=== PATIENT | male | born 1985 | race Caucasian/White ===

== ENCOUNTER 2017-10-19 08:12 | Observation (INO) | payer BC ==
[2017-10-19 08:55] LABS: #Basophils 0.1 thou/uL (0.0-0.2); #Eosinphils 0.3 thou/uL (0.0-0.7); #Lymphocytes 2.5 thou/uL (1.20-3.40); #Monocytes 0.6 thou/uL (0.11-0.59); %Basophils 0.9 % (0.0-1.0); %Eosinophils 3.5 % (0.0-10.0); %Lymphocytes 29.5 % (21.0-51.0); %Monocytes 7.5 % (0.0-10.0); %Neutrophils 58.6 % (42.0-75.0); Hemoglobin 15.1 g/dL (14.0-18.0); Mean Corpuscular HGB CONC 31.7 g/dL (32.0-36.0); Mean Corpuscular Hemoglobin 27.8 pg (27.0-31.0); Mean Corpuscular Volume 87.9 fl (80.0-94.0); Mean Platelet Volume 7.2 fL (7.4-10.4); Platelet Count 212 thou/uL (130-400); RBC Distribution Width 13.8 % (11.5-14.5); Red Blood Cell (RBC) Count 5.43 mill/uL (4.70-6.10); White Blood Cell (WBC) Count 8.5 thou/uL (4.8-10.8)
[2017-10-19 09:19] LABS: ALT (SGPT) 41 U/L (8-55); AST (SGOT) 23 U/L (5-34); Albumin 3.8 g/dL (3.5-5.0); Alkaline Phosphatase 111 U/L (40-150); Anion Gap 15 mmol/L (10-20); BUN (Urea Nitrogen) 15 mg/dL (8.9-20.6); Bilirubin, Total 0.4 mg/dL (0.2-1.2); Calc. Creatinine Clearance 0 mL/min (70-130); Calcium 9.9 mg/dL (7.8-10.44); Carbon Dioxide 28 mmol/L (22-29); Chloride 98 mmol/L (98-107); Estimated GFR-MDRD 77; Globulin 4.8 g/dL (2.4-3.5); Glucose 433 mg/dL (70-105); Potassium 4.6 mmol/L (3.5-5.1); Protein, Total 8.6 g/dL (6.0-8.3); Sodium 136 mmol/L (136-145)
[2017-10-19] MEDS ORDERED: Piperacillin/Tazobactam 4.5 GM in Sodium Chloride 0.9% 100 ML IVPB SCH (10:30)
--- NOTE | 2017-10-19 10:56 | RAD ---
3 VIEWS RIGHT FOOT: Date: 10/19/17 COMPARISON: 03/14/17. HISTORY: Right diabetic foot ulcer with foul-smelling wound. FINDINGS: Three views of the right foot show the patient to be status post amputation of the small toe through the mid portion of the metatarsal. Small amount of bone formation is seen along the amputation stump, which is unchanged. No osseous erosions are seen to suggest acute osteomyelitis. IMPRESSION: No osseous erosions to suggest osteomyelitis. POS: NANCY
[2017-10-19] MEDS ORDERED: Insulin Regular 300 UNITS/3 ML VIAL ONE (11:43)
[2017-10-19] MEDS ORDERED: Insulin Regular 300 UNITS/3 ML VIAL SC SCH (13:00)
[2017-10-19] MEDS ORDERED: Eucerin (Mineral Oil/Petrolatum,White) 30 gm Jar TOP PRN (13:22)
[2017-10-19] MEDS ORDERED: Dextrose 50% Abboject 50 ML SYRINGE SLOW IVP PRN (13:22)
[2017-10-19] MEDS ORDERED: Sodium Chloride 0.65% Nasal 44 ML BOT EA NARE PRN (13:22)
[2017-10-19] MEDS ORDERED: Chloraseptic Spray 180 ml Bottle PO PRN (13:22)
[2017-10-19] MEDS ORDERED: hydrALAZINE 20 MG/ML VIAL SLOW IVP PRN (13:22)
[2017-10-19] MEDS ORDERED: Mag-Al 1200 mg/1200 mg/30 ML UDCUP PO PRN (13:22)
[2017-10-19] MEDS ORDERED: Ondansetron HCl/PF 4 MG/2 ML Vial IVP PRN (13:22)
[2017-10-19] MEDS ORDERED: Loratadine 10 MG TAB PO PRN (13:22)
[2017-10-19] MEDS ORDERED: Ondansetron ODT 4 MG TAB PO PRN (13:22)
[2017-10-19] MEDS ORDERED: Diabetic Tussin 200 MG/10 ML UDCUP PO PRN (13:22)
[2017-10-19] MEDS ORDERED: Artificial Tears 18 DROP/0.9 ML EA EYE PRN (13:22)
[2017-10-19] MEDS ORDERED: Milk Of Magnesia 30 ML UDCUP PO PRN (13:22)
[2017-10-19] MEDS ORDERED: Dextrose 5% in Water 1,000 ML IV PRN (13:22)
[2017-10-19] MEDS ORDERED: HumaLOG 300 UNITS/3 ML VIAL SC PRN (13:22)
[2017-10-19] MEDS ORDERED: Loperamide HCl 2 MG CAP PO PRN (13:22)
[2017-10-19] MEDS ORDERED: Acetaminophen 325 MG TAB PO PRN (13:22)
[2017-10-19] MEDS ORDERED: Senokot 8.6 MG TAB PO PRN (13:22)
[2017-10-19] MEDS ORDERED: Zolpidem Tartrate 5 MG TAB PO PRN (13:22)
[2017-10-19 13:30] VITALS: BMI 45.0
--- NOTE | 2017-10-19 13:57 | HP ---
PRIMARY CARE PHYSICIAN: Dr. Alex Joya M.D. REASON FOR ADMISSION: Diabetic toe ulcer infected, failed outpatient therapy. HISTORY OF PRESENT ILLNESS: A 32-year-old male with a history of morbid obesity , diabetes type 2, hypertension, who has right foot plantar aspect ulcer which is draining serosanguineous foul smelling fluid. The patient has ulcer and he is following [facility]. He had change in his insurance from HMO to O and that is why he lost to follow up with [facility]. The patient was taking minocycline and Augmentin, but the patient was not feeling any better and he was experiencing more drainage and more foul smelling and that is why he decided to come to the emergency room for evaluation today. In the emergency room, x-ray of foot was negative for any bony infection. His routine blood test is unremarkable. At this point, we are admitting this patient in the hospital for aggressive wound care as well as IV antibiotic therapy. PAST MEDICAL HISTORY: Diabetic neuropathic foot ulcer, diabetes type 2 requiring insulin, diabetic neuropathy, morbid obesity, hypertension. PAST SURGICAL HISTORY: Amputation of right fifth toe with metatarsal in 09/2016 , orchiopexy. PAST PSYCHIATRIC HISTORY: Reviewed and negative. CURRENT HOME MEDICATIONS: Lantus insulin 120 units subcutaneously b.i.d., losartan 100 mg p.o. daily, Actos 45 mg p.o. daily, metformin 1000 mg p.o. b.i.d., amlodipine 5 mg p.o. daily ALLERGIES: CODEINE, HYDROCODONE. FAMILY HISTORY: Diabetes runs among several family members. SOCIAL HISTORY: The patient lives in [place], [place]. He works in [employer]. No history of tobacco, alcohol, or illicit drug abuse. REVIEW OF SYSTEMS: The following complete review of systems was negative, unless otherwise mentioned in the HPI or below: Constitutional: Weight loss or gain, ability to conduct usual activities. Skin: Rash, itching. Eyes: Double vision, pain. ENT/Mouth: Nose bleeding, neck stiffness, pain, tenderness. Cardiovascular: Palpitations, dyspnea on exertion, orthopnea. Respiratory: Shortness of breath, wheezing, cough, hemoptysis, fever, or night sweats. Gastrointestinal: Poor appetite, abdominal pain, heartburn, nausea, vomiting, constipation, or diarrhea. Genitourinary: Urgency, frequency, dysuria, nocturia. Musculoskeletal: Pain, swelling. Neurologic/Psychiatric: Anxiety, depression. Allergy/Immunologic: Skin rash, bleeding tendency. Please see my HPI for pertinent positives and negatives. All other review of systems reviewed and negative except as mentioned in the HPI. EMERGENCY ROOM COURSE: The patient has received Zosyn 4.5 grams IV fluid, Novolin R 10 units. PHYSICAL EXAMINATION: VITAL SIGNS: Currently, blood pressure 133/90, pulse 79, respiratory rate 18, temperature 97.6, saturation 95% on room air, weight 172.3 kg. GENERAL: Patient is currently alert, awake, no obvious acute distress. HEENT: Normocephalic, atraumatic. Eyes: Pupils are round and reactive to light. Extraocular muscles are intact. ENT: Oropharynx within normal limits. Moist mucous membranes. No oral lesions. No pharyngeal erythema, no exudates. NECK: Supple. No JVD, no thyromegaly, no carotid bruit, no jugular venous distention. LUNGS: Clear to auscultation without any rhonchi or rales. CARDIAC: S1 and S2 regular without any murmur. ABDOMEN: Morbid obesity limiting examination. No peritoneal sign, no organomegaly, no mass, no suprapubic tenderness. BACK: Unremarkable, no CVA tenderness. EXTREMITIES: Upper extremity passive movement of all joints are normal. Lower extremity varicose veins noted. The patient has coin shaped ulcer with surrounding serosanguineous foul smelling purulent drainage with surrounding erythema, especially this is on the right foot. Right fifth toe is amputated. NEUROLOGIC: Nonfocal examination. SKIN: No skin rash. HEMATOLOGICAL: No lymphadenopathy. SIGNIFICANT LABS: X-ray of foot is negative for any osteomyelitis. CBC: WBC 8.5, hemoglobin 15.1, platelets 212. BMP: Sodium 136, potassium 4.6, chloride 98, carbon dioxide 28, anion gap 15, BUN 15, creatinine 1.09, glucose 433, calcium 9.9. LFT: Total protein 8.6, albumin 3.8, AST 23, ALT 41. ASSESSMENT AND PLAN: 1. Right diabetic foot ulcer infection. Failed outpatient therapy. 2. Hyperglycemia associated with diabetes type 2. 3. Morbid obesity. 4. Hypertension. 5. Diabetic Peripheral Neuropathy. PLAN: 1. Full admission to medical floor, IV antibiotic therapy with vancomycin and Zosyn. Wound care team consultation. We will repeat labs, ESR and CRP tomorrow. We will resume patient's home medication including Lantus 120 units subcutaneously b.i.d., losartan 100 mg p.o. daily, amlodipine 5 mg p.o. daily, Actos 45 mg p.o. daily. We will adjust insulin dose while in hospital. Hyperglycemia protocol treatment will be initiated. Diabetic diet will be given supplemented with Jaydon b.i.d. to promote wound healing. 2. Deep venous thrombosis prophylaxis. Lovenox 40 mg subcu daily. 3. GI prophylaxis, Pepcid 20 mg p.o. b.i.d. 4. Code status: The patient is FULL CODE. The patient does not have any surrogate decision maker. Disposition and plan based on clinical course. We are expecting patient's stay in hospital more than 2 midnights. Plan of care discussed with the patient in detail. EVANGELINAD
[2017-10-19] MEDS ORDERED: Piperacillin/Tazobactam 3.375 GM in Sodium Chloride 0.9% 100 ML IVPB SCH (15:00)
[2017-10-19] MEDS ORDERED: FLU VACC QS2017-18 36 mo. & older 0.5 ML SYRINGE IM ONE (17:00)
[2017-10-19] MEDS: metFORMIN XR 500 MG TAB PO SCH (17:08)
[2017-10-19] MEDS: HumaLOG 300 UNITS/3 ML VIAL SC PRN (17:14)
[2017-10-19 18:46] LABS: Bilirubin Negative (Negative); Blood, Urine Negative (Negative); Clarity CLEAR (Clear); Glucose, Urine (Dipstick) 500 mg/dL (Negative); Leukocyte Negative (Negative); Nitrite Negative (Negative); Protein, Urine (Dipstick) 300 mg/dL (Neg-Trace); Specific Gravity, Urine 1.027 (1.002-1.036)
[2017-10-19 18:48] LABS: Bacteria/HPF None Seen HPF (None Seen); Hyaline Casts/LPF 0-3 HYALINE CAST LPF (0-3 Hyaline); Pathc Cast-AUWi Flag 0.27 (0-2.49); RBC/HPF 0-3 HPF (0-3); Squamous Epithelial 0-3 HPF (0-3); WBC/HPF 0-3 HPF (0-3)
[2017-10-19] MEDS: Piperacillin/Tazobactam 3.375 GM in Sodium Chloride 0.9% 100 ML IVPB SCH (19:39)
[2017-10-19] MEDS: Famotidine 20 MG TAB PO SCH (21:00)
[2017-10-19] MEDS: PRE FILLED SC SCH (21:00)
[2017-10-19] MEDS: INSULIN DETEMIR SC SCH (21:00)
[2017-10-20] MEDS: Piperacillin/Tazobactam 3.375 GM in Sodium Chloride 0.9% 100 ML IVPB SCH ×4 (01:34→18:39)
[2017-10-20 04:50] LABS: #Basophils 0.1 thou/uL (0.0-0.2); #Eosinphils 0.3 thou/uL (0.0-0.7); #Lymphocytes 2.7 thou/uL (1.20-3.40); #Monocytes 0.5 thou/uL (0.11-0.59); #Neutrophils 4.5 thou/uL (1.40-6.50); %Basophils 0.8 % (0.0-1.0); %Eosinophils 4.1 % (0.0-10.0); %Lymphocytes 33.6 % (21.0-51.0); %Monocytes 6.6 % (0.0-10.0); %Neutrophils 54.9 % (42.0-75.0); Hemoglobin 14.1 g/dL (14.0-18.0); Mean Corpuscular HGB CONC 31.5 g/dL (32.0-36.0); Mean Corpuscular Hemoglobin 27.5 pg (27.0-31.0); Mean Corpuscular Volume 87.3 fl (80.0-94.0); Mean Platelet Volume 7.3 fL (7.4-10.4); Platelet Count 193 thou/uL (130-400); RBC Distribution Width 13.6 % (11.5-14.5); Red Blood Cell (RBC) Count 5.13 mill/uL (4.70-6.10); White Blood Cell (WBC) Count 8.1 thou/uL (4.8-10.8)
[2017-10-20 05:12] LABS: Anion Gap 9 mmol/L (10-20); BUN (Urea Nitrogen) 15 mg/dL (8.9-20.6); CRP (Inflammatory) 0.56 mg/dL (= or < 0.5); Calc. Creatinine Clearance 279 mL/min (70-130); Calcium 9.1 mg/dL (7.8-10.44); Carbon Dioxide 30 mmol/L (22-29); Chloride 101 mmol/L (98-107); Estimated GFR-MDRD Greater than 90; Glucose 254 mg/dL (70-105); Potassium 4.2 mmol/L (3.5-5.1); Sodium 136 mmol/L (136-145)
[2017-10-20] MEDS: metFORMIN XR 500 MG TAB PO SCH ×2 (08:18→17:20)
[2017-10-20] MEDS: Saccharomyces boulardii 250 MG CAP PO SCH (08:19)
[2017-10-20] MEDS: Pioglitazone HCl 45 MG TAB PO SCH (08:19)
[2017-10-20] MEDS: Amlodipine 5 MG TAB PO SCH (08:19)
[2017-10-20] MEDS: Losartan 25 MG TAB PO SCH (08:19)
[2017-10-20] MEDS: Famotidine 20 MG TAB PO SCH ×2 (08:19→20:57)
[2017-10-20] MEDS: PRE FILLED SC SCH ×2 (08:20→20:57)
[2017-10-20] MEDS: INSULIN DETEMIR SC SCH ×2 (08:20→20:57)
[2017-10-20] MEDS: Enoxaparin Sodium 40 MG/0.4 ML SYRINGE SC SCH (08:20)
--- NOTE | 2017-10-20 09:19 | PDOC.PN ---
- Subjective Encounter Start Date: 10/20/17 Encounter Start Time: 08:20 Patient seen and examined. No new complaints. No overnight events - Objective Resuscitation Status: Resuscitation Status FULL:Full Resuscitation MAR Reviewed: Yes Vital Signs & Weight: Vital Signs (12 hours) Temp Pulse Resp BP BP Pulse Ox 10/20/17 08:19 77 145/90 H 10/20/17 08:00 98.3 F 77 16 10/20/17 07:42 98.3 F 77 16 145/90 H 94 L 10/20/17 04:00 97.8 F 75 20 138/69 94 L Weight Admit Weight 380 lb Weight 380 lb Result Diagrams: 10/20/17 04:26 10/20/17 04:26 Additional Labs: Accuchecks 10/20/17 10/19/17 10/19/17 04:56 19:47 17:11 POC Glucose 257 H 470 H 252 H Phys Exam - Physical Examination Constitutional: NAD HEENT: PERRLA, moist MMs, sclera anicteric Neck: no JVD, supple Respiratory: no wheezing, no rales, no rhonchi Cardiovascular: RRR, no significant murmur, no rub Gastrointestinal: soft, non-tender, no distention, positive bowel sounds Musculoskeletal: no edema, pulses present diabetic ulcer on planter aspect of right foot Neurological: non-focal, normal sensation, moves all 4 limbs Psychiatric: normal affect, A&O x 3 Skin: no rash, normal turgor Dx/Plan (1) Diabetic foot ulcer Code(s): E11.621 - TYPE 2 DIABETES MELLITUS WITH FOOT ULCER; L97.509 - NON- PRESSURE CHRONIC ULCER OTH PRT UNSP FOOT W UNSP SEVERITY Status: Acute (2) Hyperglycemia due to type 2 diabetes mellitus Code(s): E11.65 - TYPE 2 DIABETES MELLITUS WITH HYPERGLYCEMIA Status: Acute (3) Diabetes type 2, controlled Code(s): E11.9 - TYPE 2 DIABETES MELLITUS WITHOUT COMPLICATIONS Status: Chronic Qualifiers: (4) Diabetic neuropathy Code(s): E11.40 - TYPE 2 DIABETES MELLITUS WITH DIABETIC NEUROPATHY, UNSP Status: Chronic (5) Hypertension Code(s): I10 - ESSENTIAL (PRIMARY) HYPERTENSION Status: Chronic Qualifiers: (6) Morbid obesity with BMI of 45.0-49.9, adult Code(s): E66.01 - MORBID (SEVERE) OBESITY DUE TO EXCESS CALORIES; Z68.42 - BODY MASS INDEX (BMI) 45.0-49.9, ADULT Status: Chronic - Plan cont current plan of care * . Review of Systems - Review of Systems ENT: negative: Ear Pain, Ear Discharge, Nose Pain, Nose Discharge, Nose Congestion, Mouth Pain, Mouth Swelling, Throat Pain, Throat Swelling, Other Respiratory: negative: Cough, Dry, Shortness of Breath, Hemoptysis, SOB with Excertion, Pleuritic Pain, Sputum, Wheezing Cardiovascular: negative: chest pain, palpitations, orthopnea, paroxysmal nocturnal dyspnea, edema, light headedness, other Gastrointestinal: negative: Nausea, Vomiting, Abdominal Pain, Diarrhea, Constipation, Melena, Hematochezia, Other Genitourinary: negative: Dysuria, Frequency, Incontinence, Hematuria, Retention , Other Musculoskeletal: negative: Neck Pain, Shoulder Pain, Arm Pain, Back Pain, Hand Pain, Leg Pain, Foot Pain, Other Skin: negative: Rash, Lesions, Akash, Bruising, Other - Medications/Allergies Allergies/Adverse Reactions: Allergies Allergy/AdvReac Type Severity Reaction Status Date / Time codeine Allergy Verified 06/12/16 15:58 hydrocodone Allergy Verified 06/12/16 15:58 Medications: Current Medications Acetaminophen (Tylenol) 650 mg PO Q4H PRN PRN Reason: Headache/Fever or Pain Al Hydroxide/Mg Hydroxide (Maalox) 30 ml PO Q6H PRN PRN Reason: Heartburn or Indigestion Amlodipine Besylate (Norvasc) 5 mg PO DAILY [facility] Last Admin: 10/20/17 08:19 Dose: 5 mg Artificial Tears (Tears Naturale) 0 drop EA EYE PRN PRN PRN Reason: Dry Eyes Dextrose/Water (Dextrose 50%) 25 gm SLOW IVP PRN PRN PRN Reason: Hypoglycemia Enoxaparin Sodium (Lovenox) 40 mg SC 0900 [facility] Last Admin: 10/20/17 08:20 Dose: Not Given Famotidine (Pepcid) 20 mg PO BID [facility] Last Admin: 10/20/17 08:19 Dose: 20 mg Glucagon (Glucagon) 1 mg IM PRN PRN PRN Reason: Hypoglycemia Guaifenesin (Robitussin Sf) 200 mg PO Q4H PRN PRN Reason: Cough Hydralazine HCl (Apresoline) 10 mg SLOW IVP Q4H PRN PRN Reason: Systolic BP > 180 Dextrose/Water (D5w) 1,000 mls @ 0 mls/hr IV .Q0M PRN; As Directed PRN Reason: Hypoglycemia Insulin Detemir 120 units/ (Miscellaneous Medication) 1.2 mls @ 0 mls/hr SC HS [facility] Last Admin: 10/19/17 21:00 Dose: 1.2 mls Insulin Detemir 120 units/ (Miscellaneous Medication) 1.2 mls @ 0 mls/hr SC QAM [facility] Last Admin: 10/20/17 08:20 Dose: 1.2 mls Vancomycin HCl 2 gm/ Sodium (Chloride) 500 mls @ 250 mls/hr IVPB 0600,1400, 2200 [facility] Last Admin: 10/20/17 04:59 Dose: 500 mls Piperacillin Sod/Tazobactam (Sod 3.375 gm/ Sodium Chloride) 100 mls @ 200 mls/ hr IVPB Q6HR [facility] Last Admin: 10/20/17 04:59 Dose: 100 mls Insulin Human Lispro (Humalog) 0 units SC .MODERATE SLIDING SC PRN PRN Reason: Moderate Correctional Scale Last Admin: 10/19/17 17:14 Dose: 6 unit Insulin Human Lispro (Humalog) 0 units SC .BEDTIME SLIDING SC PRN PRN Reason: Bedtime Correctional Scale Loperamide HCl (Imodium) 2 mg PO PRN PRN PRN Reason: Diarrhea/Loose Stools Loratadine (Claritin) 10 mg PO DAILYPRN PRN PRN Reason: Sinus Symptoms Losartan Potassium (Cozaar) 100 mg PO DAILY [facility] Last Admin: 10/20/17 08:19 Dose: 100 mg Magnesium Hydroxide (Milk Of Magnesium) 30 ml PO DAILYPRN PRN PRN Reason: Constipation Metformin HCl (Glucophage Xr) 1,000 mg PO BID[facility] Last Admin: 10/20/17 08:18 Dose: 1,000 mg Mineral Oil/White Petrolatum (Eucerin Cream) 0 gm TOP BIDPRN PRN PRN Reason: Dry Skin Miscellaneous Medication (Pharmacy To Dose) 1 each IVPB .VANCOMYCIN [facility] Ondansetron HCl (Zofran Odt) 4 mg PO Q6H PRN PRN Reason: Nausea/Vomiting Ondansetron HCl (Zofran) 4 mg IVP Q6H PRN PRN Reason: Nausea/Vomiting Phenol (Chloraseptic [place] 180 Ml Bot) 0 ml PO PRN PRN PRN Reason: Sore Throat Pioglitazone HCl (Actos) 45 mg PO DAILY [facility] Last Admin: 10/20/17 08:19 Dose: 45 mg Saccharomyces Boulardii (Florastor) 250 mg PO DAILY [facility] Last Admin: 10/20/17 08:19 Dose: 250 mg Senna (Senokot) 2 tab PO HSPRN PRN PRN Reason: Constipation Sodium Chloride ([place] Nasal [place] 0.65%) 0 ml EA NARE QIDPRN PRN PRN Reason: Nasal Congestion Zolpidem Tartrate (Ambien) 5 mg PO HSPRN PRN PRN Reason: Insomnia
[2017-10-20] MEDS: HumaLOG 300 UNITS/3 ML VIAL SC PRN ×2 (12:12→17:20)
[2017-10-20 13:26] LABS: Vancomycin, Trough 23.2 ug/mL
[2017-10-20] MEDS: Vancomycin HCl 1.5 GM in Sodium Chloride 0.9% 250 ML 300 ML IVPB SCH ×2 (14:48→23:35)
[2017-10-21] MEDS: Piperacillin/Tazobactam 3.375 GM in Sodium Chloride 0.9% 100 ML IVPB SCH ×2 (01:06→05:39)
[2017-10-21] MEDS: Vancomycin HCl 1.5 GM in Sodium Chloride 0.9% 250 ML 300 ML IVPB SCH (05:39)
[2017-10-21 08:03] VITALS: BP 150/85; TEMP 97.7
[2017-10-21] MEDS: metFORMIN XR 500 MG TAB PO SCH (10:05)
[2017-10-21] MEDS: Pioglitazone HCl 45 MG TAB PO SCH (10:05)
[2017-10-21] MEDS: Famotidine 20 MG TAB PO SCH (10:06)
[2017-10-21] MEDS: Saccharomyces boulardii 250 MG CAP PO SCH (10:06)
[2017-10-21] MEDS: Enoxaparin Sodium 40 MG/0.4 ML SYRINGE SC SCH (10:06)
[2017-10-21] MEDS: Amlodipine 5 MG TAB PO SCH (10:06)
[2017-10-21] MEDS: Losartan 25 MG TAB PO SCH (10:06)
[2017-10-21] MEDS: PRE FILLED SC SCH (10:07)
[2017-10-21] MEDS: INSULIN DETEMIR SC SCH (10:07)
--- NOTE | 2017-10-21 10:16 | PDOC.PN ---
- Subjective Encounter Start Date: 10/21/17 Encounter Start Time: 08:20 Patient seen and examined. No new complaints. No overnight events - Objective Resuscitation Status: Resuscitation Status FULL:Full Resuscitation MAR Reviewed: Yes Vital Signs & Weight: Vital Signs (12 hours) Temp Pulse Resp BP BP Pulse Ox 10/21/17 10:06 76 150/85 H 10/21/17 08:02 97.7 F 76 16 150/85 H 94 L Weight Admit Weight 380 lb Weight 380 lb I&O: 10/20/17 10/21/17 10/22/17 06:59 06:59 06:59 Intake Total 2019 Output Total 2500 800 Balance -480 -800 Result Diagrams: 10/20/17 04:26 10/20/17 04:26 Additional Labs: Accuchecks 10/21/17 10/20/17 10/20/17 05:37 20:10 16:27 POC Glucose 180 H 245 H 244 H 10/20/17 11:37 POC Glucose 248 H Phys Exam - Physical Examination Constitutional: NAD HEENT: PERRLA, moist MMs, sclera anicteric Neck: no JVD, supple Respiratory: no wheezing, no rales, no rhonchi Cardiovascular: RRR, no significant murmur, no rub Gastrointestinal: soft, non-tender, no distention, positive bowel sounds Musculoskeletal: no edema, pulses present ulcer with dressing Neurological: non-focal, normal sensation Psychiatric: normal affect, A&O x 3 Skin: no rash, normal turgor Dx/Plan (1) Diabetic foot ulcer Code(s): E11.621 - TYPE 2 DIABETES MELLITUS WITH FOOT ULCER; L97.509 - NON- PRESSURE CHRONIC ULCER OTH PRT UNSP FOOT W UNSP SEVERITY Status: Acute (2) Hyperglycemia due to type 2 diabetes mellitus Code(s): E11.65 - TYPE 2 DIABETES MELLITUS WITH HYPERGLYCEMIA Status: Acute (3) Diabetes type 2, controlled Code(s): E11.9 - TYPE 2 DIABETES MELLITUS WITHOUT COMPLICATIONS Status: Chronic Qualifiers: (4) Diabetic neuropathy Code(s): E11.40 - TYPE 2 DIABETES MELLITUS WITH DIABETIC NEUROPATHY, UNSP Status: Chronic (5) Hypertension Code(s): I10 - ESSENTIAL (PRIMARY) HYPERTENSION Status: Chronic Qualifiers: (6) Morbid obesity with BMI of 45.0-49.9, adult Code(s): E66.01 - MORBID (SEVERE) OBESITY DUE TO EXCESS CALORIES; Z68.42 - BODY MASS INDEX (BMI) 45.0-49.9, ADULT Status: Chronic - Plan cont current plan of care, continue antibiotics * medication reviewed as below * symptomatic treatment * see discharge summery * wound care. Review of Systems - Review of Systems ENT: negative: Ear Pain, Ear Discharge, Nose Pain, Nose Discharge, Nose Congestion, Mouth Pain, Mouth Swelling, Throat Pain, Throat Swelling, Other Respiratory: negative: Cough, Dry, Shortness of Breath, Hemoptysis, SOB with Excertion, Pleuritic Pain, Sputum, Wheezing Cardiovascular: negative: chest pain, palpitations, orthopnea, paroxysmal nocturnal dyspnea, edema, light headedness, other Gastrointestinal: negative: Nausea, Vomiting, Abdominal Pain, Diarrhea, Constipation, Melena, Hematochezia, Other Genitourinary: negative: Dysuria, Frequency, Incontinence, Hematuria, Retention , Other Musculoskeletal: negative: Neck Pain, Shoulder Pain, Arm Pain, Back Pain, Hand Pain, Leg Pain, Foot Pain, Other Skin: negative: Rash, Lesions, Akash, Bruising, Other - Medications/Allergies Allergies/Adverse Reactions: Allergies Allergy/AdvReac Type Severity Reaction Status Date / Time codeine Allergy Verified 06/12/16 15:58 hydrocodone Allergy Verified 06/12/16 15:58 Medications: Current Medications Acetaminophen (Tylenol) 650 mg PO Q4H PRN PRN Reason: Headache/Fever or Pain Al Hydroxide/Mg Hydroxide (Maalox) 30 ml PO Q6H PRN PRN Reason: Heartburn or Indigestion Amlodipine Besylate (Norvasc) 5 mg PO DAILY [facility] Last Admin: 10/21/17 10:06 Dose: 5 mg Artificial Tears (Tears Naturale) 0 drop EA EYE PRN PRN PRN Reason: Dry Eyes Dextrose/Water (Dextrose 50%) 25 gm SLOW IVP PRN PRN PRN Reason: Hypoglycemia Enoxaparin Sodium (Lovenox) 40 mg SC 0900 [facility] Last Admin: 10/21/17 10:06 Dose: Not Given Famotidine (Pepcid) 20 mg PO BID [facility] Last Admin: 10/21/17 10:06 Dose: 20 mg Glucagon (Glucagon) 1 mg IM PRN PRN PRN Reason: Hypoglycemia Guaifenesin (Robitussin Sf) 200 mg PO Q4H PRN PRN Reason: Cough Hydralazine HCl (Apresoline) 10 mg SLOW IVP Q4H PRN PRN Reason: Systolic BP > 180 Dextrose/Water (D5w) 1,000 mls @ 0 mls/hr IV .Q0M PRN; As Directed PRN Reason: Hypoglycemia Insulin Detemir 120 units/ (Miscellaneous Medication) 1.2 mls @ 0 mls/hr SC HS [facility] Last Admin: 10/20/17 20:57 Dose: 1.2 mls Insulin Detemir 120 units/ (Miscellaneous Medication) 1.2 mls @ 0 mls/hr SC QAM [facility] Last Admin: 10/21/17 10:07 Dose: 1.2 mls Piperacillin Sod/Tazobactam (Sod 3.375 gm/ Sodium Chloride) 100 mls @ 200 mls/ hr IVPB Q6HR [facility] Last Admin: 10/21/17 05:39 Dose: 100 mls Vancomycin HCl 1.5 gm/ Sodium (Chloride) 300 mls @ 200 mls/hr IVPB 0700,1500, 2300 [facility] Last Admin: 10/21/17 05:39 Dose: 300 mls Insulin Human Lispro (Humalog) 0 units SC .MODERATE SLIDING SC PRN PRN Reason: Moderate Correctional Scale Last Admin: 10/20/17 17:20 Dose: 4 unit Insulin Human Lispro (Humalog) 0 units SC .BEDTIME SLIDING SC PRN PRN Reason: Bedtime Correctional Scale Loperamide HCl (Imodium) 2 mg PO PRN PRN PRN Reason: Diarrhea/Loose Stools Loratadine (Claritin) 10 mg PO DAILYPRN PRN PRN Reason: Sinus Symptoms Losartan Potassium (Cozaar) 100 mg PO DAILY [facility] Last Admin: 10/21/17 10:06 Dose: 100 mg Magnesium Hydroxide (Milk Of Magnesium) 30 ml PO DAILYPRN PRN PRN Reason: Constipation Metformin HCl (Glucophage Xr) 1,000 mg PO BID-[facility] Last Admin: 10/21/17 10:05 Dose: 1,000 mg Mineral Oil/White Petrolatum (Eucerin Cream) 0 gm TOP BIDPRN PRN PRN Reason: Dry Skin Miscellaneous Medication (Pharmacy To Dose) 1 each IVPB .VANCOMYCIN [facility] Ondansetron HCl (Zofran Odt) 4 mg PO Q6H PRN PRN Reason: Nausea/Vomiting Ondansetron HCl (Zofran) 4 mg IVP Q6H PRN PRN Reason: Nausea/Vomiting Phenol (Chloraseptic [place] 180 Ml Bot) 0 ml PO PRN PRN PRN Reason: Sore Throat Pioglitazone HCl (Actos) 45 mg PO DAILY [facility] Last Admin: 10/21/17 10:05 Dose: 45 mg Saccharomyces Boulardii (Florastor) 250 mg PO DAILY [facility] Last Admin: 10/21/17 10:06 Dose: 250 mg Senna (Senokot) 2 tab PO HSPRN PRN PRN Reason: Constipation Sodium Chloride ([place] Nasal [place] 0.65%) 0 ml EA NARE QIDPRN PRN PRN Reason: Nasal Congestion Zolpidem Tartrate (Ambien) 5 mg PO HSPRN PRN PRN Reason: Insomnia
--- NOTE | 2017-10-21 10:19 | DIS ---
DATE OF ADMISSION: 10/19/2017 DATE OF DISCHARGE: 10/21/2017 PRIMARY CARE PHYSICIAN: Alex Joya M.D. DISCHARGE DISPOSITION: Home. PRIMARY DISCHARGE DIAGNOSES: 1. Right diabetic foot ulcer infection. 2. Hyperglycemia associated with diabetes type 2. SECONDARY DISCHARGE DIAGNOSES: Morbid obesity with body mass index of 45, hypertension, diabetic per ipheral neuropathy, and diabetes type 2. PRIMARY PROCEDURE/OPERATION: None. RADIOLOGICAL INVESTIGATION: Foot x-ray negative for any osteomyelitis. SIGNIFICANT LABORATORY DATA: WBC 8.1, ESR 43, hemoglobin 14.1, creatinine 0.91, CRP 0.56. Urinalysi s normal. Foot culture is growing Enterococcus. DISCHARGE MEDICATIONS: Augmentin 875 mg p.o. b.i.d., minocycline 100 mg p.o. b.i.d., amlodipine 5 mg p.o. b.i.d., Lantus insulin 100 units subcu b.i.d., Cozaar 100 mg p.o. daily, metformin ER 1000 mg p .o. b.i.d., and Actos 45 mg p.o. daily. CONTRAINDICATIONS: None. CODE STATUS: FULL CODE. INPATIENT CONSULTANTS: None. ALLERGIES: HYDROCODONE AND CODEINE. DISCHARGE PLAN: Post hospital, the patient is advised to follow with primary care physician within a week as well as patient is advised to make appointment with outpatient [facility] for wound c are. HOSPITAL COURSE: A 32-year-old male with a history of diabetes and he had diabetic foot ulcer on the plantar aspect of the right foot, which was draining foul-smelling liquid and that is why we admitte d this patient in hospital, he was already on Augmentin and minocycline before coming to the hospital and the patient did not see any improvement. Though he was afebrile and hemodynamically stable whil e in hospital, we gave him IV vancomycin and Zosyn while in hospital. Culture from the foot ulcer is growing Enterococcus. On discharge, we continued Augmentin and minocycline. He will follow up with primary care physician for followup on culture result and we also advised him about weightbearing as well as wound care. He will make appointment with outpatient [facility] Care Clinic for better wound car e at outpatient basis. Regarding diabetes control, we provided diabetic education and dietary education. While in hospital, we continued all his home medication as well as on discharge. At this point, this patient does not need any prolonged IV antibiotic therapy given afebrile nature a s well as his culture from wound is growing may be concomitant or colonized bacteria there, but we cl inically do not suspect any ongoing deeper infection. His x-ray was also negative for osteomyelitis. He may need aggressive wound care and weightbearing off for proper healing of the wound. We also p rovided dietary education and a wound shoe was given while in hospital to promote wound healing. The patient is seen and examined at bedside today. I reviewed with him all review of systems and neg ative. PHYSICAL EXAMINATION: VITAL SIGNS: Currently, temperature 98.3, pulse 61, respiratory rate 12, saturation 94%, blood press ure 150/85. Weight 380 pounds. GENERAL: The patient is currently alert, awake, in no acute distress. HEAD: Normocephalic, atraumatic. LUNGS: Clear to auscultation without any rhonchi or rales. CARDIAC: S1, S2 regular without any murmur. ABDOMEN: Morbid obesity limiting examination. EXTREMITIES: His plantar aspect of ulcer is covered with a dressing wound photo noted from yesterday . NEUROLOGIC: Nonfocal examination. The patient is medically stable for discharge later on today after evening dose of antibiotic therapy .
== END 2017-10-21 10:59 | disposition home or self-care (01) ==
LOC: ERS 08:12 → INTOOBSV 13:08 → T4-A 13:08
PROVIDERS: ADMIT Internal Medicine; ATTEND Internal Medicine
DX: E11.621 Type 2 diabetes mellitus with foot ulcer (principal); Z68.42 Body mass index [BMI] 45.0-49.9, adult; L97.519 Non-pressure chronic ulcer of other part of right foot with unspecified severity; E11.42 Type 2 diabetes mellitus with diabetic polyneuropathy; Z79.4 Long term (current) use of insulin; I10 Essential (primary) hypertension; E66.01 Morbid (severe) obesity due to excess calories; Z89.421 Acquired absence of other right toe(s); Z79.84 Long term (current) use of oral hypoglycemic drugs; Z83.3 Family history of diabetes mellitus; E11.65 Type 2 diabetes mellitus with hyperglycemia; B95.2 Enterococcus as the cause of diseases classified elsewhere
CPT/HCPCS: 36415; 36416; 80048; 80053; 80202; 81001; 85025; 85652; 86140; 87070; 87077; 87186; 87205; 96361; 96365; J1650; J1815; J2543; J3370; J7050

== ENCOUNTER 2018-01-06 10:30 | Inpatient (IN) | payer BC, SELFPAY ==
[2018-01-06] MEDS ORDERED: Piperacillin/Tazobactam 4.5 GM VIAL ONE (11:30)
[2018-01-06] MEDS ORDERED: Piperacillin/Tazobactam 4.5 GM in Sodium Chloride 0.9% 100 ML IVPB ONE (11:30)
[2018-01-06 11:33] LABS: #Basophils 0.1 thou/uL (0.0-0.2); #Eosinphils 0.3 thou/uL (0.0-0.7); #Lymphocytes 3.1 thou/uL (1.20-3.40); #Monocytes 0.7 thou/uL (0.11-0.59); #Neutrophils 4.7 thou/uL (1.40-6.50); %Eosinophils 3.2 % (0.0-10.0); %Lymphocytes 34.9 % (21.0-51.0); %Monocytes 7.8 % (0.0-10.0); %Neutrophils 53.2 % (42.0-75.0); Hemoglobin 14.3 g/dL (14.0-18.0); Mean Corpuscular HGB CONC 32.3 g/dL (32.0-36.0); Mean Corpuscular Volume 83.5 fl (80.0-94.0); Mean Platelet Volume 7.7 fL (7.4-10.4); Platelet Count 201 thou/uL (130-400); RBC Distribution Width 13.5 % (11.5-14.5); White Blood Cell (WBC) Count 8.7 thou/uL (4.8-10.8)
[2018-01-06 11:43] LABS: ALT (SGPT) 43 U/L (8-55); AST (SGOT) 33 U/L (5-34); Albumin 3.8 g/dL (3.5-5.0); Alkaline Phosphatase 108 U/L (40-150); Anion Gap 12 mmol/L (10-20); BUN (Urea Nitrogen) 19 mg/dL (8.9-20.6); Bilirubin, Total 0.4 mg/dL (0.2-1.2); Calc. Creatinine Clearance 0 mL/min (70-130); Calcium 9.7 mg/dL (7.8-10.44); Carbon Dioxide 28 mmol/L (22-29); Chloride 98 mmol/L (98-107); Estimated GFR-MDRD 86; Globulin 4.6 g/dL (2.4-3.5); Glucose 290 mg/dL (70-105); Potassium 4.4 mmol/L (3.5-5.1); Protein, Total 8.4 g/dL (6.0-8.3); Sodium 134 mmol/L (136-145)
--- NOTE | 2018-01-06 13:16 | RAD ---
RADIOGRAPH RIGHT FOOT 3 VIEWS: DATE: 01/06/18. HISTORY: A 32-year-old male with right foot ulcer complications. COMPARISON: 10/19/17. FINDINGS: There is absence of the distal half of the left metatarsal and the entire left 5th toe. There are co rticated moderate-sized fragments of bone in place of the mid diaphysis of the 5th metatarsal. There is soft tissue swelling of the foot diffusely, somewhat worse than on the previous study. No perios teal elevation or permeative lesion is identified. There are extensive numerous tiny soft tissue makayla cifications in the distal calf and upper ankle. IMPRESSION: 1. Status post amputation at 5th metatarsal shaft, with chronic osseous fragments. 2. Diffuse soft tissue edema of the foot, worse than on previous study. 3. No destructive osseous lesion identified. POS: NANCY
[2018-01-06] MEDS ORDERED: Chloraseptic Spray 180 ml Bottle PO PRN (14:25)
[2018-01-06] MEDS ORDERED: Dextrose 50% Abboject 50 ML SYRINGE SLOW IVP PRN (14:25)
[2018-01-06] MEDS ORDERED: Ondansetron HCl/PF 4 MG/2 ML Vial IVP PRN ×2 (14:25→14:27)
[2018-01-06] MEDS ORDERED: Senokot 8.6 MG TAB PO PRN (14:25)
[2018-01-06] MEDS ORDERED: Milk Of Magnesia 30 ML UDCUP PO PRN (14:25)
[2018-01-06] MEDS ORDERED: Acetaminophen 325 MG TAB PO PRN ×2 (14:25→14:27)
[2018-01-06] MEDS ORDERED: Dextrose 5% in Water 1,000 ML IV PRN (14:25)
[2018-01-06] MEDS ORDERED: Eucerin (Mineral Oil/Petrolatum,White) 30 gm Jar TOP PRN (14:25)
[2018-01-06] MEDS ORDERED: Loratadine 10 MG TAB PO PRN (14:25)
[2018-01-06] MEDS ORDERED: Ondansetron ODT 4 MG TAB PO PRN ×2 (14:25→14:27)
[2018-01-06] MEDS ORDERED: Mag-Al 1200 mg/1200 mg/30 ML UDCUP PO PRN (14:25)
[2018-01-06] MEDS ORDERED: Loperamide HCl 2 MG CAP PO PRN (14:25)
[2018-01-06] MEDS ORDERED: Diabetic Tussin 200 MG/10 ML UDCUP PO PRN (14:25)
[2018-01-06] MEDS ORDERED: hydrALAZINE 20 MG/ML VIAL SLOW IVP PRN (14:25)
[2018-01-06] MEDS ORDERED: Artificial Tears 18 DROP/0.9 ML EA EYE PRN (14:25)
[2018-01-06] MEDS ORDERED: Sodium Chloride 0.65% Nasal 44 ML BOT EA NARE PRN (14:25)
[2018-01-06] MEDS ORDERED: Zolpidem Tartrate 5 MG TAB PO PRN (14:25)
[2018-01-06 14:30] VITALS: BMI 44.6
--- NOTE | 2018-01-06 14:51 | HP ---
PRIMARY CARE PHYSICIAN: Dr. Alex Joya. REASON FOR ADMISSION: Right diabetic foot ulcer, failed outpatient therapy. HISTORY OF PRESENT ILLNESS: A 32-year-old male who has morbid obesity and poorly controlled diabetes as well as history of hypertension, who works in [employer] and most of the time he has to stand on hi s feet. He has diabetic foot ulcer and he was most recently admitted in our hospital in 10/2017. At that time, he was treated with IV antibiotic therapy while in hospital and he was given oral antibio tic therapy upon discharge. The patient finished antibiotic therapy. The patient reports that after stopping antibiotic therapy, he visited laboratory specialist in November. In December, he lost his insurance and that is why he was not able to follow up with them. The patient noted that he has an ulcer in his r ight foot on the plantar aspect which was getting worse and it was draining foul-smelling purulent ma terial. In the emergency room, the patient had foot x-ray which showed diffuse soft tissue edema whi ch was worse from previous, but without any bony involvement. At this point, we are admitting this p atient in hospital for IV antibiotic therapy. REVIEW OF SYSTEMS: Please see my HPI for pertinent positive and negative. All other review of syste m reviewed and negative except as mentioned in the HPI. Constitutional: Weight loss or gain, ability to conduct usual activities. Skin: Rash, itching. Eyes: Double vision, pain. ENT/Mouth: Nose bleeding, neck stiffness, pain, tenderness. Cardiovascular: Palpitations, dyspnea on exertion, orthopnea. Respiratory: Shortness of breath, wheezing, cough, hemoptysis, fever or night sweats. Gastrointestinal: Poor appetite, abdominal pain, heartburn, nausea, vomiting, constipation, or diarrhea. Genitourinary: Urgency, frequency, dysuria, nocturia. Musculoskeletal: Pain, swelling. Neurologic/Psychiatric: Anxiety, depression. Allergy/Immunologic: Skin rash, bleeding tendency. PAST MEDICAL HISTORY: Morbid obesity; hypertension; diabetic neuropathy; diabetes type 2, requiring insulin; diabetic neuropathic foot ulcer on the right foot. PAST SURGICAL HISTORY: Amputation of right fifth toe with metatarsal in 09/2016, orchiopexy. PAST PSYCHIATRIC HISTORY: Reviewed and negative. CURRENT HOME MEDICATIONS: Lantus 120 units subcutaneously b.i.d., losartan 100 mg p.o. daily, Actos 45 mg p.o. daily, metformin 1000 mg p.o. b.i.d., amlodipine 5 mg p.o. daily. ALLERGIES: CODEINE and HYDROCODONE. FAMILY HISTORY: Diabetes runs among several family members. SOCIAL HISTORY: The patient lives in [place], [place]. He works in [employer]. No history of tobacco, a lcohol or illicit drug abuse. EMERGENCY ROOM COURSE: The patient has received IV fluid and Zosyn 4.5 gram. PHYSICAL EXAMINATION: VITAL SIGNS: On arrival, blood pressure 135/85, pulse 76, respiratory rate 18, temperature 98.3, sat uration 97% on room air, weight 171 pounds. GENERAL: The patient is currently alert, awake, no obvious acute distress. HEAD: Normocephalic, atraumatic. EYES: Pupils round, reactive to light. Extraocular muscle intact. ENT: Oropharynx within normal limits. Moist mucous membranes. No oral lesion, no pharyngeal erythe ma, no exudate. NECK: Supple, no JVD, no thyromegaly, no carotid bruit, no jugular venous distension, no meningeal s igns of irritation. LUNGS: Clear to auscultation without any rhonchi or rales. CARDIAC: S1, S2 regular. No murmur, no gallop, no rub. ABDOMEN: Morbid obesity limiting examination. No organomegaly, no mass, no suprapubic tenderness. Bowel sounds present, no distention. BACK: Unremarkable, no CVA tenderness. EXTREMITIES: Upper extremity: Passive movements of all joints are normal. Lower extremities: No e lm. Good peripheral pulsation. The patient does have around 1 inch diabetic ulcer on the plantar aspect of the right foot, right fifth digit is amputated. NEUROLOGIC: Nonfocal examination. The patient moves all 4 limbs. Plantar bilateral flexor. SKIN: No skin rash other than diabetic ulcer on the plantar aspect of right foot. HEMATOLOGIC: No lymphadenopathy. PSYCHIATRIC: Normal affect. SIGNIFICANT LABORATORY DATA: CBC: WBC 8.7, hemoglobin 14.3, platelet 201. BMP: Sodium 134, potass ium 4.4, chloride 98, carbon dioxide 28, BUN 19, creatinine 1.0, glucose 290, calcium 9.7. LFT: AST 33, ALT 43, alkaline phosphatase 108, albumin 3.8. CRP 1.77. BNP less than 10. ASSESSMENT AND PLAN: 1. The right foot diabetic foot ulcer. 2. Failure of outpatient therapy. 3. Uncontrolled diabetes mellitus type 2, requiring insulin. 4. Hypertension. 5. Morbid obesity. 6. Diabetic neuropathy. PLAN: 1. Admission to medical floor, start vancomycin and Zosyn as per renally adjusted dose. Wound care team consultation. We will consult Dr. Cortes for his opinion. We will resume patient's home medicat ion including Lantus insulin, Actos, metformin, losartan and amlodipine as per home dosage, Florastor as a probiotics. 2. Nutritional supplement with [place] and Glucerna to promote wound healing. 3. Deep venous thrombosis prophylaxis, Lovenox 40 mg subcu daily. 4. Gastrointestinal prophylaxis, Pepcid 20 mg p.o. b.i.d. 5. Code status: The patient is FULL CODE. The patient does not have any surrogate decision maker. Disposition plan based on clinical course. We are expecting patient's stay in hospital more than 2 m idnights. Plan of care discussed with the patient in detail.
[2018-01-06] MEDS: metFORMIN 500 MG TAB PO SCH (16:41)
[2018-01-06] MEDS: Piperacillin/Tazobactam 4.5 GM in Sodium Chloride 0.9% 100 ML IVPB SCH ×2 (17:10→23:46)
[2018-01-06] MEDS ORDERED: Piperacillin/Tazobactam 4.5 GM in Sodium Chloride 0.9% 100 ML IVPB SCH (18:00)
[2018-01-06] MEDS: Amlodipine 5 MG TAB PO SCH (21:06)
[2018-01-06] MEDS: PRE FILLED SC SCH (21:06)
[2018-01-06] MEDS: Famotidine 20 MG TAB PO SCH (21:06)
[2018-01-06] MEDS: INSULIN DETEMIR SC SCH (21:06)
[2018-01-06] MEDS: Insulin Regular 300 UNITS/3 ML VIAL SC PRN (21:07)
[2018-01-07] MEDS: Piperacillin/Tazobactam 4.5 GM in Sodium Chloride 0.9% 100 ML IVPB SCH ×4 (05:19→23:10)
[2018-01-07] MEDS: Insulin Regular 300 UNITS/3 ML VIAL SC PRN ×4 (05:23→20:28)
[2018-01-07] MEDS: Famotidine 20 MG TAB PO SCH ×2 (08:18→20:28)
[2018-01-07] MEDS: Amlodipine 5 MG TAB PO SCH ×2 (08:18→20:28)
[2018-01-07] MEDS: metFORMIN 500 MG TAB PO SCH ×2 (08:18→17:44)
[2018-01-07] MEDS: Pioglitazone HCl 45 MG TAB PO SCH (08:19)
[2018-01-07] MEDS: INSULIN DETEMIR SC SCH ×2 (08:19→20:29)
[2018-01-07] MEDS: Saccharomyces boulardii 250 MG CAP PO SCH (08:19)
[2018-01-07] MEDS: PRE FILLED SC SCH ×2 (08:19→20:29)
[2018-01-07] MEDS: Enoxaparin Sodium 40 MG/0.4 ML SYRINGE SC SCH (08:19)
[2018-01-07] MEDS: Losartan 25 MG TAB PO SCH (08:19)
--- NOTE | 2018-01-07 08:59 | CON ---
DATE OF CONSULTATION: 01/06/2018 REASON FOR CONSULTATION: Right foot ulcer with pain and odor. HISTORY OF PRESENT ILLNESS: A 32-year-old known to us from prior visits with history of obesity; typ e 2 diabetes; neuropathy; previous complications in the right and left feet, which we had treated in the past. The most recent issue was a persistent right foot ulcer. This is following fifth toe ampu tation at [facility]. The patient was last admitted to [facility] a f ew months ago where he had an MRI. I have not yet been able to review it, but reportedly did not craole w any osteomyelitis. The patient was discharged and persisted with the ulcer and now has developed c hanges suggestive of inflammatory process. He was given antimicrobial therapy recently and then saw a jewel setter and could not follow his jewel setter due to having lost his insurance. Now, he came to [facility] emergency room because of foul odor, purulent drainage, and some evidence of cellulitis. No heada ches, visual symptoms, sore throat, odynophagia, dysphagia. No cough, sputum production, or chest pa in. No abdominal pain or diarrhea. No genitourinary symptoms. No other joint symptoms. PAST MEDICAL HISTORY: Obesity; hypertension; diabetes mellitus type 2 with neuropathy; amputation of right fifth toe; left foot ulcer, which healed. ALLERGIES: CODEINE, HYDROCODONE. FAMILY HISTORY: Diabetes mellitus type 2. SOCIAL HISTORY: Lives in [place], works in [employer]. Never a smoker. MEDICATIONS: Losartan, insulin, Actos, metformin, Norvasc; and currently he is on piperacillin and t azobactam, vancomycin. PHYSICAL EXAMINATION: VITAL SIGNS: T-max 97.8, blood pressure 150/95, pulse 66, respirations 18, O2 sat 97%. SKIN: Shows a round-shaped ulcer with callus formation surrounding it. No undermining. I was not a ble to probe any bone at the bottom of the ulcer. The bottom has fresh granulation tissue or red tis sera. No tendon exposure. Little bit of tenderness in the surrounding tissues, but not an inordinate amount of erythema. No lymphadenopathy. HEENT: Not remarkable. NECK: Supple. LUNGS: With symmetric clear breath sounds. HEART: S1, S2 regular rate. No S3, S4. ABDOMEN: Soft. Not distended or tender. LUNGS: Clear to auscultation and percussion. No bladder distention. : No genital abnormalities. EXTREMITIES: Pulses are 1+ in popliteals and faintly palpable in dorsalis pedis. Cap refill is less than 3 seconds. He is able to move extremities equally. NEUROLOGIC: His cognitive function appears to be intact. LABORATORY DATA: White cell count 8.7 and other findings in CBC are normal. Chemistry with a sodium 134, creatinine 1, glucose 290 with normal liver profile, albumin 3.87, total protein 8.4. Foot x-r ay with no destructive osseous lesion, diffuse soft tissue edema, and amputation of fifth metatarsal shaft. ASSESSMENT: 1. Obesity with diabetes mellitus type 2 and neuropathy. 2. Chronic right foot ulcer, plantar aspect with inflammatory changes. DISCUSSION: There is no evidence of exposure of bone. Not a lot of inflammatory changes during my e xam. He does have some tenderness and some mild cellulitis. He did have an MRI done at [facility] a few months ago when he was admitted. At this point, it looks like this is limit ed to the soft tissues and no further penetration, and we would recommend transition to oral antimicr obial therapy. Discharge on antimicrobial therapy on a combination of ciprofloxacin and Augmentin given for approxim ately 10-14 days. Follow up in the clinic. May need repeat imaging study with MRI depending on clin ical progress. I believe he already had vascular evaluation and also we will go ahead and review the MRI at [facility] whatever of vascular study he had done at [facility]. If no arterial Do pplers were completed, then I would recommend an arterial Doppler to be done here before discharge.
--- NOTE | 2018-01-07 10:59 | PDOC.PN ---
- Subjective Encounter Start Date: 01/07/18 Encounter Start Time: 09:20 Patient seen and examined. No new complaints. No overnight events - Objective Resuscitation Status: Resuscitation Status FULL:Full Resuscitation MAR Reviewed: Yes Vital Signs & Weight: Vital Signs (12 hours) Temp Pulse Resp BP BP BP Pulse Ox 01/07/18 08:18 81 137/82 01/07/18 08:00 98.2 F 81 16 137/82 96 01/07/18 03:41 97.6 F 78 18 131/76 93 L 01/06/18 23:52 97.5 F L 66 18 141/88 H 94 L Weight Admit Weight 377 lb Weight 377 lb I&O: 01/06/18 01/07/18 01/08/18 06:59 06:59 06:59 Intake Total 1790 Balance 1790 Result Diagrams: 01/06/18 11:15 01/06/18 11:15 Additional Labs: Accuchecks 01/07/18 01/06/18 01/06/18 05:24 21:05 16:41 POC Glucose 246 H 342 H 268 H Phys Exam - Physical Examination Constitutional: NAD HEENT: PERRLA, moist MMs, sclera anicteric Neck: no JVD, supple Respiratory: no wheezing, no rales, no rhonchi Cardiovascular: RRR, no significant murmur, no rub Gastrointestinal: soft, non-tender, no distention, positive bowel sounds Musculoskeletal: no edema, pulses present diabetic ulcer Neurological: non-focal, normal sensation Psychiatric: normal affect, A&O x 3 Skin: no rash, normal turgor Dx/Plan (1) Diabetic foot ulcer Code(s): E11.621 - TYPE 2 DIABETES MELLITUS WITH FOOT ULCER; L97.509 - NON- PRESSURE CHRONIC ULCER OTH PRT UNSP FOOT W UNSP SEVERITY Status: Acute Qualifiers: Diabetic foot ulcer location: midfoot Diabetes mellitus type: type 2 Laterality: right (2) Diabetes type 2, controlled Code(s): E11.9 - TYPE 2 DIABETES MELLITUS WITHOUT COMPLICATIONS Status: Chronic Qualifiers: (3) Diabetic neuropathy Code(s): E11.40 - TYPE 2 DIABETES MELLITUS WITH DIABETIC NEUROPATHY, UNSP Status: Chronic (4) Hypertension Code(s): I10 - ESSENTIAL (PRIMARY) HYPERTENSION Status: Chronic Qualifiers: (5) Morbid obesity with BMI of 40.0-44.9, adult Code(s): E66.01 - MORBID (SEVERE) OBESITY DUE TO EXCESS CALORIES; Z68.41 - BODY MASS INDEX (BMI) 40.0-44.9, ADULT Status: Chronic - Plan cont current plan of care, continue antibiotics * continue vancomycin and zosyn * wound care * medication reviewed as below * symptomatic treatment * ID recommendation noted. Review of Systems - Review of Systems ENT: negative: Ear Pain, Ear Discharge, Nose Pain, Nose Discharge, Nose Congestion, Mouth Pain, Mouth Swelling, Throat Pain, Throat Swelling, Other Respiratory: negative: Cough, Dry, Shortness of Breath, Hemoptysis, SOB with Excertion, Pleuritic Pain, Sputum, Wheezing Cardiovascular: negative: chest pain, palpitations, orthopnea, paroxysmal nocturnal dyspnea, edema, light headedness, other Gastrointestinal: negative: Nausea, Vomiting, Abdominal Pain, Diarrhea, Constipation, Melena, Hematochezia, Other Genitourinary: negative: Dysuria, Frequency, Incontinence, Hematuria, Retention , Other Musculoskeletal: negative: Neck Pain, Shoulder Pain, Arm Pain, Back Pain, Hand Pain, Leg Pain, Foot Pain, Other Skin: negative: Rash, Lesions, Akash, Bruising, Other - Medications/Allergies Allergies/Adverse Reactions: Allergies Allergy/AdvReac Type Severity Reaction Status Date / Time acetaminophen [From [place]] Allergy Verified 01/06/18 14:51 hydrocodone [From [place]] Allergy Verified 01/06/18 14:51 Medications: Current Medications Al Hydroxide/Mg Hydroxide (Maalox) 30 ml PO Q6H PRN PRN Reason: Heartburn or Indigestion Amlodipine Besylate (Norvasc) 5 mg PO BID [facility] Last Admin: 01/07/18 08:18 Dose: 5 mg Artificial Tears (Tears Naturale) 0 drop EA EYE PRN PRN PRN Reason: Dry Eyes Dextrose/Water (Dextrose 50%) 25 gm SLOW IVP PRN PRN PRN Reason: Hypoglycemia Enoxaparin Sodium (Lovenox) 40 mg SC 0900 [facility] Last Admin: 01/07/18 08:19 Dose: 40 mg Famotidine (Pepcid) 20 mg PO BID [facility] Last Admin: 01/07/18 08:18 Dose: 20 mg Glucagon (Glucagon) 1 mg IM PRN PRN PRN Reason: Hypoglycemia Guaifenesin (Robitussin Sf) 200 mg PO Q4H PRN PRN Reason: Cough Hydralazine HCl (Apresoline) 10 mg SLOW IVP Q4H PRN PRN Reason: Systolic BP > 180 Dextrose/Water (D5w) 1,000 mls @ 0 mls/hr IV .Q0M PRN; As Directed PRN Reason: Hypoglycemia Insulin Detemir 120 units/ (Miscellaneous Medication) 1.2 mls @ 0 mls/hr SC HS [facility] Last Admin: 01/06/18 21:06 Dose: 1.2 mls Insulin Detemir 120 units/ (Miscellaneous Medication) 1.2 mls @ 0 mls/hr SC QAM [facility] Last Admin: 01/07/18 08:19 Dose: 1.2 mls Piperacillin Sod/Tazobactam (Sod 4.5 gm/ Sodium Chloride) 100 mls @ 200 mls/hr IVPB Q6HR [facility] Last Admin: 01/07/18 05:19 Dose: 100 mls Vancomycin HCl 2 gm/ Sodium (Chloride) 500 mls @ 250 mls/hr IVPB 0000,0800, 1600 [facility] Last Admin: 01/07/18 08:19 Dose: 500 mls Insulin Human Regular (Humulin R) 0 units SC .AGGRESSIVE SLIDING PRN PRN Reason: Aggressive Sliding Scale Last Admin: 01/07/18 05:23 Dose: 6 unit Insulin Human Regular (Humulin R) 0 units SC .BEDTIME SLIDING SC PRN PRN Reason: Bedtime Correctional Scale Last Admin: 01/06/18 21:07 Dose: 4 unit Loperamide HCl (Imodium) 2 mg PO PRN PRN PRN Reason: Diarrhea/Loose Stools Loratadine (Claritin) 10 mg PO DAILYPRN PRN PRN Reason: Sinus Symptoms Losartan Potassium (Cozaar) 100 mg PO DAILY [facility] Last Admin: 01/07/18 08:19 Dose: 100 mg Magnesium Hydroxide (Milk Of Magnesium) 30 ml PO DAILYPRN PRN PRN Reason: Constipation Metformin HCl (Glucophage) 1,000 mg PO BID-[facility] Last Admin: 01/07/18 08:18 Dose: 1,000 mg Mineral Oil/White Petrolatum (Eucerin Cream) 0 gm TOP BIDPRN PRN PRN Reason: Dry Skin Miscellaneous Medication (Pharmacy To Dose) 1 each IVPB ASDIR [facility] Ondansetron HCl (Zofran Odt) 4 mg PO Q6H PRN PRN Reason: Nausea/Vomiting Ondansetron HCl (Zofran) 4 mg IVP Q6H PRN PRN Reason: Nausea/Vomiting Phenol (Chloraseptic [place] 180 Ml Bot) 0 ml PO PRN PRN PRN Reason: Sore Throat Pioglitazone HCl (Actos) 45 mg PO DAILY [facility] Last Admin: 01/07/18 08:19 Dose: 45 mg Saccharomyces Boulardii (Florastor) 250 mg PO DAILY [facility] Last Admin: 01/07/18 08:19 Dose: 250 mg Senna (Senokot) 2 tab PO HSPRN PRN PRN Reason: Constipation Sodium Chloride ([place] Nasal [place] 0.65%) 0 ml EA NARE QIDPRN PRN PRN Reason: Nasal Congestion Sodium Chloride (Flush - Normal Saline) 10 ml IVF Q12HR [facility] Last Admin: 01/07/18 08:19 Dose: 10 ml Sodium Chloride (Flush - Normal Saline) 10 ml IVF PRN PRN PRN Reason: Saline Flush Zolpidem Tartrate (Ambien) 5 mg PO HSPRN PRN PRN Reason: Insomnia
[2018-01-07 15:40] LABS: Vancomycin, Trough 26.3 ug/mL
[2018-01-08] MEDS: Piperacillin/Tazobactam 4.5 GM in Sodium Chloride 0.9% 100 ML IVPB SCH ×4 (05:29→23:28)
[2018-01-08] MEDS: Losartan 25 MG TAB PO SCH (08:48)
[2018-01-08] MEDS: Saccharomyces boulardii 250 MG CAP PO SCH (08:48)
[2018-01-08] MEDS: metFORMIN 500 MG TAB PO SCH ×2 (08:48→18:22)
[2018-01-08] MEDS: Enoxaparin Sodium 40 MG/0.4 ML SYRINGE SC SCH (08:49)
[2018-01-08] MEDS: Pioglitazone HCl 45 MG TAB PO SCH (08:49)
[2018-01-08] MEDS: Amlodipine 5 MG TAB PO SCH ×2 (08:49→19:59)
[2018-01-08] MEDS: INSULIN DETEMIR SC SCH ×2 (08:50→20:00)
[2018-01-08] MEDS: PRE FILLED SC SCH ×2 (08:50→20:00)
[2018-01-08] MEDS: Famotidine 20 MG TAB PO SCH ×2 (09:11→19:59)
--- NOTE | 2018-01-08 12:37 | PDOC.PN ---
- Subjective Encounter Start Date: 01/08/18 Encounter Start Time: 08:30 Patient seen and examined. No new complaints. No overnight events - Objective Resuscitation Status: Resuscitation Status FULL:Full Resuscitation MAR Reviewed: Yes Vital Signs & Weight: Vital Signs (12 hours) Temp Pulse Resp BP BP Pulse Ox 01/08/18 11:13 97.7 F 61 20 143/86 H 95 01/08/18 08:49 64 123/74 01/08/18 08:00 98.1 F 63 20 123/74 95 01/08/18 04:00 98.3 F 91 20 104/70 92 L Weight Admit Weight 377 lb Weight 377 lb I&O: 01/07/18 01/08/18 01/09/18 06:59 06:59 06:59 Intake Total 1790 4260 Balance 1790 4260 Result Diagrams: 01/06/18 11:15 01/06/18 11:15 Additional Labs: Accuchecks 01/08/18 01/08/18 01/07/18 11:15 04:36 20:25 POC Glucose 128 H 98 259 H 01/07/18 16:46 POC Glucose 348 H Phys Exam - Physical Examination Constitutional: NAD HEENT: PERRLA, moist MMs, sclera anicteric Neck: no JVD, supple Respiratory: no wheezing, no rales, no rhonchi Cardiovascular: RRR, no significant murmur, no rub Gastrointestinal: soft, non-tender, no distention, positive bowel sounds Musculoskeletal: no edema, pulses present right foot with dressing Neurological: non-focal, normal sensation, moves all 4 limbs Psychiatric: normal affect, A&O x 3 Skin: no rash, normal turgor Dx/Plan (1) Diabetic foot ulcer Code(s): E11.621 - TYPE 2 DIABETES MELLITUS WITH FOOT ULCER; L97.509 - NON- PRESSURE CHRONIC ULCER OTH PRT UNSP FOOT W UNSP SEVERITY Status: Acute Qualifiers: Diabetic foot ulcer location: midfoot Diabetes mellitus type: type 2 Laterality: right (2) Diabetes type 2, controlled Code(s): E11.9 - TYPE 2 DIABETES MELLITUS WITHOUT COMPLICATIONS Status: Chronic Qualifiers: (3) Diabetic neuropathy Code(s): E11.40 - TYPE 2 DIABETES MELLITUS WITH DIABETIC NEUROPATHY, UNSP Status: Chronic (4) Hypertension Code(s): I10 - ESSENTIAL (PRIMARY) HYPERTENSION Status: Chronic Qualifiers: (5) Morbid obesity with BMI of 40.0-44.9, adult Code(s): E66.01 - MORBID (SEVERE) OBESITY DUE TO EXCESS CALORIES; Z68.41 - BODY MASS INDEX (BMI) 40.0-44.9, ADULT Status: Chronic - Plan cont current plan of care, continue antibiotics * ulcer is infected with staph and proteus, await C & S result for staph * continue vancomycin and zosyn * expecting discharge tomorrow * medication reviewed as below * symptomatic treatment * wound care. Review of Systems - Review of Systems Eyes: negative: Pain, Vision Change, Conjunctivae Inflammation, Eyelid Inflammation, Redness, Other ENT: negative: Ear Pain, Ear Discharge, Nose Pain, Nose Discharge, Nose Congestion, Mouth Pain, Mouth Swelling, Throat Pain, Throat Swelling, Other Respiratory: negative: Cough, Dry, Shortness of Breath, Hemoptysis, SOB with Excertion, Pleuritic Pain, Sputum, Wheezing Cardiovascular: negative: chest pain, palpitations, orthopnea, paroxysmal nocturnal dyspnea, edema, light headedness, other Gastrointestinal: negative: Nausea, Vomiting, Abdominal Pain, Diarrhea, Constipation, Melena, Hematochezia, Other Genitourinary: negative: Dysuria, Frequency, Incontinence, Hematuria, Retention , Other Musculoskeletal: negative: Neck Pain, Shoulder Pain, Arm Pain, Back Pain, Hand Pain, Leg Pain, Foot Pain, Other - Medications/Allergies Allergies/Adverse Reactions: Allergies Allergy/AdvReac Type Severity Reaction Status Date / Time acetaminophen [From [place]] Allergy Verified 01/06/18 14:51 hydrocodone [From [place]] Allergy Verified 01/06/18 14:51 Medications: Current Medications Al Hydroxide/Mg Hydroxide (Maalox) 30 ml PO Q6H PRN PRN Reason: Heartburn or Indigestion Amlodipine Besylate (Norvasc) 5 mg PO BID [facility] Last Admin: 01/08/18 08:49 Dose: 5 mg Artificial Tears (Tears Naturale) 0 drop EA EYE PRN PRN PRN Reason: Dry Eyes Dextrose/Water (Dextrose 50%) 25 gm SLOW IVP PRN PRN PRN Reason: Hypoglycemia Enoxaparin Sodium (Lovenox) 40 mg SC 0900 [facility] Last Admin: 01/08/18 08:49 Dose: 40 mg Famotidine (Pepcid) 20 mg PO BID [facility] Last Admin: 01/08/18 09:11 Dose: 20 mg Glucagon (Glucagon) 1 mg IM PRN PRN PRN Reason: Hypoglycemia Guaifenesin (Robitussin Sf) 200 mg PO Q4H PRN PRN Reason: Cough Hydralazine HCl (Apresoline) 10 mg SLOW IVP Q4H PRN PRN Reason: Systolic BP > 180 Dextrose/Water (D5w) 1,000 mls @ 0 mls/hr IV .Q0M PRN; As Directed PRN Reason: Hypoglycemia Insulin Detemir 120 units/ (Miscellaneous Medication) 1.2 mls @ 0 mls/hr SC HS [facility] Last Admin: 01/07/18 20:29 Dose: 1.2 mls Insulin Detemir 120 units/ (Miscellaneous Medication) 1.2 mls @ 0 mls/hr SC QAM [facility] Last Admin: 01/08/18 08:50 Dose: 1.2 mls Piperacillin Sod/Tazobactam (Sod 4.5 gm/ Sodium Chloride) 100 mls @ 200 mls/hr IVPB Q6HR [facility] Last Admin: 01/08/18 11:51 Dose: 100 mls Vancomycin HCl 2 gm/ Sodium (Chloride) 500 mls @ 250 mls/hr IVPB 1200,2359 [facility] Last Admin: 01/08/18 12:33 Dose: 500 mls Insulin Human Regular (Humulin R) 0 units SC .AGGRESSIVE SLIDING PRN PRN Reason: Aggressive Sliding Scale Last Admin: 01/07/18 17:43 Dose: 13 unit Insulin Human Regular (Humulin R) 0 units SC .BEDTIME SLIDING SC PRN PRN Reason: Bedtime Correctional Scale Last Admin: 01/07/18 20:28 Dose: 3 unit Loperamide HCl (Imodium) 2 mg PO PRN PRN PRN Reason: Diarrhea/Loose Stools Last Admin: 01/07/18 11:58 Dose: 2 mg Loratadine (Claritin) 10 mg PO DAILYPRN PRN PRN Reason: Sinus Symptoms Losartan Potassium (Cozaar) 100 mg PO DAILY [facility] Last Admin: 01/08/18 08:48 Dose: 100 mg Magnesium Hydroxide (Milk Of Magnesium) 30 ml PO DAILYPRN PRN PRN Reason: Constipation Metformin HCl (Glucophage) 1,000 mg PO BID-[facility] Last Admin: 01/08/18 08:48 Dose: 1,000 mg Mineral Oil/White Petrolatum (Eucerin Cream) 0 gm TOP BIDPRN PRN PRN Reason: Dry Skin Miscellaneous Medication (Pharmacy To Dose) 1 each IVPB ASDIR [facility] Ondansetron HCl (Zofran Odt) 4 mg PO Q6H PRN PRN Reason: Nausea/Vomiting Ondansetron HCl (Zofran) 4 mg IVP Q6H PRN PRN Reason: Nausea/Vomiting Phenol (Chloraseptic [place] 180 Ml Bot) 0 ml PO PRN PRN PRN Reason: Sore Throat Pioglitazone HCl (Actos) 45 mg PO DAILY [facility] Last Admin: 01/08/18 08:49 Dose: 45 mg Saccharomyces Boulardii (Florastor) 250 mg PO DAILY [facility] Last Admin: 01/08/18 08:48 Dose: 250 mg Senna (Senokot) 2 tab PO HSPRN PRN PRN Reason: Constipation Sodium Chloride ([place] Nasal [place] 0.65%) 0 ml EA NARE QIDPRN PRN PRN Reason: Nasal Congestion Sodium Chloride (Flush - Normal Saline) 10 ml IVF Q12HR [facility] Last Admin: 01/08/18 08:49 Dose: 10 ml Sodium Chloride (Flush - Normal Saline) 10 ml IVF PRN PRN PRN Reason: Saline Flush Zolpidem Tartrate (Ambien) 5 mg PO HSPRN PRN PRN Reason: Insomnia
[2018-01-09] MEDS: Piperacillin/Tazobactam 4.5 GM in Sodium Chloride 0.9% 100 ML IVPB SCH ×2 (05:09→11:22)
[2018-01-09 07:30] VITALS: BP 119/72; TEMP 98.2
[2018-01-09] MEDS: Famotidine 20 MG TAB PO SCH (09:01)
[2018-01-09] MEDS: Saccharomyces boulardii 250 MG CAP PO SCH (09:01)
[2018-01-09] MEDS: Losartan 25 MG TAB PO SCH (09:01)
[2018-01-09] MEDS: Enoxaparin Sodium 40 MG/0.4 ML SYRINGE SC SCH (09:02)
[2018-01-09] MEDS: metFORMIN 500 MG TAB PO SCH (09:02)
[2018-01-09] MEDS: INSULIN DETEMIR SC SCH (09:02)
[2018-01-09] MEDS: PRE FILLED SC SCH (09:02)
[2018-01-09] MEDS: Amlodipine 5 MG TAB PO SCH (09:02)
[2018-01-09] MEDS: Pioglitazone HCl 45 MG TAB PO SCH (09:04)
--- NOTE | 2018-01-09 10:24 | PDOC.PN ---
- Subjective Encounter Start Date: 01/09/18 Encounter Start Time: 08:30 Patient seen and examined. No new complaints. No overnight events - Objective Resuscitation Status: Resuscitation Status FULL:Full Resuscitation MAR Reviewed: Yes Vital Signs & Weight: Vital Signs (12 hours) Temp Pulse Resp BP BP Pulse Ox 01/09/18 09:02 66 119/72 01/09/18 07:27 98.2 F 66 18 119/72 91 L Weight Admit Weight 377 lb Weight 377 lb I&O: 01/08/18 01/09/18 01/10/18 06:59 06:59 06:59 Intake Total 4260 2360 Balance 4260 2360 Result Diagrams: 01/06/18 11:15 01/06/18 11:15 Additional Labs: Accuchecks 01/09/18 01/08/18 01/08/18 05:12 19:38 16:54 POC Glucose 155 H 128 H 111 H 01/08/18 11:15 POC Glucose 128 H Phys Exam - Physical Examination Constitutional: NAD HEENT: PERRLA, moist MMs, sclera anicteric Neck: no JVD, supple Respiratory: no wheezing, no rales, no rhonchi Cardiovascular: RRR, no significant murmur, no rub Gastrointestinal: soft, non-tender, no distention, positive bowel sounds Musculoskeletal: no edema, pulses present right foot with dressing Neurological: non-focal, normal sensation, moves all 4 limbs Psychiatric: normal affect, A&O x 3 Skin: no rash, normal turgor Dx/Plan (1) Diabetic foot ulcer Code(s): E11.621 - TYPE 2 DIABETES MELLITUS WITH FOOT ULCER; L97.509 - NON- PRESSURE CHRONIC ULCER OTH PRT UNSP FOOT W UNSP SEVERITY Status: Acute Qualifiers: Diabetic foot ulcer location: midfoot Diabetes mellitus type: type 2 Laterality: right (2) Diabetes type 2, controlled Code(s): E11.9 - TYPE 2 DIABETES MELLITUS WITHOUT COMPLICATIONS Status: Chronic Qualifiers: (3) Diabetic neuropathy Code(s): E11.40 - TYPE 2 DIABETES MELLITUS WITH DIABETIC NEUROPATHY, UNSP Status: Chronic (4) Hypertension Code(s): I10 - ESSENTIAL (PRIMARY) HYPERTENSION Status: Chronic Qualifiers: (5) Morbid obesity with BMI of 40.0-44.9, adult Code(s): E66.01 - MORBID (SEVERE) OBESITY DUE TO EXCESS CALORIES; Z68.41 - BODY MASS INDEX (BMI) 40.0-44.9, ADULT Status: Chronic - Plan cont current plan of care, continue antibiotics * continue vancomycin and zosyn * await sensitivity result for staph to decide final oral antibiotics on discharge * medication reviewed as below * symptomatic treatment. Review of Systems - Review of Systems ENT: negative: Ear Pain, Ear Discharge, Nose Pain, Nose Discharge, Nose Congestion, Mouth Pain, Mouth Swelling, Throat Pain, Throat Swelling, Other Respiratory: negative: Cough, Dry, Shortness of Breath, Hemoptysis, SOB with Excertion, Pleuritic Pain, Sputum, Wheezing Cardiovascular: negative: chest pain, palpitations, orthopnea, paroxysmal nocturnal dyspnea, edema, light headedness, other Gastrointestinal: negative: Nausea, Vomiting, Abdominal Pain, Diarrhea, Constipation, Melena, Hematochezia, Other Genitourinary: negative: Dysuria, Frequency, Incontinence, Hematuria, Retention , Other Musculoskeletal: negative: Neck Pain, Shoulder Pain, Arm Pain, Back Pain, Hand Pain, Leg Pain, Foot Pain, Other Skin: negative: Rash, Lesions, Akash, Bruising, Other - Medications/Allergies Allergies/Adverse Reactions: Allergies Allergy/AdvReac Type Severity Reaction Status Date / Time acetaminophen [From [place]] Allergy Verified 01/06/18 14:51 hydrocodone [From [place]] Allergy Verified 01/06/18 14:51 Medications: Current Medications Al Hydroxide/Mg Hydroxide (Maalox) 30 ml PO Q6H PRN PRN Reason: Heartburn or Indigestion Amlodipine Besylate (Norvasc) 5 mg PO BID [facility] Last Admin: 01/09/18 09:02 Dose: 5 mg Artificial Tears (Tears Naturale) 0 drop EA EYE PRN PRN PRN Reason: Dry Eyes Dextrose/Water (Dextrose 50%) 25 gm SLOW IVP PRN PRN PRN Reason: Hypoglycemia Enoxaparin Sodium (Lovenox) 40 mg SC 0900 [facility] Last Admin: 01/09/18 09:02 Dose: 40 mg Famotidine (Pepcid) 20 mg PO BID [facility] Last Admin: 01/09/18 09:01 Dose: 20 mg Glucagon (Glucagon) 1 mg IM PRN PRN PRN Reason: Hypoglycemia Guaifenesin (Robitussin Sf) 200 mg PO Q4H PRN PRN Reason: Cough Hydralazine HCl (Apresoline) 10 mg SLOW IVP Q4H PRN PRN Reason: Systolic BP > 180 Dextrose/Water (D5w) 1,000 mls @ 0 mls/hr IV .Q0M PRN; As Directed PRN Reason: Hypoglycemia Insulin Detemir 120 units/ (Miscellaneous Medication) 1.2 mls @ 0 mls/hr SC HS [facility] Last Admin: 01/08/18 20:00 Dose: Not Given Insulin Detemir 120 units/ (Miscellaneous Medication) 1.2 mls @ 0 mls/hr SC QAM [facility] Last Admin: 01/09/18 09:02 Dose: 1.2 mls Piperacillin Sod/Tazobactam (Sod 4.5 gm/ Sodium Chloride) 100 mls @ 200 mls/hr IVPB Q6HR [facility] Last Admin: 01/09/18 05:09 Dose: 100 mls Vancomycin HCl 2 gm/ Sodium (Chloride) 500 mls @ 250 mls/hr IVPB 1200,2359 [facility] Last Admin: 01/09/18 00:10 Dose: 500 mls Insulin Human Regular (Humulin R) 0 units SC .AGGRESSIVE SLIDING PRN PRN Reason: Aggressive Sliding Scale Last Admin: 01/07/18 17:43 Dose: 13 unit Insulin Human Regular (Humulin R) 0 units SC .BEDTIME SLIDING SC PRN PRN Reason: Bedtime Correctional Scale Last Admin: 01/07/18 20:28 Dose: 3 unit Loperamide HCl (Imodium) 2 mg PO PRN PRN PRN Reason: Diarrhea/Loose Stools Last Admin: 01/07/18 11:58 Dose: 2 mg Loratadine (Claritin) 10 mg PO DAILYPRN PRN PRN Reason: Sinus Symptoms Losartan Potassium (Cozaar) 100 mg PO DAILY [facility] Last Admin: 01/09/18 09:01 Dose: 100 mg Magnesium Hydroxide (Milk Of Magnesium) 30 ml PO DAILYPRN PRN PRN Reason: Constipation Metformin HCl (Glucophage) 1,000 mg PO BID[facility] Last Admin: 01/09/18 09:02 Dose: 1,000 mg Mineral Oil/White Petrolatum (Eucerin Cream) 0 gm TOP BIDPRN PRN PRN Reason: Dry Skin Miscellaneous Medication (Pharmacy To Dose) 1 each IVPB ASDIR [facility] Ondansetron HCl (Zofran Odt) 4 mg PO Q6H PRN PRN Reason: Nausea/Vomiting Ondansetron HCl (Zofran) 4 mg IVP Q6H PRN PRN Reason: Nausea/Vomiting Phenol (Chloraseptic Kane 180 Ml Bot) 0 ml PO PRN PRN PRN Reason: Sore Throat Pioglitazone HCl (Actos) 45 mg PO DAILY [facility] Last Admin: 01/09/18 09:04 Dose: 45 mg Saccharomyces Boulardii (Florastor) 250 mg PO DAILY [facility] Last Admin: 01/09/18 09:01 Dose: 250 mg Senna (Senokot) 2 tab PO HSPRN PRN PRN Reason: Constipation Sodium Chloride ([place] Nasal [place] 0.65%) 0 ml EA NARE QIDPRN PRN PRN Reason: Nasal Congestion Sodium Chloride (Flush - Normal Saline) 10 ml IVF Q12HR [facility] Last Admin: 01/09/18 09:05 Dose: 10 ml Sodium Chloride (Flush - Normal Saline) 10 ml IVF PRN PRN PRN Reason: Saline Flush Zolpidem Tartrate (Ambien) 5 mg PO HSPRN PRN PRN Reason: Insomnia
[2018-01-09 11:40] LABS: Vancomycin, Trough 16.7 ug/mL
--- NOTE | 2018-01-09 15:37 | DIS ---
DATE OF ADMISSION: 01/06/2018 DATE OF DISCHARGE: 01/09/2018 PRIMARY CARE PHYSICIAN: Dr. Alex Joya DISCHARGE DISPOSITION: Home. PRIMARY DISCHARGE DIAGNOSIS: Diabetic foot ulcer with infection. SECONDARY DISCHARGE DIAGNOSES: 1. Morbid obesity with body mass index 44. 2. Hypertension. 3. Diabetic neuropathy. 4. Diabetes type 2. PRIMARY PROCEDURE/OPERATION: None. RADIOLOGICAL INVESTIGATION: Foot x-ray showed soft tissue swelling, but no bony involvement. SIGNIFICANT LABORATORY DATA: Hemoglobin 14.3, CRP 1.7, creatinine 1.0. Otherwise, electrolytes and LFT normal. Wound culture grew Staph aureus and Proteus mirabilis. DISCHARGE MEDICATIONS: Amlodipine 5 mg p.o. b.i.d., Augmentin 875 mg twice daily for 10 days, ciprof loxacin 500 mg p.o. twice daily for 10 days, Levemir 120 units subcutaneously b.i.d., losartan 100 mg p.o. daily, metformin ER 1000 mg p.o. b.i.d., Actos 45 mg p.o. daily, amitriptyline 75 mg p.o. at be dtime p.r.n. CONTRAINDICATIONS: None. CODE STATUS: FULL CODE. INPATIENT SCUBA DIVE TRAINING INSTRUCTOR: Dr. Cortes was consulted while in hospital. TEST RESULTS PENDING ON DISCHARGE: None. ALLERGIES: No known drug allergy. DISCHARGE PLAN: Post hospital, patient will follow up with primary care physician in 1 week. The rodrigo posey will follow up with Dr. Cortes as instructed. HOSPITAL COURSE: A 32-year-old male who was admitted by me. Please see my HPI for further detail. This patient has nonhealing diabetic foot ulcer which appeared to be infected. He was having more dr mary and more swelling in his right foot and that is why he came to ER. He was admitted by me and we started on vancomycin and Zosyn. Dr. Cortes was consulted. Dr. Cortes recommended to treat him wit h Augmentin and Cipro. His wound culture grew Proteus mirabilis and Staph aureus and based on cultur e and sensitivity result, Augmentin and Cipro are working on both organisms. The patient was taken c are of by Wound Care Team while in hospital. We resumed all his home medication while in hospital. Overall, patient is doing very well. The patient is seen and examined at bedside today. Please see my progress note from today for further details. All new medication prescriptions given to him.
== END 2018-01-09 14:04 | disposition home or self-care (01) | DRG 638 ==
LOC: ERS 10:30 → T4-A 12:56
PROVIDERS: ADMIT Internal Medicine; ATTEND Internal Medicine
DX: E11.621 Type 2 diabetes mellitus with foot ulcer (principal); Z68.41 Body mass index [BMI] 40.0-44.9, adult; L97.519 Non-pressure chronic ulcer of other part of right foot with unspecified severity; E11.42 Type 2 diabetes mellitus with diabetic polyneuropathy; L03.115 Cellulitis of right lower limb; E11.65 Type 2 diabetes mellitus with hyperglycemia; Z79.4 Long term (current) use of insulin; Z79.84 Long term (current) use of oral hypoglycemic drugs; E66.01 Morbid (severe) obesity due to excess calories; Z71.3 Dietary counseling and surveillance; I10 Essential (primary) hypertension; Z88.5 Allergy status to narcotic agent; E11.628 Type 2 diabetes mellitus with other skin complications
CPT/HCPCS: 36415; 36416; 80053; 80202; 83880; 85025; 85652; 86140; 87070; 87077; 87186; 87205; 96361; 96365; A4216; J1650; J1815; J2543; J3370; J7050

== ENCOUNTER 2018-03-01 11:58 | Emergency (ER) | payer BC, SELFPAY ==
[2018-03-01 12:31] LABS: #Eosinphils 0.1 thou/uL (0.0-0.7); #Monocytes 0.7 thou/uL (0.11-0.59); #Neutrophils 7.6 thou/uL (1.40-6.50); %Basophils 0.3 % (0.0-1.0); %Eosinophils 0.5 % (0.0-10.0); %Lymphocytes 19.6 % (21.0-51.0); %Monocytes 6.7 % (0.0-10.0); %Neutrophils 72.8 % (42.0-75.0); Hemoglobin 14.5 g/dL (14.0-18.0); Mean Corpuscular HGB CONC 32.6 g/dL (32.0-36.0); Mean Corpuscular Hemoglobin 27.1 pg (27.0-31.0); Mean Corpuscular Volume 83.1 fl (80.0-94.0); Mean Platelet Volume 7.3 fL (7.4-10.4); Platelet Count 186 thou/uL (130-400); RBC Distribution Width 13.9 % (11.5-14.5); Red Blood Cell (RBC) Count 5.34 mill/uL (4.70-6.10); White Blood Cell (WBC) Count 10.4 thou/uL (4.8-10.8)
[2018-03-01 12:51] LABS: ALT (SGPT) 26 U/L (8-55); AST (SGOT) 19 U/L (5-34); Albumin 3.3 g/dL (3.5-5.0); Alkaline Phosphatase 106 U/L (40-150); Anion Gap 9 mmol/L (10-20); BUN (Urea Nitrogen) 9 mg/dL (8.9-20.6); Bilirubin, Total 0.6 mg/dL (0.2-1.2); Calc. Creatinine Clearance 0 mL/min (70-130); Calcium 8.7 mg/dL (7.8-10.44); Carbon Dioxide 27 mmol/L (22-29); Chloride 99 mmol/L (98-107); Estimated GFR-MDRD Greater than 90; Globulin 4.4 g/dL (2.4-3.5); Glucose 267 mg/dL (70-105); Potassium 4.1 mmol/L (3.5-5.1); Protein, Total 7.7 g/dL (6.0-8.3); Sodium 131 mmol/L (136-145)
--- NOTE | 2018-03-01 13:10 | RAD ---
PORTABLE CHEST: Date: 03-01-18 Provided Clinical History: Cough. FINDINGS: Comparison 08-13-16. Cardiac and mediastinal silhouette is within normal limits. Lungs appear clear. No pleural fluid or p neumothorax apparent. IMPRESSION: No evidence for acute cardiopulmonary process. POS: [facility]
[2018-03-01] MEDS ORDERED: Ketorolac Tromethamine 30 MG/ML VIAL ONE (13:14)
[2018-03-01] MEDS ORDERED: Piperacillin/Tazobactam 4.5 GM VIAL ONE (13:14)
--- NOTE | 2018-03-01 13:17 | RAD ---
RIGHT FOOT RADIOGRAPHS THREE VIEWS: Date: 03-01-18 Provided Clinical History: Diabetic foot ulcer. FINDINGS: Comparison 01-06-18. There is no evidence for fracture or other acute osseous abnormality. Post-operative changes of amput ation of a portion of the fifth ray again demonstrated. Alignment appears anatomic. Joint spaces appe ar preserved. Stable soft tissue calcifications of the anterior and medial aspects of the distal fore leg. IMPRESSION: No radiographic evidence for an acute osseous abnormality. POS: [facility]
== END 2018-03-01 14:28 | disposition home or self-care (01) ==
LOC: ERS 11:58
DX: E11.621 Type 2 diabetes mellitus with foot ulcer (principal); L97.519 Non-pressure chronic ulcer of other part of right foot with unspecified severity; R05 Cough; I10 Essential (primary) hypertension; Z79.4 Long term (current) use of insulin; Z79.899 Other long term (current) drug therapy
CPT/HCPCS: 36415; 71045; 80053; 83605; 85025; 87070; 87077; 87186; 87205; 96365; 96375; J1885; J2543

== ENCOUNTER 2018-04-26 08:32 | Emergency (ER) | payer SELFPAY ==
[2018-04-26] MEDS ORDERED: cefTRIAXone\\ROCEPHIN 2 GM VIAL ONE (10:06)
[2018-04-26 10:13] LABS: #Basophils 0.1 thou/uL (0.0-0.2); #Eosinphils 0.2 thou/uL (0.0-0.7); #Lymphocytes 2.7 thou/uL (1.20-3.40); #Monocytes 1.1 thou/uL (0.11-0.59); #Neutrophils 11.8 thou/uL (1.40-6.50); %Basophils 0.5 % (0.0-1.0); %Eosinophils 1.5 % (0.0-10.0); %Lymphocytes 16.7 % (21.0-51.0); %Monocytes 6.9 % (0.0-10.0); %Neutrophils 74.4 % (42.0-75.0); Hemoglobin 14.3 g/dL (14.0-18.0); Mean Corpuscular HGB CONC 32.3 g/dL (32.0-36.0); Mean Corpuscular Hemoglobin 26.9 pg (27.0-31.0); Mean Corpuscular Volume 83.3 fL (78.0-98.0); Platelet Count 227 thou/uL (130-400); RBC Distribution Width 13.8 % (11.5-14.5); Red Blood Cell (RBC) Count 5.32 mill/uL (4.70-6.10); White Blood Cell (WBC) Count 15.9 thou/uL (4.8-10.8)
[2018-04-26] MEDS ORDERED: Ondansetron HCl/PF 4 MG/2 ML Vial ONE (10:25)
[2018-04-26 10:26] LABS: Base Excess-Venous 4.1 mmol/L (0 (+/- 2.5)); Bicarbonate (HCO3v) 27.3 mmol/L (1.0-85.0); CO2 Tension (PvCO2) 35.7 mmHg (41.0-51.0); Calcium, Ionized 0.97 mmol/L (1.12-1.32); Hemoglobin - Calc 16.3 g/dL (12.0-18.0); O2 Tension (PvO2) 32.2 mmHg (35.0-45.0); Potassium 4.4 mmol/L (3.4-4.7); T. Carbon Dioxide 28.4 mmol/L (1.0-85.0); pH (Venous) 7.491 (7.35-7.45); vO2 Saturation-calc 67.9 % (94-98)
[2018-04-26] MEDS ORDERED: Vancomycin HCl 1.5 GM in Sodium Chloride 0.9% 250 ML 300 ML IVPB SCH (10:30)
[2018-04-26 10:38] LABS: ALT (SGPT) 20 U/L (8-55); AST (SGOT) 15 U/L (5-34); Albumin 3.2 g/dL (3.5-5.0); Alkaline Phosphatase 104 U/L (40-150); Anion Gap 14 mmol/L (10-20); BUN (Urea Nitrogen) 14 mg/dL (8.9-20.6); Bilirubin, Total 0.6 mg/dL (0.2-1.2); Calc. Creatinine Clearance 0 mL/min (70-130); Calcium 9.4 mg/dL (7.8-10.44); Carbon Dioxide 25 mmol/L (22-29); Chloride 98 mmol/L (98-107); Estimated GFR-MDRD 79; Globulin 5.7 g/dL (2.4-3.5); Glucose 309 mg/dL (70-105); Magnesium 1.6 mg/dL (1.6-2.6); Phosphorus 2.8 mg/dL (2.3-4.7); Potassium 4.5 mmol/L (3.5-5.1); Protein, Total 8.9 g/dL (6.0-8.3); Sodium 132 mmol/L (136-145)
--- NOTE | 2018-04-26 10:43 | RAD ---
3 VIEWS RIGHT FOOT: Date: 04/26/18 HISTORY: Diabetic ulcer to right foot, wound. COMPARISON: 03/01/18. FINDINGS: No fracture or dislocation is seen. Postoperative changes related to amputation of a portion of the f ifth ray are again present. There is suggestion of overlying subcutaneous soft tissue swelling adjace nt to the remaining fifth ray, which may be related to postsurgical changes and had a similar appeara nce to the prior study, although this could be related to soft tissue swelling. Appearance of the fif th ray is unchanged from prior exam, and also has a similar appearance to study on 01/06/18. Calcific ations are seen overlying the subcutaneous soft tissues of the visualized distal right lower extremit y. IMPRESSION: 1. No acute osseous abnormality is appreciated. 2. Amputation of the right fifth ray with what appears to be overlying soft tissue swelling, althoug h the appearance of the soft tissues is unchanged from prior exam. POS: [facility]
== END 2018-04-26 13:42 | disposition home or self-care (01) ==
LOC: ERS 08:32
DX: E11.621 Type 2 diabetes mellitus with foot ulcer (principal); E11.65 Type 2 diabetes mellitus with hyperglycemia; E11.622 Type 2 diabetes mellitus with other skin ulcer; L98.428 Non-pressure chronic ulcer of back with other specified severity; I10 Essential (primary) hypertension; Z79.899 Other long term (current) drug therapy; Z79.4 Long term (current) use of insulin
CPT/HCPCS: 36415; 80053; 82010; 82330; 82803; 83605; 83735; 84100; 85025; 87040; 96365; 96366; 96367; 96375; J0696; J2405; J3370; J7050

== ENCOUNTER 2018-06-18 15:43 | Inpatient (IN) | payer SELFPAY ==
[2018-06-18] MEDS ORDERED: Piperacillin/Tazobactam 4.5 GM VIAL ONE (16:07)
[2018-06-18 16:26] LABS: #Lymphocytes 1.6 thou/uL (1.20-3.40); #Monocytes 1.1 thou/uL (0.11-0.59); %Basophils 0.2 % (0.0-1.0); %Eosinophils 0.4 % (0.0-10.0); %Lymphocytes 11.6 % (21.0-51.0); %Monocytes 7.6 % (0.0-10.0); %Neutrophils 80.2 % (42.0-75.0); Hemoglobin 14.9 g/dL (14.0-18.0); Mean Corpuscular HGB CONC 33.3 g/dL (32.0-36.0); Mean Corpuscular Hemoglobin 27.8 pg (27.0-31.0); Mean Corpuscular Volume 83.6 fL (78.0-98.0); Mean Platelet Volume 7.9 fL (7.4-10.4); Platelet Count 223 thou/uL (130-400); RBC Distribution Width 13.7 % (11.5-14.5); Red Blood Cell (RBC) Count 5.35 mill/uL (4.70-6.10); White Blood Cell (WBC) Count 13.8 thou/uL (4.8-10.8)
[2018-06-18 16:45] LABS: ALT (SGPT) 19 U/L (8-55); AST (SGOT) 14 U/L (5-34); Albumin 3.5 g/dL (3.5-5.0); Alkaline Phosphatase 102 U/L (40-150); Anion Gap 12 mmol/L (10-20); BUN (Urea Nitrogen) 18 mg/dL (8.9-20.6); Bilirubin, Total 0.9 mg/dL (0.2-1.2); CK (CPK) 39 U/L (30-200); Calc. Creatinine Clearance 0 mL/min (70-130); Carbon Dioxide 27 mmol/L (22-29); Chloride 94 mmol/L (98-107); Estimated GFR-MDRD 57; Globulin 5.8 g/dL (2.4-3.5); Glucose 331 mg/dL (70-105); Lipase 12 U/L (8-78); Potassium 4.4 mmol/L (3.5-5.1); Protein, Total 9.3 g/dL (6.0-8.3); Sodium 129 mmol/L (136-145)
[2018-06-18 16:49] LABS: CKMB 0.3 ng/mL (0-6.6); Troponin I Less than 0.010 ng/mL (< 0.028)
--- NOTE | 2018-06-18 16:56 | RAD ---
CHEST ONE VIEW: 06/18/18 COMPARISON: 03/01/18. HISTORY: Altered mental status. FINDINGS: Portable upright chest: Normal cardiac silhouette. Pulmonary vessels and hilum are normal. No mass. No consolidation. No pneu mothorax or osseous abnormalities. IMPRESSION: No acute cardiopulmonary process. POS: [facility]
--- NOTE | 2018-06-18 16:58 | RAD ---
LEFT FOOT THREE VIEWS: 06/18/18 HISTORY: Left foot pain. COMPARISON: 06/12/16. FINDINGS: Lisfranc joint alignment is anatomic. Plantar arch is maintained. Osteophytosis is present throughout the foot. No acute fracture, dislocation or aggressive osseous erosions. Soft tissue calcifications associated with the partially visualized lower leg are similar in appearance to the previous exam. IMPRESSION: Chronic type findings are stable. No acute osseous abnormalities are demonstrated. POS: [facility]
--- NOTE | 2018-06-18 17:00 | RAD ---
RIGHT FOOT THREE VIEWS: 06/18/18 HISTORY: Right foot pain. COMPARISON: 04/26/18. FINDINGS: Amputation of the fifth ray at the mid metatarsal shaft with adjacent heterotopic ossification is sim ilar in appearance to the previous exam. No aggressive osseous destruction or soft tissue gas are vis ible. Lisfranc joint alignment is within normal limits. Plantar arch is maintained. Osteophytosis is presen t throughout the foot. IMPRESSION: Postoperative and degenerative changes right foot. Findings are stable. POS: [facility]
[2018-06-18] MEDS ORDERED: Dextrose 5% in Water 1,000 ML IV PRN (18:15)
[2018-06-18] MEDS ORDERED: Guaifenesin DM 100-10/5 ML UDCUP PO PRN (18:15)
[2018-06-18] MEDS ORDERED: Dextrose 50% Abboject 50 ML SYRINGE SLOW IVP PRN (18:15)
[2018-06-18] MEDS ORDERED: Ondansetron HCl/PF 4 MG/2 ML Vial IVP PRN (18:15)
[2018-06-18] MEDS ORDERED: HumaLOG 300 UNITS/3 ML VIAL SC PRN ×2 (18:15)
[2018-06-18] MEDS ORDERED: Mag-Al 1200 mg/1200 mg/30 ML UDCUP PO PRN (18:15)
[2018-06-18] MEDS: Sodium Chloride 0.9% 1,000 ML IV SCH (18:42)
[2018-06-18 19:01] LABS: Hemoglobin A1c 12.2 % (4.0-6.0)
[2018-06-18] MEDS: Acetaminophen 325 MG TAB PO PRN (20:35)
[2018-06-18] MEDS: Amlodipine 5 MG TAB PO SCH (20:36)
[2018-06-18] MEDS: Docusate 100 MG CAP PO SCH (20:37)
[2018-06-18] MEDS: Insulin Glargine 120 UNITS in Pre-Filled Syringe 1 EACH SC SCH (20:37)
[2018-06-18] MEDS: Famotidine 20 MG TAB PO SCH (20:53)
[2018-06-18] MEDS ORDERED: INSULIN DETEMIR SC SCH (21:00)
[2018-06-18] MEDS: Piperacillin/Tazobactam 4.5 GM in Sodium Chloride 0.9% 100 ML IVPB SCH (23:48)
--- NOTE | 2018-06-19 00:12 | HP ---
REASON FOR ADMISSION: Sepsis, diabetic foot ulcers with cellulitis. HISTORY OF PRESENTING ILLNESS: The patient gives history of feeling weak from Sunday. He was also dry heaving. He has had some cough with mucoid expectoration. No fever at home. On arrival here, patient had a temperature of 100.6 degrees. On both feet, he has had plantar ulcers which are active and inflamed with left foot more swollen than the right. He has no complaints of chest pain, palpitations or PND. The patient feels he is exhausted. He has known history of diabetes and is not really compliant with diet. He does not check his fingerstick glucose at regular intervals. He does not have a primary care physician for at least 6-7 months now. He previously used to see Dr. Tello a year back. PAST MEDICAL AND SURGICAL HISTORY: History of diabetes mellitus type 2, nonhealing diabetic ulcers for more than a year now, hypertension, morbid obesity, prior history of right fifth toe amputation, history of orchiopexy. CURRENT MEDICATIONS: Patient takes Levemir 120 units subcu twice daily, Norvasc 5 mg p.o. twice daily, losartan 100 mg daily, metformin 1000 mg twice daily, amitriptyline 25 mg daily. ALLERGIES: CODEINE and HYDROCODONE. He is not allergic to TYLENOL. PERSONAL HISTORY: Does not abuse alcohol or drugs. No history of smoking. FAMILY HISTORY: Mother is healthy as far as he knows. Father has history of diabetes. Power of staff attorney is both his parents and is a FULL CODE. REVIEW OF SYSTEMS: The following complete review of systems was negative, unless otherwise mentioned in the HPI or below: Constitutional: Weight loss or gain, ability to conduct usual activities. Skin: Rash, itching. Eyes: Double vision, pain. ENT/Mouth: Nose bleeding, neck stiffness, pain, tenderness. Cardiovascular: Palpitations, dyspnea on exertion, orthopnea. Respiratory: Shortness of breath, wheezing, cough, hemoptysis, fever or night sweats. Gastrointestinal: Poor appetite, abdominal pain, heartburn, nausea, vomiting, constipation, or diarrhea. Genitourinary: Urgency, frequency, dysuria, nocturia. Musculoskeletal: Pain, swelling. Neurologic/Psychiatric: Anxiety, depression. Allergy/Immunologic: Skin rash, bleeding tendency. PHYSICAL EXAMINATION: GENERAL: The patient is a 33-year-old male, who is currently not in any acute distress. VITAL SIGNS: Blood pressure 150/90, pulse 108 per minute, respiratory rate 20 per minute, temperature 100.6 degrees Fahrenheit, saturating 94% on room air. NECK: Supple, no elevated JVD. EYES: Extraocular muscles intact. Pupils reacting to light. ORAL CAVITY: Mucous membranes are dry. No exudates or congestion. CARDIOVASCULAR SYSTEM: S1, S2 heard. Regular rhythm. RESPIRATORY SYSTEM: Air entry 1+ bilateral. Scattered rhonchi plus bilateral. ABDOMEN: Soft. EXTREMITIES: The patient has ulcer over the left second metatarsal head and right fifth metatarsal head, both are oozing purulent material. His right foot is swollen more than the left foot. Peripheral pulses are 1+ bilateral. CENTRAL NERVOUS SYSTEM: No gross focal deficits noted. Patient is alert and oriented well. PSYCHIATRIC SYSTEM: Patient's mood is a bit anxious, otherwise no hallucinations or delusions. IMAGING DATA AND LABORATORY DATA: Left foot 3 view x-ray done shows chronic findings, no acute osseous abnormalities were seen. Right foot 3 view x-rays show postoperative and degenerative changes of the right foot. Chest x-ray done shows no acute cardiopulmonary process. CRP is 26.8, albumin is 3.5, troponin less than 0.01. BNP 48. Lipase is 12. Serum glucose is 331, BUN 18, creatinine 1.4. Sodium 129, serum bicarbonate is 27. White count of 13, hemoglobin and hematocrit 14 and 44, platelet count 223 with 80% neutrophils. CLINICAL IMPRESSION AND PLAN: The patient will be admitted to medical floor for sepsis with bilateral nonhealing foot ulcers with cellulitis likely requiring debridement. The patient has seen Dr. Carlson in the past in 09/2016 and will obtain consultation with him. He will be on vancomycin and Zosyn. Wound Care will be consulted. We will continue his Levemir, which is a very high dose. We will also gently hydrate him with normal saline at 90 mL per hour. Patient appears to have moderate dehydration at present. We will continue his Trey Rousseau on amitriptyline as before. Arterial Doppler will be obtained as well to check for peripheral circulation. [facility]
[2018-06-19] MEDS: Vancomycin HCl 1.25 GM in Sodium Chloride 0.9% 250 ML 250 ML IVPB SCH ×2 (04:52→12:00)
[2018-06-19 04:53] LABS: Anion Gap 13 mmol/L (10-20); BUN (Urea Nitrogen) 19 mg/dL (8.9-20.6); Calc. Creatinine Clearance 140 mL/min (70-130); Calcium 8.4 mg/dL (7.8-10.44); Carbon Dioxide 24 mmol/L (22-29); Chloride 98 mmol/L (98-107); Estimated GFR-MDRD 62; Glucose 315 mg/dL (70-105); Potassium 3.7 mmol/L (3.5-5.1); Sodium 131 mmol/L (136-145)
[2018-06-19 05:20] LABS: Band 18 % (5-11); Hemoglobin 14.3 g/dL (14.0-18.0); Lymphocytes 24 % (21-51); MDiff Complete? YES; Mean Corpuscular HGB CONC 32.7 g/dL (32.0-36.0); Mean Corpuscular Hemoglobin 27.1 pg (27.0-31.0); Mean Corpuscular Volume 82.9 fL (78.0-98.0); Mean Platelet Volume 8.1 fL (7.4-10.4); Monocytes 10 % (0-10); Neutrophil 48 % (42-75); PLT Morphology Comment Appears Adequate; Platelet Count 164 thou/uL (130-400); RBC Distribution Width 13.7 % (11.5-14.5); White Blood Cell (WBC) Count 14.3 thou/uL (4.8-10.8)
[2018-06-19] MEDS: Piperacillin/Tazobactam 4.5 GM in Sodium Chloride 0.9% 100 ML IVPB SCH ×2 (07:37→18:11)
[2018-06-19] MEDS: Acetaminophen 325 MG TAB PO PRN (07:37)
[2018-06-19] MEDS: Sodium Chloride 0.9% 1,000 ML IV SCH (07:39)
[2018-06-19] MEDS: Losartan 25 MG TAB PO SCH (09:01)
[2018-06-19] MEDS: Enoxaparin Sodium 40 MG/0.4 ML SYRINGE SC SCH (09:01)
[2018-06-19] MEDS: Docusate 100 MG CAP PO SCH ×2 (09:01→20:33)
[2018-06-19] MEDS: Amlodipine 5 MG TAB PO SCH ×2 (09:01→20:32)
[2018-06-19] MEDS: Famotidine 20 MG TAB PO SCH ×2 (09:01→20:32)
[2018-06-19] MEDS: Insulin Glargine 120 UNITS in Pre-Filled Syringe 1 EACH SC SCH ×2 (09:50→20:34)
[2018-06-19] MEDS: metFORMIN XR 500 MG TAB PO SCH ×2 (10:41→20:50)
--- NOTE | 2018-06-19 10:59 | PDOC.PN ---
- Subjective Encounter Start Date: 06/19/18 Encounter Start Time: 10:00 Subjective: feels slightly better than yesterday -: no vomiting or abd pain -: no sob, is amb in room - Objective Resuscitation Status: Resuscitation Status FULL:Full Resuscitation MAR Reviewed: Yes Vital Signs & Weight: Vital Signs (12 hours) Temp Pulse Resp BP Pulse Ox 06/19/18 09:01 90 06/19/18 07:00 98.4 F 90 18 131/95 H 96 06/19/18 04:00 98.9 F 128 H 20 130/83 93 L 06/19/18 00:00 98.3 F 96 16 137/86 97 Weight Weight 277 lb 1.937 oz Result Diagrams: 06/19/18 04:24 06/19/18 04:24 Additional Labs: Accuchecks 06/18/18 20:27 POC Glucose 339 H Phys Exam - Physical Examination HEENT: PERRLA, sclera anicteric dry mucosa Neck: no JVD, supple Respiratory: no wheezing, no rales Cardiovascular: RRR, no significant murmur Gastrointestinal: soft, non-tender, positive bowel sounds Musculoskeletal: pulses present b/l plantar ulcers Neurological: non-focal, moves all 4 limbs Psychiatric: normal affect, A&O x 3 Dx/Plan (1) Diabetic foot ulcer Code(s): E11.621 - TYPE 2 DIABETES MELLITUS WITH FOOT ULCER; L97.509 - NON- PRESSURE CHRONIC ULCER OTH PRT UNSP FOOT W UNSP SEVERITY Status: Chronic Qualifiers: Diabetic foot ulcer location: midfoot Diabetes mellitus type: type 2 Comment: b/l non healing, likely osteomyelitis (2) Sepsis Code(s): A41.9 - SEPSIS, UNSPECIFIED ORGANISM Status: Acute Qualifiers: Sepsis type: methicillin susceptible Staphylococcus aureus Qualified Code(s ): A41.01 - Sepsis due to Methicillin susceptible Staphylococcus aureus (3) Bacteremia Code(s): R78.81 - BACTEREMIA Status: Acute (4) DM type 2 (diabetes mellitus, type 2) Status: Chronic Qualifiers: Diabetes mellitus environmental services associate insulin use: with environmental services associate use Diabetes mellitus complication status: with hyperglycemia Qualified Code(s): E11.65 - Type 2 diabetes mellitus with hyperglycemia; Z79.4 - shipper/receiver (current) use of insulin Comment: uncontrolled, Hb A1c of 12 (5) Obesity (BMI 30.0-34.9) Code(s): E66.9 - OBESITY, UNSPECIFIED Status: Chronic (6) Hypertension Code(s): I10 - ESSENTIAL (PRIMARY) HYPERTENSION Status: Chronic Qualifiers: Hypertension type: essential hypertension (7) Non-compliance Code(s): Z91.19 - PATIENT'S NONCOMPLIANCE W OTH MEDICAL TREATMENT AND REGIMEN Status: Chronic - Plan is on vanc and zosyn, await full cultures -: MRI b/l foot to r/o osteomyelitis, surgical consult -: wound care -: continue large dose of lantus, add home dose metformin (hold if he gets con -: -trast with mri today), gentle iv hydration * . Review of Systems - Medications/Allergies Allergies/Adverse Reactions: Allergies Allergy/AdvReac Type Severity Reaction Status Date / Time hydrocodone [From [place]] Allergy Verified 01/06/18 14:51 Medications: Current Medications Acetaminophen (Tylenol) 650 mg PO Q4H PRN PRN Reason: Headache/Fever or Pain Last Admin: 06/19/18 07:37 Dose: 650 mg Al Hydroxide/Mg Hydroxide (Maalox) 30 ml PO Q6H PRN PRN Reason: Heartburn or Indigestion Amitriptyline HCl (Elavil) 75 mg PO HSPRN PRN PRN Reason: migraines Amlodipine Besylate (Norvasc) 5 mg PO BID [facility] Last Admin: 06/19/18 09:01 Dose: 5 mg Dextrose/Water (Dextrose 50%) 25 gm SLOW IVP PRN PRN PRN Reason: Hypoglycemia Docusate Sodium (Colace) 100 mg PO BID [facility] Last Admin: 06/19/18 09:01 Dose: 100 mg Enoxaparin Sodium (Lovenox) 40 mg SC 0900 [facility] Last Admin: 06/19/18 09:01 Dose: 40 mg Famotidine (Pepcid) 20 mg PO BID [facility] Last Admin: 06/19/18 09:01 Dose: 20 mg Glucagon (Glucagon) 1 mg IM PRN PRN PRN Reason: Hypoglycemia Guaifenesin/Dextromethorphan (Robitussin Dm) 15 ml PO Q4H PRN PRN Reason: Cough Dextrose/Water (D5w) 1,000 mls @ 0 mls/hr IV .Q0M PRN PRN Reason: Hypoglycemia Sodium Chloride (Normal Saline 0.9%) 1,000 mls @ 90 mls/hr IV .Q11H7M [facility] Stop: 06/19/18 16:28 Last Admin: 06/19/18 07:39 Dose: 1,000 mls Piperacillin Sod/Tazobactam (Sod 4.5 gm/ Sodium Chloride) 100 mls @ 200 mls/hr IVPB 0800,1600,2359 [facility] Last Admin: 06/19/18 07:37 Dose: 100 mls Vancomycin HCl 1.25 gm/ Sodium (Chloride) 250 mls @ 166.667 mls/hr IVPB 0400, 1200,2000 [facility] Last Admin: 06/19/18 04:52 Dose: 250 mls Insulin Glargine 120 units/ (Miscellaneous Medication) 1.2 mls @ 0 mls/hr SC BID [facility] Last Admin: 06/19/18 09:50 Dose: 1.2 mls Insulin Human Lispro (Humalog) 0 units SC .AGGRESSIVE SLIDING PRN PRN Reason: Aggressive Correctional Scale Last Admin: 06/19/18 05:25 Dose: 11 unit Insulin Human Lispro (Humalog) 0 units SC .BEDTIME SLIDING SC PRN PRN Reason: Bedtime Correctional Scale Losartan Potassium (Cozaar) 100 mg PO DAILY [facility] Last Admin: 06/19/18 09:01 Dose: 100 mg Metformin HCl (Glucophage Xr) 1,000 mg PO BID [facility] Last Admin: 06/19/18 10:41 Dose: 1,000 mg Ondansetron HCl (Zofran) 4 mg IVP Q6H PRN PRN Reason: Nausea/Vomiting Sodium Chloride (Flush - Normal Saline) 10 ml IVF Q12HR [facility] Last Admin: 06/19/18 10:39 Dose: Not Given Sodium Chloride (Flush - Normal Saline) 10 ml IVF PRN PRN PRN Reason: Saline Flush
--- NOTE | 2018-06-19 13:20 | HP ---
HISTORY OF PRESENT ILLNESS: A 33-year-old male patient well known to me. I have previously amputate d in 2016, right fifth toe healing secondarily. He has developed neuropathic ulcer over his right fo ot beneath his fourth metatarsophalangeal joint, but fortunately this is very superficial. Over his left foot, he has developed a neuropathic ulceration with a sinus tract is seen at the joints of the second and third toes with dorsal cellulitis. He was admitted by Hospitalist. He has been started o n intravenous antibiotics, vancomycin, and Zosyn. I have been asked to see him. X-rays of the both feet did not reveal any destructive bony changes, only chronic arthritic changes. He has list alisha deformities. Patient wears orthotic diabetic shoes and good socks. 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 Despite these efforts, he developed these ulcerations and problems. Plan a t this time is amputation of left second and third toes and metatarsals healing secondary. We will h ave Wound Care placed a wound VAC and ask case management to arrange outpatient wound VAC care. We will observe the right foot neuropathic ulcer and with proper care this may heal, although it is a high risk of progression in future problems. We will have to follow this closely. ALLERGIES: HYDROCODONE. TOBACCO: None. ALCOHOL: None. MEDICATIONS: At home Levemir and metformin. PAST MEDICAL HISTORY: Diabetes type 2, neuropathic ulcers, hypertension, morbid obesity. PAST SURGICAL HISTORY: Prior amputation right fifth toe and metatarsal, history of orchiopexy. The patient is not allergic to TYLENOL. REVIEW OF SYSTEMS: Ten point noncontributory. FAMILY HISTORY: Noncontributory. PHYSICAL EXAMINATION: VITAL SIGNS: 6 foot 5 inches, 277 pounds, BMI 32, 99.6, 100, 24, 131/88. HEENT: Unremarkable. NEUROLOGIC: Intact. Cranial nerves intact. LUNGS: Clear to auscultation. CARDIAC: Regular rate and rhythm without murmur or gallop. ABDOMEN: Soft, nontender, obese. EXTREMITIES: Palpable femoral, popliteal, dorsalis pedis pulses bilaterally. Chronic venous stasis changes, stasis dermatitis and varicosities both lower extremities. Hair on his toes and his feet. Prior amputation of right fifth toe and metatarsal heal secondarily. Neuropathic ulceration base of the metatarsophalangeal joint, right fourth toe superficial without sinus tract, no evidence of cellu litis or infection. This wound is healthy. Left foot reveals palpable pedal pulses as noted above a nd neuropathic ulceration beneath the second and third toes were tracking to the dorsum of foot, jonathon cative by Q-tip interrogation. There is cellulitis over the dorsum of the foot extending to the mid foot dorsally. LABORATORY DATA: White count 14, hemoglobin 14. Creatinine 1.3, BUN 19, GFR 62. Accu-Cheks 230-330 , hemoglobin A1c 12. ASSESSMENT AND PLAN: 1. Poorly controlled diabetes. 2. Morbid obesity. 3. Neuropathic ulcerations in his both feet. We can observe the right. 4. Neuropathic ulceration with deep sinus tract involving the metatarsophalangeal joints of the left second and third toes. Plan amputation, left second and third toes healing by secondary intention. He understands risks, benefits, and consents.
[2018-06-19] MEDS ORDERED: PROPOFOL 200 MG/20 ML VIAL ONE (14:14)
[2018-06-19] MEDS ORDERED: PHENYLEPHRINE-NS 100 MCG/ML 10 ML SYRINGE ONE (14:14)
[2018-06-19] MEDS ORDERED: Ondansetron HCl/PF 4 MG/2 ML Vial ONE (14:14)
[2018-06-19] MEDS ORDERED: Succinylcholine Chloride 20 MG/ML 10 ml SYRINGE FS ONE (14:14)
[2018-06-19] MEDS ORDERED: Lidocaine 1% PF 5 ML VIAL ONE (14:14)
[2018-06-19] MEDS ORDERED: ePHEDrine/0.9% NaCl/PF SYRINGE 50 mg/10 ml ONE (14:14)
[2018-06-19] MEDS ORDERED: Fentanyl 100 MCG/2 ML VIAL ONE (15:07)
[2018-06-19] MEDS ORDERED: Acetaminophen 500 MG TAB PO PRN (15:20)
[2018-06-19] MEDS ORDERED: traMADol HCl 50 MG TAB PO PRN (15:20)
[2018-06-19] MEDS ORDERED: Ondansetron HCl/PF 4 MG/2 ML Vial IVP PRN (15:23)
[2018-06-19] MEDS ORDERED: Albuterol Sulfate 1.25 MG/3 ML NEB ONE (16:24)
[2018-06-19] MEDS: cefTRIAXone\\ROCEPHIN 2 GM in Sodium Chloride 0.9% 100 ML IVPB SCH (18:04)
[2018-06-19] MEDS: traMADol HCl 50 MG TAB PO PRN (19:17)
--- NOTE | 2018-06-19 20:41 | OP ---
DATE OF PROCEDURE: 06/19/2018 PREOPERATIVE DIAGNOSES: Diabetic infection, left foot; neuropathic ulcers, sinus tract to the metata rsophalangeal joints of left second and third toes. POSTOPERATIVE DIAGNOSES: Diabetic infection, left foot; neuropathic ulcers, sinus tract to the metat arsophalangeal joints of left second and third toes. PROCEDURES: Amputation of left foot second and third toes and metatarsals, and neuropathic ulcer. SURGEON: Dr. Srikanth Carlson. ANESTHESIA: General. Note, excellent blood supply. Sutures requiring, cautery required for hemosta sis. Palpable pulses. Chronic venous stasis disease. PROCEDURE IN DETAIL: The patient was taken to the operating room where under general anesthesia, lef t lower extremity was prepped with ChloraPrep, draped in routine fashion. Incision was made for exci jassi of left second and third toes and metatarsal and plantar neuropathic ulcer, after cultures obtai nataly and submitted to microbiology. An incision carried down through skin and subcutaneous tissue, co nnective tissue, bone metatarsal, transected with a bone cutter, resected proximally with the rongeur s. Hemostasis gained with [id number] sutures of 4-0 Vicryl and cautery. Good hemostasis achiev ed. Wound irrigated. Culture submitted as described. Wound care team arrived and placed a wound [facility] C. The patient tolerated the procedure well.
--- NOTE | 2018-06-19 21:01 | CON ---
DATE OF CONSULTATION: 06/19/2018 REASON FOR CONSULTATION: Fever, chills, bacteremia and foot infection. HISTORY OF PRESENT ILLNESS: A 33-year-old whom I had seen last in January this year when he presented with history of obesity, type 2 diabetes, neuropathy and prior complications right and left feet with a persistent right plantar aspect foot ulcer after the fifth toe amputations at [facility]. He also had been previously in [facility] and had had evaluations including MRIs, which did not show osteomyelitis. The patient has had persistence of ulcers on the right foot, had lost his insurance and admitted and on January. At that time, there was no exposure of bone, not a lot of inflammatory changes during the examination, some tenderness and mild cellulitis. We recommended oral antimicrobial therapy because we felt that there was no evidence of a deeper infectious process. At this time, he presents with general malaise, fever, and left foot swelling with central plantar aspect ulceration. Initial vital signs showed BP 115/90, pulse 108, temperature 100.6, O2 sats were 94%. There was an ulcer over the left second metatarsal head and right fifth metatarsal head. The right foot was swollen, the left as well. The patient had a white cell count of 13.8 with a hemoglobin 14, platelets 223 with 80% neutrophils and a creatinine of 1.41 with normal liver profile. The patient had bilateral feet x-rays. The left foot showed no acute osseous abnormalities. The right foot demonstrated degenerative changes, but no acute findings. The patient was evaluated by General Surgery, Dr. Carlson has taken the patient for surgical debridement in a few minutes. Some headaches, no visual symptoms or at least no change in visual symptoms, no sore throat, odynophagia, dysphagia, no vomiting, no dyspnea or chest pain, no abdominal pain or diarrhea. Voiding without difficulty. No bleeding. MEDICAL HISTORY: Type 2 diabetes, obesity, neuropathy, chronic ulcers in bilateral feet, prior partial amputations in the right foot, orchiopexy. ALLERGIES: CODEINE, HYDROCODONE. MEDICATIONS: Maalox, Elavil, Norvasc, Colace, insulin, losartan, Zosyn, vancomycin. PERSONAL HISTORY: Never a smoker. FAMILY HISTORY: Type 2 diabetes. PHYSICAL EXAMINATION: VITAL SIGNS: T-max 98.9, blood pressure 130/80, pulse 100, respiratory rate 18- 20, O2 sat 95%. SKIN: We have round shaped 2 cm ulcer in diameter with dark red tissue at the base, lateral aspect of the right foot and the central forefoot plantar aspect ulcer in the left foot, which penetrates in the mid foot region about 1 cm. A little bit of erythema surrounding this area. HEENT: Ocular movements conjugate. Oral cavity not remarkable. NECK: Supple. LUNGS: With symmetric clear breath sounds. HEART: S1, S2, regular rate. No S3 or S4. ABDOMEN: Soft, not distended or tender. No ascites. No bladder distention. BACK: No back tenderness. EXTREMITIES: No other joint inflammatory process noted. Pulses 1+ in dorsalis pedis. NEUROLOGIC: Cognitive function appears to be intact. LABORATORY DATA: Sodium 129, creatinine 1.41. Liver profile normal. Albumin 3.5. White cell count is up to 14.3, hemoglobin 14, platelets 164, 48% neutrophils, 18% bands. Hemoglobin A1c 12. CRP 26. Microbiology with 2 sets of blood cultures with Staphylococcus aureus and Verigene is identified as methicillin susceptible Staphylococcus aureus. ASSESSMENT AND DISCUSSION: Type 2 diabetes, obesity, neuropathy with chronic complications in the bilateral feet, now with what appears to be inflammatory process more significant in the left foot this time with bacteremia. We will wait for the surgical intervention and see if we have to proceed with MRI of the right and left feet for staging of infection. Other sites of involvement are not apparent at this time. We will probably need the protracted IV antimicrobial therapy. We will wait for the surgical report to see what the depth of penetration. If so, then he is going need a PICC line placement and case management consultation. We will switch him to cefazolin. PATRIZIA
[2018-06-20 07:49] LABS: #Eosinphils 0.2 thou/uL (0.0-0.7); #Lymphocytes 2.2 thou/uL (1.20-3.40); #Monocytes 1.2 thou/uL (0.11-0.59); #Neutrophils 8.1 thou/uL (1.40-6.50); %Basophils 0.3 % (0.0-1.0); %Eosinophils 1.8 % (0.0-10.0); %Lymphocytes 18.9 % (21.0-51.0); %Monocytes 10.3 % (0.0-10.0); %Neutrophils 68.8 % (42.0-75.0); Mean Corpuscular HGB CONC 32.4 g/dL (32.0-36.0); Mean Corpuscular Hemoglobin 27.3 pg (27.0-31.0); Mean Corpuscular Volume 84.4 fL (78.0-98.0); Mean Platelet Volume 7.4 fL (7.4-10.4); Platelet Count 192 thou/uL (130-400); RBC Distribution Width 13.8 % (11.5-14.5); Red Blood Cell (RBC) Count 4.39 mill/uL (4.70-6.10); White Blood Cell (WBC) Count 11.7 thou/uL (4.8-10.8)
[2018-06-20 08:25] LABS: Anion Gap 13 mmol/L (10-20); BUN (Urea Nitrogen) 22 mg/dL (8.9-20.6); Calc. Creatinine Clearance 123 mL/min (70-130); Calcium 8.1 mg/dL (7.8-10.44); Carbon Dioxide 25 mmol/L (22-29); Chloride 100 mmol/L (98-107); Estimated GFR-MDRD 38; Glucose 162 mg/dL (70-105); Potassium 3.5 mmol/L (3.5-5.1); Sodium 134 mmol/L (136-145)
[2018-06-20] MEDS: Enoxaparin Sodium 40 MG/0.4 ML SYRINGE SC SCH (09:17)
[2018-06-20] MEDS: Amlodipine 5 MG TAB PO SCH ×2 (09:17→21:20)
[2018-06-20] MEDS: Losartan 25 MG TAB PO SCH (09:17)
[2018-06-20] MEDS: Docusate 100 MG CAP PO SCH (09:17)
[2018-06-20] MEDS: Famotidine 20 MG TAB PO SCH (09:17)
[2018-06-20] MEDS: Insulin Glargine 120 UNITS in Pre-Filled Syringe 1 EACH SC SCH ×2 (09:18→21:20)
[2018-06-20] MEDS: metFORMIN XR 500 MG TAB PO SCH ×2 (09:26→21:25)
--- NOTE | 2018-06-20 09:54 | PDOC.PN ---
- Subjective Encounter Start Date: 06/20/18 Encounter Start Time: 09:45 Subjective: feels better, still weak -: no sob or pain in his leg - Objective Resuscitation Status: Resuscitation Status FULL:Full Resuscitation MAR Reviewed: Yes Vital Signs & Weight: Vital Signs (12 hours) Temp Pulse Resp BP Pulse Ox 06/20/18 09:17 85 06/20/18 07:56 98.6 F 85 20 156/84 H 94 L 06/20/18 04:00 98.3 F 88 16 173/93 H 93 L 06/20/18 00:00 82 129/84 06/19/18 23:22 98.4 F 140 H 16 144/84 H 93 L Weight Admit Weight 377 lb 1.937 oz Weight 377 lb 1.937 oz I&O: 06/19/18 06/20/18 06/21/18 06:59 06:59 06:59 Intake Total 1720 Balance 1720 Result Diagrams: 06/20/18 07:41 06/20/18 07:41 Additional Labs: Accuchecks 06/20/18 06/19/18 06/19/18 05:25 20:23 11:15 POC Glucose 172 H 304 H 233 H Phys Exam - Physical Examination HEENT: PERRLA, moist MMs Neck: no JVD, supple Respiratory: no wheezing, no rales Cardiovascular: RRR, no significant murmur Gastrointestinal: soft, non-tender, positive bowel sounds Musculoskeletal: pulses present, edema present left foot in wound vac Neurological: non-focal, moves all 4 limbs Psychiatric: A&O x 3 Dx/Plan (1) Diabetic foot ulcer Code(s): E11.621 - TYPE 2 DIABETES MELLITUS WITH FOOT ULCER; L97.509 - NON- PRESSURE CHRONIC ULCER OTH PRT UNSP FOOT W UNSP SEVERITY Status: Chronic Qualifiers: Diabetic foot ulcer location: midfoot Diabetes mellitus type: type 2 Comment: b/l non healing, likely osteomyelitis, s/p amp of left 2nd and 3rd toe with metatarsals 06/19/2018 (2) Sepsis Code(s): A41.9 - SEPSIS, UNSPECIFIED ORGANISM Status: Acute Qualifiers: Sepsis type: methicillin susceptible Staphylococcus aureus Qualified Code(s ): A41.01 - Sepsis due to Methicillin susceptible Staphylococcus aureus (3) Bacteremia Code(s): R78.81 - BACTEREMIA Status: Acute Comment: MSSA from foot ulcers (4) DM type 2 (diabetes mellitus, type 2) Status: Chronic Qualifiers: Diabetes mellitus [facility] insulin use: with [facility] use Diabetes mellitus complication status: with hyperglycemia Qualified Code(s): E11.65 - Type 2 diabetes mellitus with hyperglycemia; Z79.4 - long term care administrator (current) use of insulin Comment: uncontrolled, Hb A1c of 12 (5) Obesity (BMI 30.0-34.9) Code(s): E66.9 - OBESITY, UNSPECIFIED Status: Chronic (6) Hypertension Code(s): I10 - ESSENTIAL (PRIMARY) HYPERTENSION Status: Chronic Qualifiers: Hypertension type: essential hypertension (7) Non-compliance Code(s): Z91.19 - PATIENT'S NONCOMPLIANCE W OTH MEDICAL TREATMENT AND REGIMEN Status: Chronic (8) IVAN (acute kidney injury) Code(s): N17.9 - ACUTE KIDNEY FAILURE, UNSPECIFIED Status: Acute - Plan start iv fluids, creatinine is 2 -: is on ceftriaxone, await cultures -: duration of antibiotics based on cultures -: labs in am -: is on lantus 120 u bid, metformin (will hold if creatinine worsens) * . Review of Systems - Medications/Allergies Allergies/Adverse Reactions: Allergies Allergy/AdvReac Type Severity Reaction Status Date / Time hydrocodone [From [facility]] Allergy Verified 01/06/18 14:51 Medications: Current Medications Acetaminophen (Tylenol) 650 mg PO Q4H PRN PRN Reason: Headache/Fever or Pain Last Admin: 06/19/18 07:37 Dose: 650 mg Acetaminophen (Tylenol) 1,000 mg PO Q6H PRN PRN Reason: Moderate to Severe Pain (6-10) Al Hydroxide/Mg Hydroxide (Maalox) 30 ml PO Q6H PRN PRN Reason: Heartburn or Indigestion Amitriptyline HCl (Elavil) 75 mg PO HSPRN PRN PRN Reason: migraines Amlodipine Besylate (Norvasc) 5 mg PO BID [facility] Last Admin: 06/20/18 09:17 Dose: 5 mg Dextrose/Water (Dextrose 50%) 25 gm SLOW IVP PRN PRN PRN Reason: Hypoglycemia Docusate Sodium (Colace) 100 mg PO BID [facility] Last Admin: 06/20/18 09:17 Dose: 100 mg Enoxaparin Sodium (Lovenox) 40 mg SC 0900 [facility] Last Admin: 06/20/18 09:17 Dose: 40 mg Famotidine (Pepcid) 20 mg PO BID [facility] Last Admin: 06/20/18 09:17 Dose: 20 mg Glucagon (Glucagon) 1 mg IM PRN PRN PRN Reason: Hypoglycemia Guaifenesin/Dextromethorphan (Robitussin Dm) 15 ml PO Q4H PRN PRN Reason: Cough Dextrose/Water (D5w) 1,000 mls @ 0 mls/hr IV .Q0M PRN PRN Reason: Hypoglycemia Insulin Glargine 120 units/ (Miscellaneous Medication) 1.2 mls @ 0 mls/hr SC BID [facility] Last Admin: 06/20/18 09:18 Dose: 1.2 mls Ceftriaxone Sodium 2 gm/ (Sodium Chloride) 100 mls @ 200 mls/hr IVPB Q24HR [facility] Last Admin: 06/19/18 18:04 Dose: 100 mls Sodium Chloride (Normal Saline 0.9%) 1,000 mls @ 100 mls/hr IV .Q10H [facility] Insulin Human Lispro (Humalog) 0 units SC .AGGRESSIVE SLIDING PRN PRN Reason: Aggressive Correctional Scale Last Admin: 06/19/18 05:25 Dose: 11 unit Insulin Human Lispro (Humalog) 0 units SC .BEDTIME SLIDING SC PRN PRN Reason: Bedtime Correctional Scale Losartan Potassium (Cozaar) 100 mg PO DAILY [facility] Last Admin: 06/20/18 09:17 Dose: 100 mg Metformin HCl (Glucophage Xr) 1,000 mg PO BID [facility] Last Admin: 06/20/18 09:26 Dose: 1,000 mg Ondansetron HCl (Zofran) 4 mg IVP Q6H PRN PRN Reason: Nausea/Vomiting Sodium Chloride (Flush - Normal Saline) 10 ml IVF Q12HR [facility] Last Admin: 06/20/18 00:28 Dose: Not Given Sodium Chloride (Flush - Normal Saline) 10 ml IVF PRN PRN PRN Reason: Saline Flush Tramadol HCl (Ultram) 50 mg PO Q6H PRN PRN Reason: Pain 1-5 Last Admin: 06/19/18 19:17 Dose: 50 mg
[2018-06-20] MEDS: Sodium Chloride 0.9% 1,000 ML IV SCH (10:18)
--- NOTE | 2018-06-20 16:06 | PRG ---
DATE OF SERVICE: 06/20/2018 HISTORY: Mr. Higginbotham had an amputation of the involved area of the left foot. The operative report was reviewed. The patient had a second and third toe with metatarsal amputation as well as the neuropat hic ulcer. Cultures submitted. He denies any headaches. No shortness of breath or chest pain. No abdominal pain. OBJECTIVE: VITAL SIGNS: Temperature max 98.6, blood pressure 130/90, pulse 85, respirations 20, O2 sat 95%. SKIN: Shows the right foot ulcer with I would say about 90% red granulation tissue. No bone penetra tion noted. Mild erythema surrounding this ulcer and the left side is in the 2nd postop day with a d ressing, which was not removed. I think he has a negative pressure dressing as well. LUNGS: Clear. HEART: S1, S2, regular rate. ABDOMEN: Soft. LABORATORY DATA: White cell count 11.7, hemoglobin 12, platelets 192,000. Chemistry with a creatini ne up to 2.03. He is currently receiving ceftriaxone. His microbiology showed MSSA in blood culture s 2 sets and from the foot as well. ASSESSMENT AND DISCUSSION: Type 2 diabetes, obesity, neuropathy, chronic complications in the right and left feet, now with bilateral ulcers. The one on the left side, it was a new one and it was actu ally more like a sinus tract opening, which connected to the second and third toes and metatarsals, h ad resection completed. Since he is bacteremic, we will continue IV antimicrobial therapy with Rocep hin for at least 4 weeks, if not, 6. Check the repeat MRI of the right foot to see the status of fanny t area since the ulcer has not healed, most likely due to poor offloading, but he is also at risk for a penetrating infection in that side.
[2018-06-20] MEDS: traMADol HCl 50 MG TAB PO PRN (16:15)
[2018-06-20] MEDS: cefTRIAXone\\ROCEPHIN 2 GM in Sodium Chloride 0.9% 100 ML IVPB SCH (16:16)
--- NOTE | 2018-06-20 18:27 | PRG ---
DATE OF SERVICE: 06/20/2018 Quique Higginbotham is doing well today. He is having minimal pain. Wound VAC is placed. I will view his wound tomorrow. Since patient had positive IV antibiotics, Dr. Cortes is planning Rocephin for 4- [address] Cortes wanted to repeat MRI of the right foot. Clinically, this looks like a superficia l ulceration that is slow to granulate due to weightbearing location. Clinically, there is no eviden ce of deep infection and continued medical care is warranted. I will view the patient's wound tomorr ow and from a surgical standpoint, the patient is ready to be discharged home whenever the wound VAC is ready for use and arrange for outpatient use. I will see him in my office in 2-3 weeks after view ing the wound tomorrow.
[2018-06-21 04:39] LABS: #Eosinphils 0.4 thou/uL (0.0-0.7); #Lymphocytes 2.7 thou/uL (1.20-3.40); #Monocytes 0.9 thou/uL (0.11-0.59); %Basophils 0.4 % (0.0-1.0); %Eosinophils 3.2 % (0.0-10.0); %Lymphocytes 24.5 % (21.0-51.0); %Monocytes 8.2 % (0.0-10.0); %Neutrophils 63.6 % (42.0-75.0); Hemoglobin 12.7 g/dL (14.0-18.0); Mean Corpuscular HGB CONC 32.6 g/dL (32.0-36.0); Mean Corpuscular Hemoglobin 27.8 pg (27.0-31.0); Mean Corpuscular Volume 85.3 fL (78.0-98.0); Mean Platelet Volume 8.3 fL (7.4-10.4); Platelet Count 213 thou/uL (130-400); Red Blood Cell (RBC) Count 4.56 mill/uL (4.70-6.10); White Blood Cell (WBC) Count 10.9 thou/uL (4.8-10.8)
[2018-06-21 04:58] LABS: Anion Gap 13 mmol/L (10-20); BUN (Urea Nitrogen) 22 mg/dL (8.9-20.6); Calc. Creatinine Clearance 117 mL/min (70-130); Calcium 8.5 mg/dL (7.8-10.44); Carbon Dioxide 23 mmol/L (22-29); Chloride 105 mmol/L (98-107); Estimated GFR-MDRD 36; Glucose 157 mg/dL (70-105); Potassium 3.8 mmol/L (3.5-5.1); Sodium 137 mmol/L (136-145)
[2018-06-21] MEDS: Sodium Chloride 0.9% 1,000 ML IV SCH ×3 (06:46→18:37)
[2018-06-21] MEDS: Docusate 100 MG CAP PO SCH ×3 (06:47→19:23)
[2018-06-21] MEDS: Famotidine 20 MG TAB PO SCH ×3 (06:49→20:18)
--- NOTE | 2018-06-21 07:30 | PRG ---
DATE OF SERVICE: 06/21/2018 HISTORY OF PRESENT ILLNESS: Quique Higginbotham is doing well today. Left foot wound VAC dressin g removed. The wound is granulating and bleeding and healthy without infection. The patient has a d ressing over his right foot where he has a small neuropathic ulcer at the base of the metatarsophalan geal joint of the right fourth toe. There is no clinical evidence of infection or sinus, but Dr. Romero skelton had requested an MRI right foot, which has not been ordered. I have ordered that this morning, th ey can perform that without the wound VAC dressing on. Wound Care Team can reapply the left foot wou nd VAC dressing after the MRI. PICC line has been suggested due to bacteremia and I have ordered fanny t. From a standpoint of his left foot, the patient states he is ready to go home. He can go home wi th outpatient wound VAC. In the past outpatient [facility] appointments have been made to care f or the wound VAC. He will need antibiotic infusion arranged. From a surgical standpoint, the patien t is ready for discharge home with outpatient antibiotic arrangements per case management and Dr. Romero skelton. I can see him in my office or outpatient wound care in 2-3 weeks. I will see him as needed from this point. Please call if further services necessary.
[2018-06-21] MEDS: Losartan 25 MG TAB PO SCH (08:09)
[2018-06-21] MEDS: metFORMIN XR 500 MG TAB PO SCH (08:10)
[2018-06-21] MEDS: Amlodipine 5 MG TAB PO SCH ×2 (08:10→20:18)
[2018-06-21] MEDS: Insulin Glargine 120 UNITS in Pre-Filled Syringe 1 EACH SC SCH ×2 (08:11→20:19)
[2018-06-21] MEDS: Enoxaparin Sodium 40 MG/0.4 ML SYRINGE SC SCH (08:12)
--- NOTE | 2018-06-21 12:52 | MRI ---
MRI RIGHT FOREFOOT WITHOUT CONTRAST: 06/21/2018 PROVIDED CLINICAL HISTORY: Diabetic wound. FINDINGS: Postoperative changes of prior resection of the majority of the fifth ray are demonstrated. There is cutaneous irregularity involving the soft tissues at the plantar aspect of the fourth metatarsal hea d. Evaluation is limited due to patient motion, though there is probably signal alteration on fluid sensitive sequences, involving the lateral aspect of the fourth metatarsal head. No definite associa elizabeth T1 signal alteration. Regional marrow signal appears otherwise normal. No regional joint effusi on is evident. No significant tenosynovial fluid is evident. There is fatty atrophy of much of the intrinsic foot musculature. No regional joint effusion is evident. IMPRESSION: Findings compatible with the provided clinical history of a diabetic wound at the plantar aspect of t he fourth metatarsal head. Minimal signal alteration on fluid sensitive sequences involving the subj acent fourth metatarsal head may reflect reactive osteitis or early osteomyelitis. POS: [facility]
[2018-06-21 13:02] VITALS: BMI 39.9
--- NOTE | 2018-06-21 15:39 | SPC ---
ULTRASOUND GUIDED RIGHT UPPER EXTREMITY PICC LINE 06/21/18 HISTORY: Toe infection. Patient needs halfway IV antibiotics. FLUOROSCOPY: Total fluoroscopy time was 0.2 minutes with total dose of 4378 mGy*cm2. TECHNIQUE: After informed consent was obtained, patient was placed on the angiography table in the supine positi on. The right upper extremity was meticulously prepped and draped in the usual sterile fashion. An ap propriate access site was determined with ultrasound guidance. The skin and subcutaneous tissues were infiltrated with buffered 1% lidocaine for local anesthesia. A 5 B[place] peel away sheath was placed. The catheter was measured and cut to the appropriate length. The catheter was placed over the guide wire with the tip position overlying the distal SVC. Guide wir e and peel away sheath were removed. The catheter was accessed and aspirated/flushed easily. The cath eter was secured in place utilizing a StatLock device, a dry sterile dressing was placed. The patient tolerated the procedure well without immediate complication. IMPRESSION: Technically successful placement of a single lumen 5 B[place]udian 44.5 cm PICC line via the right basilic v ein. Tip of the catheter overlies the distal SVC. POS: [facility]
[2018-06-21] MEDS: cefTRIAXone\\ROCEPHIN 2 GM in Sodium Chloride 0.9% 100 ML IVPB SCH (16:09)
[2018-06-21] MEDS: traMADol HCl 50 MG TAB PO PRN (17:44)
--- NOTE | 2018-06-21 21:52 | PDOC.PN ---
- Subjective Encounter Start Date: 06/21/18 Encounter Start Time: 14:00 - Objective Resuscitation Status: Resuscitation Status FULL:Full Resuscitation Vital Signs & Weight: Vital Signs (12 hours) Temp Pulse Resp BP BP Pulse Ox 06/21/18 20:18 75 160/92 H 06/21/18 20:00 93 L 06/21/18 19:08 98.4 F 75 12 160/92 H 93 L Weight Admit Weight 377 lb 1.937 oz Weight 337 lb I&O: 06/20/18 06/21/18 06/22/18 06:59 06:59 06:59 Intake Total 1720 Balance 1720 Result Diagrams: 06/21/18 04:18 06/21/18 04:18 Additional Labs: Accuchecks 06/21/18 06/21/18 06/21/18 19:50 16:32 12:26 POC Glucose 117 H 156 H 165 H Dx/Plan - Plan * . Review of Systems - Medications/Allergies Allergies/Adverse Reactions: Allergies Allergy/AdvReac Type Severity Reaction Status Date / Time hydrocodone [From [place]] Allergy Verified 01/06/18 14:51 Medications: Current Medications Acetaminophen (Tylenol) 650 mg PO Q4H PRN PRN Reason: Headache/Fever or Pain Last Admin: 06/19/18 07:37 Dose: 650 mg Acetaminophen (Tylenol) 1,000 mg PO Q6H PRN PRN Reason: Moderate to Severe Pain (6-10) Al Hydroxide/Mg Hydroxide (Maalox) 30 ml PO Q6H PRN PRN Reason: Heartburn or Indigestion Amitriptyline HCl (Elavil) 75 mg PO HSPRN PRN PRN Reason: migraines Amlodipine Besylate (Norvasc) 5 mg PO BID [facility] Last Admin: 06/21/18 20:18 Dose: 5 mg Dextrose/Water (Dextrose 50%) 25 gm SLOW IVP PRN PRN PRN Reason: Hypoglycemia Docusate Sodium (Colace) 100 mg PO BID [facility] Last Admin: 06/21/18 19:23 Dose: Not Given Famotidine (Pepcid) 20 mg PO BID [facility] Last Admin: 06/21/18 20:18 Dose: 20 mg Glucagon (Glucagon) 1 mg IM PRN PRN PRN Reason: Hypoglycemia Guaifenesin/Dextromethorphan (Robitussin Dm) 15 ml PO Q4H PRN PRN Reason: Cough Dextrose/Water (D5w) 1,000 mls @ 0 mls/hr IV .Q0M PRN PRN Reason: Hypoglycemia Insulin Glargine 120 units/ (Miscellaneous Medication) 1.2 mls @ 0 mls/hr SC BID [facility] Last Admin: 06/21/18 20:19 Dose: 1.2 mls Ceftriaxone Sodium 2 gm/ (Sodium Chloride) 100 mls @ 200 mls/hr IVPB Q24HR [facility] Last Admin: 06/21/18 16:09 Dose: 100 mls Sodium Chloride (Normal Saline 0.9%) 1,000 mls @ 100 mls/hr IV .Q10H [facility] Last Admin: 06/21/18 18:37 Dose: Not Given Insulin Human Lispro (Humalog) 0 units SC .AGGRESSIVE SLIDING PRN PRN Reason: Aggressive Correctional Scale Last Admin: 06/19/18 05:25 Dose: 11 unit Insulin Human Lispro (Humalog) 0 units SC .BEDTIME SLIDING SC PRN PRN Reason: Bedtime Correctional Scale Ondansetron HCl (Zofran) 4 mg IVP Q6H PRN PRN Reason: Nausea/Vomiting Sodium Chloride (Flush - Normal Saline) 10 ml IVF Q12HR [facility] Last Admin: 06/21/18 20:20 Dose: 10 ml Sodium Chloride (Flush - Normal Saline) 10 ml IVF PRN PRN PRN Reason: Saline Flush Tramadol HCl (Ultram) 50 mg PO Q6H PRN PRN Reason: Pain 1-5 Last Admin: 06/21/18 17:44 Dose: 50 mg
[2018-06-22] MEDS: traMADol HCl 50 MG TAB PO PRN (06:01)
[2018-06-22 07:45] VITALS: BP 162/90; TEMP 98.3
[2018-06-22] MEDS: Docusate 100 MG CAP PO SCH (08:15)
[2018-06-22] MEDS ORDERED: Insulin Glargine 70 UNITS in Pre-Filled Syringe 1 EACH SC SCH (08:15)
[2018-06-22] MEDS: Amlodipine 5 MG TAB PO SCH (08:15)
[2018-06-22] MEDS: Famotidine 20 MG TAB PO SCH (08:18)
--- NOTE | 2018-06-22 09:59 | DIS ---
DATE OF DISCHARGE: 06/21/2018 DISCHARGE DISPOSITION: Home. FOLLOWUP: Follow up with primary care physician at [facility] in 1 week. Follow up with Infectious Disease, Dr. Cortes as well as General Surgery, Dr. Carlson. The patient was seen and examined on the day of discharge, denies any new complaints. ALLERGIES: The patient is allergic to HYDROCODONE. BRIEF HOSPITAL COURSE: Patient is a 33-year-old male with diabetes mellitus type 2, presented to the hospital with fever along with diabetic foot ulcer. Please refer to the history and physical dated 06/18/[address] Dahl for further details. The patient was admitted to the medical floor with a diagnosis of bilateral nonhealing foot ulcer with cellulitis. The patient was seen by General Surgery and Infectious Disease. His blood culture was positive for Staphylococcus sensitive to ceftriaxone. He was placed on broad spectrum antibiotic that has been changed to ceftriaxone. He underwent amputation of the left foot second and third toes and metatarsals. A wound VAC has been arranged. A PICC line has been placed as well. He will follow up with outpatient infusion clinic. He will also follow up with the wound care. On the day of discharge, he underwent an MRI of the right lower extremity that showed reactive osteitis versus early osteomyelitis. He was advised to follow up with General Surgery and Infectious Disease as outpatient. An echocardiogram was done that was negative for vegetation. The study was technically difficult. An outpatient echocardiogram is recommended. Primary care physician advised to follow. Patient was also found to have renal insufficiency with creatinine of 1.41 on admission and 2.13 on 06/21/2018. He was advised to discontinue all the nonsteroidal anti-inflammatory drugs as well as metformin. He was also advised to hold losartan. He was advised to monitor his blood sugar as well as blood pressure on a daily basis and to maintain a log. If his blood pressure remains elevated, he was advised to contact the [facility] for further blood pressure titration. It is unclear what medications he takes at home. He was advised to bring all of his medications at his next appointment at [facility]. For the time being, he will continue amlodipine. He was extensively counseled to be compliant with all of his medications. FINAL DIAGNOSES: 1. Sepsis due to bilateral nonhealing infected foot ulcer with cellulitis requiring surgical intervention as discussed above. 2. Methicillin-sensitive staphylococcus aureus Staphylococcus bacteremia. 3. Uncontrolled diabetes mellitus type 2. 4. Morbid obesity with a BMI 40. 5. Hypertension. 6. Acute kidney injury on chronic kidney disease stage 3. An outpatient followup with Dr. Doty was recommended. He was advised to call Dr. Doty' s office for appointment. He will benefit from repeat labs after 1 week. He will need CRP, CMP and CBC next week with his IV antibiotics. He will complete Rocephin 2 grams daily until 07/29. Total time coordinating the discharge of this patient was 38 minutes. PATRIZIA
[2018-06-22] MEDS: cefTRIAXone\\ROCEPHIN 2 GM in Sodium Chloride 0.9% 100 ML IVPB SCH (10:33)
--- NOTE | 2018-06-29 11:31 | EKG ---
Test Reason : TACHYCARDIA Blood Pressure : / mmHG Vent. Rate : 105 BPM Atrial Rate : 105 BPM P-R Int : 138 ms QRS Dur : 090 ms QT Int : 338 ms P-R-T Axes : 019 -28 048 degrees QTc Int : 446 ms Sinus tachycardia Otherwise normal ECG Confirmed by ELLA MASSEY, KRISTAL ([id number]), publishing editor BHAVESH MALDONADO ([id number]) on 06/29/2018 11:30:43 AM Referred By: Confirmed By:KRISTAL JARAMILLO MD
== END 2018-06-22 11:47 | disposition home or self-care (01) | DRG 854 ==
LOC: ERS 15:43 → ONC 17:09
PROVIDERS: ADMIT Internal Medicine; ATTEND Internal Medicine
PROC: 0Y6S0Z0 Detachment at Left 2nd Toe, Complete, Open Approach (ICD-10-PCS; principal; 2018-06-19)
PROC: 0Y6U0Z0 Detachment at Left 3rd Toe, Complete, Open Approach (ICD-10-PCS; 2018-06-19)
PROC: 0Y6N0ZB Detachment at Left Foot, Partial 2nd Ray, Open Approach (ICD-10-PCS; 2018-06-19)
PROC: 0Y6N0ZC Detachment at Left Foot, Partial 3rd Ray, Open Approach (ICD-10-PCS; 2018-06-19)
PROC: 02HV33Z Insertion of Infusion Device into Superior Vena Cava, Percutaneous Approach (ICD-10-PCS; 2018-06-19)
DX: A41.01 Sepsis due to Methicillin susceptible Staphylococcus aureus (principal); L03.116 Cellulitis of left lower limb; N17.9 Acute kidney failure, unspecified; Z68.41 Body mass index [BMI] 40.0-44.9, adult; E11.621 Type 2 diabetes mellitus with foot ulcer; Z88.5 Allergy status to narcotic agent; N18.3 Chronic kidney disease, stage 3 (moderate); E66.01 Morbid (severe) obesity due to excess calories; Z79.899 Other long term (current) drug therapy; Z91.19 Patient's noncompliance with other medical treatment and regimen; Z79.84 Long term (current) use of oral hypoglycemic drugs; Z89.421 Acquired absence of other right toe(s)
CPT/HCPCS: 36415; 36416; 36569; 71045; 80048; 80053; 82553; 83036; 83605; 83690; 83880; 84484; 85025; 85652; 86140; 87040; 87070; 87077; 87149; 87186; 87205; 88305; 88311; 93005; 93306; 96365; 96366; A4216; C1751; G8978-GP-CM; G8979-GP-CK; J0696; J1642; J1650; J2001; J2405; J2543; J2704; J3010; J3370; J7050

== ENCOUNTER 2018-06-24 16:02 | Outpatient (CLI) | payer SELFPAY ==
[~2018-06-24 16:02] MED LIST: Sodium Chloride 0.9% 15 ML NEB ONE
== END 2018-06-24 16:03 | disposition home or self-care (01) ==
LOC: WCC 16:02
PROVIDERS: ATTEND Family Medicine
DX: T81.89XD Other complications of procedures, not elsewhere classified, subsequent encounter (principal); Z89.421 Acquired absence of other right toe(s)
CPT/HCPCS: 97605; A4218

== ENCOUNTER 2018-06-27 16:05 | Outpatient (CLI) | payer SELFPAY ==
[2018-06-27] MEDS ORDERED: Sodium Chloride 0.9% 15 ML NEB ONE (20:06)
== END 2018-06-27 16:06 | disposition home or self-care (01) ==
LOC: WCC 16:05
PROVIDERS: ATTEND Family Medicine
DX: T81.89XD Other complications of procedures, not elsewhere classified, subsequent encounter (principal)
CPT/HCPCS: 36416; 97605; A4218

== ENCOUNTER 2018-07-01 16:10 | Outpatient (CLI) | payer SELFPAY ==
--- NOTE | 2018-07-01 18:16 | PRG ---
DATE OF SERVICE: 07/01/2018 Quique Higginbotham reports to Wound Care. He has a wound VAC in his left foot. He has had amput ation of left second and third toes, and metatarsals. He has a PICC line and has 45 days of intraven ous antibiotics. PLAN: Today, his wound is granulating, looks good. There is no evidence of infection. There are no bones exposed, connective tissue is well covered with granulation tissue. Overall, the patient is d oing well with wound VAC care. We will continue wound VAC care. I would see him in the next 2-3 wee ks and expect this wound to be almost close such that a wound VAC could to be discontinued and other treatment modalities used.
== END 2018-07-01 16:11 | disposition home or self-care (01) ==
LOC: WCC 16:10
PROVIDERS: ATTEND Family Medicine
DX: S91.302A Unspecified open wound, left foot, initial encounter (principal); Z89.422 Acquired absence of other left toe(s)
CPT/HCPCS: 97605; A4218

== ENCOUNTER 2018-07-04 13:37 | Outpatient (CLI) | payer SELFPAY ==
--- NOTE | 2018-07-04 17:37 | PRG ---
DATE OF SERVICE: 07/04/2018 HISTORY: Mr. Quique Higginbotham is a very pleasant 33-year-old gentleman previously seen in the Wound Center for a wound of the right lateral foot. The patient is now being seen for a wound of the left foot subsequent to amputation of the left second and third toes and metatarsals and neuropathic ulcer on 06/19/[address] Srikanth Carlson. At the time of surgery, Mr. Higginbotham also underwent wound VAC plac ement. The patient also has an ulceration of the plantar surface of the right forefoot. Upon discha rge from [facility], the patient was referred to the Wound Center for assistan ce with dressing changes of the wound VAC. During the patient's hospital stay, Mr. Higginbotham was seen in consultation by Dr. Gordo Cortes of Infectious Diseases. The patient is receiving IV antibiotics un justice the direction of Infectious Diseases for osteomyelitis of the right foot, specifically the fourth metatarsal head. PAST MEDICAL HISTORY AND PAST SURGICAL HISTORY: Diabetes mellitus, hypertension, and migraine headac hes. The patient reports only amputation of the left second and third toes and metatarsals and neuro pathic ulcer on 06/19/2018 as the only surgical procedure since being seen in the Wound Center in 2016. MEDICATIONS: The patient does not have a list of his medications with him today. He states that his medications, however, include losartan, amlodipine, amitriptyline, metformin and Levemir. PHYSICAL EXAMINATION: VITAL SIGNS: Temperature 97.6, pulse 62, respirations 18, blood pressure 144/87. Accu-Chek 188. EXTREMITIES: A wound of the left foot is present subsequent to amputation of the left second and thi rd toes and metatarsals and neuropathic ulcer. Granulation tissue is present within the wound margin s. Nonviable tissue present within the wound margins was debrided with an excisional full-thickness debridement with the use of a curette. No purulent drainage is associated with the wound. No erythe ma of the skin surrounding the wound is present. No maceration of the skin of the periwound is noted . A dorsalis pedis pulse is palpable on the left. No significant edema of the left foot is present on exam today. An ulceration of the plantar surface of the right forefoot is present, which measures approximately 1.5 x 1.4 cm. Granulation tissue is present within the wound margins. Desiccated tis sera at the periphery of the wound was excised with the use of scissors. No purulent drainage is asso ciated with the wound. No erythema of the skin surrounding the wound is present. No maceration of t he skin of the periwound is noted. A dorsalis pedis pulse is palpable on the right. No significant edema of the right foot is present on exam today. ASSESSMENT AND PLAN: 1. Wounds of right and left feet as described above. Negative pressure therapy for the left foot wo und will be continued with dressing changes of the wound VAC here in the Wound Center. For the plant ar ulceration of the right foot, the patient is receiving dressing changes of Silvercel. The patient will be seen by Dr. Carlson in 1 week. I will see Higginbotham again in 2 weeks. As stated above, the p oscar is receiving IV antibiotics as per Dr. Gordo Cortes of Infectious Diseases. 2. Diabetes mellitus. The patient's Accu-Chek in clinic today is 188. The patient has been reminde d that for optimal wound healing, his blood glucoses should remain below 150. 3. Hypertension. 4. Migraine headaches.
== END 2018-07-04 13:38 | disposition home or self-care (01) ==
LOC: WCC 13:37
PROVIDERS: ATTEND Family Medicine
DX: T81.89XD Other complications of procedures, not elsewhere classified, subsequent encounter (principal); E11.621 Type 2 diabetes mellitus with foot ulcer; L97.419 Non-pressure chronic ulcer of right heel and midfoot with unspecified severity; I10 Essential (primary) hypertension; G43.909 Migraine, unspecified, not intractable, without status migrainosus
CPT/HCPCS: 36416

== ENCOUNTER 2018-07-05 21:41 | Observation (INO) | payer SELFPAY ==
[2018-07-06 00:14] LABS: #Basophils 0.1 thou/uL (0.0-0.2); #Monocytes 0.7 thou/uL (0.11-0.59); #Neutrophils 4.9 thou/uL (1.40-6.50); %Basophils 1.1 % (0.0-1.0); %Lymphocytes 30.8 % (21.0-51.0); %Monocytes 7.6 % (0.0-10.0); %Neutrophils 50.4 % (42.0-75.0); Hemoglobin 11.2 g/dL (14.0-18.0); Mean Corpuscular Hemoglobin 26.1 pg (27.0-31.0); Mean Corpuscular Volume 84.1 fL (78.0-98.0); Mean Platelet Volume 6.8 fL (7.4-10.4); Platelet Count 273 thou/uL (130-400); RBC Distribution Width 13.8 % (11.5-14.5); White Blood Cell (WBC) Count 9.7 thou/uL (4.8-10.8)
[2018-07-06 00:34] LABS: ALT (SGPT) 16 U/L (8-55); AST (SGOT) 20 U/L (5-34); Albumin 3.4 g/dL (3.5-5.0); Alkaline Phosphatase 81 U/L (40-150); Anion Gap 11 mmol/L (10-20); BUN (Urea Nitrogen) 33 mg/dL (8.9-20.6); Bilirubin, Total 0.3 mg/dL (0.2-1.2); Calc. Creatinine Clearance 0 mL/min (70-130); Calcium 9.8 mg/dL (7.8-10.44); Carbon Dioxide 26 mmol/L (22-29); Chloride 106 mmol/L (98-107); Estimated GFR-MDRD 43; Globulin 6.4 g/dL (2.4-3.5); Glucose 134 mg/dL (70-105); Potassium 4.4 mmol/L (3.5-5.1); Protein, Total 9.8 g/dL (6.0-8.3); Sodium 139 mmol/L (136-145)
[2018-07-06] MEDS ORDERED: cefTRIAXone\\ROCEPHIN 1 GM VIAL ONE (00:51)
[2018-07-06 02:02] VITALS: BMI 39.4
[2018-07-06] MEDS ORDERED: Sodium Chloride 0.45% 1,000 ML IV SCH (02:15)
[2018-07-06 07:28] VITALS: TEMP 98.1
[2018-07-06] MEDS ORDERED: traMADol HCl 50 MG TAB PO PRN ×2 (11:07)
[2018-07-06 11:58] VITALS: BP 137/85
[2018-07-06] MEDS ORDERED: Acetaminophen 500 MG TAB PO SCH (12:00)
--- NOTE | 2018-07-08 15:33 | SS ---
DATE OF ADMISSION: 07/06/2018 DATE OF DISCHARGE: 07/06/2018 ADMISSION DIAGNOSES: 1. Status post left second and third toe amputation. 2. Wound VAC malfunction. 3. Diabetes. DISCHARGE DIAGNOSES: 1. Status post left second and third toe amputation. 2. Wound VAC malfunction. 3. Diabetes. CONSULTANTS: None. PROCEDURES: None. HOSPTIAL COURSE AND HISTORY OF PRESENT ILLNESS: This is a 33-year-old male with a past medical histo ry diabetes and non-healing foot ulcer, resulting in a left second and third toe amputation. The jennifer calderon was last seen by the wound care clinic, , prior to admission. On Sunday evening, the wo und VAC became, I am sorry to note, malfunctioned and lost suction. [facility] was seen and evaluated. He was admitted overnight until wound care could see hi m the following morning. On the morning of 07/06/2018, the wound care team replaced the patient's wo und VAC. Pain was controlled via p.o. analgesics and he was discharged home. DISCHARGE DISPOSITION: Home. DISCHARGE CONDITION: Good. PHYSICAL EXAMINATION. VITAL SIGNS: Temperature 98.1, pulse 70, respirations 14, O2 sat 95% on room air, blood pressure 137 /35. GENERAL: Resting in bed, in no acute distress. PULMONARY: Normal work of breathing, symmetric rise. CARDIOVASCULAR: Regular rate and rhythm GASTROINTESTINAL: Abdomen is soft, nontender, and nondistended. MUSCULOSKELETAL: Moves all extremities x4. Left lower extremity dressing is clean, dry, and intact. Wound base with granulating tissue and no signs of purulent drainage or infection. NEURO: No focal deficit is noted. LABORATORY FINDINGS: WBC 9.7, hemoglobin of 11.2, hematocrit 36.1, platelet count 273, sodium 139, p otassium 4.4, chloride 106, carbon dioxide 26, BUN 33, creatinine 1.82. Glucose 134. AST and ALT wi thin normal limits. DISCHARGE DISPOSITION: Home. DISCHARGE CONDITIION: Good. DISCHARGE INSTRUCTIONS: The patient was discharged home with instructions to follow up in wound care clinic. He should continue home VAC care as previously ordered. DISCHARGE MEDICATIONS: The patient was discharge home on his home medication regimen. Additionally, he was provided a prescription for Ultram 50 mg one tab q.6 hours p.r.n. for severe pain only, #20, and advised to take [id number] Tylenol. He should avoid NSAIDs given his renal dysfunction. FOLLOWUP APPOINTMENT: The patient is to follow up Sunday with the wound care clinic as previously sc heduled. He is to follow up with Dr. Carlson for his left lower extremity wound. This is merely a blanco mmary of the patient's hospitalization. For more depth information, please see his medical record in its entirety.
== END 2018-07-06 12:52 | disposition home or self-care (01) ==
LOC: ERS 21:41 → SURG A 07-06 01:07
PROVIDERS: ADMIT Surgery; ATTEND Surgery
DX: T88.8XXA Other specified complications of surgical and medical care, not elsewhere classified, initial encounter (principal); E11.621 Type 2 diabetes mellitus with foot ulcer; L97.529 Non-pressure chronic ulcer of other part of left foot with unspecified severity; Z79.4 Long term (current) use of insulin; Z79.899 Other long term (current) drug therapy; Z88.5 Allergy status to narcotic agent; Z89.422 Acquired absence of other left toe(s)
CPT/HCPCS: 36416; 96361; 96365; 96375; G0378; J0696; J3370

== ENCOUNTER 2018-07-08 16:12 | Outpatient (CLI) | payer SELFPAY | END 2018-07-08 16:13 | disposition home or self-care (01) | LOC: WCC 16:12 | PROVIDERS: ATTEND Family Medicine | DX: T81.89XD Other complications of procedures, not elsewhere classified, subsequent encounter (principal); Z89.421 Acquired absence of other right toe(s) | CPT/HCPCS: 97605; A4218 ==

== ENCOUNTER 2018-07-11 15:56 | Outpatient (CLI) | payer SELFPAY | END 2018-07-11 15:57 | disposition home or self-care (01) | LOC: WCC 15:56 | PROVIDERS: ATTEND Family Medicine | DX: T81.89XD Other complications of procedures, not elsewhere classified, subsequent encounter (principal) | CPT/HCPCS: 36416; 97605 ==

== ENCOUNTER 2018-07-16 15:53 | Outpatient (CLI) | payer SELFPAY | END 2018-07-16 15:54 | disposition home or self-care (01) | LOC: WCC 15:53 | PROVIDERS: ATTEND Family Medicine | DX: T81.89XD Other complications of procedures, not elsewhere classified, subsequent encounter (principal) | CPT/HCPCS: 36416; 97605; A4218 ==

== ENCOUNTER 2018-07-18 15:55 | Outpatient (CLI) | payer SELFPAY ==
--- NOTE | 2018-07-18 19:50 | PRG ---
DATE OF SERVICE: 07/18/2018 HISTORY: Mr. Quique Higginbotham is a very pleasant 33-year-old gentleman previously seen in the Wound Center for a wound of the right lateral foot. The patient is now being seen for wound of the left fo ot subsequent to amputation of the left second and third toes and metatarsals and neuropathic ulcer o n 06/19/[address] Srikanth Carlson. At the time of surgery, Mr. Higginbotham also underwent wound VAC placem ent. Upon discharge from [facility], the patient was referred to the Wound Ce nter for assistance with dressing changes of the wound VAC. During the patient's hospital stay, Mr. Higginbotham was seen in consultation by Dr. Gordo Cortes of Infectious Diseases. The patient is receiving IV antibiotics under the direction of Infectious Diseases for osteomyelitis of the right foot specifi quincy the fourth metatarsal head. OBJECTIVE: VITAL SIGNS: Temperature 98.2, pulse 72, respirations 20, blood pressure 165/94. Accu-Chek 130. EXTREMITIES: A wound of the left foot is present subsequent to amputation of the left second and thi rd toes and metatarsals, and neuropathic ulcer. Granulation tissue is present within the wound rocky ns. Nonviable tissue present within the wound margins was debrided with an excisional full-thickness debridement with the use of a curette. No purulent drainage is associated with the wound. No eryth umm of the skin surrounding the wound is present. No maceration of the skin of the periwound is note d. No significant edema of the left foot is present on exam today. ASSESSMENT AND PLAN: 1. Left foot wound as described above. Negative pressure therapy for the left foot wound will be co ntinued with dressing changes of the wound VAC here in the Wound Center. The patient will be seen by Dr. Carlson in 1 week. I will see Mr. Higginbotham again in two weeks. As stated above, the patient is rece iving IV antibiotics as per Dr. Gordo Cortes of Infectious Diseases. 2. Diabetes mellitus. The patient's Accu-Chek in clinic today is 130. The patient has been reminde d that for optimal wound healing, his blood glucoses should remain below 150. 3. Hypertension. 4. Migraine headaches.
== END 2018-07-18 15:56 | disposition home or self-care (01) ==
LOC: WCC 15:55
PROVIDERS: ATTEND Family Medicine
DX: T81.89XD Other complications of procedures, not elsewhere classified, subsequent encounter (principal); E11.42 Type 2 diabetes mellitus with diabetic polyneuropathy; I10 Essential (primary) hypertension; G43.909 Migraine, unspecified, not intractable, without status migrainosus
CPT/HCPCS: 36416

== ENCOUNTER 2018-07-22 16:11 | Outpatient (CLI) | payer SELFPAY | END 2018-07-22 16:12 | disposition home or self-care (01) | LOC: WCC 16:11 | PROVIDERS: ATTEND Family Medicine | DX: T81.89XD Other complications of procedures, not elsewhere classified, subsequent encounter (principal) | CPT/HCPCS: 36416; 97605; A4218 ==

== ENCOUNTER 2018-07-25 15:53 | Outpatient (CLI) | payer SELFPAY | END 2018-07-25 15:54 | disposition home or self-care (01) | LOC: WCC 15:53 | PROVIDERS: ATTEND Family Medicine | DX: T81.89XD Other complications of procedures, not elsewhere classified, subsequent encounter (principal) | CPT/HCPCS: 36416; 97605 ==

== ENCOUNTER 2018-07-29 15:59 | Outpatient (CLI) | payer SELFPAY | END 2018-07-29 16:00 | disposition home or self-care (01) | LOC: WCC 15:59 | PROVIDERS: ATTEND Family Medicine | DX: T81.89XD Other complications of procedures, not elsewhere classified, subsequent encounter (principal); Z89.421 Acquired absence of other right toe(s) | CPT/HCPCS: 36416; 97605; A4218 ==

== ENCOUNTER 2018-08-01 15:25 | Outpatient (CLI) | payer SELFPAY ==
[2018-08-01] MEDS ORDERED: Sodium Chloride 0.9% 15 ML NEB ONE (15:56)
--- NOTE | 2018-08-01 17:30 | PRG ---
DATE OF SERVICE: 08/01/2018 HISTORY: Mr. Quique Higginbotham is a very pleasant 33-year-old gentleman previously seen in the Wound Center for a wound of the right lateral foot. The patient is now being seen for a wound of the left foot subsequent to amputation of the left second and third toes and metatarsals and neuropathic ulcer on 06/19/[address] Srikanth Carlson. At the time of surgery, Mr. [facility]both[facility], the patient was referred to the Wound Center for assistance with dressing changes of the wound VAC. During the patient's hospital stay, Mr Rosalba Higginbotham was seen in consultation by Dr. Gordo Cortes of Infectious Diseases. The patient received IV antibiotics under the direction of Infectious Diseases for osteomyelitis of the right foot, specific ally the fourth metatarsal head. PHYSICAL EXAMINATION: VITAL SIGNS: Temperature 97.4, pulse 85, respirations 17, blood pressure 135/74. Accu-Chek 223. EXTREMITIES: A wound of the left foot is present subsequent to amputation of the left second and thi rd toes and metatarsals and neuropathic ulcer. Granulation tissue is present within the wound margin s. Nonviable tissue present within the wound margins was debrided with an excisional full-thickness debridement with the use of a curette. No purulent drainage is associated with the wound. No erythe ma of the skin surrounding the wound is present. No maceration of the skin of the periwound is noted . No significant edema of the left foot is present on exam today. ASSESSMENT AND PLAN: 1. Left foot wound as described above. Negative pressure therapy for the left foot wound will be co ntinued with dressing changes of the wound VAC here in the Wound Center. The patient will be seen by Dr. Carlson in 1 week. I will see Mr. Higginbotham again in 2 weeks. As stated above, the patient has recei arcelia IV antibiotics as per Dr. Gordo Cortes of Infectious Diseases. 2. Diabetes mellitus. The patient's Accu-Chek in clinic today is 223. The patient has been reminde d that for optimal wound healing, his blood glucoses should remain below 150. 3. Hypertension. 4. Migraine headaches.
== END 2018-08-01 15:26 | disposition home or self-care (01) ==
LOC: WCC 15:25
PROVIDERS: ATTEND Family Medicine
DX: T81.89XD Other complications of procedures, not elsewhere classified, subsequent encounter (principal); E11.9 Type 2 diabetes mellitus without complications; I10 Essential (primary) hypertension; G43.909 Migraine, unspecified, not intractable, without status migrainosus
CPT/HCPCS: 11042; 36416; A4218

== ENCOUNTER 2018-08-05 15:26 | Outpatient (CLI) | payer SELFPAY | END 2018-08-05 15:27 | disposition home or self-care (01) | LOC: WCC 15:26 | PROVIDERS: ATTEND Family Medicine | DX: T81.89XD Other complications of procedures, not elsewhere classified, subsequent encounter (principal) | CPT/HCPCS: 36416; 97605 ==

== ENCOUNTER 2018-08-08 15:45 | Outpatient (CLI) | payer SELFPAY | END 2018-08-08 15:46 | disposition home or self-care (01) | LOC: WCC 15:45 | PROVIDERS: ATTEND Family Medicine | DX: T81.89XD Other complications of procedures, not elsewhere classified, subsequent encounter (principal); Z89.421 Acquired absence of other right toe(s) | CPT/HCPCS: 36416; 97605; A4218 ==

== ENCOUNTER 2018-08-12 15:26 | Outpatient (CLI) | payer SELFPAY | END 2018-08-12 15:27 | disposition home or self-care (01) | LOC: WCC 15:26 | PROVIDERS: ATTEND Family Medicine | DX: T81.89XD Other complications of procedures, not elsewhere classified, subsequent encounter (principal) | CPT/HCPCS: 97602 ==

== ENCOUNTER 2018-08-15 14:49 | Outpatient (CLI) | payer SELFPAY ==
[2018-08-15] MEDS ORDERED: Sodium Chloride 0.9% 15 ML NEB ONE (15:49)
== END 2018-08-15 14:50 | disposition home or self-care (01) ==
LOC: WCC 14:49
PROVIDERS: ATTEND Family Medicine
DX: T81.89XD Other complications of procedures, not elsewhere classified, subsequent encounter (principal)
CPT/HCPCS: 36416; A4218

== ENCOUNTER → 2018-08-22 | Outpatient (CLI) | payer SELFPAY ==
[~2018-08-22] MED LIST changes: +Lidocaine 2% Jelly 30 GM TUBE ONE
--- NOTE | 2018-08-22 17:53 | PRG ---
DATE OF SERVICE: 08/22/2018 HISTORY: Mr. Quique Higginbotham is a very pleasant 33-year-old gentleman previously seen in the Wound Center for a wound of the right lateral foot. The patient is now being seen for a wound of the left foot subsequent to amputation of the left second and third toes and metatarsals, and a neuropathic ul cer on 06/19/[address] Srikanth Carlson. At the time of surgery, Mr. Higginbotham also underwent wound VAC p lacement. Upon discharge from [facility], the patient was referred to the [facility] for assistance with dressing changes of the wound VAC. During the patient's hospital stay, Mr. Higginbotham was seen in consultation by Dr. Gordo Cortes of Infectious Diseases. The patient received IV antibiotics under the direction of Infectious Diseases for osteomyelitis of the right foot, speci fically the fourth metatarsal head. PHYSICAL EXAMINATION: VITAL SIGNS: Temperature 97.6, pulse 67, respirations 18, blood pressure 140/79. Accu-Chek 277. EXTREMITIES: A wound of the left foot is present subsequent to amputation of the left second and thi rd toes and metatarsals. Granulation tissue is present within the wound margins. Nonviable tissue p resent within the wound margins was debrided with an excisional full-thickness debridement with the u se of a curette. No purulent drainage is associated with the wound. No erythema of the skin surroun ding the wound is present. No maceration of the skin of the periwound is noted. No significant christina a of the left foot is present on exam today. ASSESSMENT AND PLAN: 1. Left foot wound as described above. Negative pressure therapy for the left foot wound has been d iscontinued by Dr. Carlson. As per Dr. Carlson, the patient is performing dressing changes of Xeroform gauze. I will see Mr. Higginbotham again in two weeks. As stated above, the patient has received IV antibi otics as per Dr. Gordo Cortes of Infectious Diseases. 2. Diabetes mellitus. The patient's Accu-Chek in clinic today is 277. The patient has been reminde d that for optimal wound healing, his blood glucoses should remain below 150. 3. Hypertension. 4. Migraine headaches.
== END ==
LOC: CANPRECLI → WCC 09:53
PROVIDERS: ATTEND Family Medicine
DX: T87.89 Other complications of amputation stump (principal); E11.9 Type 2 diabetes mellitus without complications; I10 Essential (primary) hypertension; G43.909 Migraine, unspecified, not intractable, without status migrainosus
CPT/HCPCS: 11042; 36416; A4218

== ENCOUNTER 2018-09-05 15:24 | Outpatient (CLI) | payer SELFPAY ==
[~2018-09-05 15:24] MED LIST changes: -Lidocaine 2% Jelly 30 GM TUBE ONE
--- NOTE | 2018-09-05 21:16 | PRG ---
DATE OF SERVICE: 09/05/2018 SUBJECTIVE: Mr. Quique Higginbotham is a very pleasant 33-year-old gentlemen, previously seen in the Wound Center for a wound at the right lateral foot. The patient is presently being seen for a wound at the left foot subsequent to amputation of the left second and third toes and metatarsals and a neuropathic ulcer on 06/19/[address] Srikanth Carlson. At the time of surgery, Mr. Higginbotham also underwent wound VAC placement. Upon discharge from [facility], the patient was referred to the Wound Center for assistance with dressing changes of the wound VAC. During the patient's hospital stay, Mr. Higginbotham was seen in consultation by Dr. Gordo Cortes of Infectious Diseases. The patient received IV antibiotics under the direction of Infectious Diseases for osteomyelitis of the right foot, specifically the fourth metatarsal head. PHYSICAL EXAMINATION: VITAL SIGNS: Temperature 98.3, pulse 81, respirations 18, blood pressure 139/74. Accu-Chek 302. EXTREMITIES: A wound at the left foot is present subsequent to amputation of the left second and third toes and metatarsals. The dimensions of the wound are approximately 3.5 x 0.7 cm. Granulation tissue was present within the wound margins. Nonviable tissue present within the wound margins was debrided with an excisional full-thickness debridement with the use of a curette. A purulent drainage is associated with the wound. No erythema of the skin surrounding the wound is present. No maceration of the skin of the periwound is noted. No significant edema of the left foot is present on exam today. ASSESSMENT AND PLAN: 1. Left foot wound, as described above. This patient has completed a course of negative pressure therapy for the left foot wound. As per Dr. Carlson, the patient is performing dressing changes of Xeroform gauze. I will see Mr. Higginbotham again in 2 weeks. As stated above, the patient has received IV antibiotics as per Dr. Gordo Cortes of Infectious Diseases. 2. Diabetes mellitus. The patient's Accu-Chek in clinic today is 302. The patient has been reminded that for optimal wound healing his blood glucoses should remain below 150. 3. Hypertension. 4. Migraine headaches. Job ID: [id number]
== END 2018-09-05 15:25 | disposition home or self-care (01) ==
LOC: WCC 15:24
PROVIDERS: ATTEND Family Medicine
DX: T81.89XD Other complications of procedures, not elsewhere classified, subsequent encounter (principal); E11.9 Type 2 diabetes mellitus without complications; I10 Essential (primary) hypertension; G43.909 Migraine, unspecified, not intractable, without status migrainosus
CPT/HCPCS: 36416; A4218

== ENCOUNTER 2018-12-16 12:02 | Inpatient (IN) | payer SELFPAY ==
[2018-12-16 13:34] LABS: #Basophils 0.1 thou/uL (0.0-0.2); #Eosinphils 0.4 thou/uL (0.0-0.7); #Lymphocytes 2.6 thou/uL (1.20-3.40); #Monocytes 1.1 thou/uL (0.11-0.59); #Neutrophils 10.9 thou/uL (1.40-6.50); %Basophils 0.5 % (0.0-1.0); %Eosinophils 2.8 % (0.0-10.0); %Monocytes 7.6 % (0.0-10.0); %Neutrophils 72.2 % (42.0-75.0); Hemoglobin 12.6 g/dL (14.0-18.0); Mean Corpuscular HGB CONC 31.4 g/dL (32.0-36.0); Mean Corpuscular Volume 82.9 fL (78.0-98.0); Mean Platelet Volume 7.5 fL (7.4-10.4); Platelet Count 278 thou/uL (130-400); RBC Distribution Width 12.8 % (11.5-14.5); Red Blood Cell (RBC) Count 4.84 mill/uL (4.70-6.10); White Blood Cell (WBC) Count 15.1 thou/uL (4.8-10.8)
[2018-12-16 13:56] LABS: ALT (SGPT) 15 U/L (8-55); AST (SGOT) 16 U/L (5-34); Albumin 3.4 g/dL (3.5-5.0); Alkaline Phosphatase 92 U/L (40-150); Anion Gap 13 mmol/L (10-20); BUN (Urea Nitrogen) 17 mg/dL (8.9-20.6); Bilirubin, Total 0.6 mg/dL (0.2-1.2); CRP (Inflammatory) 21.36 mg/dL (= or < 0.5); Calc. Creatinine Clearance 0 mL/min (70-130); Calcium 9.7 mg/dL (7.8-10.44); Carbon Dioxide 25 mmol/L (22-29); Chloride 100 mmol/L (98-107); Estimated GFR-MDRD 63; Globulin 5.4 g/dL (2.4-3.5); Glucose 209 mg/dL (70-105); Potassium 4.3 mmol/L (3.5-5.1); Protein, Total 8.8 g/dL (6.0-8.3); Sodium 134 mmol/L (136-145)
--- NOTE | 2018-12-16 15:14 | RAD ---
LEFT FOOT 3 VIEWS: Date: 12/16/18 HISTORY: Swelling, status post amputation. COMPARISON: 06/18/18. FINDINGS: There has been interval amputation of second and third toes at the level of the distal metatarsals wi th some exuberant periosteal changes. There is soft tissue swelling overlying the amputated second an d third toes and lateral to the proximal phalanx of the great toe and medial to the proximal phalanx of the fourth toe. Given the history of ulcers and soft tissue swelling, the possibility of acute inf ection/cellulitis is certainly a consideration. There is some generalized anterior soft tissue swelli ng of the foot. IMPRESSION: Status post amputation changes with somewhat prominent periosteal change, but no evidence for alisha a cute osteomyelitis. Prominent soft tissue swelling raising concern for soft tissue infection. If ther e is concern for osteomyelitis, a follow-up MRI study should be considered. POS: [facility]
--- NOTE | 2018-12-16 15:15 | RAD ---
RIGHT FOOT 3 VIEWS: Date: 12/16/18 HISTORY: Patient has foot ulcers and foot swelling. COMPARISON: 06/18/18 exam. FINDINGS: The patient has undergone an amputation at the level of the more proximal fifth metatarsal with some chronic bony change associated with this. I do not see any plain film evidence for osteomyelitis. IMPRESSION: No plain film evidence of osteomyelitis. POS: [facility]
[2018-12-16] MEDS ORDERED: Piperacillin/Tazobactam 4.5 GM VIAL ONE (16:47)
[2018-12-16] MEDS ORDERED: Sodium Chloride 0.9% 100 ML ONE (16:47)
[2018-12-17] MEDS ORDERED: Piperacillin/Tazobactam 4.5 GM in Sodium Chloride 0.9% 100 ML IVPB SCH (02:00)
[2018-12-17] MEDS ORDERED: Amitriptyline HCl 25 MG TAB PO PRN (02:04)
[2018-12-17] MEDS ORDERED: Guaifenesin DM 100-10/5 ML UDCUP PO PRN (02:04)
[2018-12-17] MEDS ORDERED: Dextrose 50% Abboject 50 ML SYRINGE SLOW IVP PRN (02:04)
[2018-12-17] MEDS ORDERED: Dextrose 5% in Water 1,000 ML IV PRN (02:04)
[2018-12-17] MEDS ORDERED: Senokot S 8.6-50 MG TAB PO PRN (02:04)
[2018-12-17] MEDS ORDERED: Ondansetron PF 4 MG/2 ML Vial IVP PRN (02:04)
[2018-12-17] MEDS ORDERED: HumaLOG 300 UNITS/3 ML VIAL SC PRN ×2 (02:04)
[2018-12-17 02:22] LABS: #Eosinphils 0.4 thou/uL (0.0-0.7); #Lymphocytes 2.1 thou/uL (1.20-3.40); #Monocytes 0.8 thou/uL (0.11-0.59); #Neutrophils 7.7 thou/uL (1.40-6.50); %Basophils 0.3 % (0.0-1.0); %Eosinophils 3.5 % (0.0-10.0); %Lymphocytes 19.2 % (21.0-51.0); %Monocytes 7.2 % (0.0-10.0); %Neutrophils 69.7 % (42.0-75.0); Hemoglobin 11.3 g/dL (14.0-18.0); Mean Corpuscular HGB CONC 31.9 g/dL (32.0-36.0); Mean Corpuscular Hemoglobin 26.4 pg (27.0-31.0); Mean Corpuscular Volume 82.9 fL (78.0-98.0); Mean Platelet Volume 7.3 fL (7.4-10.4); Platelet Count 235 thou/uL (130-400); RBC Distribution Width 12.7 % (11.5-14.5); Red Blood Cell (RBC) Count 4.28 mill/uL (4.70-6.10)
[2018-12-17 02:44] LABS: Vancomycin, Trough 6.6 ug/mL
[2018-12-17 02:50] LABS: Anion Gap 8 mmol/L (10-20); BUN (Urea Nitrogen) 15 mg/dL (8.9-20.6); Calc. Creatinine Clearance 218 mL/min (70-130); Calcium 8.9 mg/dL (7.8-10.44); Carbon Dioxide 29 mmol/L (22-29); Chloride 102 mmol/L (98-107); Estimated GFR-MDRD 81; Glucose 211 mg/dL (70-105); Potassium 4.3 mmol/L (3.5-5.1); Sodium 135 mmol/L (136-145)
--- NOTE | 2018-12-17 03:04 | HP ---
REASON FOR ADMISSION: Bilateral diabetic foot ulcers. HISTORY OF PRESENTING ILLNESS: The patient gives history of having a blister appear over the metatarsal of second toe on the right foot a week back, this soon developed into an ulcer. He has also had an ulcer over the left foot. Both are on the same location over the ball of the fifth metatarsals. The patient says that he works at [employer] and usually stands for long periods of time. The discharge from the ulceration started to become smelly and was yellowish green. He has been off antibiotics from October for prior diabetic ulcers. No fever at home. PAST MEDICAL AND SURGICAL HISTORY: Left second and third toe amputation, right fifth toe amputation, diabetes mellitus type 2, diabetic neuropathic ulcers, hypertension, obesity, history of orchiopexy. CURRENT MEDICATIONS: He takes: 1. Levemir 120 units subcu twice daily. 2. Cozaar 100 mg p.o. daily. 3. Amitriptyline 25 mg p.r.n. 4. Pioglitazone 45 mg p.o. daily. 5. Norvasc 5 mg twice daily. 6. Metformin 1000 mg twice daily. ALLERGIES: ALLERGIC TO NORCO. PERSONAL HISTORY: Does not abuse alcohol or drugs. No history of smoking. Works at [employer]. FAMILY HISTORY: Father has history of diabetes. Mother is healthy. CODE STATUS: Full. REVIEW OF SYSTEMS: CONSTITUTIONAL: Negative for weight loss or gain, ability to conduct usual activities. SKIN: Negative for rash, itching. EYES: Negative for double vision, pain. ENT/MOUTH: Negative for nose bleeding, neck stiffness, pain, tenderness. CARDIOVASCULAR: Negative for palpitations, dyspnea on exertion, orthopnea. RESPIRATORY: Negative for shortness of breath, wheezing, cough, hemoptysis, fever or night sweats. GASTROINTESTINAL: Negative for poor appetite, abdominal pain, heartburn, nausea, vomiting, constipation, or diarrhea. GENITOURINARY: Negative for urgency, frequency, dysuria, nocturia. MUSCULOSKELETAL: Negative for pain, swelling. NEUROLOGIC/PSYCHIATRIC: Negative for anxiety, depression. ALLERGY/IMMUNOLOGIC: Negative for skin rash, bleeding tendency. PHYSICAL EXAMINATION: GENERAL: The patient is a 33-year-old male, who is currently not in any acute distress. VITAL SIGNS: Blood pressure 130/72, pulse 84 per minute, respiratory rate 18 per minute, temperature 99 degrees Fahrenheit, and saturating 95% on room air. NECK: Supple. No elevated JVD. HEENT: Eyes; extraocular muscles are intact. Pupils reacting to light. Oral cavity, mucous membranes are moist. No exudates or congestion. CARDIOVASCULAR: S1 and S2 heard. Regular rhythm. RESPIRATORY: Air entry 1+ bilateral. No rales or rhonchi. ABDOMEN: Soft. Bowel sounds are heard. No tenderness, rigidity, or guarding. EXTREMITIES: The patient has 3 x 3 cm ulceration over the left fifth metatarsal head on the plantar aspect. This is draining yellowish purulent drainage, which is foul smelling as well. He also has an ulcer measuring 3 x 2 cm over the right fifth metatarsal head on the plantar aspect. Peripheral pulses are 1+ bilateral. No other gangrene seen. CENTRAL NERVOUS SYSTEM: No gross focal deficits noted. The patient is alert and oriented well. PSYCHIATRIC: The patient's mood is euthymic. No hallucinations or delusions. LABORATORY DATA: White count of 15, hemoglobin and hematocrit 12 and 40, platelet count 278. BUN 17, creatinine 1.29, serum glucose 209. CRP is 21. Albumin is 3.4. IMAGING STUDIES: Right foot 3-view x-ray done shows no evidence of osteomyelitis. Left foot 3-view x-ray done shows somewhat prominent periosteal change, but no evidence of alisha acute osteomyelitis. There is prominent soft tissue swelling, raising concern for soft tissue infection. CLINICAL IMPRESSION AND PLAN: The patient will be admitted to medical floor for bilateral foot diabetic ulcers, which are infected. We will consult Dr. Carlson, his general surgeon. He will be kept n.p.o. after midnight. He will be on vancomycin and Zosyn. Wound cultures will be obtained. We will continue his Norvasc, amitriptyline, very high dose of Levemir as before and Cozaar along with metformin and pioglitazone. Both oral diabetic medications will be held when he is kept n.p.o. The patient appears to be noncompliant with diet. Job ID: [id number]
[2018-12-17] MEDS: Enoxaparin Sodium 40 MG/0.4 ML SYRINGE SC SCH (07:28)
[2018-12-17] MEDS: Losartan 25 MG TAB PO SCH (07:59)
[2018-12-17] MEDS: Piperacillin/Tazobactam 3.375 GM in Sodium Chloride 0.9% 100 ML IVPB SCH ×2 (08:00→15:53)
[2018-12-17] MEDS ORDERED: Amlodipine 5 MG TAB PO SCH (09:00)
[2018-12-17] MEDS ORDERED: INSULIN DETEMIR SC SCH (09:00)
[2018-12-17] MEDS ORDERED: Aspirin 325 MG TAB PO SCH (13:15)
[2018-12-17] MEDS: Famotidine 20 MG TAB PO SCH ×2 (15:57→21:12)
[2018-12-17] MEDS: Insulin Glargine 120 UNITS in Pre-Filled Syringe 1 EACH SC SCH ×2 (15:57→21:12)
[2018-12-17] MEDS: metFORMIN 500 MG TAB PO SCH ×2 (15:58→21:11)
[2018-12-17] MEDS: Pioglitazone HCl 45 MG TAB PO SCH (15:58)
--- NOTE | 2018-12-17 16:09 | PDOC.PN ---
- Subjective Encounter Start Date: 12/17/18 Encounter Start Time: 15:20 Mr. Higginbotham was seen today in follow-up of bilateral foot infection. He does not have any new complaints. - Objective Resuscitation Status - Order Detail: 12/17/18 02:01 Resuscitation Status Routine Resuscitation Status: FULL: Full Resuscitation MAR Reviewed: Yes Vital Signs & Weight: Vital Signs (12 hours) Temp Pulse Resp BP Pulse Ox 12/17/18 10:45 98.8 F 66 18 140/84 95 12/17/18 08:00 106 H 97 12/17/18 07:25 98.8 F 106 H 16 139/95 H 94 L 12/17/18 04:47 99.5 F 70 20 126/77 20 L Weight Weight 343 lb 4.8 oz I&O: 12/16/18 12/17/18 12/18/18 06:59 06:59 06:59 Intake Total 1020 Output Total 400 Balance 620 Result Diagrams: 12/17/18 02:12 12/17/18 02:12 Additional Labs: Accuchecks 12/17/18 12/17/18 12/16/18 10:50 04:48 19:29 POC Glucose 134 H 174 H 190 H Phys Exam - Physical Examination HEENT: PERRLA Respiratory: no wheezing, no rales, no rhonchi, clear to auscultation bilateral Cardiovascular: no significant murmur, no rub, irregular Gastrointestinal: soft, non-tender, no distention, positive bowel sounds Musculoskeletal: no edema, pulses present ulcerative lesion noted on the left foot, plantar surface- with yellowish d discharge, right foot ulcer planatr- with redish base + varicose vein bilaterally Dx/Plan (1) Diabetic foot ulcer Code(s): E11.621 - TYPE 2 DIABETES MELLITUS WITH FOOT ULCER; L97.509 - NON- PRESSURE CHRONIC ULCER OTH PRT UNSP FOOT W UNSP SEVERITY Status: Chronic Qualifiers: Diabetic foot ulcer location: midfoot Diabetes mellitus type: type 2 Comment: b/l non healing, likely osteomyelitis, s/p amp of left 2nd and 3rd toe with metatarsals 06/19/2018 (2) Atrial fibrillation Code(s): I48.91 - UNSPECIFIED ATRIAL FIBRILLATION Status: Acute (3) DM type 2 (diabetes mellitus, type 2) Status: Chronic Qualifiers: Diabetes mellitus custodial insulin use: with custodial use Diabetes mellitus complication status: with hyperglycemia Qualified Code(s): E11.65 - Type 2 diabetes mellitus with hyperglycemia; 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 I discussed this with the patient and the potential consequences. I would like to move him to be monitored on the Telemetry unit. He refused, after I explained that it is important to know how often he is in the rhythm, and oit will help the Commercial Lending Vice President in their evaluation. He still refused, and says he will wear the monitor ONLY if his mother tells him to * Will still Consult Cardiology, and order an ECHO * DM- blood glucose is stable * HTN- blood pressure is stable.
--- NOTE | 2018-12-17 18:23 | EKG ---
Test Reason : Blood Pressure : / mmHG Vent. Rate : 070 BPM Atrial Rate : 070 BPM P-R Int : 158 ms QRS Dur : 102 ms QT Int : 404 ms P-R-T Axes : 012 -12 032 degrees QTc Int : 436 ms Normal sinus rhythm Normal ECG When compared with ECG of 17-DEC-2018 12:35, (Unconfirmed) Sinus rhythm has replaced Atrial fibrillation Vent. rate has decreased BY 38 BPM QT has shortened Confirmed by DR. Jerri KELLY (3) on 12/17/2018 6:22:45 PM Referred By: DANIA Confirmed By:DR. Jerri KELLY
--- NOTE | 2018-12-17 18:23 | EKG ---
Test Reason : Blood Pressure : / mmHG Vent. Rate : 108 BPM Atrial Rate : 147 BPM P-R Int : 000 ms QRS Dur : 096 ms QT Int : 366 ms P-R-T Axes : 000 -12 023 degrees QTc Int : 490 ms Atrial fibrillation with rapid ventricular response Abnormal ECG When compared with ECG of 17-DEC-2018 12:34, (Unconfirmed) Atrial fibrillation has replaced Sinus rhythm Confirmed by DR. Jerri KELLY (3) on 12/17/2018 6:22:34 PM Referred By: DANIA Confirmed By:DR. Jerri KELLY
--- NOTE | 2018-12-18 01:28 | CON ---
DATE OF CONSULTATION: 12/17/2018 INDICATION FOR CONSULTATION: A 33-year-old patient who has a history of diabetes, underwent partial amputation of some toes of the left and right feet in the past. He was seen just in the hospital at this time, was on the floor and doing his routine evaluation, was found to have a rapid heart rate which is irregular. EKG indicates atrial fibrillation. Earlier, the patient was in sinus rhythm and since being in atrial fibrillation, he had again converted back to sinus rhythm. He has a history of bilateral foot infections. Otherwise, he had no complaints. He is usually on his feet a lot. 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 Apparently, when he was here on his last admission, he also had a short episode of atrial fibrillation, was monitored, but did not have any further episodes of atrial fibrillation and no further workup or evaluation was performed at that time. He is asymptomatic with atrial fibrillation. He is unaware that the heart rate is irregular. He does state that occasionally he notices some fast heart rate and kind of hard, but does not say that this is significantly irregular. EKG did not indicate any evidence of ischemia. He has been a diabetic for about 15 years apparently. He denies any chest pain. PAST MEDICAL HISTORY: Significant for the diabetes type 2. He has diabetic neuropathy with neuropathic ulcers. He has had right 5th toe amputation. He also has had the left 2nd and 3rd toes amputated. He has a history of obesity, orchiopexy and also a history of hypertension. He is seen at [facility]. He has been followed in the past, I believe by [facility], but now he is being followed at [facility]. MEDICATIONS: Include; 1. Levemir subcu twice a day 120 unit. 2. Cozaar 100 mg daily. 3. Amitriptyline 25 mg p.o. 4. Pioglitazone 45 mg daily. 5. Norvasc 5 mg b.i.d. 6. Metformin 1000 mg b.i.d. ALLERGIES: HE IS ALLERGIC TO NORCO. SOCIAL HISTORY: He has no history of alcohol or tobacco abuse. 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 FAMILY HISTORY: He has siblings with diabetes and also his father had diabetes. REVIEW OF SYSTEMS: A 12-point review of systems is unremarkable except what was noted in the history of present illness. He denied any significant chest pain, shortness of breath. No pulmonary complaints, GI or . He mainly complains of the pain with peripheral neuropathy in the feet and the problems with the amputations. Otherwise, he has had no significant complaints. PHYSICAL EXAMINATION: GENERAL: Reveals a middle-aged gentleman, who is in no acute distress. He is alert, he is oriented. He is very pleasant. VITAL SIGNS: Show blood pressure 116/81. He is afebrile. Respiratory rate is 16, heart rate at this time is 67, back in sinus rhythm. Previously, his heart rate was up to the 100-1 teens with his atrial fibrillation. Respiratory rate is about 16. HEENT: Shows the head to be normocephalic and atraumatic. Carotid pulses are present. I do not hear any bruits. CHEST: Clear to auscultation. There are no rales, rhonchi, or wheezing. CARDIOVASCULAR: At this time reveals a regular rate and rhythm with normal S1 and S2. There is no S3 or S4. There are no significant murmurs, heaves, thrills, bruits, or rubs. ABDOMEN: Obese with positive bowel sounds. I cannot palpate any masses or tenderness. EXTREMITIES: Show no clubbing or cyanosis. He does have significant lower extremity varicose veins even involving the feet. He has positive pedal pulses. His both feet are wrapped in surgical dressings with the ulcerations. NEUROLOGIC: He appears to be intact. SKIN: Warm and dry at this time. LABORATORY DATA: Show a WBC of 11, hemoglobin was 11.3, platelet count was 235,000. His sodium was 135, BUN was 15 with a creatinine of 1.04. Blood sugar is ranging anywhere from 134 to 211. EKG on admission showed a normal sinus rhythm with no acute changes. He had occasional PVCs, but otherwise there were no acute ST-segment changes noted. IMPRESSION: 1. A 33-year-old patient with intermittent atrial fibrillation. At this time, he will be transferred to the telemetry floor. We will determine exactly how much atrial fibrillation he is having. I did explain to him the possibility of congestive heart failure and cerebrovascular accident should he continued to have episodes of atrial fibrillation untreated if he has significant tachycardia associated with these events. Depending on the burden of atrial fibrillation that he has, we may start him on antiarrhythmic low-dose of medication. He may be managed actually with diltiazem. We will be somewhat hesitant to place him on beta blockers with his diabetes. With the diltiazem, we perhaps could decrease the dose of the Norvasc to once a day instead of twice a day. This may also help some with his lower extremity edema. 2. History of diabetes. This will be dealt with by the primary care service. This patient as far as I can tell has never had an echocardiogram or any type of stress test. He did have an echocardiogram actually in June 2018, at which time it was a technically difficult study apparently due to the size of the patient and the ejection fraction could not be very adequately visualized. I will ask him to repeat the ejection fraction. I believe at that time, it was recommended a EUSEBIO or a MUGA scan to evaluate the ventricular structures. I cannot see if that was actually ever performed. At this time, he will be transferred to the telemetry floor and we will continue to monitor him with you. 3. History of obesity. He will need to undergo dietary consultation. benefit to lose a significant amount of weight. This would help overall the lower extremity edema as well as the varicose veins and most likely also the neurogenic ulcerations that keep recurring due to the diabetes also. 4. Hypertension, this is under reasonable control at this time. We will need to consider whether or not to start this patient on oral anticoagulation. If he only has very short episodes of atrial fibrillation then most likely he will not need to be on oral anticoagulation, at least needs to be on aspirin a day. The mother is somewhat concerned about being on anticoagulation with the diabetes and the surgical procedures if he needs to undergo, also whether or not he will be compliant with the medications and whether or not he will be able to afford these medications. Apparently, he has no insurance at this time and obviously some of the medications for treatment of the atrial fibrillation as well as the oral anticoagulations are rather expensive. We will continue to follow the patient with you and further recommendations will depend on the atrial fibrillation burden that the patient has. Job ID: [id number]
[2018-12-18] MEDS: Piperacillin/Tazobactam 3.375 GM in Sodium Chloride 0.9% 100 ML IVPB SCH ×3 (02:32→17:56)
--- NOTE | 2018-12-18 03:00 | CON ---
DATE OF CONSULTATION: 12/17/2018 SUBJECTIVE FINDINGS: The patient was asleep when he was approached this afternoon. The patient was easily awoken. The patient answered questions appropriately. The patient was in no acute distress. In discussing the patient's current condition, he states he has had a wound on the left foot for about a month. He states he noticed it for the last 3 days or so being more red, swollen, and he had drainage. This is what brought him into the hospital. The patient also has a current wound on the right foot plantarly. The patient has been trying to keep the areas clean. The patient states he has diabetic shoes, and this was obtained through [facility] as he has been following with them for current wounds. He states his blood sugar is doing well and is currently stable now in the hospital. OBJECTIVE FINDINGS: The patient has good palpable pulses, 2/4 bilaterally, both dorsalis pedis and posterior tibial arteries. The patient has reduced light touch and protective threshold in bilateral feet. The patient on the right foot has what appears to be a partial fifth ray amputation with fifth digit amputation. He reports this was done in 09/2016. On the left foot, the patient has amputation of the second and third digits. This was done in 06/2018. The patient has a superficial wound on the right foot beneath the fourth metatarsal head. With examination, good granular tissue is noted. No necrotic tissues seen. No tracking on the wound. On the left foot, there is swelling to the forefoot. There is erythema from the plantar wound, dorsal foot stopping distal to the ankle. No proximal cellulitis extending around the ankle or more proximal. The plantar wound has a foul odor. The plantar wound has necrotic and devascularized tissues. With sterile Q-tip, the wound was probed on either side of the fourth metatarsal as well as into the fourth metatarsophalangeal joint. There is swelling of the fourth digit. There are stasis changes on the left lower extremity. DIAGNOSTIC DATA: X-ray examination of both right and left feet showed no alisha evidence of osteomyelitis. Amputations seen on x-ray consistent with clinical presentation. ASSESSMENT AND PLAN: 1. The patient appears to be in stable condition. 2. The patient has a deep abscess of plantar wound, left foot beneath the fourth metatarsal head with tracking on either side of the fourth metatarsal to the dorsum of the foot. It appears to be tracking into the fourth metatarsophalangeal joint. 3. The patient diagnosed with deep abscess, cellulitis as well as osteomyelitis with no radiographic confirmation. 4. The patient was made n.p.o. The patient and I discussed incision and drainage and resection of bone. Due to the patient's previous foot amputations, it would be best to salvage the hallux and remove the remaining digits as well as resecting metatarsals to improve the patient's weightbearing status of the foot. The patient had all questions answered. Orders to Wound Care to place [facility] on Sunday. The patient scheduled for amputation of the left fourth and fifth digits with partial ray amputation and incision and drainage of deep abscess. Job ID: [id number]
[2018-12-18] MEDS: Insulin Glargine 120 UNITS in Pre-Filled Syringe 1 EACH SC SCH (08:26)
[2018-12-18] MEDS: Enoxaparin Sodium 40 MG/0.4 ML SYRINGE SC SCH (08:26)
[2018-12-18] MEDS: Pioglitazone HCl 45 MG TAB PO SCH (09:19)
[2018-12-18] MEDS: Famotidine 20 MG TAB PO SCH ×2 (09:19→21:00)
[2018-12-18] MEDS: Amlodipine 5 MG TAB PO SCH (10:16)
[2018-12-18] MEDS: Losartan 25 MG TAB PO SCH (10:16)
[2018-12-18] MEDS: Aspirin 325 MG TAB PO SCH (10:16)
[2018-12-18] MEDS: metFORMIN 500 MG TAB PO SCH (10:31)
--- NOTE | 2018-12-18 13:03 | PDOC.CTH ---
Cardiology Progress Note - Subjective The pt seen and examined. No cardiac complaints. Intermittent Afib/Aflutter a few mins every afew hours and back to SR. - Objective Vital Signs Temp Pulse Resp BP BP Pulse Ox 12/18/18 11:56 97.9 F 71 18 130/76 97 12/18/18 10:18 92 12/18/18 10:16 92 12/18/18 07:27 97.9 F 92 18 122/69 94 L 12/18/18 03:50 98.6 F 65 14 119/66 96 Weight 343 lb 4.8 oz 12/17/18 12/18/18 12/19/18 06:59 06:59 06:59 Intake Total 1020 Output Total 400 Balance 620 - Physical Examination General/Neuro: alert & oriented x3 Neck: no JVD present Lungs: CTA Heart: RRR Abdomen: soft Extremities: other: (No edema) - Telemetry Telemetry Rhythm: SR for now - Labs Result Diagrams: 12/17/18 02:12 12/17/18 02:12 - Assessment/Plan 1. New-onset Afib/Aflutter - Well controlled HR with Diltiazem 120mg qd. On ASA 325mg qd 2. Lt feet osteomyelitis - plan for amputation today 3. HTN - stable 4. DM - 5. Obese - MAR reviewed. Pt. seen and eval. by me. I agree with the A/P by the LAB COURIER I will ask for an EP opinion about his intermittent a-fib/flutter. Review of Systems - Review of Systems Constitutional: reports: no symptoms reported EENTM: reports: no symptoms reported Respiratory: reports: no symptoms reported Cardiac (ROS): reports: no symptoms reported ABD/GI: reports: no symptoms reported : reports: no symptoms reported
[2018-12-18] MEDS ORDERED: Midazolam HCl 2 mg/2 ml Vial ONE (13:19)
[2018-12-18] MEDS ORDERED: Fentanyl 100 MCG/2 ML VIAL ONE (13:20)
[2018-12-18] MEDS ORDERED: Neomycin-Polymyxin 1 ML AMP ONE (13:30)
[2018-12-18] MEDS ORDERED: Bupivacaine PF 0.5% 30 ML VIAL ONE (13:30)
--- NOTE | 2018-12-18 14:21 | PDOC.PN ---
- Subjective Encounter Start Date: 12/18/18 Encounter Start Time: 14:18 Subjective: no new complaints.no ON events.feels OK -: care discussed w mother at bedside as well - Objective Resuscitation Status - Order Detail: 12/17/18 02:01 Resuscitation Status Routine Resuscitation Status: FULL: Full Resuscitation MAR Reviewed: Yes Vital Signs & Weight: Vital Signs (12 hours) Temp Pulse Resp BP BP Pulse Ox 12/18/18 11:56 97.9 F 71 18 130/76 97 12/18/18 10:18 92 12/18/18 10:16 92 12/18/18 07:27 97.9 F 92 18 122/69 94 L 12/18/18 03:50 98.6 F 65 14 119/66 96 Weight Weight 343 lb 4.8 oz I&O: 12/17/18 12/18/18 12/19/18 06:59 06:59 06:59 Intake Total 1020 Output Total 400 Balance 620 Result Diagrams: 12/17/18 02:12 12/17/18 02:12 Additional Labs: Accuchecks 12/18/18 12/18/18 12/17/18 10:49 04:45 20:54 POC Glucose 96 118 H 228 H 12/17/18 16:26 POC Glucose 149 H Microbiology 12/16/18 13:13 Venous blood - Right Arm Blood Culture - Preliminary Gram Positive Cocci 12/16/18 13:13 Venous blood - Right Arm Blood Culture - Preliminary Coagulase Neg Staphylococcus 12/16/18 13:13 Venous blood - Left Arm Blood Culture - Preliminary Specimen has been received and culture in progress. No Growth to date. 12/16/18 13:13 Venous blood - Left Arm Blood Culture - Preliminary NO GROWTH AT 48 HOURS Phys Exam - Physical Examination Constitutional: NAD HEENT: PERRLA, moist MMs, sclera anicteric, TM's clear, oral pharynx no lesions , 2+ tonsils Neck: no nodes, no JVD, supple, full ROM Respiratory: no wheezing, no rales, no rhonchi, clear to auscultation bilateral Cardiovascular: RRR, no significant murmur, no rub Gastrointestinal: soft, non-tender, no distention, positive bowel sounds Musculoskeletal: pulses present, edema present (b/l feet) Neurological: non-focal, normal sensation, moves all 4 limbs Psychiatric: normal affect, A&O x 3 Skin: no rash Dx/Plan (1) Diabetic foot ulcer Code(s): E11.621 - TYPE 2 DIABETES MELLITUS WITH FOOT ULCER; L97.509 - NON- PRESSURE CHRONIC ULCER OTH PRT UNSP FOOT W UNSP SEVERITY Status: Chronic Qualifiers: Diabetic foot ulcer location: midfoot Diabetes mellitus type: type 2 Comment: H/O amp of left 2nd and 3rd toe with metatarsals 06/19/2018 (2) Atrial fibrillation Code(s): I48.91 - UNSPECIFIED ATRIAL FIBRILLATION Status: Acute Qualifiers: Atrial fibrillation type: paroxysmal Qualified Code(s): I48.0 - Paroxysmal atrial fibrillation Comment: started on cardiazem and remains in NSR (3) DM type 2 (diabetes mellitus, type 2) Status: Chronic Qualifiers: Diabetes mellitus fpc insulin use: with fpc use Diabetes mellitus complication status: with hyperglycemia Qualified Code(s): E11.65 - Type 2 diabetes mellitus with hyperglycemia; 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 NSR for now.monitor.No OAC as A-fib paroxysmal -: HD stable. -: home meds as below -: no MRI foot done so far. will await ID recs & follow surgical margins * . Review of Systems - Review of Systems Constitutional: negative: fever, chills, sweats, weakness, malaise, other ENT: negative: Ear Pain, Ear Discharge, Nose Pain, Nose Discharge, Nose Congestion, Mouth Pain, Mouth Swelling, Throat Pain, Throat Swelling, Other Respiratory: negative: Cough, Dry, Shortness of Breath, Hemoptysis, SOB with Excertion, Pleuritic Pain, Sputum, Wheezing Cardiovascular: negative: chest pain, palpitations, orthopnea, paroxysmal nocturnal dyspnea, edema, light headedness, other Gastrointestinal: negative: Nausea, Vomiting, Abdominal Pain, Diarrhea, Constipation, Melena, Hematochezia, Other Genitourinary: negative: Dysuria, Frequency, Incontinence, Hematuria, Retention , Other Musculoskeletal: negative: Neck Pain, Shoulder Pain, Arm Pain, Back Pain, Hand Pain, Leg Pain, Foot Pain, Other Neurological: negative: Weakness, Numbness, Incoordination, Change in Speech, Confusion, Seizures, Other - Medications/Allergies Allergies/Adverse Reactions: Allergies Allergy/AdvReac Type Severity Reaction Status Date / Time hydrocodone [From [place]] Allergy Verified 12/17/18 01:15 Medications: Current Medications Acetaminophen (Tylenol) 650 mg PO Q4H PRN PRN Reason: Headache/Fever/Mild Pain (1-3) Amitriptyline HCl (Elavil) 25 mg PO PRN PRN PRN Reason: DEPRESSANTS Amlodipine Besylate (Norvasc) 5 mg PO DAILY [facility] Last Admin: 12/18/18 10:16 Dose: Not Given Aspirin (Aspirin) 325 mg PO DAILY [facility] Last Admin: 12/18/18 10:16 Dose: Not Given Dextrose/Water (Dextrose 50%) 25 gm SLOW IVP PRN PRN PRN Reason: Hypoglycemia Diltiazem HCl (Cardizem Cd) 120 mg PO DAILY [facility] Last Admin: 12/18/18 10:18 Dose: 120 mg Enoxaparin Sodium (Lovenox) 40 mg SC 0900 [facility] Last Admin: 12/18/18 08:26 Dose: Not Given Famotidine (Pepcid) 20 mg PO BID [facility] Last Admin: 12/18/18 09:19 Dose: Not Given Glucagon (Glucagon) 1 mg IM PRN PRN PRN Reason: Hypoglycemia Guaifenesin/Dextromethorphan (Robitussin Dm) 15 ml PO Q4H PRN PRN Reason: Cough Dextrose/Water (D5w) 1,000 mls @ 0 mls/hr IV .Q0M PRN PRN Reason: Hypoglycemia Piperacillin Sod/Tazobactam (Sod 3.375 gm/ Sodium Chloride) 100 mls @ 200 mls/ hr IVPB 0200,1000,1800 [facility] Last Admin: 12/18/18 10:17 Dose: 100 mls Vancomycin HCl 2 gm/ Sodium (Chloride) 500 mls @ 250 mls/hr IVPB 0500,1700 [facility] Last Admin: 12/18/18 04:49 Dose: 500 mls Insulin Glargine 120 units/ (Miscellaneous Medication) 1.2 mls @ 0 mls/hr SC BID [facility] Last Admin: 12/18/18 08:26 Dose: Not Given Insulin Human Lispro (Humalog) 0 units SC .MODERATE SLIDING SC PRN PRN Reason: Moderate Correctional Scale Insulin Human Lispro (Humalog) 0 units SC .BEDTIME SLIDING SC PRN PRN Reason: Bedtime Correctional Scale Losartan Potassium (Cozaar) 100 mg PO DAILY [facility] Last Admin: 12/18/18 10:16 Dose: Not Given Miscellaneous Medication (Pharmacy To Dose) 1 each IVPB PRN PRN PRN Reason: Pharmacy to dose Ondansetron HCl (Zofran) 4 mg IVP Q6H PRN PRN Reason: Nausea/Vomiting Pioglitazone HCl (Actos) 45 mg PO DAILY [facility] Last Admin: 12/18/18 09:19 Dose: Not Given Senna/Docusate Sodium (Senokot S) 2 tab PO BID PRN PRN Reason: Constipation Sodium Chloride (Flush - Normal Saline) 10 ml IVF PRN PRN PRN Reason: Saline Flush
[2018-12-18] MEDS ORDERED: diphenhydrAMINE 50 MG/ML VIAL ONE (14:54)
[2018-12-18] MEDS ORDERED: Promethazine HCl 25 MG/ML VIAL IM PRN (14:54)
[2018-12-18] MEDS ORDERED: ePHEDrine 50 MG/ML VIAL ONE (14:54)
[2018-12-18] MEDS ORDERED: Ondansetron HCl/PF 4 MG/2 ML Vial IVP PRN (14:54)
[2018-12-18] MEDS ORDERED: HYDROmorphone 2 MG/ML VIAL SLOW IVP PRN (14:54)
[2018-12-18] MEDS ORDERED: Promethazine HCl 25 MG/ML VIAL SLOW IVP PRN (14:54)
[2018-12-18] MEDS ORDERED: Meperidine HCl/PF 25 MG/ML VIAL SLOW IVP PRN (14:54)
[2018-12-18] MEDS ORDERED: PROPOFOL 200 MG/20 ML VIAL ONE (14:54)
[2018-12-18] MEDS ORDERED: Lidocaine 1% PF 5 ML VIAL ONE (14:54)
[2018-12-18 16:52] LABS: Vancomycin, Trough 21.7 ug/mL
--- NOTE | 2018-12-18 16:52 | RAD ---
LEFT FOOT THREE VIEWS: 12/18/18 HISTORY: Postoperative. COMPARISON: 12/16/18. FINDINGS: There has been interval amputation of the fourth and fifth toes at the distal metatarsal level. Prior amputation changes of the second and third toes are again noted. The first toe remains intact. IMPRESSION: Recent amputation changes of the fourth and fifth toes with stable old amputation changes of the seco nd and third toes. POS: TPC
[2018-12-18] MEDS: Vancomycin HCl 1.5 GM in Sodium Chloride 0.9% 250 ML 300 ML IVPB SCH (17:07)
[2018-12-18] MEDS: Acetaminophen 325 MG TAB PO PRN (17:08)
--- NOTE | 2018-12-18 23:13 | OP ---
DATE OF PROCEDURE: 12/18/2018 PREOPERATIVE DIAGNOSES: 1. Abscess with wound tracking into the fourth metatarsophalangeal joint. 2. Osteomyelitis. POSTOPERATIVE DIAGNOSES: 1. Abscess with wound tracking into the fourth metatarsophalangeal joint. 2. Osteomyelitis. PROCEDURE PERFORMED: Amputation of the fourth and fifth digits with partial fourth and fifth metatarsal amputation. ANESTHESIA: General with local. ESTIMATED BLOOD LOSS: Less than 150 mL. HEMOSTASIS: None used. DESCRIPTION OF PROCEDURE: The patient was taken to the operating room and placed on the operating room table in supine position. After general anesthesia was achieved, a left ankle block was performed with 15 mL of 0.5% plain Marcaine. The left lower extremity was then scrubbed and draped in the usual surgical manner. A fishmouth incision was then made at the base of the fourth and fifth digits and plantarly to excise the plantar wound. The incision was deepened to identify the metatarsal neck of the fourth and fifth metatarsals. With a bone saw, the fourth and fifth metatarsals were resected with a bias dorsal to plantar. The digits and metatarsals were then removed. Examination of the wound showed some necrosis of the plantar flexor tendons, which were clamped, retracted distally, and then resected. Next, two pulsatile bleeders were cauterized. Deep cultures for sensitivity and gram stain were taken. 3 L of pulse lavaged irrigant was then performed on the wound. After irrigation, the wound appeared healthy. Good bleeding tissues. No nonviable tissues seen. The skin flaps were reapproximated loosely with 2-0 nylon suture. The wound was packed around the suture with half-inch iodoform gauze. Dressings were applied consisting of 4x4 gauze, ABD pad, and Kerlix. Armando bandages were also applied. The patient tolerated the anesthesia and procedure well. The patient left OR to Recovery with vital signs stable. The patient will be re-admitted into the hospital for IV antibiotic therapy, wound care, and physical therapy. Job ID: [id number]
--- NOTE | 2018-12-18 23:28 | OP ---
DATE OF PROCEDURE: 12/18/2018 PREOPERATIVE DIAGNOSIS: Plantar wound with abscess tracking into the fourth metatarsophalangeal joint with osteomyelitis, left foot. POSTOPERATIVE DIAGNOSIS: Plantar wound with abscess tracking into the fourth metatarsophalangeal joint with osteomyelitis, left foot. PROCEDURE: Amputation of the left fourth and fifth digits with resection of the distal aspect of the fourth and fifth metatarsals. ESTIMATED BLOOD LOSS: Less than 100 mL. No pneumatic cuff utilized. ANESTHESIA: General with local. PATHOLOGY: Necrotic tendonous tissue as well as wound tracking into the fourth metatarsophalangeal joint. COMPLICATIONS: None. Culture and sensitivity and Gram stain sent. Job ID: [id number]
--- NOTE | 2018-12-19 00:27 | CON ---
DATE OF CONSULTATION: 12/18/2018 REASON FOR CONSULTATION: Left foot inflammatory process, status post amputation in 33 years old who has been in this hospital for the similar issues in the past, and last time I saw him was in June of last year when he presented with type 2 diabetes, chronic ulcers in right and left feet, and prior partial amputations in the right foot. At that time in June, he had bacteremia, underwent foot amputation by Dr. Carlson, which was 2nd and 3rd toe ray amputation. The cultures at that time revealed Staphylococcus aureus, both in 2 sets of blood cultures in the foot. Continue with Rocephin for a total of 6 weeks. He follows up with Dr. Dyson until August last year, had completed a course of negative pressure therapy, and upon discharge from wound care, his wound dimensions were 3.5 x 0.7 cm granulation tissue. The wound margins some nonviable tissue was debrided. A little bit of purulent drainage noted, but no erythema. At this time, he is admitted with 2-week history of a blister in the 2nd toe, left foot. Podiatry consult was placed and the impression was superficial wound in the right foot beneath the 4th metatarsal head with good granulation tissue with no necrosis or tracking. On the left side, there is swelling of the forefoot with erythema from the plantar wound dorsal foot stopping distal to the ankle. No cellulitis noted. Plantar wound was necrotic. The patient underwent surgical procedure. The operative notes are still pending. It seems like he had further amputation at this time of the 4th and 5th toes with corresponding rays. Currently, Mr. Higginbotham appears in no distress. No headaches, visual symptoms, sore throat, odynophagia, or dysphagia. No dyspnea or chest pain. No abdominal pain or diarrhea. No genitourinary symptoms. No other joint symptoms. PAST MEDICAL HISTORY: Type 2 diabetes, obesity, multiple recurrent toe ulcerations with various amputations of right and left side, orchiopexy, and hypertension. ALLERGIES: NORCO. SOCIAL HISTORY: Never smoker. Works at [employer]. FAMILY HISTORY: Diabetes. CURRENT MEDICATIONS: 1. Tylenol. 2. Elavil. 3. Norvasc. 4. Aspirin. 5. Dextrose. 6. Cardizem. 7. Lovenox. 8. Pepcid. 9. Insulin. 10. Losartan. 11. Zofran. 12. Actos. 13. Zosyn. 14. Vancomycin. PHYSICAL EXAMINATION: VITAL SIGNS: T-max 99.5, blood pressure 130/70, pulse 77, respirations 18, O2 saturation 96%. SKIN: Shows the round-shaped ulcer about 0.5 cm at the MPJ skin site right at the base of the 4th toe of right foot and then the inflammatory changes. In the left side in the dorsal aspect along the 4th and 5th metatarsals, there is large ulcerated lesion with necrotic center at the base of the lateral left forefoot, swelling of the 4th and 5th toes and metatarsal region. HEENT: Ocular movements conjugate. Oral cavity unremarkable. NECK: Supple. LUNGS: Symmetric, clear breath sounds. HEART: S1 and S2. Regular rate. No S3 or S4. ABDOMEN: Soft, not distended or tender. No ascites. No bladder distention. No organomegaly. : No genital abnormalities. EXTREMITIES: Pulses are faintly palpable in popliteal. The left dorsalis pedis is covered by dressing. Right side is faintly palpable at the dorsalis pedis. LABORATORY DATA: White cell count platelets 278, 72% neutrophils. Creatinine 1.04. Carbon dioxide 29. Sodium 135, AST 16, ALT 15, alkaline phosphatase 92, CRP 21, albumin 3.4. One set of blood cultures with coagulase negative Staph likely contaminant. The second set is negative thus for 48 hours. Foot x-ray from admission with recent amputations of 4th and 5th toes and stable old amputation changes of 2nd and 3rd toes. ASSESSMENT: Type 2 diabetes with recurring complications in the feet due to neuropathy and occupational demands. The patient now has had the remainder of 4th and 5th toes were amputated on the left side, is left only with the first toe. We will have to wait for the margin of clearance from the pathology specimen, and the culture results define duration modality of antimicrobial therapy for discharge planning. Regarding vascular supply, I do not think he has had an arterial duplex ultrasound, we will go ahead and order one for baseline. Job ID: [id number] MTDD
[2018-12-19] MEDS: Piperacillin/Tazobactam 3.375 GM in Sodium Chloride 0.9% 100 ML IVPB SCH ×3 (01:44→18:28)
[2018-12-19] MEDS ORDERED: Budesonide 0.5 MG/2 ML NEB ONE (04:12)
[2018-12-19] MEDS: Vancomycin HCl 1.5 GM in Sodium Chloride 0.9% 250 ML 300 ML IVPB SCH ×2 (04:22→16:15)
[2018-12-19 07:22] LABS: #Eosinphils 0.3 thou/uL (0.0-0.7); #Lymphocytes 2.1 thou/uL (1.20-3.40); #Monocytes 0.7 thou/uL (0.11-0.59); #Neutrophils 6.4 thou/uL (1.40-6.50); %Basophils 0.4 % (0.0-1.0); %Eosinophils 3.4 % (0.0-10.0); %Lymphocytes 21.9 % (21.0-51.0); %Monocytes 7.6 % (0.0-10.0); %Neutrophils 66.8 % (42.0-75.0); Hemoglobin 10.9 g/dL (14.0-18.0); Mean Corpuscular HGB CONC 31.5 g/dL (32.0-36.0); Mean Corpuscular Hemoglobin 26.5 pg (27.0-31.0); Mean Corpuscular Volume 84.1 fL (78.0-98.0); Mean Platelet Volume 7.6 fL (7.4-10.4); Platelet Count 267 thou/uL (130-400); RBC Distribution Width 12.8 % (11.5-14.5); Red Blood Cell (RBC) Count 4.11 mill/uL (4.70-6.10); White Blood Cell (WBC) Count 9.6 thou/uL (4.8-10.8)
[2018-12-19 07:38] LABS: Anion Gap 14 mmol/L (10-20); BUN (Urea Nitrogen) 12 mg/dL (8.9-20.6); Calc. Creatinine Clearance 152 mL/min (70-130); Calcium 8.8 mg/dL (7.8-10.44); Carbon Dioxide 24 mmol/L (22-29); Chloride 105 mmol/L (98-107); Estimated GFR-MDRD 53; Glucose 116 mg/dL (70-105); Potassium 4.4 mmol/L (3.5-5.1); Sodium 139 mmol/L (136-145)
--- NOTE | 2018-12-19 08:24 | PDOC.PN ---
- Subjective Encounter Start Date: 12/19/18 Encounter Start Time: 11:10 Subjective: Patient with some discomfort from foot postop, though not true pain. -: No CP/SOB/N/V. - Objective Resuscitation Status - Order Detail: 12/17/18 02:01 Resuscitation Status Routine Resuscitation Status: FULL: Full Resuscitation MAR Reviewed: Yes Vital Signs & Weight: Vital Signs (12 hours) Temp Pulse Resp BP Pulse Ox 12/19/18 04:17 98.8 F 72 20 133/83 97 12/18/18 23:50 98.3 F 79 16 135/65 93 L 12/18/18 21:00 97.9 F 84 16 131/64 97 Weight Weight 344 lb 9 oz I&O: 12/18/18 12/19/18 12/20/18 06:59 06:59 06:59 Intake Total 1060 Output Total 1250 Balance -190 Result Diagrams: 12/19/18 05:46 12/19/18 05:46 Additional Labs: Accuchecks 12/19/18 12/18/18 12/18/18 05:57 20:43 17:04 POC Glucose 122 H 124 H 118 H 12/18/18 10:49 POC Glucose 96 Phys Exam - Physical Examination Constitutional: NAD HEENT: moist MMs Respiratory: no wheezing, no rales, no rhonchi, clear to auscultation bilateral Cardiovascular: RRR, no significant murmur Gastrointestinal: soft, positive bowel sounds left foot in post surgical shoe and dressing c/d/i Neurological: non-focal, moves all 4 limbs Psychiatric: normal affect, A&O x 3 Dx/Plan (1) Diabetic foot ulcer Code(s): E11.621 - TYPE 2 DIABETES MELLITUS WITH FOOT ULCER; L97.509 - NON- PRESSURE CHRONIC ULCER OTH PRT UNSP FOOT W UNSP SEVERITY Status: Chronic Qualifiers: Diabetic foot ulcer location: midfoot Diabetes mellitus type: type 2 Comment: H/O amp of left 2nd and 3rd toe with metatarsals 06/19/2018, now with 4th and 5th toe ray amputations on 12/18/2018. 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: with [facility] use Diabetes mellitus complication status: with hyperglycemia Qualified Code(s): E11.65 - Type 2 diabetes mellitus with hyperglycemia; Z79.4 - custodial (current) use of insulin Comment: uncontrolled, Hb A1c of 12 (4) Diabetic neuropathy Code(s): E11.40 - TYPE 2 DIABETES MELLITUS WITH DIABETIC NEUROPATHY, UNSP Status: Chronic (5) Hypertension Code(s): I10 - ESSENTIAL (PRIMARY) HYPERTENSION Status: Chronic Qualifiers: Hypertension type: essential hypertension Qualified Code(s): I10 - Essential (primary) hypertension (6) Morbid obesity with BMI of 40.0-44.9, adult Code(s): E66.01 - MORBID (SEVERE) OBESITY DUE TO EXCESS CALORIES; Z68.41 - BODY MASS INDEX (BMI) 40.0-44.9, ADULT Status: Chronic (7) Acute renal failure (ARF) Status: Acute Comment: Creatinine up to 1.5 following surgery, giving fluids - Plan cont current plan of care, continue antibiotics, PT/OT, DVT proph w/lovenox, DVT proph w/SCDs * . - Discharge Day Encounter end time: 11:20
[2018-12-19] MEDS: Losartan 25 MG TAB PO SCH (08:52)
[2018-12-19] MEDS: Amlodipine 5 MG TAB PO SCH (08:53)
[2018-12-19] MEDS: Enoxaparin Sodium 40 MG/0.4 ML SYRINGE SC SCH (08:54)
[2018-12-19] MEDS: Pioglitazone HCl 45 MG TAB PO SCH (08:54)
[2018-12-19] MEDS: Aspirin 325 MG TAB PO SCH (08:54)
[2018-12-19] MEDS: Famotidine 20 MG TAB PO SCH ×2 (08:54→21:27)
[2018-12-19] MEDS: Sodium Chloride 0.9% 1,000 ML IV SCH (09:00)
--- NOTE | 2018-12-19 09:36 | ULT ---
LEFT LOWER EXTREMITY ARTERIAL DOPPLER STUDY: Arteries of the left lower extremity are evaluated with color Doppler, spectral analysis, and terrell jassi. INDICATION: Diminished pulses on the left with left lower extremity ulcers. FINDINGS: The left common femoral artery shows a normal triphasic waveform. The left profunda shows a biphasic waveform. Let superficial femoral artery, left popliteal artery, left anterior tibial artery, posterior tibial artery, and dorsal pedis all show a normal triphasic waveform with symmetric velocities. IMPRESSION: No evidence for significant peripheral vascular disease identified in the left lower extremity by Dop pler velocity and spectral analysis. POS: NANCY
[2018-12-19] MEDS ORDERED: Acetaminophen/Codeine 30-300mg Tablet PO PRN ×2 (11:42)
--- NOTE | 2018-12-19 11:42 | PDOC.CTH ---
Cardiology Progress Note - Subjective The pt seen and examined. No overnight events. No cardiac complaints. - Objective Vital Signs Temp Pulse Resp BP BP BP Pulse Ox 12/19/18 11:05 97.8 F 71 12 119/63 93 L 12/19/18 08:54 71 119/57 L 12/19/18 08:53 71 119/57 L 12/19/18 08:00 98.1 F 72 20 115/56 L 95 12/19/18 04:17 98.8 F 72 20 133/83 97 12/18/18 23:50 98.3 F 79 16 135/65 93 L Weight 344 lb 9 oz 12/18/18 12/19/18 12/20/18 06:59 06:59 06:59 Intake Total 1060 Output Total 1250 Balance -190 - Physical Examination General/Neuro: alert & oriented x3 Neck: no JVD present Lungs: CTA Heart: other: (irregular) Abdomen: soft Extremities: other: - Telemetry Telemetry Rhythm: Aflutter - Labs Result Diagrams: 12/19/18 05:46 12/19/18 05:46 - Assessment/Plan 1. New-onset Afib/Aflutter - Well controlled HR with Diltiazem 120mg qd. On ASA 325mg qd; EP consult (Thank you!) 2. Lt feet osteomyelitis with s/p Lt 2nd and 3rd toe amputation with metatarsal on 06/19/2019 and 4th and 5 th toe ray amputation on 12/18/2018 - 3. HTN - stable 4. DM - 5. Obese - 6. IVAN - On IV fluid MAR reviewed Review of Systems - Review of Systems Constitutional: reports: no symptoms reported EENTM: reports: no symptoms reported Respiratory: reports: no symptoms reported Cardiac (ROS): reports: no symptoms reported ABD/GI: reports: no symptoms reported
[2018-12-19 13:13] VITALS: BMI 40.8
[2018-12-19] MEDS: Insulin Glargine 120 UNITS in Pre-Filled Syringe 1 EACH SC SCH (21:28)
--- NOTE | 2018-12-19 22:07 | CON ---
DATE OF CONSULTATION: 12/19/2018 REASON FOR CONSULTATION: Atrial arrhythmias. HISTORY OF PRESENT ILLNESS: Mr. Higginbotham is a 33-year-old male with substantial past medical history for his age. He has diabetes and just underwent a partial amputation of his second and third digits on his left foot for osteomyelitis. He has previously had toes from his right foot amputated as well. His amputation was performed on 12/18/2018. On telemetry monitoring, he was found to have heart rate that was occasionally rapid. He was spontaneously converted to sinus rhythm, but there is concern for atrial fibrillation versus atrial flutter, prompting the EP consultation. He denies any prior history of atrial arrhythmias, heart racing, palpitations, chest pain, syncope, near syncope, stroke, or stroke-like symptoms. Chart review reveals that was documented as atrial fibrillation during his prior hospitalization, but was asymptomatic and no further workup or evaluation was performed at that time. He is asymptomatic during his arrhythmia episodes. Currently, Mr. Higginbotham is feeling well, but is having some pain following his amputation. As mentioned, he denies any heart racing, palpitations, chest pain, pressure, syncope, near syncope, stroke, or stroke-like symptoms. REVIEW OF SYSTEMS: A 12-point review of systems is conducted, is negative except that listed above in the HPI. PAST MEDICAL HISTORY: 1. Type 2 diabetes, diagnosed in approximately 2003. 2. Diabetic neuropathy with neuropathic ulcers. 3. Multiple toe digit amputations including the right fifth and left second and third. 4. Obesity. 5. Orchiopexy. 6. Hypertension. ALLERGIES: INCLUDE HYDROCODONE. HOME MEDICATIONS: 1. Levemir as directed. 2. Cozaar 100 mg daily. 3. Amitriptyline 25 mg daily. 4. Pioglitazone 45 mg daily. 5. Norvasc 5 mg b.i.d. 6. Metformin 1000 mg b.i.d. SOCIAL HISTORY: Denies alcohol, tobacco, or illicit drug use. 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 FAMILY HISTORY: Positive for diabetes amongst his siblings and parents. OBJECTIVE: VITAL SIGNS: Recent vital signs; temperature 97.8, pulse 71, blood pressure 119/63, respirations 12, and oxygen is 93% on room air. GENERAL: Mr. Higginbotham is alert and oriented, sitting upright during exam. He is morbidly obese. He has a bandaged left foot after the recent amputation, which now has a wound VAC attached. HEENT: Normocephalic and atraumatic. Sclerae anicteric. NECK: Supple without jugular venous distention. CARDIOVASCULAR: His heart rate is currently heart tones are distant due to habitus. PMI is nonpalpable due to habitus. LUNG: Lung sounds are quiet but no discernible crackles, wheezes, or rhonchi. ABDOMEN: Obese, soft, and nontender. EXTREMITIES: Are warm and dry to touch. There is no clubbing or cyanosis. As mentioned, left foot is bandaged from recent amputation. There is no pitting edema. NEUROLOGIC: Grossly intact and nonfocal. Gait was not assessed. DATABASE: Telemetry and EKGs were personally reviewed, which are suggestive for atrial flutter with variable AV conduction seen in paroxysmal episodes that are largely rate controlled. At this point, no atrial fibrillation is seen. It is unable to rule out typical versus atypical flutter with the limitation of external EKG tracings. This is severely limited with his obesity. Currently, he is in sinus rhythm in the 70s. LABORATORY DATA: Hematology was reviewed. Hemoglobin 10.9 and WBC 9.6. Potassium 4.4 and creatinine 1.5. ALT and AST within normal limits. IMPRESSION: 1. Paroxysmal atrial flutter, possibly cavotricuspid isthmus dependent seen in the setting of osteomyelitis. 2. Osteomyelitis, status post amputation of left second and third toes. 3. Type 2 diabetes. 4. Hypertension. 5. Morbid obesity. 6. CHADS-VASc score of 2 (hypertension and type 2 diabetes). PLAN AND RECOMMENDATIONS: 1. Agree with the current rate control strategy with p.o. diltiazem. At this point, it seems to keep his episodes paroxysmal and spontaneously converting. For now, I would abstain from any powerful antiarrhythmic medications unless more persistent episodes are seen or if the patient becomes symptomatic with episodes. 2. Recommend adding Lovenox during his stay while he is having paroxysmal atrial arrhythmia issues. If episodes of arrhythmias subside before he is discharged, I would recommend discharging on aspirin 325 mg daily. However, if more sustained or persisting episodes are seen, he will require oral anticoagulation. 3. Possible antiarrhythmic therapy versus ablation as mentioned above and if his episodes do not resolve or improve. Ultimately, we also discussed lifestyle modifications including management of his multiple medical comorbidities and highly recommend weight loss. Thank you for allowing us to participate in the care of this patient. Job ID: [id number]
[2018-12-20] MEDS: Piperacillin/Tazobactam 3.375 GM in Sodium Chloride 0.9% 100 ML IVPB SCH ×2 (01:23→09:49)
[2018-12-20] MEDS: Sodium Chloride 0.9% 1,000 ML IV SCH ×3 (01:23→23:43)
--- NOTE | 2018-12-20 01:32 | PRG ---
DATE OF SERVICE: 12/19/2018 SUBJECTIVE FINDINGS: The patient is resting comfortably, watching TV, on his chair. The patient has no pain as reported. The patient having no systemic complaints. OBJECTIVE FINDINGS: The patient has the wound VAC in place and functional. Bandages are dry, clean, and intact. ASSESSMENT AND PLAN: From podiatric standpoint, the patient may be discharge to home. Arrangements for wound VAC maintenance will be arranged. The patient will follow up with me in the office within 10 days after discharge. Job ID: [id number]
[2018-12-20 04:44] LABS: Vancomycin, Trough 30.3 ug/mL
[2018-12-20 04:46] LABS: Anion Gap 12 mmol/L (10-20); BUN (Urea Nitrogen) 11 mg/dL (8.9-20.6); Calc. Creatinine Clearance 119 mL/min (70-130); Calcium 8.9 mg/dL (7.8-10.44); Carbon Dioxide 25 mmol/L (22-29); Chloride 106 mmol/L (98-107); Estimated GFR-MDRD 40; Glucose 147 mg/dL (70-105); Potassium 4.3 mmol/L (3.5-5.1); Sodium 139 mmol/L (136-145)
[2018-12-20] MEDS ORDERED: Vancomycin HCl 1.5 GM in Sodium Chloride 0.9% 250 ML 300 ML IVPB SCH (05:00)
--- NOTE | 2018-12-20 09:08 | PDOC.CTH ---
Cardiology Progress Note - Subjective The pt seen and examined. No overnight events. No cardiac complaints. - Objective Vital Signs Temp Pulse Resp BP Pulse Ox 12/20/18 04:35 98.0 F 86 18 129/86 95 Admit Weight 343 lb 4.8 oz Weight 344 lb 9 oz 12/19/18 12/20/18 12/21/18 06:59 06:59 06:59 Intake Total 1060 2190 Output Total 1250 Balance -190 2190 - Physical Examination General/Neuro: alert & oriented x3 Neck: no JVD present Lungs: CTA Heart: RRR Abdomen: soft Extremities: other: - Telemetry Telemetry Rhythm: SR with afew mins intermittent Afib/Aflutter - Labs Result Diagrams: 12/19/18 05:46 12/20/18 04:09 - Assessment/Plan 1. New-onset Afib/Aflutter - Well controlled HR with Diltiazem 120mg qd. On ASA 325mg qd; If cont. Afib/Aflutter, possible ablation. Appreciate EP imput. 2. Lt feet osteomyelitis with s/p Lt 2nd and 3rd toe amputation with metatarsal on 06/19/2019 and 4th and 5 th toe ray amputation on 12/18/2018 - 3. HTN - stable 4. DM - 5. Obese - 6. IVAN - On IV fluid MAR reviewed Review of Systems - Review of Systems Constitutional: reports: no symptoms reported EENTM: reports: no symptoms reported Respiratory: reports: no symptoms reported Cardiac (ROS): reports: no symptoms reported ABD/GI: reports: no symptoms reported : reports: no symptoms reported
[2018-12-20] MEDS: Amlodipine 5 MG TAB PO SCH (09:39)
[2018-12-20] MEDS: Famotidine 20 MG TAB PO SCH ×2 (09:39→20:31)
[2018-12-20] MEDS: Pioglitazone HCl 45 MG TAB PO SCH (09:39)
[2018-12-20] MEDS: Losartan 25 MG TAB PO SCH (09:39)
[2018-12-20] MEDS: Aspirin 325 MG TAB PO SCH (09:39)
[2018-12-20] MEDS: Enoxaparin Sodium 40 MG/0.4 ML SYRINGE SC SCH (09:40)
[2018-12-20] MEDS: Insulin Glargine 120 UNITS in Pre-Filled Syringe 1 EACH SC SCH ×2 (09:40→22:14)
--- NOTE | 2018-12-20 13:02 | PDOC.PN ---
- Subjective Encounter Start Date: 12/20/18 Encounter Start Time: 10:00 Subjective: awake, no sob or palp -: feels better -: says he is amb with w.vac in room - Objective Resuscitation Status - Order Detail: 12/17/18 02:01 Resuscitation Status Routine Resuscitation Status: FULL: Full Resuscitation MAR Reviewed: Yes Vital Signs & Weight: Vital Signs (12 hours) Temp Pulse Resp BP BP Pulse Ox 12/20/18 12:09 97.6 F 78 16 148/78 H 12/20/18 09:39 86 12/20/18 04:35 98.0 F 86 18 129/86 95 Weight Admit Weight 343 lb 4.8 oz Weight 344 lb 9 oz I&O: 12/19/18 12/20/18 12/21/18 06:59 06:59 06:59 Intake Total 1060 2190 480 Output Total 1250 Balance -190 2190 480 Result Diagrams: 12/19/18 05:46 12/20/18 04:09 Additional Labs: Accuchecks 12/20/18 12/20/18 12/19/18 10:59 05:30 20:52 POC Glucose 123 H 139 H 218 H 12/19/18 16:48 POC Glucose 116 H Phys Exam - Physical Examination HEENT: PERRLA, moist MMs Neck: no JVD, supple Respiratory: no wheezing, no rales Cardiovascular: RRR, no significant murmur Gastrointestinal: soft, non-tender, positive bowel sounds Musculoskeletal: pulses present left foot in wound vac and dressing Neurological: non-focal, moves all 4 limbs Psychiatric: normal affect, A&O x 3 Dx/Plan (1) Osteomyelitis Code(s): M86.9 - OSTEOMYELITIS, UNSPECIFIED Status: Acute Qualifiers: Osteomyelitis type: unspecified type Osteomyelitis location: foot Laterality: left Qualified Code(s): M86.9 - Osteomyelitis, unspecified Comment: s/p amp of left 4,5 digits with partial amp of 4, 5 metatarsals (2) Atrial fibrillation Code(s): I48.91 - UNSPECIFIED ATRIAL FIBRILLATION Status: Acute Qualifiers: Atrial fibrillation type: paroxysmal Qualified Code(s): I48.0 - Paroxysmal atrial fibrillation Comment: started on cardiazem, in NSR but recurrent short episodes of afib (3) DM type 2 (diabetes mellitus, type 2) Status: Chronic Qualifiers: Diabetes mellitus terminal system operator insulin use: with terminal system operator use Diabetes mellitus complication status: with hyperglycemia Qualified Code(s): E11.65 - Type 2 diabetes mellitus with hyperglycemia; Z79.4 - shelter (current) use of insulin Comment: uncontrolled, Hb A1c of 12 (4) Diabetic foot ulcer Code(s): E11.621 - TYPE 2 DIABETES MELLITUS WITH FOOT ULCER; L97.509 - NON- PRESSURE CHRONIC ULCER OTH PRT UNSP FOOT W UNSP SEVERITY Status: Chronic Qualifiers: Diabetic foot ulcer location: midfoot Diabetes mellitus type: type 2 Comment: H/O amp of left 2nd and 3rd toe with metatarsals 06/19/2018, now with 4th and 5th toe amputations on 12/18/2018. (5) Hypertension Code(s): I10 - ESSENTIAL (PRIMARY) HYPERTENSION Status: Chronic Qualifiers: Hypertension type: essential hypertension Qualified Code(s): I10 - Essential (primary) hypertension (6) Morbid obesity with BMI of 40.0-44.9, adult Code(s): E66.01 - MORBID (SEVERE) OBESITY DUE TO EXCESS CALORIES; Z68.41 - BODY MASS INDEX (BMI) 40.0-44.9, ADULT Status: Chronic (7) IVAN (acute kidney injury) Code(s): N17.9 - ACUTE KIDNEY FAILURE, UNSPECIFIED Status: Acute - Plan gentle iv hydration, hold vanc due to elevated trough levels -: histopath not clear about margins being free of infl/inf -: antibiotics per -: hold cozaar in view of Creatinine of 1.9, reduce zosyn dose -: continue cardizem cd, lantus, aspirin * . Review of Systems - Medications/Allergies Allergies/Adverse Reactions: Allergies Allergy/AdvReac Type Severity Reaction Status Date / Time hydrocodone [From [place]] Allergy Verified 12/17/18 01:15 Medications: Current Medications Acetaminophen (Tylenol) 650 mg PO Q4H PRN PRN Reason: Headache/Fever/Mild Pain (1-3) Last Admin: 12/18/18 17:08 Dose: 650 mg Acetaminophen/Codeine Phosphate (Tylenol #3) 1 tab PO Q6H PRN PRN Reason: Mild-Moderate Pain (1-5) Last Admin: 12/19/18 13:00 Dose: 1 tab Acetaminophen/Codeine Phosphate (Tylenol #3) 2 tab PO Q6H PRN PRN Reason: Moderate to Severe Pain (6-10) Last Admin: 12/19/18 18:38 Dose: 2 tab Amitriptyline HCl (Elavil) 25 mg PO PRN PRN PRN Reason: DEPRESSANTS Amlodipine Besylate (Norvasc) 5 mg PO DAILY [facility] Last Admin: 12/20/18 09:39 Dose: 5 mg Aspirin (Aspirin) 325 mg PO DAILY [facility] Last Admin: 12/20/18 09:39 Dose: 325 mg Dextrose/Water (Dextrose 50%) 25 gm SLOW IVP PRN PRN PRN Reason: Hypoglycemia Diltiazem HCl (Cardizem Cd) 120 mg PO DAILY [facility] Last Admin: 12/20/18 09:39 Dose: 120 mg Enoxaparin Sodium (Lovenox) 40 mg SC 0900 [facility] Last Admin: 12/20/18 09:40 Dose: 40 mg Famotidine (Pepcid) 20 mg PO BID [facility] Last Admin: 12/20/18 09:39 Dose: 20 mg Glucagon (Glucagon) 1 mg IM PRN PRN PRN Reason: Hypoglycemia Guaifenesin/Dextromethorphan (Robitussin Dm) 15 ml PO Q4H PRN PRN Reason: Cough Dextrose/Water (D5w) 1,000 mls @ 0 mls/hr IV .Q0M PRN PRN Reason: Hypoglycemia Piperacillin Sod/Tazobactam (Sod 3.375 gm/ Sodium Chloride) 100 mls @ 200 mls/ hr IVPB 0200,1000,1800 [facility] Last Admin: 12/20/18 09:49 Dose: 100 mls Insulin Glargine 120 units/ (Miscellaneous Medication) 1.2 mls @ 0 mls/hr SC BID [facility] Last Admin: 12/20/18 09:40 Dose: 1.2 mls Insulin Human Lispro (Humalog) 0 units SC .MODERATE SLIDING SC PRN PRN Reason: Moderate Correctional Scale Insulin Human Lispro (Humalog) 0 units SC .BEDTIME SLIDING SC PRN PRN Reason: Bedtime Correctional Scale Losartan Potassium (Cozaar) 100 mg PO DAILY [facility] Last Admin: 12/20/18 09:39 Dose: 100 mg Miscellaneous Medication (Pharmacy To Dose) 1 each IVPB PRN PRN PRN Reason: Pharmacy to dose Ondansetron HCl (Zofran) 4 mg IVP Q6H PRN PRN Reason: Nausea/Vomiting Pioglitazone HCl (Actos) 45 mg PO DAILY [facility] Last Admin: 12/20/18 09:39 Dose: 45 mg Senna/Docusate Sodium (Senokot S) 2 tab PO BID PRN PRN Reason: Constipation Last Admin: 12/19/18 13:00 Dose: 2 tab Sodium Chloride (Flush - Normal Saline) 10 ml IVF PRN PRN PRN Reason: Saline Flush Last Admin: 12/19/18 08:54 Dose: 10 ml
[2018-12-20] MEDS ORDERED: Clindamycin 150 MG CAP PO SCH ×3 (13:15→18:00)
--- NOTE | 2018-12-20 13:59 | PDOC.CTH ---
Cardiology Progress Note - Subjective EP PROGRESS NOTE: 12/20/18 Seen as follow up for paroxysmal atrial flutter. Remains asymptomatic with arrhythmias. No cardiac concerns or complaints today - Objective Vital Signs Temp Pulse Resp BP BP Pulse Ox 12/20/18 12:09 97.6 F 78 16 148/78 H 12/20/18 09:39 86 12/20/18 04:35 98.0 F 86 18 129/86 95 Admit Weight 343 lb 4.8 oz Weight 344 lb 9 oz 12/19/18 12/20/18 12/21/18 06:59 06:59 06:59 Intake Total 1060 2190 480 Output Total 1250 Balance -190 2190 480 - Physical Examination General/Neuro: alert & oriented x3, NAD Neck: carotid US brisk, no JVD present Lungs: CTA, unlabored respirations Heart: PMI normal Abdomen: NT/ND, soft - Telemetry Telemetry Rhythm: SR with freq PACs. Parox A Flutter - Labs Result Diagrams: 12/19/18 05:46 12/20/18 04:09 - Assessment/Plan 1. Atrial flutter - paroxysmal - likely CTI dependent - asymptomatic - consider suppression vs ablation if becomes sustained or symptomatic 2. CHADS VASC: 2 - ASA 325mg for now if continues to have frequent runs of atrial flutter he may be started on OAC before discharge pending surgeon approval. 3. Metabolic syndrome 4. Osteomyelitis s/p left toe amputation Continue PO diltiazem for rate control for now. Rhythm issues remains paroxysmal and asymptomatic. Highly recommend weight loss.
[2018-12-20] MEDS ORDERED: Piperacillin/Tazobactam 2.25 GM in Sodium Chloride 0.9% 100 ML IVPB SCH (14:00)
--- NOTE | 2018-12-20 15:20 | PRG ---
DATE OF SERVICE: 12/20/2018 SUBJECTIVE: Mr. Higginbotham denies any major pain in the foot. No respiratory symptoms or abdominal pain. OBJECTIVE: VITAL SIGNS: T-max 98.7, blood pressure 140/70, pulse 78, and respirations 16. GENERAL: Awake. LUNGS: Clear. HEART: S1 and S2. Regular rate. ABDOMEN: Soft. EXTREMITIES: Foot with a negative pressure dressing. LABORATORY DATA AND DIAGNOSTIC STUDIES: White cell count down to 9.6, hemoglobin 10.9, and platelets 267. Sodium 139, creatinine 1.92 which is higher than admission. Microbiology with Staphylococcus aureus which is methicillin sensitive. Lower extremity ultrasound showed no evidence of peripheral vascular disease identified. Pathology report demonstrated abscess, soft tissue and bone necrosis. ASSESSMENT AND DISCUSSION: Type 2 diabetes with recurring complications in both feet due to neuropathy and occupational demands. Now remainder of fourth and fifth toes amputated on the left side and the plan is to switch him to oral clindamycin and rifampin for 4 weeks. I discussed the potential adverse reactions from the treatment. End point will be resolution and healing of the wound site with granulation. He has good vascular supply, so he should heal without problems. Job ID: [id number]
[2018-12-20] MEDS: Clindamycin 150 MG CAP PO SCH ×2 (16:53→23:41)
[2018-12-20] MEDS: Rifampin 300 MG CAP PO SCH (20:43)
[2018-12-20] MEDS: Acetaminophen 325 MG TAB PO PRN (22:28)
[2018-12-21] MEDS: Clindamycin 150 MG CAP PO SCH ×4 (05:30→20:44)
[2018-12-21 08:50] LABS: Anion Gap 9 mmol/L (10-20); BUN (Urea Nitrogen) 12 mg/dL (8.9-20.6); Calc. Creatinine Clearance 125 mL/min (70-130); Calcium 8.5 mg/dL (7.8-10.44); Carbon Dioxide 27 mmol/L (22-29); Chloride 108 mmol/L (98-107); Estimated GFR-MDRD 41; Glucose 84 mg/dL (70-105); Potassium 4.1 mmol/L (3.5-5.1); Sodium 140 mmol/L (136-145)
[2018-12-21] MEDS: Enoxaparin Sodium 40 MG/0.4 ML SYRINGE SC SCH (09:44)
[2018-12-21] MEDS: Pioglitazone HCl 45 MG TAB PO SCH (09:45)
[2018-12-21] MEDS: Amlodipine 5 MG TAB PO SCH (09:45)
[2018-12-21] MEDS: Famotidine 20 MG TAB PO SCH ×2 (09:45→20:43)
[2018-12-21] MEDS: Aspirin 325 MG TAB PO SCH (09:45)
[2018-12-21] MEDS: Insulin Glargine 120 UNITS in Pre-Filled Syringe 1 EACH SC SCH ×2 (09:46→20:42)
[2018-12-21] MEDS: Rifampin 300 MG CAP PO SCH ×2 (11:03→20:43)
--- NOTE | 2018-12-21 15:02 | PDOC.PN ---
- Subjective Encounter Start Date: 12/21/18 Encounter Start Time: 09:15 Subjective: feels better -: no sob or palpitations - Objective Resuscitation Status - Order Detail: 12/17/18 02:01 Resuscitation Status Routine Resuscitation Status: FULL: Full Resuscitation MAR Reviewed: Yes Vital Signs & Weight: Vital Signs (12 hours) Temp Pulse Resp BP BP BP Pulse Ox 12/21/18 11:07 96.7 F L 70 16 136/74 12/21/18 09:45 98 126/68 12/21/18 08:00 98.1 F 98 18 126/76 98 12/21/18 04:10 98.6 F 65 18 134/84 98 Weight Admit Weight 343 lb 4.8 oz Weight 354 lb I&O: 12/20/18 12/21/18 12/22/18 06:59 06:59 06:59 Intake Total 2190 3345 240 Output Total 2800 Balance 2190 545 240 Result Diagrams: 12/19/18 05:46 12/21/18 08:11 Additional Labs: Accuchecks 12/21/18 12/21/18 12/20/18 10:42 05:27 20:19 POC Glucose 70 121 H 222 H 12/20/18 12/20/18 16:43 09:52 POC Glucose 73 132 H Phys Exam - Physical Examination HEENT: PERRLA, moist MMs Neck: no JVD, supple Respiratory: no wheezing, no rales Cardiovascular: RRR, no significant murmur Gastrointestinal: soft, non-tender, no distention, positive bowel sounds Musculoskeletal: pulses present left foot in wound vac Neurological: non-focal, moves all 4 limbs Psychiatric: normal affect, A&O x 3 Dx/Plan (1) Osteomyelitis Code(s): M86.9 - OSTEOMYELITIS, UNSPECIFIED Status: Acute Qualifiers: Osteomyelitis type: unspecified type Osteomyelitis location: foot Laterality: left Qualified Code(s): M86.9 - Osteomyelitis, unspecified Comment: s/p amp of left 4,5 digits with partial amp of 4, 5 metatarsals (2) Atrial fibrillation Code(s): I48.91 - UNSPECIFIED ATRIAL FIBRILLATION Status: Acute Qualifiers: Atrial fibrillation type: paroxysmal Qualified Code(s): I48.0 - Paroxysmal atrial fibrillation Comment: started on cardiazem, in NSR (3) DM type 2 (diabetes mellitus, type 2) Status: Chronic Qualifiers: Diabetes mellitus technician terminal and repeater insulin use: with halfway use Diabetes mellitus complication status: with hyperglycemia Qualified Code(s): E11.65 - Type 2 diabetes mellitus with hyperglycemia; Z79.4 - [facility] (current) use of insulin Comment: uncontrolled, Hb A1c of 12 (4) Diabetic foot ulcer Code(s): E11.621 - TYPE 2 DIABETES MELLITUS WITH FOOT ULCER; L97.509 - NON- PRESSURE CHRONIC ULCER OTH PRT UNSP FOOT W UNSP SEVERITY Status: Chronic Qualifiers: Diabetic foot ulcer location: midfoot Diabetes mellitus type: type 2 Comment: H/O amp of left 2nd and 3rd toe with metatarsals 06/19/2018, now with 4th and 5th toe amputations on 12/18/2018. (5) Hypertension Code(s): I10 - ESSENTIAL (PRIMARY) HYPERTENSION Status: Chronic Qualifiers: Hypertension type: essential hypertension Qualified Code(s): I10 - Essential (primary) hypertension (6) Morbid obesity with BMI of 40.0-44.9, adult Code(s): E66.01 - MORBID (SEVERE) OBESITY DUE TO EXCESS CALORIES; Z68.41 - BODY MASS INDEX (BMI) 40.0-44.9, ADULT Status: Chronic (7) IVAN (acute kidney injury) Code(s): N17.9 - ACUTE KIDNEY FAILURE, UNSPECIFIED Status: Acute - Plan renal function is holding -: will dc iv fluids -: continue clindamycin and rifampin, wound vac -: needs outpt wound vac for dc plan -: continue cardizem CD, asp, cozaar, lantus and actos * . Review of Systems - Medications/Allergies Allergies/Adverse Reactions: Allergies Allergy/AdvReac Type Severity Reaction Status Date / Time hydrocodone [From [place]] Allergy Verified 12/17/18 01:15 Medications: Current Medications Acetaminophen (Tylenol) 650 mg PO Q4H PRN PRN Reason: Headache/Fever/Mild Pain (1-3) Last Admin: 12/20/18 22:28 Dose: 650 mg Acetaminophen/Codeine Phosphate (Tylenol #3) 1 tab PO Q6H PRN PRN Reason: Mild-Moderate Pain (1-5) Last Admin: 12/19/18 13:00 Dose: 1 tab Acetaminophen/Codeine Phosphate (Tylenol #3) 2 tab PO Q6H PRN PRN Reason: Moderate to Severe Pain (6-10) Last Admin: 12/19/18 18:38 Dose: 2 tab Amitriptyline HCl (Elavil) 25 mg PO PRN PRN PRN Reason: DEPRESSANTS Aspirin (Aspirin) 325 mg PO DAILY [facility] Last Admin: 12/21/18 09:45 Dose: 325 mg Clindamycin HCl (Cleocin) 450 mg PO Q6HR [facility] Last Admin: 12/21/18 12:31 Dose: 450 mg Dextrose/Water (Dextrose 50%) 25 gm SLOW IVP PRN PRN PRN Reason: Hypoglycemia Diltiazem HCl (Cardizem Cd) 240 mg PO DAILY [facility] Enoxaparin Sodium (Lovenox) 40 mg SC 0900 [facility] Last Admin: 12/21/18 09:44 Dose: 40 mg Famotidine (Pepcid) 20 mg PO BID [facility] Last Admin: 12/21/18 09:45 Dose: 20 mg Glucagon (Glucagon) 1 mg IM PRN PRN PRN Reason: Hypoglycemia Guaifenesin/Dextromethorphan (Robitussin Dm) 15 ml PO Q4H PRN PRN Reason: Cough Dextrose/Water (D5w) 1,000 mls @ 0 mls/hr IV .Q0M PRN PRN Reason: Hypoglycemia Insulin Glargine 120 units/ (Miscellaneous Medication) 1.2 mls @ 0 mls/hr SC BID [facility] Last Admin: 12/21/18 09:46 Dose: 1.2 mls Insulin Human Lispro (Humalog) 0 units SC .MODERATE SLIDING SC PRN PRN Reason: Moderate Correctional Scale Insulin Human Lispro (Humalog) 0 units SC .BEDTIME SLIDING SC PRN PRN Reason: Bedtime Correctional Scale Last Admin: 12/20/18 22:23 Dose: 2 unit Ondansetron HCl (Zofran) 4 mg IVP Q6H PRN PRN Reason: Nausea/Vomiting Pioglitazone HCl (Actos) 45 mg PO DAILY [facility] Last Admin: 12/21/18 09:45 Dose: 45 mg Rifampin (Rifadin) 300 mg PO 1000,2200 [facility] Last Admin: 12/21/18 11:03 Dose: 300 mg Senna/Docusate Sodium (Senokot S) 2 tab PO BID PRN PRN Reason: Constipation Last Admin: 12/19/18 13:00 Dose: 2 tab Sodium Chloride (Flush - Normal Saline) 10 ml IVF PRN PRN PRN Reason: Saline Flush Last Admin: 12/19/18 08:54 Dose: 10 ml
[2018-12-21 19:48] VITALS: BP 134/80; TEMP 98.6
== END 2018-12-21 20:50 | disposition home or self-care (01) | DRG 617 ==
LOC: ERS 12:02 → T4-A 19:40 → 2NO 12-17 20:08
PROVIDERS: ADMIT Emergency Medicine; ATTEND Emergency Medicine
PROC: 0Y6N0ZD Detachment at Left Foot, Partial 4th Ray, Open Approach (ICD-10-PCS; principal; 2018-12-16)
PROC: 0Y6N0ZF Detachment at Left Foot, Partial 5th Ray, Open Approach (ICD-10-PCS; 2018-12-16)
DX: E11.621 Type 2 diabetes mellitus with foot ulcer (principal); L97.528 Non-pressure chronic ulcer of other part of left foot with other specified severity; Z68.41 Body mass index [BMI] 40.0-44.9, adult; M86.8X7 Other osteomyelitis, ankle and foot; L97.529 Non-pressure chronic ulcer of other part of left foot with unspecified severity; I48.91 Unspecified atrial fibrillation; E11.40 Type 2 diabetes mellitus with diabetic neuropathy, unspecified; I10 Essential (primary) hypertension; E66.01 Morbid (severe) obesity due to excess calories; N17.9 Acute kidney failure, unspecified; E88.81 Metabolic syndrome and other insulin resistance
CPT/HCPCS: 36415; 36416; 80048; 80053; 80202; 83605; 85025; 85652; 86140; 87040; 87070; 87076; 87077; 87149; 87186; 87205; 88305; 88311; 93005; 93010; 93306; 93923; 96365; 96367; J1200; J1650; J1825; J2001; J2250; J2543; J2704; J3010; J3370; J3490; J7050; J7626; S0020

== ENCOUNTER 2018-12-23 15:34 | Outpatient (CLI) | payer SELFPAY ==
[2018-12-23] MEDS ORDERED: Sodium Chloride 0.9% 15 ML NEB ONE (18:00)
== END 2018-12-23 15:35 | disposition home or self-care (01) ==
LOC: WCC 15:34
PROVIDERS: ATTEND Family Medicine
DX: T81.89XD Other complications of procedures, not elsewhere classified, subsequent encounter (principal); Z89.421 Acquired absence of other right toe(s)
CPT/HCPCS: 36416; A4218

== ENCOUNTER 2018-12-26 10:43 | Outpatient (CLI) | payer SELFPAY ==
--- NOTE | 2018-12-26 16:10 | PRG ---
DATE OF SERVICE: 12/26/2018 HISTORY: Mr. Quique Higginbotham is a very pleasant 33-year-old gentleman, who presents to the [facility] for evaluation of a wound of the left foot subsequent to partial amputation of the fourth and fifth metatarsals. The patient underwent the preceding procedure on 12/18/[address] Tj Mcneil. The patient has been receiving negative pressure therapy for the wound of his left foot and he states that he was seen earlier today by Dr. Mcneil. The patient was discharged from [facility] on rifampin and clindamycin, each for a total of 4 weeks. During the patient's hospital stay, Mr. Higginbotham was seen in consultation by Infectious Diseases. PHYSICAL EXAMINATION: VITAL SIGNS: Temperature 98.1, pulse 68, respirations 17, and blood pressure 161/91. EXTREMITIES: A wound of the left foot is present, which measures approximately 3.6 x 7.8 cm. Granulation tissue is present within the wound margins. No purulent drainage is associated with the wound. No erythema of the skin surrounding the wound is present. No maceration of the skin of the periwound is noted. ASSESSMENT AND PLAN: 1. Left foot wound as described above. Negative pressure therapy will be continued with dressing changes of the wound vacuum-assisted closure 2 to 3 times per week here in the [facility]ound Center. The patient states he has a followup appointment with Dr. Mcneil in 2 weeks. I will see Mr. Higginbotham again in 4 weeks. 2. Diabetes mellitus. Accu-Cheks will be obtained at the time of the patient's clinic visits. The patient has been reminded that for optimal wound healing, his blood glucoses should remain below 150. 3. Hypertension. 4. Migraine headaches. Job ID: [id number]
[2018-12-26] MEDS ORDERED: Sodium Chloride 0.9% 15 ML NEB ONE (19:57)
== END 2018-12-26 10:44 | disposition home or self-care (01) ==
LOC: WCC 10:43
PROVIDERS: ATTEND Family Medicine
DX: T81.89XD Other complications of procedures, not elsewhere classified, subsequent encounter (principal); E11.9 Type 2 diabetes mellitus without complications; I10 Essential (primary) hypertension; G43.909 Migraine, unspecified, not intractable, without status migrainosus
CPT/HCPCS: 97602; A4218

== ENCOUNTER 2018-12-31 14:52 | Outpatient (CLI) | payer SELFPAY | END 2018-12-31 14:53 | disposition home or self-care (01) | LOC: WCC 14:52 | PROVIDERS: ATTEND Family Medicine | DX: T81.89XD Other complications of procedures, not elsewhere classified, subsequent encounter (principal); Z89.421 Acquired absence of other right toe(s) | CPT/HCPCS: 97605; A4218 ==

== ENCOUNTER 2019-01-03 13:49 | Outpatient (CLI) | payer SELFPAY ==
[2019-01-03] MEDS ORDERED: Sodium Chloride 0.9% 15 ML NEB ONE (18:00)
== END 2019-01-03 13:50 | disposition home or self-care (01) ==
LOC: WCC 13:49
PROVIDERS: ATTEND Family Medicine
DX: T81.89XD Other complications of procedures, not elsewhere classified, subsequent encounter (principal); Z89.421 Acquired absence of other right toe(s)
CPT/HCPCS: A4218

== ENCOUNTER 2019-01-07 15:48 | Outpatient (CLI) | payer SELFPAY ==
[2019-01-07] MEDS ORDERED: Sodium Chloride 0.9% 15 ML NEB ONE (18:00)
== END 2019-01-07 15:49 | disposition home or self-care (01) ==
LOC: WCC 15:48
PROVIDERS: ATTEND Family Medicine
DX: T81.89XD Other complications of procedures, not elsewhere classified, subsequent encounter (principal)
CPT/HCPCS: A4218

== ENCOUNTER 2019-01-10 14:31 | Outpatient (CLI) | payer SELFPAY | END 2019-01-10 14:32 | disposition home or self-care (01) | LOC: WCC 14:31 | PROVIDERS: ATTEND Family Medicine | DX: T81.89XD Other complications of procedures, not elsewhere classified, subsequent encounter (principal) | CPT/HCPCS: 97605; A4218 ==

== ENCOUNTER 2019-01-13 15:38 | Outpatient (CLI) | payer SELFPAY ==
[2019-01-13] MEDS ORDERED: Sodium Chloride 0.9% 15 ML NEB ONE (18:00)
== END 2019-01-13 15:39 | disposition home or self-care (01) ==
LOC: WCC 15:38
PROVIDERS: ATTEND Family Medicine
DX: T81.89XD Other complications of procedures, not elsewhere classified, subsequent encounter (principal); Z89.421 Acquired absence of other right toe(s)
CPT/HCPCS: 36416; 97605; A4218

== ENCOUNTER 2019-01-16 11:44 | Outpatient (CLI) | payer SELFPAY ==
[2019-01-16] MEDS ORDERED: Sodium Chloride 0.9% 15 ML NEB ONE (21:29)
== END 2019-01-16 11:45 | disposition home or self-care (01) ==
LOC: WCC 11:44
PROVIDERS: ATTEND Family Medicine
DX: T81.89XD Other complications of procedures, not elsewhere classified, subsequent encounter (principal); Z89.421 Acquired absence of other right toe(s)
CPT/HCPCS: 36416; A4218

== ENCOUNTER 2019-01-20 16:00 | Outpatient (CLI) | payer SELFPAY ==
[2019-01-20] MEDS ORDERED: Sodium Chloride 0.9% 15 ML NEB ONE (17:33)
== END 2019-01-20 16:01 | disposition home or self-care (01) ==
LOC: WCC 16:00
PROVIDERS: ATTEND Family Medicine
DX: T81.89XD Other complications of procedures, not elsewhere classified, subsequent encounter (principal); Z89.421 Acquired absence of other right toe(s)
CPT/HCPCS: 97605; A4218

== ENCOUNTER 2019-01-23 15:29 | Outpatient (CLI) | payer SELFPAY ==
--- NOTE | 2019-01-23 15:47 | PRG ---
DATE OF SERVICE: 01/23/2019 HISTORY: Mr. Quique Higginbotham is a very pleasant 33-year-old gentleman, who presents to the [facility] for evaluation of a wound of the left foot subsequent to partial amputation of the fourth and fifth metatarsals. The patient underwent the preceding procedure on 12/18/[address] Tj Mcneil. The patient has been receiving negative pressure therapy for the wound of his left foot. The patient was discharged from [facility] on rifampin and clindamycin, each for a total of 4 weeks. During the patient's hospital stay, Mr. Higginbotham was seen in consultation by Infectious Diseases. PHYSICAL EXAMINATION: VITAL SIGNS: Temperature 97.7, pulse 75, respirations 18, blood pressure 164/95. Accu-Chek 140. EXTREMITIES: A wound of the left foot is present, which measures approximately 6.4 x 2.9 cm. The dimensions of the wound at the time of the patient's visit on 12/26/2018, were approximately 3.6 x 7.8 cm. Granulation tissue is present within the wound margins. No purulent drainage is associated with the wound. No erythema of the skin surrounding the wound is present. No maceration of the skin of the periwound is noted. A posterior tibial pulse is easily palpable on the left. No significant edema of the left foot is present on exam today. ASSESSMENT AND PLAN: 1. Left foot wound as described above. Negative pressure therapy will be continued with dressing changes of the wound VAC here in the Wound Center. The patient states he will schedule a followup appointment with Dr. Mcneil in 2 weeks. I will see Mr. Higginbotham again in 4 weeks. 2. Diabetes mellitus. The patient's Accu-Chek in clinic today is 140. The patient has been reminded that for optimal wound healing, his blood glucoses should remain below 150. 3. Hypertension. 4. Migraine headaches. Job ID: [id number]
[2019-01-23] MEDS ORDERED: Sodium Chloride 0.9% 15 ML NEB ONE (17:25)
[2019-01-23] MEDS ORDERED: Lidocaine 2% 11 ML SYR ONE (17:25)
== END 2019-01-23 15:30 | disposition home or self-care (01) ==
LOC: WCC 15:29
PROVIDERS: ATTEND Family Medicine
DX: T81.89XD Other complications of procedures, not elsewhere classified, subsequent encounter (principal); E11.9 Type 2 diabetes mellitus without complications; I10 Essential (primary) hypertension; G43.909 Migraine, unspecified, not intractable, without status migrainosus
CPT/HCPCS: 97605; A4218

== ENCOUNTER 2019-01-28 15:02 | Outpatient (CLI) | payer SELFPAY | END 2019-01-28 15:03 | disposition home or self-care (01) | LOC: WCC 15:02 | PROVIDERS: ATTEND Family Medicine | DX: T81.89XD Other complications of procedures, not elsewhere classified, subsequent encounter (principal) | CPT/HCPCS: 97605; A4218 ==

== ENCOUNTER 2019-01-31 11:00 | Outpatient (CLI) | payer SELFPAY ==
[2019-01-31] MEDS ORDERED: Sodium Chloride 0.9% 15 ML NEB ONE (19:11)
== END 2019-01-31 11:01 | disposition home or self-care (01) ==
LOC: WCC 11:00
PROVIDERS: ATTEND Family Medicine
DX: T81.89XD Other complications of procedures, not elsewhere classified, subsequent encounter (principal); Z89.421 Acquired absence of other right toe(s)
CPT/HCPCS: 97605; A4218

== ENCOUNTER 2019-02-04 10:51 | Outpatient (CLI) | payer SELFPAY ==
[2019-02-04] MEDS ORDERED: Sodium Chloride 0.9% 15 ML NEB ONE (19:24)
== END 2019-02-04 10:52 | disposition home or self-care (01) ==
LOC: WCC 10:51
PROVIDERS: ATTEND Family Medicine
DX: T81.89XD Other complications of procedures, not elsewhere classified, subsequent encounter (principal)
CPT/HCPCS: 36416; 97605; A4218

== ENCOUNTER 2019-02-07 11:47 | Outpatient (CLI) | payer SELFPAY ==
[2019-02-07] MEDS ORDERED: Sodium Chloride 0.9% 15 ML NEB ONE (18:12)
== END 2019-02-07 11:48 | disposition home or self-care (01) ==
LOC: WCC 11:47
PROVIDERS: ATTEND Family Medicine
DX: T81.89XD Other complications of procedures, not elsewhere classified, subsequent encounter (principal); Z89.421 Acquired absence of other right toe(s)
CPT/HCPCS: 36416; 97605; A4218

== ENCOUNTER 2019-02-11 12:56 | Outpatient (CLI) | payer SELFPAY ==
[2019-02-11] MEDS ORDERED: Sodium Chloride 0.9% 15 ML NEB ONE (18:00)
== END 2019-02-11 12:57 | disposition home or self-care (01) ==
LOC: WCC 12:56
PROVIDERS: ATTEND Family Medicine
DX: T81.89XD Other complications of procedures, not elsewhere classified, subsequent encounter (principal)
CPT/HCPCS: 97605; A4218

== ENCOUNTER 2019-02-14 13:36 | Outpatient (CLI) | payer SELFPAY ==
[2019-02-14] MEDS ORDERED: Sodium Chloride 0.9% 15 ML NEB ONE (15:00)
== END 2019-02-14 13:37 | disposition home or self-care (01) ==
LOC: WCC 13:36
PROVIDERS: ATTEND Family Medicine
DX: T81.89XD Other complications of procedures, not elsewhere classified, subsequent encounter (principal)
CPT/HCPCS: A4218

== ENCOUNTER 2019-02-17 14:55 | Outpatient (CLI) | payer SELFPAY ==
[2019-02-17] MEDS ORDERED: Sodium Chloride 0.9% 15 ML NEB ONE (18:00)
== END 2019-02-17 14:56 | disposition home or self-care (01) ==
LOC: WCC 14:55
PROVIDERS: ATTEND Family Medicine
DX: T81.89XD Other complications of procedures, not elsewhere classified, subsequent encounter (principal)
CPT/HCPCS: 36416; A4218

== ENCOUNTER 2019-02-20 09:15 | Outpatient (CLI) | payer SELFPAY ==
--- NOTE | 2019-02-20 10:33 | PRG ---
DATE OF SERVICE: 02/20/2019 SUBJECTIVE: Mr. Quique Higginbotham is a very pleasant 33-year-old gentleman, who presents to the Wound Center for evaluation of a wound of the left foot subsequent to partial amputation of the fourth and fifth metatarsals. The patient underwent the preceding procedure on 12/18/[address] Tj Mcneil. The patient has been receiving negative pressure therapy for the wound of his left foot. The patient was discharged from [facility] on rifampin and clindamycin, each for a total of 4 weeks. During the patient's hospital stay, Mr. Higginbotham was seen in consultation by Infectious Diseases. OBJECTIVE: VITAL SIGNS: Temperature 97.3, pulse 67, respirations 19, and blood pressure 147/80. Accu-Chek 173. EXTREMITIES: A wound of the left foot is present, which measures approximately 5.0 x 2.8 cm. The dimensions of the wound at the time of the patient's visit on 01/23/2019 were approximately 6.4 x 2.9 cm. Granulation tissue is present within the wound margins. Necrotic and nonviable tissue present within the wound margins were debrided with an excisional full-thickness debridement with the use of a curette. Callus desiccated tissue and undermining at the periphery of the wound were eliminated with the use of scissors. No purulent drainage is associated with the wound. No erythema of the skin surrounding the wound is present. No maceration of the skin of the periwound is noted. A dorsalis pedis pulse is palpable on the left. No significant edema of the left foot is present on exam today. ASSESSMENT AND PLAN: 1. Left foot wound as described above. Negative pressure therapy will be continued with dressing changes of the wound VAC here in the Wound Center. The patient states he has a followup appointment with Dr. Mcneil in 1 week. I will see Mr. Higginbotham again in 2 weeks. 2. Diabetes mellitus. The patient's Accu-Chek in clinic today is 173. The patient has been reminded that for optimal wound healing, his blood glucoses should remain below 150. 3. Hypertension. 4. Migraine headaches. Job ID: [id number]
[2019-02-20] MEDS ORDERED: Sodium Chloride 0.9% 15 ML NEB ONE (15:00)
[2019-02-20] MEDS ORDERED: Lidocaine 2% PF 100 mg/5 ml Syringe ONE (15:00)
== END 2019-02-20 09:16 | disposition home or self-care (01) ==
LOC: WCC 09:15
PROVIDERS: ATTEND Family Medicine
DX: T81.89XD Other complications of procedures, not elsewhere classified, subsequent encounter (principal); E11.9 Type 2 diabetes mellitus without complications; I10 Essential (primary) hypertension; G43.709 Chronic migraine without aura, not intractable, without status migrainosus; Z89.422 Acquired absence of other left toe(s)
CPT/HCPCS: 11042; A4218; J2001

== ENCOUNTER 2019-02-24 14:38 | Outpatient (CLI) | payer SELFPAY ==
[2019-02-24] MEDS ORDERED: Sodium Chloride 0.9% 15 ML NEB ONE (15:00)
== END 2019-02-24 14:39 | disposition home or self-care (01) ==
LOC: WCC 14:38
PROVIDERS: ATTEND Family Medicine
DX: T81.89XD Other complications of procedures, not elsewhere classified, subsequent encounter (principal)
CPT/HCPCS: 36416; 97605; A4218

== ENCOUNTER 2019-05-05 11:38 | Inpatient (IN) | payer SELFPAY ==
[2019-05-05 12:18] LABS: #Basophils 0.1 thou/uL (0.0-0.2); #Eosinphils 0.3 thou/uL (0.0-0.7); #Lymphocytes 3.1 thou/uL (1.20-3.40); #Monocytes 0.7 thou/uL (0.11-0.59); %Basophils 0.5 % (0.0-1.0); %Eosinophils 2.8 % (0.0-10.0); %Lymphocytes 30.6 % (21.0-51.0); %Neutrophils 59.1 % (42.0-75.0); Hemoglobin 12.1 g/dL (14.0-18.0); Mean Corpuscular Hemoglobin 27.1 pg (27.0-31.0); Mean Corpuscular Volume 82.1 fL (78.0-98.0); Mean Platelet Volume 7.1 fL (7.4-10.4); Platelet Count 239 thou/uL (130-400); RBC Distribution Width 14.4 % (11.5-14.5); Red Blood Cell (RBC) Count 4.45 mill/uL (4.70-6.10); White Blood Cell (WBC) Count 10.1 thou/uL (4.8-10.8)
--- NOTE | 2019-05-05 12:32 | RAD ---
EXAM: 3 views of the right foot HISTORY: Right fifth toe infection COMPARISON: 12/16/2018 FINDINGS: 3 views of the right foot shows no evidence of acute fracture or dislocation. The patient i s status post amputation of the small toe through the mid metatarsal. There is stable bony changes involving the residual fifth metatarsal. Soft tissue swelling is seen surrounding the fifth metatarsa l and there may be an open wound near the fourth metatarsophalangeal joint. IMPRESSION: Chronic changes involving the lateral foot as above.
[2019-05-05 12:42] LABS: ALT (SGPT) 18 U/L (8-55); AST (SGOT) 17 U/L (5-34); Albumin 3.6 g/dL (3.5-5.0); Alkaline Phosphatase 98 U/L (40-150); Anion Gap 9 mmol/L (10-20); BUN (Urea Nitrogen) 21 mg/dL (8.9-20.6); Bilirubin, Total 0.6 mg/dL (0.2-1.2); Calc. Creatinine Clearance 0 mL/min (70-130); Carbon Dioxide 27 mmol/L (22-29); Chloride 101 mmol/L (98-107); Estimated GFR-MDRD 70; Globulin 4.7 g/dL (2.4-3.5); Glucose 171 mg/dL (70-105); Potassium 3.8 mmol/L (3.5-5.1); Protein, Total 8.3 g/dL (6.0-8.3); Sodium 133 mmol/L (136-145)
[2019-05-05] MEDS ORDERED: Pharmacy to Dose 1 EACH VANCOMYCIN IVPB PRN (17:37)
[2019-05-05] MEDS: Piperacillin/Tazobactam 3.375 GM in Sodium Chloride 0.9% 100 ML IVPB SCH ×2 (18:00→22:44)
[2019-05-05] MEDS ORDERED: Senokot S 8.6-50 MG TAB PO PRN (19:22)
[2019-05-05] MEDS ORDERED: Dextrose 50% Abboject 50 ML SYRINGE SLOW IVP PRN (19:38)
[2019-05-05] MEDS ORDERED: Dextrose 5% in Water 1,000 ML IV PRN (19:38)
[2019-05-05 20:24] VITALS: BMI 42.7
[2019-05-05] MEDS: Famotidine 20 MG TAB PO SCH (20:47)
[2019-05-05] MEDS ORDERED: traMADol HCl 50 MG TAB PO PRN (23:35)
[2019-05-06] MEDS: Vancomycin HCl 1.5 GM in Sodium Chloride 0.9% 250 ML 300 ML IVPB SCH ×2 (02:28→15:39)
--- NOTE | 2019-05-06 03:12 | HP ---
PRIMARY CARE PHYSICIAN: [facility] in [place]. HISTORY OF PRESENT ILLNESS: Mr. Higginbotham is a 33-year-old man with a past medical history pertinent for diabetes, multiple amputations due to diabetic ulcers that are nonhealing. He has been seeing Dr. Mcneil since December to deal with chronic diabetic ulcers that are not well healing. He has had one on his right foot beneath the 5th metatarsal on the plantar surface, which is nonhealing. He has just finished a 15 day course of Bactrim and was seen by Dr. Mcneil today who did an x-ray, which shows on the right foot status post amputation of the small toe through the mid metatarsal, stable bony changes. Soft tissue swelling seen surrounding the 5th metatarsal and there may be an open wound near the 4th metatarsophalangeal joint. Dr. Mcneil sent patient here for admission for IV antibiotics and we will consult him and he also requested Dr. Cortes to help with healing of the wound on the right foot. In the emergency room, lab work showed white blood cell count at 10.1, sodium 133, potassium 3.8, BUN is 21, creatinine is 1.19, estimated GFR is 70. The patient was given a gram of vancomycin in the emergency room and then admitted for further management. PAST MEDICAL HISTORY: As above diabetes type 2, does take Levemir as well as metformin and Actos. Also history of hypertension. PAST SURGICAL HISTORY: Right pinky toe amputation, 2nd, 3rd, 4th and 5th left toe amputations. History of orchiopexy as a child PSYCHIATRIC HISTORY: None. SOCIAL HISTORY: Lives at home alone. Denies any alcohol or drug use. No smoking history. ALLERGIES: HYDROCODONE. MEDICATIONS: 1. Elavil 25 mg p.o. p.r.n. 2. Levemir 120 units subcu b.i.d. 3. Metformin 1000 mg p.o. b.i.d. 4. Actos 45 mg p.o. daily. 5. Tramadol 50 mg p.o. q.6 hours as needed. 6. Aspirin 325 mg p.o. daily. 7. Cardizem 240 mg p.o. daily. FAMILY HISTORY: Mother pertinent for diabetes. Father noncontributory. REVIEW OF SYSTEMS: The patient denies any fever or chills. Denies any foot pain. Does have a history of multiple diabetic ulcers requiring amputation of his toes. See HPI. All other systems are reviewed and are negative unless mentioned in the HPI. PHYSICAL EXAMINATION: VITAL SIGNS: Blood pressure 128/85, respirations are 16, temp is 98.5, O2 sats are 97% on room air, pulse is 70. CONSTITUTIONAL: The patient appears nontoxic. He is alert and oriented to person, place and time. HEAD: Atraumatic and normocephalic. Eyes; eyelids are normal to inspection. Pupils are equal, round, light reactive to light. ENT: Mouth exam is normal. Mucous membranes are moist. NECK: Normal range of motion. Trachea is midline. RESPIRATORY: Chest, breath sounds are clear. No findings of any respiratory distress. CARDIOVASCULAR: Heart sounds are normal. Regular rate and rhythm. ABDOMEN: Nontender. Bowel sounds are heard. BACK: Normal inspection, normal range of motion. EXTREMITIES: Upper extremity normal range of motion. Motor strength is normal. Sensation is intact. Lower extremity, normal range of motion, normal pulses. There is discoloration to bilateral feet. His toes 2 through 5 are surgically absent on the left. Pinky toe on the right, 5th metatarsal on the right is missing. There is a wound noted to the base of the right 5th metatarsal with surrounding cellulitis. SKIN: Warm, dry and normal in color. Chronic wound to the base of the 5th metatarsal. ASSESSMENT/PLAN: 1. Osteomyelitis of the right foot, base of 4th, 5th metatarsal. We have continued vancomycin, added Zosyn. We will consult Dr. Mcneil, Dr. Cortes to help us with management of this chronic infection. 2. Diabetes. We are going to hold metformin and Actos for now. We will add a sliding scale for coverage. We have added the Levemir long-acting on his profile. We will add metformin and Actos back prior to discharge. 3. Hypertension. We will continue home medications. 4. Hospital course is dependent on clinical findings. Job ID: [id number]
[2019-05-06] MEDS: Piperacillin/Tazobactam 3.375 GM in Sodium Chloride 0.9% 100 ML IVPB SCH ×3 (05:59→18:46)
[2019-05-06 06:16] LABS: #Basophils 0.1 thou/uL (0.0-0.2); #Eosinphils 0.3 thou/uL (0.0-0.7); #Lymphocytes 2.1 thou/uL (1.20-3.40); #Monocytes 0.6 thou/uL (0.11-0.59); #Neutrophils 4.6 thou/uL (1.40-6.50); %Basophils 0.7 % (0.0-1.0); %Eosinophils 3.8 % (0.0-10.0); %Lymphocytes 26.8 % (21.0-51.0); %Monocytes 8.2 % (0.0-10.0); %Neutrophils 60.5 % (42.0-75.0); Hemoglobin 11.9 g/dL (14.0-18.0); Mean Corpuscular HGB CONC 32.1 g/dL (32.0-36.0); Mean Corpuscular Hemoglobin 26.6 pg (27.0-31.0); Mean Corpuscular Volume 82.6 fL (78.0-98.0); Mean Platelet Volume 7.4 fL (7.4-10.4); Platelet Count 213 thou/uL (130-400); RBC Distribution Width 14.3 % (11.5-14.5); Red Blood Cell (RBC) Count 4.48 mill/uL (4.70-6.10); White Blood Cell (WBC) Count 7.7 thou/uL (4.8-10.8)
[2019-05-06 06:38] LABS: Anion Gap 10 mmol/L (10-20); BUN (Urea Nitrogen) 16 mg/dL (8.9-20.6); Calc. Creatinine Clearance 234 mL/min (70-130); Calcium 8.9 mg/dL (7.8-10.44); Carbon Dioxide 28 mmol/L (22-29); Chloride 102 mmol/L (98-107); Estimated GFR-MDRD 83; Glucose 199 mg/dL (70-105); Potassium 4.6 mmol/L (3.5-5.1); Sodium 135 mmol/L (136-145)
[2019-05-06] MEDS ORDERED: Acetaminophen/Codeine 30-300mg Tablet PO PRN (08:11)
[2019-05-06] MEDS ORDERED: Amitriptyline HCl 25 MG TAB PO PRN (08:11)
[2019-05-06] MEDS ORDERED: hydrALAZINE 20 MG/ML VIAL SLOW IVP PRN (08:11)
[2019-05-06] MEDS ORDERED: Bisacodyl 10 MG SUPP PR PRN (08:11)
[2019-05-06] MEDS ORDERED: Ondansetron ODT 4 MG TAB PO PRN (08:11)
[2019-05-06] MEDS ORDERED: Loperamide HCl 2 MG CAP PO PRN (08:11)
[2019-05-06] MEDS ORDERED: Diabetic Tussin 200 MG/10 ML UDCUP PO PRN (08:11)
[2019-05-06] MEDS ORDERED: Sodium Chloride 0.65% Nasal 44 ML BOT EA NARE PRN (08:11)
[2019-05-06] MEDS ORDERED: Loratadine 10 MG TAB PO PRN (08:11)
[2019-05-06] MEDS ORDERED: Zolpidem Tartrate 5 MG TAB PO PRN (08:11)
[2019-05-06] MEDS ORDERED: Ondansetron PF 4 MG/2 ML Vial IVP PRN (08:11)
[2019-05-06] MEDS ORDERED: Cepastat Lozenges 1 LOZ PO PRN (08:11)
[2019-05-06] MEDS ORDERED: INSULIN DETEMIR SC SCH (09:00)
[2019-05-06] MEDS: Insulin Glargine 120 UNITS in Pre-Filled Syringe 1 EACH SC SCH ×2 (09:05→20:36)
[2019-05-06] MEDS: Aspirin 325 MG TAB PO SCH (09:06)
[2019-05-06] MEDS: Famotidine 20 MG TAB PO SCH ×2 (09:09→20:33)
[2019-05-06] MEDS ORDERED: metFORMIN 500 MG TAB PO SCH (09:45)
[2019-05-06] MEDS: Pioglitazone HCl 45 MG TAB PO SCH (10:21)
--- NOTE | 2019-05-06 11:24 | PDOC.HOSPP ---
- Subjective Subjective: Patient seen and examined. No new complaints. No overnight events - Objective Vital Signs & Weight: Vital Signs (12 hours) Temp Pulse Resp BP BP Pulse Ox 05/06/19 09:08 63 119/76 05/06/19 07:00 98.1 F 63 17 119/78 95 05/06/19 04:17 98.1 F 66 16 113/72 95 05/06/19 00:50 98.0 F 68 16 120/66 96 Weight Weight 360 lb 8.986 oz Result Diagrams: 05/06/19 05:47 05/06/19 05:47 Additional Labs: Accuchecks 05/06/19 05/05/19 04:22 20:05 POC Glucose 233 H 184 H Radiology Reviewed by me: Yes ROS - Review of Systems All systems: All other ROS were reviewed and found negative. Constitutional: denies: fever, chills, sweats, weakness, malaise, other ENT: denies: ear pain, ear discharge, nose pain, nose discharge, nose congestion , mouth pain, mouth swelling, throat pain, throat swelling, other Respiratory: denies: cough, dry, shortness of breath, hemoptysis, SOB with excertion, pleuritic pain, sputum, wheezing, other Cardiovascular: denies: chest pain, palpitations, orthopnea, paroxysmal noc. dyspnea, edema, light headedness, other Gastrointestinal: denies: nausea, vomitting, abdominal pain, diarrhea, constipation, melena, hematochezia, other Genitourinary: denies: dysuria, frequency, incontinence, hematuria, retention, other Musculoskeletal: denies: neck pain, shoulder pain, arm pain, back pain, hand pain, leg pain, foot pain, other Skin: denies: rash, lesions, mela, bruising, other - Medication Medications: Active Medications Generic Name Dose Route Start Last Admin Trade Name Freq PRN Reason Stop Dose Admin Aspirin 325 mg 05/06/19 09:00 05/06/19 09:06 Aspirin PO Not Given DAILY NOMI Diltiazem HCl 240 mg 05/06/19 09:00 05/06/19 09:08 Cardizem Cd PO 240 mg DAILY NOMI Administration Famotidine 20 mg 05/05/19 21:00 05/06/19 09:09 Pepcid PO 20 mg BID NOMI Administration Piperacillin Sod/Tazobactam 100 mls @ 200 mls/hr 05/05/19 18:00 05/06/19 05: 59 Sod 3.375 gm/ Sodium Chloride IVPB 100 mls Q6HR NOMI Administration Vancomycin HCl 1.5 gm/ Sodium 300 mls @ 200 mls/hr 05/06/19 02:00 05/06/19 02 :28 Chloride IVPB 300 mls 0200,1400 NOMI Administration Insulin Glargine 120 units/ 1.2 mls @ 0 mls/hr 05/06/19 09:00 05/06/19 09:05 Miscellaneous Medication SC Not Given BID NOMI Metformin HCl 1,000 mg 05/06/19 09:45 05/06/19 10:21 Glucophage PO 05/06/19 12:00 Not Given NOW NOMI Pioglitazone HCl 45 mg 05/06/19 09:00 05/06/19 10:21 Actos PO Not Given DAILY NOMI - Exam NAD, awake alert Eye: PERRL, anicteric sclera ENT: normocephalic atraumatic, no oropharyngeal lesions Neck: supple, symmetric, no JVD Heart: RRR, no murmur, no gallops, no rubs Respiratory: CTAB, no wheezes, no rales, no ronchi, normal chest expansion Gastrointestinal: soft, non-tender, non-distended, normal bowel sounds Extremities: no cyanosis, no clubbing (wound with dressing) Skin: normal turgor, no lesions Neurological: CN's grossly intact, normal sensation to touch, no focal deficits Musculoskeletal: normal tone, normal strength Psychiatric: normal affect, normal behavior Hosp A/P (1) Osteomyelitis of right foot Code(s): M86.9 - OSTEOMYELITIS, UNSPECIFIED Status: Acute (2) DM type 2 (diabetes mellitus, type 2) Status: Chronic Qualifiers: (3) Diabetic foot ulcer Code(s): E11.621 - TYPE 2 DIABETES MELLITUS WITH FOOT ULCER; L97.509 - NON- PRESSURE CHRONIC ULCER OTH PRT UNSP FOOT W UNSP SEVERITY Status: Chronic (4) Diabetic neuropathy Code(s): E11.40 - TYPE 2 DIABETES MELLITUS WITH DIABETIC NEUROPATHY, UNSP Status: Chronic (5) Hypertension Code(s): I10 - ESSENTIAL (PRIMARY) HYPERTENSION Status: Chronic Qualifiers: (6) Morbid obesity with BMI of 40.0-44.9, adult Code(s): E66.01 - MORBID (SEVERE) OBESITY DUE TO EXCESS CALORIES; Z68.41 - BODY MASS INDEX (BMI) 40.0-44.9, ADULT Status: Chronic - Plan old records reviewed/req, continue antibiotics continue wound care ID and podiatry consulted continue empiric antibiotics medication reviewed as below symptomatic treatment home medication reconciled
[2019-05-06] MEDS ORDERED: ceFAZolin Sodium (SDC) 2 GM/100 ML BAG ONE (12:16)
[2019-05-06] MEDS ORDERED: CEFAZOLIN 1 GM VIAL ONE (12:16)
[2019-05-06] MEDS ORDERED: Bupivacaine PF 0.5% 30 ML VIAL ONE (13:15)
[2019-05-06] MEDS ORDERED: Neomycin-Polymyxin 1 ML AMP ONE (13:15)
[2019-05-06] MEDS ORDERED: Fentanyl 100 MCG/2 ML VIAL ONE (13:19)
[2019-05-06] MEDS ORDERED: Promethazine HCl 25 MG/ML VIAL SLOW IVP PRN (14:49)
[2019-05-06] MEDS ORDERED: Promethazine HCl 25 MG/ML VIAL IM PRN (14:49)
[2019-05-06] MEDS ORDERED: HYDROmorphone 2 MG/ML VIAL SLOW IVP PRN (14:49)
[2019-05-06] MEDS ORDERED: Ondansetron HCl/PF 4 MG/2 ML Vial IVP PRN (14:49)
[2019-05-06] MEDS ORDERED: Ketorolac Tromethamine 30 MG/ML VIAL IVP PRN (14:49)
[2019-05-06] MEDS ORDERED: Meperidine HCl/PF 25 MG/ML VIAL SLOW IVP PRN (14:49)
[2019-05-06] MEDS ORDERED: PROPOFOL 200 MG/20 ML VIAL ONE (15:42)
[2019-05-06] MEDS ORDERED: PHENYLEPHRINE-NS 100 MCG/ML 10 ML SYRINGE ONE (15:42)
[2019-05-06] MEDS ORDERED: Succinylcholine Chloride 20 MG/ML 10 ml SYRINGE FS ONE (15:42)
[2019-05-06] MEDS ORDERED: Lidocaine 1% PF 5 ML VIAL ONE (15:42)
[2019-05-06] MEDS ORDERED: Ketorolac Tromethamine 30 MG/ML VIAL ONE (15:42)
--- NOTE | 2019-05-06 18:02 | CON ---
DATE OF CONSULTATION: 05/06/2019 REASON FOR CONSULTATION: Osteomyelitis, right foot. HISTORY OF PRESENT ILLNESS: This is a 33-year-old patient, who has a history of type-2 diabetes, multiple complications in both feet, prior amputations, last one in December of this year when he had the remainder of 4th and 5th toes amputated on the left side. Microbiology indicated methicillin sensitive Staphylococcus aureus, Finegoldia magna. The patient was switched to oral clindamycin and rifampin for 4 weeks and has experienced improvement with steady healing of the wound, but now has developed recrudescence of inflammatory changes in the right foot, lateral forefoot area. Dr. Mcneil has performed 4th and 5th ray debridements/amputation. Currently, Mr. Higginbotham is awake and alert. Denies any headaches. A little bit of sore throat from the ET tube. No dyspnea or chest pain. No abdominal pain or diarrhea. No genitourinary symptoms. PAST MEDICAL HISTORY: 1. Type-2 diabetes. 2. Obesity. 3. Recurrent toe ulcerations with various amputations, right and left side. 4. Orchiopexy. 5. Hypertension. ALLERGIES: NORCO. SOCIAL HISTORY: Never smoker. Works at [employer]. FAMILY HISTORY: Diabetes type 2. CURRENT MEDICATIONS: 1. Tylenol No. 3. 2. Elavil. 3. Aspirin. 4. Dulcolax. 5. Cardizem. 6. Pepcid. 7. Robitussin. 8. Dilaudid. 9. Insulin. 10. Ketorolac. 11. Loperamide. 12. Meperidine. 13. Metformin. 14. Zofran. 15. Actos. 16. Zosyn. 17. Vancomycin. PHYSICAL EXAMINATION: VITAL SIGNS: T-max 98.1, blood pressure 140/90, pulse 69, respirations 17, O2 saturation 96. SKIN: Shows the ulcerated area at the bottom aspect of the right foot 5th MPJ with inflammatory changes surrounding this area around site. No lymphadenopathy. HEENT: Ocular movements conjugate. NECK: Supple. No jugular vein distention. LUNGS: Symmetric. Clear breath sounds. HEART: S1 and S2, regular rate. No S3 or S4. ABDOMEN: Soft. Not distended or tender. No ascites, bladder distention. Voiding spontaneously. NEUROLOGIC: Nonfocal. LABORATORY DATA: White cell count 10.1 and 7.7, hemoglobin 12.1, platelets 239, normal differential. Sodium 133; creatinine 1.19, now 1.02. Liver profile normal. Globulin 4.7. The foot cultures are not available at this time. We do not have an operative report yet. There is a foot x-ray from this admission with status post amputation of small toe through the mid metatarsal. ASSESSMENT AND PLAN: Type-2 diabetes with neuropathy and recurrent complications in the feet. Now, he developed right fifth metatarsal chronic ulcer with osteomyelitis, status post ray amputation. We will wait for the culture results and then define antimicrobial therapy. We will have to check with the margin of amputation, most likely was clear from the infected site. We will also have to review Dr. Mcneil's note regarding the presence of abscess. The left side wound will have to be reviewed as well, but according to the patient, it seems to be healing properly. Job ID: [id number]
[2019-05-06] MEDS: metFORMIN 500 MG TAB PO SCH (18:46)
[2019-05-06] MEDS: HumaLOG 300 UNITS/3 ML VIAL SC PRN (18:47)
[2019-05-06] MEDS: Amitriptyline HCl 25 MG TAB PO SCH (20:32)
[2019-05-07] MEDS: Piperacillin/Tazobactam 3.375 GM in Sodium Chloride 0.9% 100 ML IVPB SCH ×4 (00:49→17:55)
[2019-05-07] MEDS: Vancomycin HCl 1.5 GM in Sodium Chloride 0.9% 250 ML 300 ML IVPB SCH ×2 (02:30→15:23)
[2019-05-07 05:55] LABS: #Eosinphils 0.3 thou/uL (0.0-0.7); #Lymphocytes 2.4 thou/uL (1.20-3.40); #Monocytes 0.5 thou/uL (0.11-0.59); #Neutrophils 3.3 thou/uL (1.40-6.50); %Basophils 0.7 % (0.0-1.0); %Eosinophils 4.6 % (0.0-10.0); %Lymphocytes 36.6 % (21.0-51.0); %Monocytes 7.2 % (0.0-10.0); %Neutrophils 50.9 % (42.0-75.0); Hemoglobin 10.6 g/dL (14.0-18.0); Mean Corpuscular HGB CONC 31.6 g/dL (32.0-36.0); Mean Corpuscular Hemoglobin 25.9 pg (27.0-31.0); Mean Corpuscular Volume 82.1 fL (78.0-98.0); Mean Platelet Volume 7.8 fL (7.4-10.4); Platelet Count 187 thou/uL (130-400); RBC Distribution Width 14.1 % (11.5-14.5); Red Blood Cell (RBC) Count 4.07 mill/uL (4.70-6.10); White Blood Cell (WBC) Count 6.6 thou/uL (4.8-10.8)
[2019-05-07 06:16] LABS: Anion Gap 11 mmol/L (10-20); BUN (Urea Nitrogen) 17 mg/dL (8.9-20.6); Calc. Creatinine Clearance 229 mL/min (70-130); Calcium 8.3 mg/dL (7.8-10.44); Carbon Dioxide 25 mmol/L (22-29); Chloride 104 mmol/L (98-107); Estimated GFR-MDRD 81; Glucose 125 mg/dL (70-105); Potassium 3.8 mmol/L (3.5-5.1); Sodium 136 mmol/L (136-145)
--- NOTE | 2019-05-07 08:16 | OP ---
DATE OF PROCEDURE: 05/06/2019 PREOPERATIVE DIAGNOSIS: Septic joint and osteomyelitis, right fourth metatarsophalangeal joint. POSTOPERATIVE DIAGNOSIS: Septic joint and osteomyelitis, right fourth metatarsophalangeal joint. PROCEDURES: Amputation of right fourth digit and partial fourth metatarsal. HEMOSTASIS: Ankle tourniquet inflated for short duration. ESTIMATED BLOOD LOSS: Less than 100 mL. DESCRIPTION OF PROCEDURE: The patient was taken to the operating room, placed on the operating room table in the supine position. After general anesthesia was achieved, an ankle block was performed on the right foot. A well-padded pneumatic ankle tourniquet was placed above the medial and lateral malleolus. The right lower extremity was then scrubbed and draped in the usual surgical manner. After inflation of a pneumatic cuff, a circumferential incision at the fourth right digit encompassing the plantar ulcer was performed. Soft tissues were dissected to free the metatarsophalangeal joints and fourth metatarsal. Using a bone saw, the metatarsal was resected. The anatomical unit was then dissected and removed. On the back table, Gram stain, culture and sensitivities were taken and sent. The extensor and flexor tendons were identified and retracted distally and cut proximally. All nonviable tissues were then debrided. The pneumatic tourniquet was deflated. Inspection of the wound again showed good healthy bleeding tissues. Using pulse lavage with irrigant, the wound was flushed. Loose approximation of the skin flaps was performed with 3-0 nylon suture. The wound was packed with iodoform gauze, and covered with 4x4s, Luke, and an Armando bandage. The patient tolerated the procedure and anesthesia well. He left the operating room to the recovery room with vital signs stable. He will be readmitted to the hospital. I will see him tomorrow for re-evaluation. Wound VAC should be placed tomorrow. Job ID: [id number]
--- NOTE | 2019-05-07 08:33 | PRG ---
DATE OF SERVICE: 05/06/2019 POSTOP NOTE: PREOPERATIVE DIAGNOSIS: Right septic fourth metatarsophalangeal joint with osteomyelitis. POSTOPERATIVE DIAGNOSIS: Right septic fourth metatarsophalangeal joint with osteomyelitis. PROCEDURES PERFORMED: Amputation of fourth digit with partial fourth metatarsal, right foot. ANESTHESIA: General with local. An ankle block with 10 mL of 0.5% plain Marcaine was used. ESTIMATED BLOOD LOSS: Less than 100 mL. HEMOSTASIS: Well-padded pneumatic ankle tourniquet above the medial and lateral malleolus inflated for the initial dissection. COMPLICATIONS: No complications. PATHOLOGY: Culture sensitivity was sent to Pathology as well as Gram stain. Job ID: [id number]
[2019-05-07] MEDS: Aspirin 325 MG TAB PO SCH (08:36)
[2019-05-07] MEDS: metFORMIN 500 MG TAB PO SCH ×2 (08:36→17:56)
[2019-05-07] MEDS: Pioglitazone HCl 45 MG TAB PO SCH (08:36)
[2019-05-07] MEDS: Insulin Glargine 120 UNITS in Pre-Filled Syringe 1 EACH SC SCH ×2 (08:37→20:36)
[2019-05-07] MEDS: Famotidine 20 MG TAB PO SCH ×2 (08:37→20:25)
--- NOTE | 2019-05-07 10:16 | PDOC.HOSPP ---
- Subjective Subjective: Patient seen and examined. No new complaints. No overnight events - Objective Vital Signs & Weight: Vital Signs (12 hours) Temp Pulse Resp BP BP BP Pulse Ox 05/07/19 08:36 68 136/88 05/07/19 07:00 97.8 F 68 17 136/88 96 05/07/19 04:14 97.9 F 55 L 16 137/87 96 05/07/19 00:36 98.6 F 50 L 16 109/68 95 Weight Admit Weight 360 lb 8.986 oz Weight 360 lb 8.986 oz I&O: 05/06/19 05/07/19 05/08/19 06:59 06:59 06:59 Intake Total 1010 500 Output Total 675 Balance 1010 -175 Result Diagrams: 05/07/19 05:08 05/07/19 05:08 Additional Labs: Accuchecks 05/07/19 05/06/19 05/06/19 04:18 19:43 17:36 POC Glucose 119 H 147 H 220 H 05/06/19 05/06/19 12:06 11:28 POC Glucose 171 H 174 H ROS - Review of Systems All systems: All other ROS were reviewed and found negative. Constitutional: denies: fever, chills, sweats, weakness, malaise, other ENT: denies: ear pain, ear discharge, nose pain, nose discharge, nose congestion , mouth pain, mouth swelling, throat pain, throat swelling, other Respiratory: denies: cough, dry, shortness of breath, hemoptysis, SOB with excertion, pleuritic pain, sputum, wheezing, other Cardiovascular: denies: chest pain, palpitations, orthopnea, paroxysmal noc. dyspnea, edema, light headedness, other Gastrointestinal: denies: nausea, vomitting, abdominal pain, diarrhea, constipation, melena, hematochezia, other Genitourinary: denies: dysuria, frequency, incontinence, hematuria, retention, other Musculoskeletal: denies: neck pain, shoulder pain, arm pain, back pain, hand pain, leg pain, foot pain, other - Medication Medications: Active Medications Generic Name Dose Route Start Last Admin Trade Name Freq PRN Reason Stop Dose Admin Acetaminophen/Codeine Phosphate 1 tab 05/06/19 08:11 05/06/19 22:40 Tylenol #3 PO 1 tab Q6H PRN Administration Pain Amitriptyline HCl 25 mg 05/06/19 21:00 05/06/19 20:32 Elavil PO Not Given HS NOMI Aspirin 325 mg 05/06/19 09:00 05/07/19 08:36 Aspirin PO 325 mg DAILY NOMI Administration Diltiazem HCl 240 mg 05/06/19 09:00 05/07/19 08:36 Cardizem Cd PO 240 mg DAILY NOMI Administration Famotidine 20 mg 05/05/19 21:00 05/07/19 08:37 Pepcid PO 20 mg BID NOMI Administration Piperacillin Sod/Tazobactam 100 mls @ 200 mls/hr 05/05/19 18:00 05/07/19 06: 34 Sod 3.375 gm/ Sodium Chloride IVPB 100 mls Q6HR NOMI Administration Vancomycin HCl 1.5 gm/ Sodium 300 mls @ 200 mls/hr 05/06/19 02:00 05/07/19 02 :30 Chloride IVPB 300 mls 0200,1400 NOMI Administration Insulin Glargine 120 units/ 1.2 mls @ 0 mls/hr 05/06/19 09:00 05/07/19 08:37 Miscellaneous Medication SC Not Given BID NOMI Insulin Human Lispro 0 units 05/05/19 19:38 05/06/19 18:47 Humalog SC 3 unit .MILD SLIDING SCALE PRN Administration Mild Correctional Scale Metformin HCl 1,000 mg 05/06/19 17:00 05/07/19 08:36 Glucophage PO 1,000 mg BID-WM NOMI Administration Pioglitazone HCl 45 mg 05/06/19 09:00 05/07/19 08:36 Actos PO 45 mg DAILY NOMI Administration Sodium Chloride 10 ml 05/06/19 09:00 05/07/19 08:38 Flush - Normal Saline IVF 10 ml Q12HR NOMI Administration - Exam NAD, awake alert Eye: PERRL, anicteric sclera ENT: normocephalic atraumatic, no oropharyngeal lesions Neck: supple, symmetric, no JVD Heart: RRR, no murmur, no gallops, no rubs Respiratory: CTAB, no wheezes, no rales, no ronchi Gastrointestinal: soft, non-tender, non-distended, normal bowel sounds Extremities: no cyanosis, no clubbing, no edema (amputation site with dressing) Skin: normal turgor, no lesions Neurological: CN's grossly intact, normal sensation to touch, no focal deficits Musculoskeletal: normal tone, normal strength Psychiatric: normal affect, normal behavior Hosp A/P (1) Osteomyelitis of right foot Code(s): M86.9 - OSTEOMYELITIS, UNSPECIFIED Status: Acute (2) DM type 2 (diabetes mellitus, type 2) Status: Chronic Qualifiers: (3) Diabetic foot ulcer Code(s): E11.621 - TYPE 2 DIABETES MELLITUS WITH FOOT ULCER; L97.509 - NON- PRESSURE CHRONIC ULCER OTH PRT UNSP FOOT W UNSP SEVERITY Status: Chronic (4) Diabetic neuropathy Code(s): E11.40 - TYPE 2 DIABETES MELLITUS WITH DIABETIC NEUROPATHY, UNSP Status: Chronic (5) Hypertension Code(s): I10 - ESSENTIAL (PRIMARY) HYPERTENSION Status: Chronic Qualifiers: (6) Morbid obesity with BMI of 40.0-44.9, adult Code(s): E66.01 - MORBID (SEVERE) OBESITY DUE TO EXCESS CALORIES; Z68.41 - BODY MASS INDEX (BMI) 40.0-44.9, ADULT Status: Chronic - Plan old records reviewed/req, continue antibiotics s/p amputation of right 4th toe and partial metatarsal wound care follow up on culture result and pathology report ID and podiatry following continue empiric vancomycin and zosyn medication reviewed as below symptomatic treatment
[2019-05-07 13:39] LABS: Vancomycin, Trough 17.7 ug/mL
[2019-05-07] MEDS: Amitriptyline HCl 25 MG TAB PO SCH (20:25)
[2019-05-08] MEDS: Piperacillin/Tazobactam 3.375 GM in Sodium Chloride 0.9% 100 ML IVPB SCH ×4 (00:30→18:16)
[2019-05-08] MEDS: Vancomycin HCl 1.5 GM in Sodium Chloride 0.9% 250 ML 300 ML IVPB SCH ×2 (01:46→15:59)
[2019-05-08] MEDS: HumaLOG 300 UNITS/3 ML VIAL SC PRN (05:09)
[2019-05-08] MEDS: Pioglitazone HCl 45 MG TAB PO SCH (09:22)
[2019-05-08] MEDS: metFORMIN 500 MG TAB PO SCH ×2 (09:26→16:00)
[2019-05-08] MEDS: Aspirin 325 MG TAB PO SCH (09:26)
[2019-05-08] MEDS: Famotidine 20 MG TAB PO SCH ×2 (09:26→21:32)
[2019-05-08] MEDS: Insulin Glargine 120 UNITS in Pre-Filled Syringe 1 EACH SC SCH ×2 (09:27→21:33)
--- NOTE | 2019-05-08 09:41 | CON ---
DATE OF CONSULTATION: SUBJECTIVE FINDINGS: The patient seen at bedside, resting comfortably in a chair. The patient has just finished his lunch. The patient states he had one pain pill earlier in the day, but he is having no pain in the foot at this time. OBJECTIVE FINDINGS: The patient is alert, oriented, and answers questions appropriately. Examination of the patient's bandages shows them to be dry, clean, and intact. No signs of strikethrough. Examination of the digit show instant capillary filling time. ASSESSMENT AND PLAN: The patient was cleared for discharge to home after VAC placement and plan of care for wound VAC maintenance. Also pending ID outpatient antibiotic treatment. ADDENDUM: I was called later this afternoon while in my office. Wound Care was taking down the patient's dressings and apparently had a pulsatile bleeding. They could not place the wound VAC. They were having a difficult time stopping the bleeding. They applied Surgicel and a compressive wrap and continued to monitor the strikethrough on the bandage. I presented to the patient's room approximately 5 o'clock. I took down the patient's dressing sterilely and my original packing of iodoform gauze was in the wound. I removed this and could see some residual Surgicel in the wound. There was no pulsatile bleeders. There was minimal welling of blood at the base of the wound. The wound was left open and watched for 2-3 minutes, and no pulsatile bleeding noted. The wound was then dressed with sterile wet to moist dressing. The patient will have wound VAC placed tomorrow. Job ID: [id number]
--- NOTE | 2019-05-08 10:56 | PDOC.HOSPP ---
- Subjective Subjective: Patient seen and examined. No new complaints. No overnight events - Objective Vital Signs & Weight: Vital Signs (12 hours) Temp Pulse Resp BP BP BP Pulse Ox 05/08/19 09:22 60 143/82 H 05/08/19 07:28 98.1 F 57 L 16 143/82 H 98 05/08/19 05:00 98.5 F 65 17 130/80 96 05/08/19 00:00 18 95 Weight Admit Weight 360 lb 8.986 oz Weight 360 lb 8.986 oz I&O: 05/07/19 05/08/19 05/09/19 06:59 06:59 06:59 Intake Total 1010 1650 Output Total 1525 Balance 1010 125 Result Diagrams: 05/07/19 05:08 05/07/19 05:08 Additional Labs: Accuchecks 05/08/19 05/07/19 05/07/19 05:08 20:34 16:23 POC Glucose 194 H 154 H 152 H 05/07/19 11:12 POC Glucose 147 H ROS - Review of Systems All systems: All other ROS were reviewed and found negative. Constitutional: denies: fever, chills, sweats, weakness, malaise, other Eyes: denies: pain, vision change, conjunctivae inflammation, eyelid inflammation, redness, other ENT: denies: ear pain, ear discharge, nose pain, nose discharge, nose congestion , mouth pain, mouth swelling, throat pain, throat swelling, other Respiratory: denies: cough, dry, shortness of breath, hemoptysis, SOB with excertion, pleuritic pain, sputum, wheezing, other Cardiovascular: denies: chest pain, palpitations, orthopnea, paroxysmal noc. dyspnea, edema, light headedness, other Gastrointestinal: denies: nausea, vomitting, abdominal pain, diarrhea, constipation, melena, hematochezia, other Genitourinary: denies: dysuria, frequency, incontinence, hematuria, retention, other Musculoskeletal: denies: neck pain, shoulder pain, arm pain, back pain, hand pain, leg pain, foot pain, other Skin: denies: rash, lesions, mela, bruising, other - Medication Medications: Active Medications Generic Name Dose Route Start Last Admin Trade Name Freq PRN Reason Stop Dose Admin Acetaminophen/Codeine Phosphate 1 tab 05/06/19 08:11 05/06/19 22:40 Tylenol #3 PO 1 tab Q6H PRN Administration Pain Amitriptyline HCl 25 mg 05/06/19 21:00 05/07/19 20:25 Elavil PO Not Given HS NOMI Aspirin 325 mg 05/06/19 09:00 05/08/19 09:26 Aspirin PO 325 mg DAILY NOMI Administration Diltiazem HCl 240 mg 05/06/19 09:00 05/08/19 09:22 Cardizem Cd PO 240 mg DAILY NOMI Administration Famotidine 20 mg 05/05/19 21:00 05/08/19 09:26 Pepcid PO 20 mg BID NOMI Administration Piperacillin Sod/Tazobactam 100 mls @ 200 mls/hr 05/05/19 18:00 05/08/19 05: 09 Sod 3.375 gm/ Sodium Chloride IVPB 100 mls Q6HR NOMI Administration Vancomycin HCl 1.5 gm/ Sodium 300 mls @ 200 mls/hr 05/06/19 02:00 05/08/19 01 :46 Chloride IVPB 300 mls 0200,1400 NOMI Administration Insulin Glargine 120 units/ 1.2 mls @ 0 mls/hr 05/06/19 09:00 05/08/19 09:27 Miscellaneous Medication SC 1.2 mls BID NOMI Administration Insulin Human Lispro 0 units 05/05/19 19:38 05/08/19 05:09 Humalog SC 2 unit .MILD SLIDING SCALE PRN Administration Mild Correctional Scale Metformin HCl 1,000 mg 05/06/19 17:00 05/08/19 09:26 Glucophage PO 1,000 mg BID-WM NOMI Administration Pioglitazone HCl 45 mg 05/06/19 09:00 05/08/19 09:22 Actos PO 45 mg DAILY NOMI Administration Sodium Chloride 10 ml 05/06/19 09:00 05/08/19 09:27 Flush - Normal Saline IVF 10 ml Q12HR NOMI Administration - Exam NAD, awake alert Eye: PERRL, anicteric sclera ENT: normocephalic atraumatic, no oropharyngeal lesions Neck: supple, symmetric, no JVD Heart: RRR, no murmur, no gallops, no rubs Respiratory: CTAB, no wheezes, no rales, no ronchi Gastrointestinal: soft, non-tender, non-distended, normal bowel sounds Extremities: no cyanosis, no clubbing, no edema (both feet with dressing) Skin: normal turgor, no lesions, no rashes Neurological: CN's grossly intact, normal sensation to touch, no focal deficits , no new deficit Musculoskeletal: normal tone, normal strength Psychiatric: normal affect, normal behavior Hosp A/P (1) Osteomyelitis of right foot Code(s): M86.9 - OSTEOMYELITIS, UNSPECIFIED Status: Acute (2) DM type 2 (diabetes mellitus, type 2) Status: Chronic Qualifiers: (3) Diabetic foot ulcer Code(s): E11.621 - TYPE 2 DIABETES MELLITUS WITH FOOT ULCER; L97.509 - NON- PRESSURE CHRONIC ULCER OTH PRT UNSP FOOT W UNSP SEVERITY Status: Chronic (4) Diabetic neuropathy Code(s): E11.40 - TYPE 2 DIABETES MELLITUS WITH DIABETIC NEUROPATHY, UNSP Status: Chronic (5) Hypertension Code(s): I10 - ESSENTIAL (PRIMARY) HYPERTENSION Status: Chronic Qualifiers: (6) Morbid obesity with BMI of 40.0-44.9, adult Code(s): E66.01 - MORBID (SEVERE) OBESITY DUE TO EXCESS CALORIES; Z68.41 - BODY MASS INDEX (BMI) 40.0-44.9, ADULT Status: Chronic - Plan old records reviewed/req, continue antibiotics WOUND CARE FOLLOW PATHOLOGY REPORT medication reviewed as below symptomatic treatment CONTINUE ANTIBIOTICS
[2019-05-08] MEDS: Amitriptyline HCl 25 MG TAB PO SCH (21:32)
[2019-05-09] MEDS: Piperacillin/Tazobactam 3.375 GM in Sodium Chloride 0.9% 100 ML IVPB SCH ×3 (01:20→13:34)
[2019-05-09] MEDS: Vancomycin HCl 1.5 GM in Sodium Chloride 0.9% 250 ML 300 ML IVPB SCH ×2 (03:05→14:10)
[2019-05-09] MEDS: metFORMIN 500 MG TAB PO SCH (08:45)
[2019-05-09] MEDS: Pioglitazone HCl 45 MG TAB PO SCH (08:46)
[2019-05-09] MEDS: Aspirin 325 MG TAB PO SCH (08:47)
[2019-05-09] MEDS: Famotidine 20 MG TAB PO SCH (08:47)
[2019-05-09] MEDS: Insulin Glargine 120 UNITS in Pre-Filled Syringe 1 EACH SC SCH (08:47)
--- NOTE | 2019-05-09 11:03 | PDOC.HOSPP ---
- Subjective Subjective: Patient seen and examined. No new complaints. No overnight events - Objective Vital Signs & Weight: Vital Signs (12 hours) Temp Pulse Resp BP BP Pulse Ox 05/09/19 08:46 62 05/09/19 08:00 98.0 F 54 L 20 133/77 97 05/09/19 04:00 97.7 F 60 16 136/77 95 05/09/19 00:00 98.3 F 60 16 144/88 H 98 Weight Admit Weight 360 lb 8.986 oz Weight 360 lb 8.986 oz I&O: 05/08/19 05/09/19 05/10/19 06:59 06:59 06:59 Intake Total 1650 700 Output Total 1525 500 350 Balance 125 -500 350 Result Diagrams: 05/07/19 05:08 05/07/19 05:08 Additional Labs: Accuchecks 05/09/19 05/08/19 05/08/19 04:48 19:48 16:40 POC Glucose 119 H 140 H 120 H 05/08/19 11:13 POC Glucose 197 H ROS - Review of Systems All systems: All other ROS were reviewed and found negative. Constitutional: denies: fever, chills, sweats, weakness, malaise, other Eyes: denies: pain, vision change, conjunctivae inflammation, eyelid inflammation, redness, other ENT: denies: ear pain, ear discharge, nose pain, nose discharge, nose congestion , mouth pain, mouth swelling, throat pain, throat swelling, other Respiratory: denies: cough, dry, shortness of breath, hemoptysis, SOB with excertion, pleuritic pain, sputum, wheezing, other Cardiovascular: denies: chest pain, palpitations, orthopnea, paroxysmal noc. dyspnea, edema, light headedness, other Gastrointestinal: denies: nausea, vomitting, abdominal pain, diarrhea, constipation, melena, hematochezia, other Genitourinary: denies: dysuria, frequency, incontinence, hematuria, retention, other Musculoskeletal: denies: neck pain, shoulder pain, arm pain, back pain, hand pain, leg pain, foot pain, other Skin: denies: rash, lesions, mela, bruising, other - Medication Medications: Active Medications Generic Name Dose Route Start Last Admin Trade Name Freq PRN Reason Stop Dose Admin Acetaminophen/Codeine Phosphate 1 tab 05/06/19 08:11 05/06/19 22:40 Tylenol #3 PO 1 tab Q6H PRN Administration Pain Amitriptyline HCl 25 mg 05/06/19 21:00 05/08/19 21:32 Elavil PO Not Given HS NOMI Aspirin 325 mg 05/06/19 09:00 05/09/19 08:47 Aspirin PO 325 mg DAILY NOMI Administration Diltiazem HCl 240 mg 05/06/19 09:00 05/09/19 08:46 Cardizem Cd PO 240 mg DAILY NOMI Administration Famotidine 20 mg 05/05/19 21:00 05/09/19 08:47 Pepcid PO 20 mg BID NOMI Administration Piperacillin Sod/Tazobactam 100 mls @ 200 mls/hr 05/05/19 18:00 05/09/19 06: 39 Sod 3.375 gm/ Sodium Chloride IVPB 100 mls Q6HR NOMI Administration Vancomycin HCl 1.5 gm/ Sodium 300 mls @ 200 mls/hr 05/06/19 02:00 05/09/19 03 :05 Chloride IVPB 300 mls 0200,1400 NOMI Administration Insulin Glargine 120 units/ 1.2 mls @ 0 mls/hr 05/06/19 09:00 05/09/19 08:47 Miscellaneous Medication SC Not Given BID [facility] Insulin Human Lispro 0 units 05/05/19 19:38 05/08/19 05:09 Humalog SC 2 unit .MILD SLIDING SCALE PRN Administration Mild Correctional Scale Metformin HCl 1,000 mg 05/06/19 17:00 05/09/19 08:45 Glucophage PO 1,000 mg BID-WM NOMI Administration Pioglitazone HCl 45 mg 05/06/19 09:00 05/09/19 08:46 Actos PO 45 mg DAILY NOMI Administration Sodium Chloride 10 ml 05/06/19 09:00 05/09/19 08:48 Flush - Normal Saline IVF 10 ml Q12HR NOMI Administration - Exam NAD, awake alert Eye: PERRL, anicteric sclera ENT: normocephalic atraumatic, no oropharyngeal lesions Neck: supple, symmetric, no JVD, no Thyromegaly Heart: RRR, no murmur, no gallops, no rubs Respiratory: CTAB, no wheezes, no rales, no ronchi Gastrointestinal: soft, non-tender, non-distended, normal bowel sounds, no palpable masses Extremities: no cyanosis, no clubbing, no edema Skin: normal turgor, no lesions Neurological: CN's grossly intact, normal sensation to touch Musculoskeletal: normal tone, normal strength Psychiatric: normal affect, normal behavior Hosp A/P (1) Osteomyelitis of right foot Code(s): M86.9 - OSTEOMYELITIS, UNSPECIFIED Status: Acute (2) DM type 2 (diabetes mellitus, type 2) Status: Chronic Qualifiers: (3) Diabetic foot ulcer Code(s): E11.621 - TYPE 2 DIABETES MELLITUS WITH FOOT ULCER; L97.509 - NON- PRESSURE CHRONIC ULCER OTH PRT UNSP FOOT W UNSP SEVERITY Status: Chronic (4) Diabetic neuropathy Code(s): E11.40 - TYPE 2 DIABETES MELLITUS WITH DIABETIC NEUROPATHY, UNSP Status: Chronic (5) Hypertension Code(s): I10 - ESSENTIAL (PRIMARY) HYPERTENSION Status: Chronic Qualifiers: (6) Morbid obesity with BMI of 40.0-44.9, adult Code(s): E66.01 - MORBID (SEVERE) OBESITY DUE TO EXCESS CALORIES; Z68.41 - BODY MASS INDEX (BMI) 40.0-44.9, ADULT Status: Chronic - Plan old records reviewed/req, continue antibiotics, pediatric social worker augmentin on discharge medication reviewed as below symptomatic treatment wound care possible dc today if dr harvinder Arizmendi
--- NOTE | 2019-05-09 11:29 | DIS ---
DATE OF ADMISSION: 05/05/2019 DATE OF DISCHARGE: 05/09/2019 PRIMARY CARE PHYSICIAN: Bobby Rowan. DISCHARGE DISPOSITION: Home. PRIMARY DISCHARGE DIAGNOSIS: Osteomyelitis of fifth toe on the right side, status post amputation. SECONDARY DISCHARGE DIAGNOSES: Morbid obesity with body mass index of 42, hypertension, diabetes type 2, diabetic neuropathy, diabetic foot ulcer. PRIMARY PROCEDURE/OPERATION: Amputation of right fifth toe by Dr. Tj Mcneil, radiological investigation foot x-ray. SIGNIFICANT LABORATORY DATA: Hemoglobin 10.6, creatinine 1.04. Culture from wound grew Enterococcus faecalis. DISCHARGE MEDICATIONS: 1. Augmentin 875 mg twice daily for 4 weeks. 2. Cardizem CD 240 mg p.o. daily. 3. Aspirin 325 mg p.o. daily. 4. Tylenol No. 3 one tablet q.6 hourly p.r.n. 5. Actos 45 mg daily. 6. Metformin 1000 mg p.o. b.i.d. 7. Levemir insulin 120 units subcu b.i.d. 8. Amitriptyline 25 mg p.o. at bedtime p.r.n. 9. Tramadol 50 mg q.6 hourly p.r.n. 10, Flagyl 500 mg po TID for 4 week CONTRAINDICATION: None. CODE STATUS: Full code. INPATIENT FILTER TENDER JELLY: Dr. Tj Mcneil, vp purchasing, was consulted for amputation. Dr. Cortes was consulted while in hospital. TEST RESULTS PENDING ON DISCHARGE: None. ALLERGIES: HYDROCODONE. DISCHARGE PLAN: Posthospital, the patient will follow up with primary care physician Dr. Tj Mcneil and Dr. Cortes as instructed. HOSPITAL COURSE: A 33-year-old male, who has underlying history of diabetes and diabetic foot ulcer, who was admitted by Francine Watson. Please see her H and P for further details. The patient was admitted for osteomyelitis of the right fifth toe, which was treated as an outpatient basis, but no improvement and that is why he was admitted to the hospital. Dr. Tj Mcneil was consulted, who did amputation of right fifth toe. After amputation, Pathology report was consistent with viability. The patient's culture grew Enterococcus faecalis, and based on that, we changed to oral antibiotic therapy Augmentin and flagyl. while in hospital, he was receiving vancomycin and Zosyn. We continued all his home medication while in hospital as well as on discharge. With help of counter caser, we arranged outpatient wound VAC and wound care. Please see my progress note from today for further physical examination. The patient is stable for discharge today. Job ID: [id number] MTDD
[2019-05-09 13:42] LABS: Vancomycin, Trough 19.4 ug/mL
[2019-05-09 14:48] VITALS: BP 134/83; TEMP 98
== END 2019-05-09 16:33 | disposition home or self-care (01) | DRG 617 ==
LOC: ERS 11:38 → ERHOLD 15:36 → T4-B 19:33
PROVIDERS: ADMIT Internal Medicine; ATTEND Internal Medicine
PROC: 0Y6V0Z0 Detachment at Right 4th Toe, Complete, Open Approach (ICD-10-PCS; principal; 2019-05-06)
PROC: 0Y6M0ZD Detachment at Right Foot, Partial 4th Ray, Open Approach (ICD-10-PCS; 2019-05-06)
DX: E11.69 Type 2 diabetes mellitus with other specified complication (principal); M86.8X7 Other osteomyelitis, ankle and foot; Z68.41 Body mass index [BMI] 40.0-44.9, adult; I10 Essential (primary) hypertension; E11.40 Type 2 diabetes mellitus with diabetic neuropathy, unspecified; E11.621 Type 2 diabetes mellitus with foot ulcer; E66.01 Morbid (severe) obesity due to excess calories; L97.519 Non-pressure chronic ulcer of other part of right foot with unspecified severity; B95.2 Enterococcus as the cause of diseases classified elsewhere; Z89.422 Acquired absence of other left toe(s); Z89.421 Acquired absence of other right toe(s); Z88.8 Allergy status to other drugs, medicaments and biological substances; Z79.82 Long term (current) use of aspirin; Z79.84 Long term (current) use of oral hypoglycemic drugs
CPT/HCPCS: 36415; 36416; 80048; 80053; 80202; 85025; 87070; 87077; 87186; 87205; 88305; 93005; 96365; J0690; J1815; J1885; J2001; J2543; J2704; J3010; J3370; J3490; J7050; S0020

== ENCOUNTER 2019-05-13 15:48 | Outpatient (CLI) | payer SELFPAY ==
[2019-05-13] MEDS ORDERED: Sodium Chloride 0.9% 15 ML NEB ONE (18:00)
== END 2019-05-13 15:49 | disposition home or self-care (01) ==
LOC: WCC 15:48
PROVIDERS: ATTEND Family Medicine
DX: T81.89XD Other complications of procedures, not elsewhere classified, subsequent encounter (principal)
CPT/HCPCS: 36416; A4218

== ENCOUNTER 2019-05-16 11:06 | Outpatient (CLI) | payer SELFPAY ==
[2019-05-16] MEDS ORDERED: Sodium Chloride 0.9% 15 ML NEB ONE (15:00)
== END 2019-05-16 11:07 | disposition home or self-care (01) ==
LOC: WCC 11:06
PROVIDERS: ATTEND Family Medicine
DX: T81.89XD Other complications of procedures, not elsewhere classified, subsequent encounter (principal)
CPT/HCPCS: 36416; A4218

== ENCOUNTER 2019-05-19 13:31 | Outpatient (CLI) | payer SELFPAY ==
[2019-05-19] MEDS ORDERED: Sodium Chloride 0.9% 15 ML NEB ONE (15:00)
== END 2019-05-19 13:32 | disposition home or self-care (01) ==
LOC: WCC 13:31
PROVIDERS: ATTEND Family Medicine
DX: T81.89XD Other complications of procedures, not elsewhere classified, subsequent encounter (principal)
CPT/HCPCS: 97605; A4218

== ENCOUNTER 2019-05-22 14:12 | Outpatient (CLI) | payer SELFPAY ==
--- NOTE | 2019-05-22 16:34 | PRG ---
DATE OF SERVICE: 05/22/2019 HISTORY: Mr. Quique Higginbotham is a very pleasant 33-year-old gentleman, who presents to the Wound Center for evaluation of a wound of the right foot subsequent to amputation of the right fourth digit and partial fourth metatarsal on 05/06/[address] Tj Mcneil. Subsequent to surgery, negative pressure therapy was initiated. Upon discharge from [facility], the patient was referred to the Wound Center for assistance with dressing changes of the wound VAC. The patient also has a wound of the left foot subsequent to partial amputation of the fourth and fifth metatarsals on 12/18/2018, also by Dr. Tj Mcneil. For the wound of the left foot, the patient has been receiving dressing changes of Promogran. PHYSICAL EXAMINATION: VITAL SIGNS: Temperature 98.0, pulse 73, respirations 17, blood pressure 143/76. Accu-Chek 157. EXTREMITIES: A wound of the right foot is present, which measures approximately 5.2 x 3.1 cm. A wound of the left foot is present, which measures approximately 1.8 x 1.8 cm. Granulation tissue is present within the margins of each wound. Necrotic and nonviable tissue present within the margins of each wound was debrided with an excisional full-thickness debridement with the use of scissors and a curette. No purulent drainage is associated with either wound. No erythema of the skin surrounding either wound is present. No maceration of the skin of the periwound of either wound is noted. No significant edema of the right or left foot is present on exam today. ASSESSMENT AND PLAN: 1. Right and left foot wounds as described above. For the right foot wound, negative pressure therapy will be continued with dressing changes of the wound VAC here in the Wound Center. For the wound of the left foot, dressing changes of Promogran will be continued at the time of the wound VAC dressing changes. I will see Mr. Higginbotham again in 2 weeks. 2. Diabetes mellitus. The patient's Accu-Chek in clinic today is 157. The patient has been reminded that for optimal wound healing, his blood glucoses should remain below 150. 3. Hypertension. 4. Migraine headaches. Job ID: [id number]
== END 2019-05-22 14:13 | disposition home or self-care (01) ==
LOC: WCC 14:12
PROVIDERS: ATTEND Family Medicine
DX: T81.89XD Other complications of procedures, not elsewhere classified, subsequent encounter (principal); Z89.421 Acquired absence of other right toe(s); Z89.432 Acquired absence of left foot; E11.9 Type 2 diabetes mellitus without complications; I10 Essential (primary) hypertension; G43.909 Migraine, unspecified, not intractable, without status migrainosus
CPT/HCPCS: 11042; 36416; A4218

== ENCOUNTER 2019-05-27 10:15 | Outpatient (CLI) | payer SELFPAY ==
[2019-05-27] MEDS ORDERED: Sodium Chloride 0.9% 15 ML NEB ONE (15:00)
== END 2019-05-27 10:16 | disposition home or self-care (01) ==
LOC: WCC 10:15
PROVIDERS: ATTEND Family Medicine
DX: Z47.81 Encounter for orthopedic aftercare following surgical amputation (principal); Z89.421 Acquired absence of other right toe(s)
CPT/HCPCS: A4218

== ENCOUNTER 2019-05-30 09:27 | Outpatient (CLI) | payer SELFPAY | END 2019-05-30 09:28 | disposition home or self-care (01) | LOC: WCC 09:27 | PROVIDERS: ATTEND Family Medicine | DX: T81.89XD Other complications of procedures, not elsewhere classified, subsequent encounter (principal) | CPT/HCPCS: 97605; A4218 ==

== ENCOUNTER 2019-06-06 08:51 | Outpatient (CLI) | payer SELFPAY ==
[2019-06-06] MEDS ORDERED: Sodium Chloride 0.9% 15 ML NEB ONE (11:11)
== END 2019-06-06 08:52 | disposition home or self-care (01) ==
LOC: WCC 08:51
PROVIDERS: ATTEND Family Medicine
DX: T81.89XD Other complications of procedures, not elsewhere classified, subsequent encounter (principal); Z89.421 Acquired absence of other right toe(s)
CPT/HCPCS: 36416; 97605; A4218

== ENCOUNTER 2019-06-13 09:39 | Outpatient (CLI) | payer SELFPAY | END 2019-06-13 09:40 | disposition home or self-care (01) | LOC: WCC 09:39 | PROVIDERS: ATTEND Family Medicine | DX: T81.89XD Other complications of procedures, not elsewhere classified, subsequent encounter (principal); Z89.421 Acquired absence of other right toe(s) | CPT/HCPCS: 36416; 97605; A4218 ==

== ENCOUNTER 2019-06-17 09:10 | Outpatient (CLI) | payer SELFPAY ==
[2019-06-17] MEDS ORDERED: Sodium Chloride 0.9% 15 ML NEB ONE (10:00)
== END 2019-06-17 09:11 | disposition home or self-care (01) ==
LOC: WCC 09:10
PROVIDERS: ATTEND Family Medicine
DX: T81.89XD Other complications of procedures, not elsewhere classified, subsequent encounter (principal); Z89.421 Acquired absence of other right toe(s)
CPT/HCPCS: 36416; A4218

== ENCOUNTER 2019-06-23 09:02 | Outpatient (CLI) | payer SELFPAY ==
--- NOTE | 2019-06-23 11:13 | PRG ---
DATE OF SERVICE: 06/23/2019 HISTORY: Mr. Quique Higginbotham is a very pleasant 34-year-old gentleman, who presents to the Wound Center for evaluation of a wound of the right foot subsequent to amputation of the right fourth digit and partial fourth metatarsal on 05/06/2019, by Dr. Tj Mcneil. Subsequent to surgery, negative pressure therapy was initiated. Upon discharge from [facility], the patient was referred to the Wound Center for assistance with dressing changes of the wound VAC. The patient also has a wound of the left foot subsequent to partial amputation of the fourth and fifth metatarsals on 12/18/2018, also by Dr. Tj Mcneil. For the wound of the left foot, the patient has been receiving dressing changes of Promogran. For the wound of the right foot, the patient has been receiving dressing changes of Xeroform gauze in conjunction with the 3M Coban 2 Layer Compression System on a weekly basis after completing a course of negative pressure therapy. PHYSICAL EXAMINATION: VITAL SIGNS: Temperature 98.4, pulse 65, respirations 19, blood pressure 138/76. Accu-Chek 193. EXTREMITIES: A wound of the right foot is present, which measures approximately 1.7 x 2.7 cm. A wound of the left foot is present, which measures approximately 2.0 x 1.3 cm. Granulation tissue is present within the margins of each wound. Necrotic and nonviable tissue present within the margins of each wound was debrided with an excisional full-thickness debridement with the use of a curette. No purulent drainage is associated with either wound. No erythema of the skin surrounding either wound is present. No maceration of the skin of the periwound of either wound is noted. No significant edema of the right or left foot is present on exam today. A dorsalis pedis pulse is palpable on the right and on the left. ASSESSMENT AND PLAN: 1. Right and left foot wounds as described above. For the right foot wound, dressing changes of Xeroform gauze, Webril, and the 3M Coban 2 Layer Compression System are to be performed on a weekly basis after cleansing and irrigation here in the Wound Center. For the wound of the left foot, dressing changes of Promogran are to be performed 3 times per week after cleansing and irrigation. I will see Mr. Higginbotham again in 2 weeks. 2. Diabetes mellitus. The patient's Accu-Chek in clinic today is 193. The patient has been reminded that for optimal wound healing, his blood glucoses should remain below 150. 3. Hypertension. 4. Migraine headaches. Job ID: [id number]
[2019-06-23] MEDS ORDERED: Sodium Chloride 0.9% 15 ML NEB ONE (15:00)
[2019-06-23] MEDS ORDERED: Lidocaine 2% Jelly 5 ML TUBE ONE (15:00)
== END 2019-06-23 09:03 | disposition home or self-care (01) ==
LOC: WCC 09:02
PROVIDERS: ATTEND Family Medicine
DX: S91.302D Unspecified open wound, left foot, subsequent encounter (principal); S91.301D Unspecified open wound, right foot, subsequent encounter; E11.9 Type 2 diabetes mellitus without complications; I10 Essential (primary) hypertension; G43.909 Migraine, unspecified, not intractable, without status migrainosus
CPT/HCPCS: 36416; A4218

== ENCOUNTER 2019-07-01 13:02 | Outpatient (CLI) | payer SELFPAY | END 2019-07-01 13:03 | disposition home or self-care (01) | LOC: WCC 13:02 | PROVIDERS: ATTEND Family Medicine | DX: T81.89XD Other complications of procedures, not elsewhere classified, subsequent encounter (principal); Z89.421 Acquired absence of other right toe(s) | CPT/HCPCS: 29581; 36416; A4218 ==

== ENCOUNTER 2019-07-09 10:44 | Outpatient (CLI) | payer SELFPAY ==
--- NOTE | 2019-07-09 11:45 | PRG ---
DATE OF SERVICE: 07/09/2019 HISTORY: Mr. Quique Higginbotham is a very pleasant 34-year-old gentleman, who presents to the Wound Center for evaluation of a wound of the right foot subsequent to amputation of the right fourth digit and partial fourth metatarsal on 05/06/[address] Tj Mcneil. Subsequent to surgery, negative pressure therapy was initiated. Upon discharge from [facility], the patient was referred to the Wound Center for assistance with dressing changes of the wound VAC. The patient also has a wound of the left foot subsequent to a partial amputation of the fourth and fifth metatarsals on 12/18/[address] Tj Mcneil. For the wound of the left foot, the patient has been receiving dressing changes of Promogran. For the wound of the right foot, the patient has been receiving dressing changes of Xeroform gauze in conjunction with the 3M Coban 2 Layer Compression System on a weekly basis after completing a course of negative pressure therapy. PHYSICAL EXAMINATION: VITAL SIGNS: Temperature 98.0, pulse 69, respirations 19, blood pressure 151/73. Accu-Chek 191. EXTREMITIES: A wound of the right foot is present, which measures approximately 1.2 x 1.1 cm. The dimensions of the wound at the time of the patient's visit on 06/23/2019 were approximately 1.7 x 2.7 cm. A wound of the left foot is present, which measures approximately 1.5 x 2.0 cm. The dimensions of this wound at the time of the patient's visit on ASSESSMENT AND PLAN: 1. Right and left foot wounds as described above. For the right foot wound, dressing changes of Xeroform gauze, ABD, Webril, and the 3M Coban 2 Layer Compression System are to be performed on a weekly basis after cleansing and irrigation here in the Wound Center. For the wound of the left foot, dressing changes of Xeroform gauze are to be performed 3 times per week after cleansing and irrigation. The patient states he has a followup appointment with Dr. Mcneil in 1 week. I will see Mr. Higginbotham again in 2 weeks. The importance of offloading of the left foot wound in order to achieve healing of the ulceration has been discussed at length with Mr. Higginbotham. 2. Diabetes mellitus. The patient's Accu-Chek in clinic today is 191. The patient has been reminded that for optimal wound healing, his blood glucoses should remain below 150. 3. Hypertension. 4. Migraine headaches. Job ID: [id number]
[2019-07-09] MEDS ORDERED: Lidocaine 2% PF 100 mg/5 ml Syringe ONE (15:00)
[2019-07-09] MEDS ORDERED: Sodium Chloride 0.9% 15 ML NEB ONE (15:00)
== END 2019-07-09 10:45 | disposition home or self-care (01) ==
LOC: WCC 10:44
PROVIDERS: ATTEND Family Medicine
DX: T81.89XD Other complications of procedures, not elsewhere classified, subsequent encounter (principal); E11.9 Type 2 diabetes mellitus without complications; I10 Essential (primary) hypertension; G43.909 Migraine, unspecified, not intractable, without status migrainosus; Z89.421 Acquired absence of other right toe(s)
CPT/HCPCS: 11042; 36416; A4218; J2001

== ENCOUNTER 2019-07-15 10:44 | Outpatient (CLI) | payer SELFPAY ==
[2019-07-15] MEDS ORDERED: Sodium Chloride 0.9% 15 ML NEB ONE (15:50)
== END 2019-07-15 10:45 | disposition home or self-care (01) ==
LOC: WCC 10:44
PROVIDERS: ATTEND Family Medicine
DX: T81.89XD Other complications of procedures, not elsewhere classified, subsequent encounter (principal); Z89.421 Acquired absence of other right toe(s)
CPT/HCPCS: 36416; A4218

== ENCOUNTER 2019-07-24 08:09 | Outpatient (CLI) | payer SELFPAY ==
--- NOTE | 2019-07-24 10:20 | PRG ---
DATE OF SERVICE: 07/24/2019 HISTORY: Mr. Quique Higginbotham is a very pleasant 34-year-old gentleman, who presents to the Wound Center for evaluation of a wound of the right foot subsequent to amputation of the right fourth digit and partial fourth metatarsal on 05/06/[address] Tj Mcneil. Subsequent to surgery, negative pressure therapy was initiated. Upon discharge from [facility], the patient was referred to the Wound Center for assistance with dressing changes of the wound VAC. The patient also has a wound of the left foot subsequent to partial amputation of the fourth and fifth metatarsals on 12/18/2018, also by Dr. Tj Mcneil. For the wound of the left foot, the patient has been receiving dressing changes of Xeroform gauze. For the wound of the right foot, the patient has been receiving dressing changes of Xeroform gauze in conjunction with the 3M Coban 2 Layer Compression System on a weekly basis after completing a course of negative pressure therapy. PHYSICAL EXAMINATION: VITAL SIGNS: Temperature 98.0, pulse 74, respirations 21, and blood pressure 143/92. Accu-Chek 176. EXTREMITIES: Wound of the right foot is present, which measures approximately 0.5 x 0.1 cm. The dimensions of the wound at the time of the patient's visit on 07/09/2019 were approximately 1.2 x 1.1 cm. A wound of the left foot is present, which measures approximately 0.7 x 1.8 cm. The depth of the wound is approximately 2.5 cm. The dimensions of the wound at the time of the patient's visit on 07/09/2019, were approximately 1.5 x 2.0 cm. Granulation tissue is present within the margins of each wound. Nonviable tissue present within the margins of the left foot wound was debrided with an excisional full-thickness debridement with the use of a curette. No purulent drainage is associated with either wound. Erythema of the skin surrounding the left foot wound is noted on exam today. No maceration of the skin of the periwound of either wound is noted. A dorsalis pedis pulse is palpable on the left. Edema of the left foot is also noted on today's exam. ASSESSMENT AND PLAN: 1. Right and left foot wounds as described above. For the right foot wound, dressing changes of bordered gauze are to be performed on a daily basis after cleansing and irrigation. For the left foot wound, dressing changes of Hydrofera Blue, followed by an ABD and Kerkenx are to be performed on a daily basis after cleansing and irrigation. The patient states he has a followup appointment with Dr. Mcneil in five days. I will see Mr. Higginbotham again after he has been seen by Dr. Mcneil. 2. Diabetes mellitus. The patient's Accu-Chek in clinic today is 176. The patient has been reminded that for optimal wound healing, his blood glucoses should remain below 150. 3. Hypertension. 4. Migraine headaches. Job ID: [id number]
[2019-07-24] MEDS ORDERED: Sodium Chloride 0.9% 15 ML NEB ONE (16:33)
== END 2019-07-24 08:10 | disposition home or self-care (01) ==
LOC: WCC 08:09
PROVIDERS: ATTEND Family Medicine
DX: T81.89XD Other complications of procedures, not elsewhere classified, subsequent encounter (principal); Z89.422 Acquired absence of other left toe(s); Z89.421 Acquired absence of other right toe(s)
CPT/HCPCS: 11042; 36416; A4218

== ENCOUNTER 2019-08-07 08:34 | Outpatient (CLI) | payer SELFPAY ==
--- NOTE | 2019-08-07 10:42 | PRG ---
DATE OF SERVICE: 08/07/2019 HISTORY: Mr. Quique Higginbotham is a very pleasant 34-year-old gentleman, who presents to the [facility] for evaluation of a wound of the right foot subsequent to amputation of the right fourth digit and partial fourth metatarsal on 05/06/[address] Tj Mcneil. Subsequent to surgery, negative pressure therapy was initiated. Upon discharge from [facility], the patient was referred to the Wound Center for assistance with dressing changes of the wound VAC. The patient also has a wound of the left foot subsequent to partial amputation of the fourth and fifth metatarsals on 12/18/2018, also by Dr. Tj Mcneil. For the wound of the left foot, the patient has been receiving dressing changes of iodoform packing. For the wound of the right foot, the patient has been receiving dressing changes of bordered gauze on a daily basis after cleansing and irrigation. PHYSICAL EXAMINATION: VITAL SIGNS: Temperature 97.4, pulse 77, respirations 19, and blood pressure 151/95. EXTREMITIES: The wound of the right foot has healed completely. The wound of the left foot is present which measures approximately 0.5 x 1.4 cm. The depth of the wound is approximately 2.9 cm. Granulation tissue is present within the wound margins. No purulent drainage is associated with the wound. Erythema of the skin surrounding the wound is present on exam today. No maceration of the skin of the periwound is noted. ASSESSMENT AND PLAN: 1. Right and left foot wounds. As stated above, the right foot wound has completely healed. For the left foot wound, dressing changes of iodoform packing as per Dr. Mcneil are to be continued on a daily basis after cleansing and irrigation. The patient states that his sister is assisting him with his dressing changes. The patient states that he underwent debridement of bone by Dr. Mcneil at the time of his visit last week. The patient states that he was seen by Dr. Mcneil again 2 days ago. The patient states that he has also been placed on Levaquin by Dr. Mcneil. I will see Mr. Higginbotham again in 2 weeks. 2. Diabetes mellitus. Accu-Cheks will be obtained at the time of the patient's clinic visits. The patient has been told that for optimal wound healing, his blood glucoses should remain below 150. 3. Hypertension. 4. Migraine headaches. Job ID: [id number]
[2019-08-07] MEDS ORDERED: Sodium Chloride 0.9% 15 ML NEB ONE (16:24)
== END 2019-08-07 08:35 | disposition home or self-care (01) ==
LOC: WCC 08:34
PROVIDERS: ATTEND Family Medicine
DX: Z47.81 Encounter for orthopedic aftercare following surgical amputation (principal); E11.9 Type 2 diabetes mellitus without complications; I10 Essential (primary) hypertension; G43.909 Migraine, unspecified, not intractable, without status migrainosus; Z89.422 Acquired absence of other left toe(s); Z89.421 Acquired absence of other right toe(s)
CPT/HCPCS: 97602; A4218

== ENCOUNTER 2019-08-14 09:43 | Inpatient (IN) | payer OTHER, SELFPAY ==
[2019-08-14] MEDS ORDERED: Piperacillin/Tazobactam 4.5 GM VIAL ONE (11:14)
--- NOTE | 2019-08-14 11:18 | RAD ---
Exam: Left foot 3 views: HISTORY: Wound COMPARISON: 12/18/2018 Amputation changes of the second, third, fourth, and fifth distal metatarsals with soft tissue swelli ng and a wound anteriorly near the level of the distal fourth metatarsal with prominent periosteal reaction changes most marked at the distal fourth metatarsal level. Follow-up MRI recommended to eval uate for potential for osteomyelitis. IMPRESSION: Marked soft tissue swelling with associated wound. Status post amputation changes. Prominent periosteal reaction particularly of the distal fourth metatarsal. Follow-up MRI suggested to evaluate for osteomyelitis.
[2019-08-14 11:38] LABS: #Basophils 0.1 thou/uL (0.0-0.2); #Eosinphils 0.2 thou/uL (0.0-0.7); #Lymphocytes 2.8 thou/uL (1.20-3.40); #Monocytes 0.6 thou/uL (0.11-0.59); #Neutrophils 3.6 thou/uL (1.40-6.50); %Basophils 0.7 % (0.0-1.0); %Eosinophils 2.3 % (0.0-10.0); %Lymphocytes 38.9 % (21.0-51.0); %Monocytes 8.3 % (0.0-10.0); %Neutrophils 49.8 % (42.0-75.0); Hemoglobin 13.3 g/dL (14.0-18.0); Mean Corpuscular HGB CONC 32.9 g/dL (32.0-36.0); Mean Corpuscular Hemoglobin 26.6 pg (27.0-31.0); Mean Platelet Volume 7.1 fL (7.4-10.4); Platelet Count 230 thou/uL (130-400); RBC Distribution Width 14.2 % (11.5-14.5); Red Blood Cell (RBC) Count 4.98 mill/uL (4.70-6.10); White Blood Cell (WBC) Count 7.3 thou/uL (4.8-10.8)
[2019-08-14 12:13] LABS: ALT (SGPT) 39 U/L (8-55); AST (SGOT) 29 U/L (5-34); Albumin 3.6 g/dL (3.5-5.0); Alkaline Phosphatase 115 U/L (40-110); Anion Gap 15 mmol/L (10-20); BUN (Urea Nitrogen) 16 mg/dL (8.9-20.6); Bilirubin, Total 0.4 mg/dL (0.2-1.2); Calc. Creatinine Clearance 0 mL/min (70-130); Calcium 9.3 mg/dL (7.8-10.44); Carbon Dioxide 21 mmol/L (22-29); Chloride 102 mmol/L (98-107); Estimated GFR-MDRD 64; Globulin 4.8 g/dL (2.4-3.5); Glucose 300 mg/dL (70-105); Potassium 4.4 mmol/L (3.5-5.1); Protein, Total 8.4 g/dL (6.0-8.3); Sodium 134 mmol/L (136-145)
[2019-08-14] MEDS ORDERED: Vancomycin 1.5 GRAM/300 ML BAG 1.5 GM in Premix Bag 1 BAG IVPB SCH (12:15)
[2019-08-14] MEDS ORDERED: Ondansetron PF 4 MG/2 ML Vial IVP PRN (13:54)
[2019-08-14] MEDS ORDERED: Acetaminophen 650 MG Suppository PR PRN (13:54)
[2019-08-14] MEDS ORDERED: Acetaminophen 325 MG TAB PO PRN (13:54)
[2019-08-14] MEDS ORDERED: Ondansetron ODT 4 MG TAB PO PRN (13:54)
[2019-08-14] MEDS ORDERED: Dextrose 5% in Water 1,000 ML IV PRN (13:56)
[2019-08-14] MEDS ORDERED: Dextrose 50% Abboject 50 ML SYRINGE SLOW IVP PRN (13:56)
[2019-08-14] MEDS ORDERED: Sodium Chloride 0.9% 1,000 ML IV SCH ×2 (14:00→18:50)
[2019-08-14 14:31] LABS: Lactic Acid 2.9 mmol/L (0.5-2.2)
--- NOTE | 2019-08-14 15:11 | HP ---
PRIMARY CARE PHYSICIAN: [facility]. CHIEF COMPLAINT: "Dr. Mcneil told me to come in." HISTORY OF PRESENT ILLNESS: Mr. Higginbotham is a 34-year-old gentleman with history of diabetes mellitus and previous left amputation of the left 2nd, 3rd, 4th, and 5th metatarsals, who presented for a routine evaluation with his nurse school, Dr. Mcneil as he is undergoing surveillance of a left diabetic foot ulcer. The patient states x-rays were done and upon assessment, there was concern due to some slight erythema present at this site, for possible cellulitis. There is some concern for osteomyelitis, and therefore, Dr. Mcneil advised him to come to the emergency department and stated he might require a surgical procedure. The patient states he has some kind of mild discomfort, but denies any significant worsening in recent days. He does have some slight drainage. Denies having any recent fevers, chills, or sweats. Has not had any nausea. Reports having a good appetite and denies any other complaints. Denies any chest pain, palpitations, or shortness of breath. All other review of systems are negative. In the emergency department, he has undergone an x-ray which demonstrated marked soft tissue swelling with associated wound. There was prominent periosteal reaction present, particularly involving the distal 4th metatarsal with followup MRI suggested to assess for osteomyelitis. The patient had laboratory studies done, which demonstrated a white count of 7.3, hemoglobin of 13.3, hematocrit of 40.3, neutrophils 49.8%, and platelets of 230. He was started on IV antibiotics with Zosyn and vancomycin. Vital signs in the emergency department have been unremarkable and he has been afebrile. PAST MEDICAL HISTORY: 1. Type 2 diabetes mellitus, on insulin. 2. Obesity. 3. Hypertension. PAST SURGICAL HISTORY: 1. Right pinky toe amputation. 2. Amputation of 2nd, 3rd, 4th, and 5th left toes. 3. History of orchiopexy as a child. SOCIAL HISTORY: The patient lives alone. He is fully independent. Denies any alcohol use or drug use. No history of tobacco use. ALLERGIES: HYDROCODONE. CURRENT MEDICATIONS: Per ED report, 1. Metformin 1000 mg b.i.d. 2. Pioglitazone 45 mg p.o. daily. 3. Levemir 120 units subcutaneous b.i.d. 4. Amitriptyline 25 mg p.o. p.r.n. 5. Aspirin 81 mg p.o. daily. 6. Dilt-XR 240 mg extended release daily. 7. Levofloxacin 500 mg p.o. daily. PHYSICAL EXAMINATION: GENERAL: The patient appears obese, well developed, resting comfortably on the stretcher and in no acute distress. VITAL SIGNS: Temperature 98.8, blood pressure 116/76, pulse 85, respirations 16, and O2 saturation 98% on room air. HEENT: Normocephalic and atraumatic. Pupils are equal, round, and reactive to light. Sclerae without icterus. Oropharynx is clear. NECK: Supple. No lymphadenopathy. LUNGS: Clear to auscultation bilaterally without any wheezes, rales, or rhonchi. CARDIAC: Regular rate and rhythm. No audible murmurs, rubs, or gallops. ABDOMEN: Soft, obese, nontender, nondistended. Normoactive bowel sounds present. EXTREMITIES: No lower leg edema. There is some swelling involving the entire left foot with a foot ulcer present over the site of the fourth toe amputation. No active draining. There is some slight erythema. No bleeding. Pedal pulses strong and equal bilaterally. NEUROLOGIC: No neuro deficits on exam. Alert and oriented x3. SKIN: Warm and dry. INVESTIGATIONS: As mentioned above in HPI. IMPRESSION AND PLAN: Mr. Higginbotham is a pleasant 34-year-old gentleman who has been referred to the emergency department by Dr. Mcneil for concerns involving the left foot with possible cellulitis plus/minus osteomyelitis. The patient being admitted for management of the followin. Left foot cellulitis. X-ray done in the ED demonstrated changes possible for osteomyelitis involving the 4th metatarsal. MRI was recommended, therefore has been ordered. Per Dr. Parker, the patient will be seen by Dr. Mcneil tomorrow for possible wound debridement versus further amputation. The patient is to be kept n.p.o. at midnight. We will continue IV antibiotics. Lactic acid added on to labs. 2. Diabetes mellitus. We will hold metformin. Resume other medications once reconciled. For now, we will cover with sliding scale. 3. Hypertension. Monitor blood pressure. Resume home medications once verified. 4. Gastrointestinal prophylaxis. Famotidine 20 mg b.i.d. 5. Deep venous thrombosis prophylaxis. Mechanical SCDs. Pharmacological prophylaxis contraindicated given the possibility of surgery. 6. Code status, full. Surrogate decision maker is his sister, Alma Higginbotham, who will also work here in the emergency department. The patient's case was discussed with Dr. Parker who is aware of plan as described above. Job ID: [id number]
--- NOTE | 2019-08-14 16:09 | MRI ---
MRI LEFT FOOT WITHOUT CONTRAST: INDICATIONS: Open wound at the tip of the fourth digit. COMPARISON: Left foot radiograph dated 08/14/2019. FINDINGS: There is abnormal marrow signal involving the amputation site of the fourth metatarsal as well as the metatarsal shaft, suspicious for osteomyelitis. There is a periosseous abscess surrounding the fourt h metatarsal shaft, measuring 2.8 x 3.8 cm. There is some mild abnormal marrow edema involving the di stal tip of the partially amputated fifth metatarsal shaft, likely reflecting some residual osteomyel itis. There is prominent soft tissue thickening near this region, consistent with surrounding myositi s and cellulitis of the forefoot. No additional abnormal marrow signal is evident to suggest addition al areas of osteomyelitis. Lisfranc ligament is intact. There are partial ray amputations of the seco nd through fifth digits. IMPRESSION: Partial ray amputations of the second through fifth digits through the distal metatarsals. There is o steomyelitis involving the fourth metatarsal shaft and the distal tip of the fifth metatarsal shaft a mputation site. There is a periosseous abscess surrounding the distal fourth metatarsal shaft, measur ing 2.8 x 3.8 cm. There is cellulitis involving the forefoot with myositis centered around the fourth metatarsal. POS: [facility]
[2019-08-14] MEDS: Piperacillin/Tazobactam 3.375 GM in Sodium Chloride 0.9% 100 ML IVPB SCH (16:30)
[2019-08-14 16:46] VITALS: BMI 48.5
--- NOTE | 2019-08-14 17:32 | CON ---
DATE OF CONSULTATION: 08/14/2019 REASON FOR CONSULTATION: Left foot osteomyelitis. HISTORY OF PRESENT ILLNESS: A 34-year-old, known to us from prior visits, history of type 2 diabetes, obesity, and various recurring complications in the right and left feet with partial amputations. Last visit here was in April and he had osteomyelitis of the right foot and underwent a ray amputation of the right fifth, that area has healed completely and now, he presents with tunneling, what appears to be a fourth metatarsal area of osteomyelitis. Dr. Mcneil has admitted the patient for debridement. MRI was done on admission. This showed partial ray amputation second through fifth digits. There was osteomyelitis in the fourth metatarsal shaft and distal tip of the fifth metatarsal, left side. There is a periosseous abscess surrounding the distal fourth metatarsal shaft, measuring 3 x 4 cm, pretty big, associated with cellulitis. The patient himself denies any headaches, fever. No shortness of breath or cough. No chest pain or abdominal pain. No diarrhea. No genitourinary symptoms. No neurological symptoms. PAST MEDICAL HISTORY: Type 2 diabetes, obesity, multiple toe complications related to the above with partial amputations on the right and left side, orchiopexy, and hypertension. ALLERGIES: NORCO. SOCIAL HISTORY: Never smoker. Works at [employer]. FAMILY HISTORY: Diabetes type 2. MEDICATIONS: At home include: 1. Insulin. 2. Zofran. Currently, he has been started on piperacillin/tazobactam. PHYSICAL EXAMINATION: VITAL SIGNS: Showed temperature 98.7, blood pressure 140/78, respiratory rate 15. SKIN: Demonstrates the area of the lateral aspect of the left foot stump with a slit-like opening with red tissue at the base and surrounding mild callus. A little bit of erythema and there is drainage noted. The only remaining toe areas is first toe. Peripheral IV access. No lymphadenopathy. HEENT: Noncontributory. NECK: Supple. LUNGS: Symmetric, clear breath sounds. HEART: S1 and S2, regular rate. No S3 or S4. ABDOMEN: Soft. Not distended or tender. A little bit of intertriginous maceration. GENITAL: Normal. EXTREMITIES: Pulses are 1+ in dorsalis pedis. NEUROLOGIC: Nonfocal including cognitive function. LABORATORY DATA: White cell count 7.3, hemoglobin 13, and platelets 230. Chemistry; creatinine 1.27 with a baseline of 1.02 in April. Albumin 3.6. Serum total protein 8.4, globulin 4.8. The MRI results noted above. There is a foot x-ray from today as well, which showed soft tissue swelling associated wound, postamputation changes, periosteal reaction, distal fourth metatarsal. ASSESSMENT: Type 2 diabetes and obesity, neuropathy, and recurrent complications in right and left feet which have resulted in multiple amputations. He has only 1 or 2 toes left in right foot and 1 toe left in left side. The patient is going for I and D by Dr. Mcneil and cultures will be taken and we will plan antimicrobial therapy after that. Hopefully, he will be able to set up through via either downstairs in the Oncology or with oral antimicrobial therapy for protracted period of time. Probably, we have to treat him with IV antimicrobial therapy in view of the risks of recurrence and then limited options after that if he were to occur. Job ID: [id number]
[2019-08-14] MEDS ORDERED: Amitriptyline HCl 25 MG TAB PO PRN (18:48)
[2019-08-14] MEDS ORDERED: INSULIN DETEMIR SC SCH (21:00)
[2019-08-14] MEDS: Famotidine/PF 20 mg/2ml Vial SLOW IVP SCH (21:18)
[2019-08-14] MEDS: INSULIN GLARGINE SC SCH (21:19)
[2019-08-14] MEDS: PRE FILLED SC SCH (21:19)
[2019-08-14] MEDS: HumaLOG 300 UNITS/3 ML VIAL SC PRN (21:19)
[2019-08-15] MEDS: Piperacillin/Tazobactam 3.375 GM in Sodium Chloride 0.9% 100 ML IVPB SCH ×4 (00:01→15:06)
[2019-08-15] MEDS: Vancomycin 1.5 GRAM/300 ML BAG 1.5 GM in Premix Bag 1 BAG IVPB SCH ×2 (01:11→14:58)
[2019-08-15 05:41] LABS: #Eosinphils 0.2 thou/uL (0.0-0.7); #Lymphocytes 2.8 thou/uL (1.20-3.40); #Monocytes 0.8 thou/uL (0.11-0.59); #Neutrophils 2.5 thou/uL (1.40-6.50); %Basophils 0.2 % (0.0-1.0); %Eosinophils 3.4 % (0.0-10.0); %Lymphocytes 44.2 % (21.0-51.0); %Monocytes 12.8 % (0.0-10.0); %Neutrophils 39.5 % (42.0-75.0); Hemoglobin 12.4 g/dL (14.0-18.0); Mean Corpuscular HGB CONC 33.2 g/dL (32.0-36.0); Mean Corpuscular Hemoglobin 27.1 pg (27.0-31.0); Mean Corpuscular Volume 81.4 fL (78.0-98.0); Mean Platelet Volume 7.2 fL (7.4-10.4); Platelet Count 197 thou/uL (130-400); RBC Distribution Width 14.1 % (11.5-14.5); Red Blood Cell (RBC) Count 4.58 mill/uL (4.70-6.10); White Blood Cell (WBC) Count 6.4 thou/uL (4.8-10.8)
[2019-08-15 05:59] LABS: Lactic Acid 0.9 mmol/L (0.5-2.2)
[2019-08-15 06:01] LABS: Anion Gap 12 mmol/L (10-20); BUN (Urea Nitrogen) 14 mg/dL (8.9-20.6); Calc. Creatinine Clearance 204 mL/min (70-130); Calcium 8.9 mg/dL (7.8-10.44); Carbon Dioxide 27 mmol/L (22-29); Chloride 103 mmol/L (98-107); Estimated GFR-MDRD 72; Glucose 157 mg/dL (70-105); Potassium 4.3 mmol/L (3.5-5.1); Sodium 138 mmol/L (136-145)
[2019-08-15] MEDS: Famotidine/PF 20 mg/2ml Vial SLOW IVP SCH ×2 (08:29→20:42)
[2019-08-15] MEDS ORDERED: Prevnar 13-Val Conj/PF 0.5 ML SYRINGE IM ONE (09:00)
[2019-08-15] MEDS ORDERED: FLU VACC QS2019-20(6MOS UP)/PF 60 MCG/0.5 ML SYRINGE IM ONE (09:00)
[2019-08-15] MEDS ORDERED: ePHEDrine/0.9% NaCl/PF SYRINGE 50 mg/10 ml ONE (10:24)
[2019-08-15] MEDS ORDERED: PHENYLEPHRINE-NS 100 MCG/ML 10 ML SYRINGE ONE (10:24)
[2019-08-15] MEDS ORDERED: Lidocaine 1% PF 5 ML VIAL ONE (10:24)
[2019-08-15] MEDS ORDERED: Ondansetron PF 4 MG/2 ML Vial ONE (10:24)
[2019-08-15] MEDS ORDERED: Succinylcholine Chloride 20 MG/ML 10 ml SYRINGE FS ONE (10:24)
[2019-08-15] MEDS ORDERED: PROPOFOL 200 MG/20 ML VIAL ONE (10:24)
[2019-08-15] MEDS: PRE FILLED SC SCH ×2 (11:19→20:43)
[2019-08-15] MEDS: INSULIN GLARGINE SC SCH ×2 (11:19→20:43)
[2019-08-15] MEDS ORDERED: Bupivacaine PF 0.5% 30 ML VIAL ONE (11:45)
[2019-08-15] MEDS ORDERED: Neomycin-Polymyxin 1 ML AMP ONE (11:45)
[2019-08-15] MEDS ORDERED: Fentanyl 100 MCG/2 ML VIAL ONE (11:54)
[2019-08-15] MEDS ORDERED: Promethazine HCl 25 MG/ML VIAL SLOW IVP PRN (13:25)
[2019-08-15] MEDS ORDERED: Promethazine HCl 25 MG/ML VIAL IM PRN (13:25)
[2019-08-15] MEDS ORDERED: Ondansetron HCl/PF 4 MG/2 ML Vial IVP PRN (13:25)
[2019-08-15] MEDS ORDERED: Promethazine HCl 25 MG/ML VIAL ONE (14:08)
--- NOTE | 2019-08-15 14:14 | PDOC.HOSPP ---
- Subjective Encounter Date: 08/15/19 Encounter Time: 10:11 Subjective: 34 y/o obese male with diabetes complicated with neuropathy and PAD s/p bilateral partial toes amputation admitted with worsening left foot wound concerning for soteomyelitis. MRI confirmed osteomyelitis with abscess. patient is for surgical debridement later today. 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 - Objective Vital Signs & Weight: Vital Signs (12 hours) Temp Pulse Resp BP Pulse Ox 08/15/19 08:30 56 L 08/15/19 08:03 98.4 F 56 L 16 122/79 100 08/15/19 04:10 98.7 F 60 18 123/80 99 Weight Admit Weight 358 lb 0.138 oz Weight 358 lb 0.138 oz I&O: 08/14/19 08/15/19 08/16/19 06:59 06:59 06:59 Intake Total 1320 Balance 1320 Result Diagrams: 08/15/19 05:32 08/15/19 05:32 Additional Labs: Accuchecks 08/15/19 08/15/19 08/14/19 11:30 04:21 19:45 POC Glucose 133 H 164 H 272 H Hospitalist ROS - Medication Medications: Active Medications Generic Name Dose Route Start Last Admin Trade Name Freq PRN Reason Stop Dose Admin Diltiazem HCl 240 mg 08/15/19 09:00 08/15/19 08:30 Cardizem Cd PO 240 mg DAILY NOMI Administration Famotidine 20 mg 08/14/19 21:00 08/15/19 08:29 Pepcid SLOW IVP 20 mg Q12HR NOMI Administration Piperacillin Sod/Tazobactam 100 mls @ 200 mls/hr 08/14/19 18:00 08/15/19 11: 15 Sod 3.375 gm/ Sodium Chloride IVPB 100 mls Q6HR NOMI Administration Vancomycin 1.5 GRAM/300 ML BAG 300 mls @ 200 mls/hr 08/15/19 01:00 08/15/19 01:11 1.5 gm/ Device IVPB 300 mls 0100,1300 NOMI Administration Insulin Glargine 120 units/ 1.2 mls @ 0 mls/hr 08/14/19 21:00 08/15/19 11:19 Miscellaneous Medication SC Not Given BID [facility]1983 Insulin Human Lispro 0 units 08/14/19 13:56 08/14/19 21:19 Humalog SC 3 units .BEDTIME SLIDING SC PRN Administration Bedtime Correctional Scale - Exam General Appearance: awake alert General - other findings: obese Eye: anicteric sclera ENT: normocephalic atraumatic Neck: supple, symmetric Heart: RRR Respiratory: no wheezes, no rales, no ronchi, normal chest expansion Gastrointestinal: soft, non-tender, non-distended, normal bowel sounds Gastrointestinal - other findings: obese Extremities - other findings: Right 4 and 5 toe/ray and left 2,3,4, 5 toes metatarsal amputations noted Skin - other findings: Left leg varicose veins noted Neurological: cranial nerve grossly intact, no focal deficits Psychiatric: A&O x 3 Hosp A/P (1) Osteomyelitis of left foot Code(s): M86.9 - OSTEOMYELITIS, UNSPECIFIED Status: Acute (2) Cellulitis and abscess of foot Code(s): L03.119 - CELLULITIS OF UNSPECIFIED PART OF LIMB; L02.619 - CUTANEOUS ABSCESS OF UNSPECIFIED FOOT Status: Acute (3) Diabetic foot ulcer Code(s): E11.621 - TYPE 2 DIABETES MELLITUS WITH FOOT ULCER; L97.509 - NON- PRESSURE CHRONIC ULCER OTH PRT UNSP FOOT W UNSP SEVERITY Status: Chronic (4) Diabetic neuropathy Code(s): E11.40 - TYPE 2 DIABETES MELLITUS WITH DIABETIC NEUROPATHY, UNSP Status: Chronic (5) Hypertension Code(s): I10 - ESSENTIAL (PRIMARY) HYPERTENSION Status: Chronic Qualifiers: (6) Morbid obesity with BMI of 40.0-44.9, adult Code(s): E66.01 - MORBID (SEVERE) OBESITY DUE TO EXCESS CALORIES; Z68.41 - BODY MASS INDEX (BMI) 40.0-44.9, ADULT Status: Chronic - Plan Continue broad spectrum antibiotics. For surgical debridement Will await surgical culture Analgesic as needed Insulin therapy to continue. consult case mgt Appreciate ID input.
[2019-08-15] MEDS: HumaLOG 300 UNITS/3 ML VIAL SC PRN (20:44)
--- NOTE | 2019-08-15 21:04 | CON ---
DATE OF CONSULTATION: PREOPERATIVE DIAGNOSIS: Nonhealing wound with osteomyelitis of the distal 4th and 5th metatarsals, left foot. POSTOPERATIVE DIAGNOSIS: Nonhealing wound with osteomyelitis of the distal 4th and 5th metatarsals, left foot. PROCEDURE PERFORMED: Incision and drainage with resection of the distal 4th and 5th metatarsals. ESTIMATED BLOOD LOSS: Less than 50 mL. ANESTHESIA: General with ankle block. HEMOSTASIS: None used. PATHOLOGY: Distal necrotic, fibrotic/gelatinous type of tissue around the distal 4th metatarsal. Culture and sensitivity and Gram stain sent. Job ID: [id number]
[2019-08-16] MEDS: Piperacillin/Tazobactam 3.375 GM in Sodium Chloride 0.9% 100 ML IVPB SCH ×5 (00:20→23:41)
[2019-08-16 00:56] LABS: Vancomycin, Trough 16.5 ug/mL
[2019-08-16] MEDS: Vancomycin 1.5 GRAM/300 ML BAG 1.5 GM in Premix Bag 1 BAG IVPB SCH ×2 (01:23→13:36)
[2019-08-16 04:51] LABS: ALT (SGPT) 42 U/L (8-55); AST (SGOT) 33 U/L (5-34); Albumin 3.3 g/dL (3.5-5.0); Alkaline Phosphatase 89 U/L (40-110); Anion Gap 13 mmol/L (10-20); BUN (Urea Nitrogen) 13 mg/dL (8.9-20.6); Bilirubin, Total 0.4 mg/dL (0.2-1.2); Calc. Creatinine Clearance 180 mL/min (70-130); Calcium 8.4 mg/dL (7.8-10.44); Carbon Dioxide 25 mmol/L (22-29); Chloride 102 mmol/L (98-107); Estimated GFR-MDRD 62; Globulin 4.2 g/dL (2.4-3.5); Glucose 223 mg/dL (70-105); Potassium 4.2 mmol/L (3.5-5.1); Protein, Total 7.5 g/dL (6.0-8.3); Sodium 136 mmol/L (136-145)
[2019-08-16] MEDS: traMADol HCl 50 MG TAB PO PRN (05:49)
[2019-08-16] MEDS: INSULIN GLARGINE SC SCH ×2 (08:10→20:27)
[2019-08-16] MEDS: PRE FILLED SC SCH ×2 (08:10→20:27)
[2019-08-16] MEDS: Famotidine/PF 20 mg/2ml Vial SLOW IVP SCH (08:10)
--- NOTE | 2019-08-16 10:53 | PDOC.HOSPP ---
- Subjective Encounter Date: 08/16/19 Encounter Time: 09:51 Subjective: 34 y/o obese male with diabetes complicated with neuropathy and PAD s/p bilateral partial toes amputation admitted with worsening left foot wound concerning for soteomyelitis. MRI confirmed osteomyelitis with abscess. patient is for surgical debridement later today. terminal carman antibiotic therapy is anticipated. - Objective Vital Signs & Weight: Vital Signs (12 hours) Temp Pulse Resp BP BP Pulse Ox 08/16/19 08:10 97 08/16/19 07:17 98.7 F 71 18 124/76 97 08/16/19 04:19 98.6 F 82 20 119/79 96 08/15/19 23:41 98.2 F 71 20 117/77 94 L Weight Admit Weight 358 lb 0.138 oz Weight 358 lb 0.138 oz I&O: 08/15/19 08/16/19 08/17/19 06:59 06:59 06:59 Intake Total 1320 1200 Output Total 800 20 Balance 1320 400 -20 Result Diagrams: 08/15/19 05:32 08/16/19 00:30 Additional Labs: Accuchecks 08/16/19 08/15/19 08/15/19 04:25 19:33 16:41 POC Glucose 182 H 226 H 251 H 08/15/19 11:30 POC Glucose 133 H Hospitalist ROS - Medication Medications: Active Medications Generic Name Dose Route Start Last Admin Trade Name Freq PRN Reason Stop Dose Admin Diltiazem HCl 240 mg 08/15/19 09:00 08/16/19 08:10 Cardizem Cd PO 240 mg DAILY NOMI Administration Famotidine 20 mg 08/14/19 21:00 08/16/19 08:10 Pepcid SLOW IVP 20 mg Q12HR NOMI Administration Piperacillin Sod/Tazobactam 100 mls @ 200 mls/hr 08/14/19 18:00 08/16/19 05: 45 Sod 3.375 gm/ Sodium Chloride IVPB 100 mls Q6HR NOMI Administration Vancomycin 1.5 GRAM/300 ML BAG 300 mls @ 200 mls/hr 08/15/19 01:00 08/16/19 01:23 1.5 gm/ Device IVPB 300 mls 0100,1300 NOMI Administration Insulin Glargine 120 units/ 1.2 mls @ 0 mls/hr 08/14/19 21:00 11/09/19 08:10 Miscellaneous Medication SC 1.2 mls BID NOMI Administration Insulin Human Lispro 0 units 08/14/19 13:56 08/15/19 20:44 Humalog SC 2 units .BEDTIME SLIDING SC PRN Administration Bedtime Correctional Scale Sodium Chloride 10 ml 08/14/19 13:54 08/16/19 08:10 Flush - Normal Saline IVF 10 ml Q12HR PRN Administration Saline Flush Tramadol HCl 50 mg 08/14/19 18:48 08/16/19 05:49 Ultram PO 50 mg Q6H PRN Administration Pain 4-6 - Exam General Appearance: awake alert General - other findings: obese Eye: anicteric sclera ENT: normocephalic atraumatic Neck: symmetric, no JVD Heart: RRR Respiratory: no wheezes, no rales, no ronchi, normal chest expansion Gastrointestinal: soft, non-tender, non-distended, normal bowel sounds Gastrointestinal - other findings: obese Extremities: no edema Extremities - other findings: Left foot covered with dressing. Wound vac noted Neurological: cranial nerve grossly intact, no focal deficits Psychiatric: A&O x 3 Hosp A/P (1) Osteomyelitis of left foot Code(s): M86.9 - OSTEOMYELITIS, UNSPECIFIED Status: Acute (2) Cellulitis and abscess of foot Code(s): L03.119 - CELLULITIS OF UNSPECIFIED PART OF LIMB; L02.619 - CUTANEOUS ABSCESS OF UNSPECIFIED FOOT Status: Acute (3) Diabetic foot ulcer Code(s): E11.621 - TYPE 2 DIABETES MELLITUS WITH FOOT ULCER; L97.509 - NON- PRESSURE CHRONIC ULCER OTH PRT UNSP FOOT W UNSP SEVERITY Status: Chronic (4) Diabetic neuropathy Code(s): E11.40 - TYPE 2 DIABETES MELLITUS WITH DIABETIC NEUROPATHY, UNSP Status: Chronic (5) Hypertension Code(s): I10 - ESSENTIAL (PRIMARY) HYPERTENSION Status: Chronic Qualifiers: (6) Morbid obesity with BMI of 40.0-44.9, adult Code(s): E66.01 - MORBID (SEVERE) OBESITY DUE TO EXCESS CALORIES; Z68.41 - BODY MASS INDEX (BMI) 40.0-44.9, ADULT Status: Chronic - Plan Continue broad spectrum antibiotics. Await surgical culture Analgesic as needed Insulin therapy to continue. Appreciate ID input. 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 monitor H/H and renal function
[2019-08-16] MEDS: HumaLOG 300 UNITS/3 ML VIAL SC PRN ×3 (11:51→20:27)
--- NOTE | 2019-08-16 12:37 | RAD ---
Exam: Left foot 3 views: HISTORY: Post amputation changes COMPARISON: 08/14/2019 FINDINGS: Recent amputation changes of the fourth and fifth metatarsals at the level of the proximal third. Fir st, second, and third toes appear stable. IMPRESSION: Recent amputation changes of the fourth and fifth proximal metatarsals. Prominent packing material wi thin the postsurgical wound.
[2019-08-16] MEDS: Famotidine 20 MG TAB PO SCH (20:27)
[2019-08-17] MEDS: Vancomycin 1.5 GRAM/300 ML BAG 1.5 GM in Premix Bag 1 BAG IVPB SCH ×2 (00:32→13:58)
[2019-08-17] MEDS: Piperacillin/Tazobactam 3.375 GM in Sodium Chloride 0.9% 100 ML IVPB SCH ×2 (06:00→12:49)
[2019-08-17 07:38] LABS: Albumin 3.3 g/dL (3.5-5.0); Anion Gap 11 mmol/L (10-20); BUN (Urea Nitrogen) 10 mg/dL (8.9-20.6); BUN/Creatinine Ratio 8.06; Calc. Creatinine Clearance 189 mL/min (70-130); Calcium 8.4 mg/dL (7.8-10.44); Carbon Dioxide 26 mmol/L (22-29); Chloride 105 mmol/L (98-107); Estimated GFR-MDRD 66; Glucose 118 mg/dL (70-105); Potassium 4.2 mmol/L (3.5-5.1); Sodium 138 mmol/L (136-145)
[2019-08-17 07:53] LABS: Band 2 % (5-11); Eosinophils 4 % (0-10); Hemoglobin 10.8 g/dL (14.0-18.0); Lymphocytes 48 % (21-51); MDiff Complete? YES; Mean Corpuscular HGB CONC 31.4 g/dL (32.0-36.0); Mean Corpuscular Hemoglobin 25.9 pg (27.0-31.0); Mean Corpuscular Volume 82.4 fL (78.0-98.0); Mean Platelet Volume 7.2 fL (7.4-10.4); Monocytes 5 % (0-10); Neutrophil 41 % (42-75); Platelet Count 171 thou/uL (130-400); RBC Distribution Width 14.4 % (11.5-14.5); Red Blood Cell (RBC) Count 4.19 mill/uL (4.70-6.10); White Blood Cell (WBC) Count 6.2 thou/uL (4.8-10.8)
[2019-08-17] MEDS: PRE FILLED SC SCH ×2 (09:07→21:03)
[2019-08-17] MEDS: Famotidine 20 MG TAB PO SCH ×2 (09:07→21:01)
[2019-08-17] MEDS: INSULIN GLARGINE SC SCH ×2 (09:07→21:03)
--- NOTE | 2019-08-17 10:56 | PDOC.HOSPP ---
- Subjective Encounter Date: 08/17/19 Encounter Time: 09:55 Subjective: 34 y/o obese male with diabetes complicated with neuropathy and PAD s/p bilateral partial toes amputation admitted with worsening left foot wound concerning for osteomyelitis. MRI confirmed osteomyelitis with abscess and patient is s/p surgical debridement. Feeling better. No fever. 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 - Objective Vital Signs & Weight: Vital Signs (12 hours) Temp Pulse Resp BP Pulse Ox 08/17/19 09:10 98 08/17/19 07:52 98.1 F 74 18 119/76 98 Weight Admit Weight 358 lb 0.138 oz Weight 358 lb 0.138 oz I&O: 08/16/19 08/17/19 08/18/19 06:59 06:59 06:59 Intake Total 1200 2510 Output Total 800 320 50 Balance 400 2190 -50 Result Diagrams: 08/17/19 06:53 08/17/19 06:53 Additional Labs: Accuchecks 08/17/19 08/16/19 08/16/19 03:57 19:31 15:34 POC Glucose 138 H 300 H 227 H 08/16/19 11:49 POC Glucose 186 H Hospitalist ROS - Medication Medications: Active Medications Generic Name Dose Route Start Last Admin Trade Name Freq PRN Reason Stop Dose Admin Diltiazem HCl 240 mg 08/15/19 09:00 08/17/19 09:07 Cardizem Cd PO 240 mg DAILY NOMI Administration Famotidine 20 mg 08/16/19 21:00 08/17/19 09:07 Pepcid PO 20 mg BID NOMI Administration Piperacillin Sod/Tazobactam 100 mls @ 200 mls/hr 08/14/19 18:00 08/17/19 06: 00 Sod 3.375 gm/ Sodium Chloride IVPB 100 mls Q6HR NOMI Administration Vancomycin 1.5 GRAM/300 ML BAG 300 mls @ 200 mls/hr 08/15/19 01:00 08/17/19 00:32 1.5 gm/ Device IVPB 300 mls 0100,1300 NOMI Administration Insulin Glargine 120 units/ 1.2 mls @ 0 mls/hr 08/14/19 21:00 08/17/19 09:07 Miscellaneous Medication SC 1.2 mls BID NOMI Administration Insulin Human Lispro 0 units 08/14/19 13:56 08/16/19 15:40 Humalog SC 3 unit .MILD SLIDING SCALE PRN Administration Mild Correctional Scale Insulin Human Lispro 0 units 08/14/19 13:56 08/16/19 20:27 Humalog SC 3 units .BEDTIME SLIDING SC PRN Administration Bedtime Correctional Scale Sodium Chloride 10 ml 08/14/19 13:54 08/17/19 09:08 Flush - Normal Saline IVF 10 ml Q12HR PRN Administration Saline Flush Tramadol HCl 50 mg 08/14/19 18:48 08/16/19 05:49 Ultram PO 50 mg Q6H PRN Administration Pain 4-6 - Exam General Appearance: awake alert General - other findings: obese Eye: anicteric sclera ENT: normocephalic atraumatic Neck: supple, symmetric Heart: RRR Respiratory: no wheezes, no rales, no ronchi, normal chest expansion Gastrointestinal: soft, non-tender, non-distended, normal bowel sounds Gastrointestinal - other findings: morbidly obese Extremities: no edema Extremities - other findings: Left foot dressing and wound vac noted Neurological: cranial nerve grossly intact, no focal deficits Psychiatric: normal affect, A&O x 3 Hosp A/P (1) Osteomyelitis of left foot Code(s): M86.9 - OSTEOMYELITIS, UNSPECIFIED Status: Acute (2) Cellulitis and abscess of foot Code(s): L03.119 - CELLULITIS OF UNSPECIFIED PART OF LIMB; L02.619 - CUTANEOUS ABSCESS OF UNSPECIFIED FOOT Status: Acute (3) Diabetic foot ulcer Code(s): E11.621 - TYPE 2 DIABETES MELLITUS WITH FOOT ULCER; L97.509 - NON- PRESSURE CHRONIC ULCER OTH PRT UNSP FOOT W UNSP SEVERITY Status: Chronic (4) Diabetic neuropathy Code(s): E11.40 - TYPE 2 DIABETES MELLITUS WITH DIABETIC NEUROPATHY, UNSP Status: Chronic (5) Hypertension Code(s): I10 - ESSENTIAL (PRIMARY) HYPERTENSION Status: Chronic Qualifiers: (6) Morbid obesity with BMI of 40.0-44.9, adult Code(s): E66.01 - MORBID (SEVERE) OBESITY DUE TO EXCESS CALORIES; Z68.41 - BODY MASS INDEX (BMI) 40.0-44.9, ADULT Status: Chronic (7) Staph aureus infection Code(s): A49.01 - METHICILLIN SUSCEP STAPH INFECTION, UNSP SITE Status: Acute (8) Acute blood loss as cause of postoperative anemia Code(s): D62 - ACUTE POSTHEMORRHAGIC ANEMIA Status: Acute - Plan Continue broad spectrum antibiotics. Await surgical culture microbe ID and susceptibility Analgesic as needed Insulin therapy to continue. 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 monitor H/H and renal function
--- NOTE | 2019-08-17 13:54 | PRG ---
DATE OF SERVICE: 08/17/2019 SUBJECTIVE: The patient is sleeping at this time. Has not had any issues according to the nurse. No diarrhea. Specifically, no respiratory symptoms. OBJECTIVE: VITAL SIGNS: Normal. He is afebrile. LUNGS: Clear. HEART: S1-S2. Regular rate. ABDOMEN: Soft. Not distended. EXTREMITIES: The wound site shows pretty white gaping wound in mid foot region towards the hindfoot. LABORATORY DATA: White cell count 6.2, hemoglobin 10.8, and platelets 171. Sodium 138 and creatinine 1.24. Microbiology with Staph aureus few days ago has Pseudomonas aeruginosa with broad susceptibility profile, MSSA, and a second gram-negative, which is probably Prevotella. ASSESSMENT AND DISCUSSION: Type 2 diabetes; obesity; neuropathy; complications of right and left feet, which have resulted in multiple amputations; only a few remaining toes in each foot. Had an incision and drainage by Dr. Mcneil on the left side, in the area along the 4th metatarsal, left foot. The organisms have been retrieved and we will switch him to Rocephin plus levofloxacin and Flagyl. The end date of therapy will be around September 25. Weekly labs. PICC line placement. Job ID: [id number]
[2019-08-17] MEDS: cefTRIAXone\\ROCEPHIN 2 GM in Sodium Chloride 0.9% 100 ML IVPB SCH (14:30)
[2019-08-17] MEDS: metroNIDAZOLE 500 MG TAB PO SCH ×2 (14:30→21:01)
[2019-08-18] MEDS: HumaLOG 300 UNITS/3 ML VIAL SC PRN (05:34)
[2019-08-18 05:49] LABS: Prothrombin Time 12.8 SEC (12.0-14.7)
[2019-08-18 06:01] LABS: Anion Gap 10 mmol/L (10-20); BUN (Urea Nitrogen) 11 mg/dL (8.9-20.6); Calc. Creatinine Clearance 182 mL/min (70-130); Calcium 8.9 mg/dL (7.8-10.44); Carbon Dioxide 27 mmol/L (22-29); Chloride 103 mmol/L (98-107); Estimated GFR-MDRD 63; Glucose 211 mg/dL (70-105); Potassium 4.2 mmol/L (3.5-5.1); Sodium 136 mmol/L (136-145)
[2019-08-18 06:44] LABS: Band 9 % (5-11); Eosinophils 3 % (0-10); Lymphocytes 48 % (21-51); MDiff Complete? YES; Mean Corpuscular HGB CONC 31.3 g/dL (32.0-36.0); Mean Corpuscular Hemoglobin 25.4 pg (27.0-31.0); Mean Corpuscular Volume 81.1 fL (78.0-98.0); Mean Platelet Volume 7.6 fL (7.4-10.4); Monocytes 7 % (0-10); Neutrophil 33 % (42-75); Platelet Count 174 thou/uL (130-400); RBC Distribution Width 14.3 % (11.5-14.5); Red Blood Cell (RBC) Count 4.34 mill/uL (4.70-6.10); White Blood Cell (WBC) Count 6.8 thou/uL (4.8-10.8)
[2019-08-18] MEDS: PRE FILLED SC SCH ×2 (07:57→21:05)
[2019-08-18] MEDS: Famotidine 20 MG TAB PO SCH ×2 (07:57→21:04)
[2019-08-18] MEDS: INSULIN GLARGINE SC SCH ×2 (07:57→21:05)
[2019-08-18] MEDS: metroNIDAZOLE 500 MG TAB PO SCH ×3 (07:57→21:04)
[2019-08-18] MEDS: traMADol HCl 50 MG TAB PO PRN (08:37)
--- NOTE | 2019-08-18 09:20 | PRG ---
DATE OF SERVICE: 08/16/2019 REASON FOR VISIT: He is status post I and D of amputation of left 4th and 5th distal metatarsals. SUBJECTIVE: The patient is seen at noon. The patient was awakened to have bedside x-rays. The patient states he is having minimal pain and tramadol is helping some. The patient has a wound VAC in place. There was some confusion with a call to my office as I was coming back from the hospital, asking if they could put a wet-to-dry dressing on due to bleeding; however, this was never done. The patient has had back on problem since the patient has had wound VAC on immediately postoperatively. OBJECTIVE: The patient at this time has mixed skin growth on culture and sensitivity. No organisms seen on Gram stain. Wound VAC is in place. Dressing dry, clean, and intact. Wound VAC is still in minimal drainage present, has to change those morning. ASSESSMENT AND PLAN: The patient will continue to be admitted for IV antibiotic therapy to define outpatient antibiotic treatment. The patient will continue with wound care and the wound VAC at this time. The patient may be discharged from a podiatry standpoint and will follow up in my office in 1-2 weeks after discharge. Job ID: [id number]
--- NOTE | 2019-08-18 10:00 | OP ---
DATE OF PROCEDURE: 08/15/2019 PREOPERATIVE DIAGNOSIS: Left foot nonhealing wound with osteomyelitis, distal 4th and 5th metatarsals. POSTOPERATIVE DIAGNOSIS: Left foot nonhealing wound with osteomyelitis, distal 4th and 5th metatarsals. PROCEDURE PERFORMED: Incision and drainage with resection of distal 4th and 5th metatarsals, left foot. ANESTHESIA: Ankle block with general anesthesia. ESTIMATED BLOOD LOSS: 50 mL. HEMOSTASIS: None used. DESCRIPTION OF PROCEDURE: The patient was taken to the operating room and placed on the operating room table in a supine position. After general anesthesia was achieved, a left ankle block was performed using 15 mL of 0.5% plain Marcaine. The left lower extremity was then scrubbed and draped in the usual surgical manner. Attention was directed to the left foot. The distal wound was ellipsed and a dorsal curvilinear incision over the 4th and 5th metatarsals was made. Sharp and blunt dissection were utilized to identify the 4th and 5th metatarsals. With power saw, the distal aspect of the 4th and 5th metatarsals were resected. Good solid healthy bone noted with transection of the bone. Next, the distal metatarsals were excised and placed on the back table. Of note, there was a gelatinous solid type of lind tissue surrounding the 4th metatarsal distally. Culture and sensitivity were taken with Gram stain, sent to Microbiology. All soft tissues were inspected and friable tissue removed. Several flexor and extensor tendons were identified and sharply transected proximally. Next, copious lavage with irrigant was performed with pulse lavage. After lavage, the wound was inspected and all tissues were bleeding well and healthy in appearance. Attempts to put a wound VAC on failed due to the amount of weeping blood. A seal could not be maintained. A wet-to-dry dressings applied and attempt to put a wound VAC on tomorrow will be done. The patient is being readmitted to the hospital. Vital signs stable. Patient needs IV antibiotics and wound care. I will see the patient tomorrow in-house to evaluate how he is doing. Job ID: [id number]
--- NOTE | 2019-08-18 11:53 | PDOC.HOSPP ---
- Subjective Encounter Date: 08/18/19 Encounter Time: 09:52 Subjective: 34 y/o obese male with diabetes complicated with neuropathy and PAD s/p bilateral partial toes amputation admitted with worsening left foot wound concerning for osteomyelitis. MRI confirmed osteomyelitis with abscess and patient is s/p surgical debridement. Feeling better. 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 - Objective Vital Signs & Weight: Vital Signs (12 hours) Temp Pulse Resp BP Pulse Ox 08/18/19 08:37 96 08/18/19 07:57 98.8 F 72 18 126/88 96 Weight Admit Weight 358 lb 0.138 oz Weight 358 lb 0.138 oz I&O: 08/17/19 08/18/19 08/19/19 06:59 06:59 06:59 Intake Total 2510 1670 Output Total 320 685 Balance 2190 985 Result Diagrams: 08/18/19 04:51 08/18/19 04:51 Additional Labs: Accuchecks 08/18/19 08/17/19 08/17/19 04:01 19:23 15:56 POC Glucose 239 H 144 H 149 H Hospitalist ROS - Medication Medications: Active Medications Generic Name Dose Route Start Last Admin Trade Name Freq PRN Reason Stop Dose Admin Diltiazem HCl 240 mg 08/15/19 09:00 08/18/19 07:57 Cardizem Cd PO 240 mg DAILY NOMI Administration Famotidine 20 mg 08/16/19 21:00 08/18/19 07:57 Pepcid PO 20 mg BID NOMI Administration Insulin Glargine 120 units/ 1.2 mls @ 0 mls/hr 08/14/19 21:00 08/18/19 07:57 Miscellaneous Medication SC 1.2 mls BID NOMI Administration Ceftriaxone Sodium 2 gm/ 100 mls @ 200 mls/hr 08/17/19 14:00 08/17/19 14:30 Sodium Chloride IVPB 100 mls Q24HR NOMI Administration Insulin Human Lispro 0 units 08/14/19 13:56 08/18/19 05:34 Humalog SC 3 unit .MILD SLIDING SCALE PRN Administration Mild Correctional Scale Insulin Human Lispro 0 units 08/14/19 13:56 08/16/19 20:27 Humalog SC 3 units .BEDTIME SLIDING SC PRN Administration Bedtime Correctional Scale Levofloxacin 500 mg 08/18/19 06:00 08/18/19 05:33 Levaquin PO 500 mg 0600 NOMI Administration Metronidazole 500 mg 08/17/19 15:00 08/18/19 07:57 Flagyl PO 500 mg TID NOMI Administration Sodium Chloride 10 ml 08/14/19 13:54 08/17/19 09:08 Flush - Normal Saline IVF 10 ml Q12HR PRN Administration Saline Flush Tramadol HCl 50 mg 08/14/19 18:48 08/18/19 08:37 Ultram PO 50 mg Q6H PRN Administration Pain 4-6 - Exam General Appearance: awake alert General - other findings: obese Eye: anicteric sclera ENT: normocephalic atraumatic Neck: supple, symmetric, no JVD Heart: RRR Respiratory: no wheezes, no rales, no ronchi, normal chest expansion Gastrointestinal: soft, non-tender, non-distended, normal bowel sounds Gastrointestinal - other findings: obese Extremities: no cyanosis, no edema Extremities - other findings: left foot dressing and wound vac noted Neurological: cranial nerve grossly intact, no focal deficits Psychiatric: A&O x 3 Hosp A/P (1) Osteomyelitis of left foot Code(s): M86.9 - OSTEOMYELITIS, UNSPECIFIED Status: Acute (2) Cellulitis and abscess of foot Code(s): L03.119 - CELLULITIS OF UNSPECIFIED PART OF LIMB; L02.619 - CUTANEOUS ABSCESS OF UNSPECIFIED FOOT Status: Acute (3) Diabetic foot ulcer Code(s): E11.621 - TYPE 2 DIABETES MELLITUS WITH FOOT ULCER; L97.509 - NON- PRESSURE CHRONIC ULCER OTH PRT UNSP FOOT W UNSP SEVERITY Status: Chronic (4) Diabetic neuropathy Code(s): E11.40 - TYPE 2 DIABETES MELLITUS WITH DIABETIC NEUROPATHY, UNSP Status: Chronic (5) Hypertension Code(s): I10 - ESSENTIAL (PRIMARY) HYPERTENSION Status: Chronic Qualifiers: (6) Morbid obesity with BMI of 40.0-44.9, adult Code(s): E66.01 - MORBID (SEVERE) OBESITY DUE TO EXCESS CALORIES; Z68.41 - BODY MASS INDEX (BMI) 40.0-44.9, ADULT Status: Chronic (7) Staph aureus infection Code(s): A49.01 - METHICILLIN SUSCEP STAPH INFECTION, UNSP SITE Status: Acute (8) Acute blood loss as cause of postoperative anemia Code(s): D62 - ACUTE POSTHEMORRHAGIC ANEMIA Status: Acute - Plan Continue broad spectrum antibiotics. Discharge antibiotic adjusted by ID in line with susceptibility. For PICC line placement today Analgesic as needed Insulin therapy to continue. monitor H/H and renal function For discharge once home antibiotic therapy is arranged.
--- NOTE | 2019-08-18 13:38 | SPC ---
RIGHT UPPER EXTREMITY PICC LINE WITH ULTRASOUND GUIDANCE: Date: 08/18/19 HISTORY: Infection. COMPARISON: None. EXPOSURE: 0.9 minutes. 17,469 mGy*cm^2. FINDINGS: Successful right upper extremity PICC line placement with ultrasound guidance. Trim length is 46 cm. Distal tip is in the SVC. Single lumen catheter flushes and aspirates without difficulty. TECHNIQUE: Consent obtained to perform a right upper extremity PICC line placement with ultrasound guidance. Rig ht upper extremity was prepped and draped in the sterile fashion. 1% lidocaine, buffered with sodium bicarbonate, was used for local anesthesia. Under ultrasound guidance, micropuncture needle was used to cannulate the basilic vein. A 0.018 guidewire was advanced through the needle to the level of the superior vena cava. Wire was advanced into the inferior vena cava to document venous access. Wire was subsequently pulled back to the superior vena cava. Tract was dilated. A single lumen [address] was advanced over the wire. Trim length is 46 cm. Catheter does flush and aspirate without diffic ulty. IMPRESSION: Successful right upper extremity PICC line placement with ultrasound guidance. POS: OFF
[2019-08-18] MEDS: cefTRIAXone\\ROCEPHIN 2 GM in Sodium Chloride 0.9% 100 ML IVPB SCH (13:59)
[2019-08-19] MEDS: Famotidine 20 MG TAB PO SCH (08:48)
[2019-08-19] MEDS: PRE FILLED SC SCH (08:49)
[2019-08-19] MEDS: metroNIDAZOLE 500 MG TAB PO SCH ×2 (08:49→14:18)
[2019-08-19] MEDS: INSULIN GLARGINE SC SCH (08:49)
[2019-08-19] MEDS: cefTRIAXone\\ROCEPHIN 2 GM in Sodium Chloride 0.9% 100 ML IVPB SCH (14:17)
--- NOTE | 2019-08-19 14:43 | PDOC.HOSPP ---
- Subjective Encounter Date: 08/19/19 Encounter Time: 14:42 Subjective: 34 y/o obese male with diabetes complicated with neuropathy and PAD s/p bilateral partial toes amputation admitted with worsening left foot wound concerning for osteomyelitis. MRI confirmed osteomyelitis with abscess and patient is s/p surgical debridement. Feeling better. 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 - Objective Vital Signs & Weight: Vital Signs (12 hours) Temp Pulse Resp BP BP Pulse Ox 08/19/19 12:31 98.6 F 81 16 125/85 100 08/19/19 08:48 66 115/73 08/19/19 08:00 96 Weight Admit Weight 358 lb 0.138 oz Weight 358 lb 0.138 oz I&O: 08/18/19 08/19/19 08/20/19 06:59 06:59 06:59 Intake Total 1670 480 Output Total 685 700 Balance 985 -220 Result Diagrams: 08/18/19 04:51 08/18/19 04:51 Additional Labs: Accuchecks 08/19/19 08/18/19 08/18/19 04:52 20:18 17:03 POC Glucose 129 H 161 H 133 H 08/18/19 11:26 POC Glucose 135 H Hospitalist ROS - Medication Medications: Active Medications Generic Name Dose Route Start Last Admin Trade Name Stanq PRN Reason Stop Dose Admin Diltiazem HCl 240 mg 08/15/19 09:00 08/19/19 08:48 Cardizem Cd PO 240 mg DAILY NOMI Administration Famotidine 20 mg 08/16/19 21:00 08/19/19 08:48 Pepcid PO 20 mg BID NOMI Administration Insulin Glargine 120 units/ 1.2 mls @ 0 mls/hr 08/14/19 21:00 08/19/19 08:49 Miscellaneous Medication SC 1.2 mls BID NOMI Administration Ceftriaxone Sodium 2 gm/ 100 mls @ 200 mls/hr 08/17/19 14:00 08/19/19 14:17 Sodium Chloride IVPB 100 mls Q24HR NOMI Administration Insulin Human Lispro 0 units 08/14/19 13:56 08/18/19 05:34 Humalog SC 3 unit .MILD SLIDING SCALE PRN Administration Mild Correctional Scale Insulin Human Lispro 0 units 08/14/19 13:56 08/16/19 20:27 Humalog SC 3 units .BEDTIME SLIDING SC PRN Administration Bedtime Correctional Scale Levofloxacin 500 mg 08/18/19 06:00 08/19/19 05:33 Levaquin PO 500 mg 0600 NOMI Administration Metronidazole 500 mg 08/17/19 15:00 08/19/19 14:18 Flagyl PO 500 mg TID NOMI Administration Sodium Chloride 10 ml 08/14/19 13:54 08/17/19 09:08 Flush - Normal Saline IVF 10 ml Q12HR PRN Administration Saline Flush Tramadol HCl 50 mg 08/14/19 18:48 08/18/19 08:37 Ultram PO 50 mg Q6H PRN Administration Pain 4-6 - Exam General Appearance: awake alert Eye: anicteric sclera ENT: normocephalic atraumatic Neck: supple Heart: RRR Respiratory: no wheezes, no rales, no ronchi, normal chest expansion Gastrointestinal: soft, non-tender, non-distended, normal bowel sounds Gastrointestinal - other findings: obese Extremities - other findings: Left foot dressing and wound vac noted Neurological: cranial nerve grossly intact Psychiatric: A&O x 3 Hosp A/P (1) Osteomyelitis of left foot Code(s): M86.9 - OSTEOMYELITIS, UNSPECIFIED Status: Acute (2) Cellulitis and abscess of foot Code(s): L03.119 - CELLULITIS OF UNSPECIFIED PART OF LIMB; L02.619 - CUTANEOUS ABSCESS OF UNSPECIFIED FOOT Status: Acute (3) Diabetic foot ulcer Code(s): E11.621 - TYPE 2 DIABETES MELLITUS WITH FOOT ULCER; L97.509 - NON- PRESSURE CHRONIC ULCER OTH PRT UNSP FOOT W UNSP SEVERITY Status: Chronic (4) Diabetic neuropathy Code(s): E11.40 - TYPE 2 DIABETES MELLITUS WITH DIABETIC NEUROPATHY, UNSP Status: Chronic (5) Hypertension Code(s): I10 - ESSENTIAL (PRIMARY) HYPERTENSION Status: Chronic Qualifiers: (6) Morbid obesity with BMI of 40.0-44.9, adult Code(s): E66.01 - MORBID (SEVERE) OBESITY DUE TO EXCESS CALORIES; Z68.41 - BODY MASS INDEX (BMI) 40.0-44.9, ADULT Status: Chronic (7) Staph aureus infection Code(s): A49.01 - METHICILLIN SUSCEP STAPH INFECTION, UNSP SITE Status: Acute (8) Acute blood loss as cause of postoperative anemia Code(s): D62 - ACUTE POSTHEMORRHAGIC ANEMIA Status: Acute - Plan Continue broad spectrum antibiotics. Discharge antibiotic adjusted by ID in line with susceptibility. Analgesic as needed Insulin therapy to continue. For discharge once outpatient antibiotic therapy is arranged.
[2019-08-19] MEDS: HumaLOG 300 UNITS/3 ML VIAL SC PRN (15:57)
[2019-08-19 18:28] VITALS: BP 128/85; TEMP 98.5
--- NOTE | 2019-08-20 10:19 | DIS ---
DATE OF ADMISSION: 08/14/2019 DATE OF DISCHARGE: 08/19/2019 PRIMARY CARE PHYSICIAN: Bobby Rowan. DISCHARGE DIAGNOSES: 1. Osteomyelitis of left foot. 2. Cellulitis and abscess of left foot. 3. Diabetic foot ulcer on the left foot. 4. Diabetic neuropathy. 5. Hypertension. 6. Morbid obesity with BMI of 40 to 44.9. 7. Methicillin-sensitive Staphylococcus aureus wound infection/abscess. 8. Acute blood loss due to surgery. CONSULTS: 1. Infectious Diseases. 2. Podiatry. HOSPITAL COURSE: A 34-year-old morbidly obese male with known history of diabetes mellitus, complicated with neuropathy, peripheral artery disease, status post bilateral partial toe amputation, admitted with worsening left foot wound concerning for osteomyelitis. MRI confirmed osteomyelitis with abscess. The patient was started on broad-spectrum antibiotics and later was seen by Podiatry. He subsequently had surgical debridement with wound VAC placement. Surgical cultures grew methicillin-susceptible Staphylococcus aureus. Infectious Diseases recommended antibiotics for 6 weeks. PICC line was placed, and home wound VAC was arranged, and the patient was subsequently discharged home. PHYSICAL EXAMINATION: VITAL SIGNS: Temperature 98.5, pulse 82, respiratory rate 16, SpO2 of 100% on room air, and blood pressure is 128/85. GENERAL: Morbidly obese male, in no obvious distress. Afebrile. Anicteric. Acyanotic. HEENT: Normocephalic, atraumatic. Oral mucosa is moist. CARDIOVASCULAR: Regular rhythm and rate with normal heart sounds 1 and 2. RESPIRATORY: Good air entry bilaterally with no obvious crackle or rhonchi or use of accessory muscles. GI: Morbidly obese, soft, nontender, nondistended with normal bowel sounds. EXTREMITIES: Left foot covered with dressing. Wound VAC noted also. NEUROLOGIC: Conscious, alert, oriented x3 with appropriate mental status. DISCHARGE CONDITION: Improved. DISCHARGE DISPOSITION: Home. DISCHARGE MEDICATIONS: 1. IV Rocephin 2 g daily until September 25, 2019. 2. Levofloxacin 500 mg p.o. daily until September 25, 2019. 3. Metronidazole 500 mg t.i.d. until September 25, 2019. 4. Tramadol 50 mg q.6 p.r.n. 5. Amitriptyline 25 mg p.o. daily at bedtime as needed. 6. Aspirin 81 mg p.o. daily. 7. Diltiazem 240 mg p.o. daily. 8. Levemir 120 units subcutaneously b.i.d. 9. Metformin 1000 mg p.o. b.i.d. 10. Pioglitazone 45 mg p.o. daily. 11. Acetaminophen with codeine 300 mg/30 one tablet q.6 p.r.n. FOLLOWUP: With primary care provider, Bobby in 7 days. The patient is to follow up with Dr. Mcneil, counselor supervisor, in 7 days also for wound care management. The patient is to receive IV antibiotics at the oncology unit daily. This discharge took more than 40 minutes. Job ID: [id number]
== END 2019-08-19 19:42 | disposition home or self-care (01) | DRG 617 ==
LOC: ERS 09:43 → T4-A 13:40
PROVIDERS: ADMIT Internal Medicine; ATTEND Internal Medicine
PROC: 0Y6N0ZD Detachment at Left Foot, Partial 4th Ray, Open Approach (ICD-10-PCS; principal; 2019-08-15)
PROC: 0Y6N0ZF Detachment at Left Foot, Partial 5th Ray, Open Approach (ICD-10-PCS; 2019-08-15)
PROC: 3E0234Z Introduction of Serum, Toxoid and Vaccine into Muscle, Percutaneous Approach (ICD-10-PCS; 2019-08-15)
PROC: B548ZZA Ultrasonography of Superior Vena Cava, Guidance (ICD-10-PCS; 2019-08-18)
PROC: 02HV33Z Insertion of Infusion Device into Superior Vena Cava, Percutaneous Approach (ICD-10-PCS; 2019-08-18)
DX: E11.69 Type 2 diabetes mellitus with other specified complication (principal); M86.8X7 Other osteomyelitis, ankle and foot; L03.116 Cellulitis of left lower limb; Z68.41 Body mass index [BMI] 40.0-44.9, adult; L02.612 Cutaneous abscess of left foot; D62 Acute posthemorrhagic anemia; E11.40 Type 2 diabetes mellitus with diabetic neuropathy, unspecified; E11.621 Type 2 diabetes mellitus with foot ulcer; L97.529 Non-pressure chronic ulcer of other part of left foot with unspecified severity; B95.61 Methicillin susceptible Staphylococcus aureus infection as the cause of diseases classified elsewhere; E66.01 Morbid (severe) obesity due to excess calories; E11.51 Type 2 diabetes mellitus with diabetic peripheral angiopathy without gangrene; I10 Essential (primary) hypertension; Z89.422 Acquired absence of other left toe(s); Z89.421 Acquired absence of other right toe(s); Z79.899 Other long term (current) drug therapy; Z79.82 Long term (current) use of aspirin; Z79.4 Long term (current) use of insulin; Z23 Encounter for immunization
CPT/HCPCS: 36415; 36416; 36569; 80048; 80053; 80069; 80202; 83605; 85025; 85610; 87040; 87070; 87077; 87186; 87205; 90471; 90686; 96365; 96366; 96367; C1751; G0008; J0696; J1815; J2001; J2405; J2543; J2550; J2704; J3010; J3490; S0020; S0028

== ENCOUNTER 2019-08-22 13:55 | Outpatient (CLI) | payer SELFPAY ==
[2019-08-22] MEDS ORDERED: Sodium Chloride 0.9% 15 ML NEB ONE (15:00)
== END 2019-08-22 13:56 | disposition home or self-care (01) ==
LOC: WCC 13:55
PROVIDERS: ATTEND Family Medicine
DX: T81.89XD Other complications of procedures, not elsewhere classified, subsequent encounter (principal); Z89.421 Acquired absence of other right toe(s)
CPT/HCPCS: A4218

== ENCOUNTER 2019-08-26 14:03 | Outpatient (CLI) | payer SELFPAY | END 2019-08-26 14:04 | disposition home or self-care (01) | LOC: WCC 14:03 | PROVIDERS: ATTEND Family Medicine | DX: T81.89XD Other complications of procedures, not elsewhere classified, subsequent encounter (principal); Z89.431 Acquired absence of right foot | CPT/HCPCS: A4218 ==

== ENCOUNTER 2019-08-29 11:25 | Outpatient (CLI) | payer SELFPAY ==
[2019-08-29] MEDS ORDERED: Sodium Chloride 0.9% 15 ML NEB ONE (15:09)
== END 2019-08-29 11:26 | disposition home or self-care (01) ==
LOC: WCC 11:25
PROVIDERS: ATTEND Family Medicine
DX: T81.89XD Other complications of procedures, not elsewhere classified, subsequent encounter (principal); Z89.421 Acquired absence of other right toe(s)
CPT/HCPCS: A4218

== ENCOUNTER 2019-09-01 14:57 | Outpatient (CLI) | payer SELFPAY | END 2019-09-01 14:58 | disposition home or self-care (01) | LOC: WCC 14:57 | PROVIDERS: ATTEND Family Medicine | DX: T81.89XD Other complications of procedures, not elsewhere classified, subsequent encounter (principal); Z89.421 Acquired absence of other right toe(s) | CPT/HCPCS: 36416; A4218 ==

== ENCOUNTER 2019-09-03 14:13 | Outpatient (CLI) | payer SELFPAY ==
[2019-09-03] MEDS ORDERED: Sodium Chloride 0.9% 15 ML NEB ONE (15:43)
== END 2019-09-03 14:14 | disposition home or self-care (01) ==
LOC: WCC 14:13
PROVIDERS: ATTEND Family Medicine
DX: T81.89XD Other complications of procedures, not elsewhere classified, subsequent encounter (principal); Z89.421 Acquired absence of other right toe(s)
CPT/HCPCS: 36416; 97605; A4218

== ENCOUNTER 2019-09-08 13:54 | Outpatient (CLI) | payer SELFPAY ==
[2019-09-08] MEDS ORDERED: Sodium Chloride 0.9% 15 ML NEB ONE (16:55)
== END 2019-09-08 13:55 | disposition home or self-care (01) ==
LOC: WCC 13:54
PROVIDERS: ATTEND Family Medicine
DX: T81.89XD Other complications of procedures, not elsewhere classified, subsequent encounter (principal); Z89.421 Acquired absence of other right toe(s)
CPT/HCPCS: A4218

== ENCOUNTER 2019-09-12 09:36 | Outpatient (CLI) | payer SELFPAY ==
[2019-09-12] MEDS ORDERED: Sodium Chloride 0.9% 15 ML NEB ONE (11:25)
== END 2019-09-12 09:37 | disposition home or self-care (01) ==
LOC: WCC 09:36
PROVIDERS: ATTEND Family Medicine
DX: T81.89XD Other complications of procedures, not elsewhere classified, subsequent encounter (principal); Z89.421 Acquired absence of other right toe(s)
CPT/HCPCS: 97605; A4218

== ENCOUNTER 2019-09-16 11:29 | Outpatient (CLI) | payer SELFPAY | END 2019-09-16 11:30 | disposition home or self-care (01) | LOC: WCC 11:29 | PROVIDERS: ATTEND Family Medicine | DX: T81.89XD Other complications of procedures, not elsewhere classified, subsequent encounter (principal); Z89.421 Acquired absence of other right toe(s) | CPT/HCPCS: 36416; 97605; A4218 ==

== ENCOUNTER 2019-09-19 13:44 | Outpatient (CLI) | payer SELFPAY ==
[2019-09-19] MEDS ORDERED: Sodium Chloride 0.9% 15 ML NEB ONE (15:23)
== END 2019-09-19 13:45 | disposition home or self-care (01) ==
LOC: WCC 13:44
PROVIDERS: ATTEND Family Medicine
DX: T81.89XD Other complications of procedures, not elsewhere classified, subsequent encounter (principal); Z89.421 Acquired absence of other right toe(s)
CPT/HCPCS: 36416; 97605; A4218

== ENCOUNTER 2019-09-24 09:51 | Outpatient (CLI) | payer SELFPAY ==
--- NOTE | 2019-09-24 10:31 | PRG ---
DATE OF SERVICE: 09/24/2019 SUBJECTIVE: Mr. Quique Higginbotham is a very pleasant 34-year-old gentleman, who presents to the [facility] for evaluation of a wound of the left foot subsequent to partial amputation of the fourth and fifth metatarsals on 12/18/[address] Tj Mcneil. Since the patient's visit on 08/07/2019, Mr. Higginbotham has undergone incision and drainage with resection of the distal 4th and 5th metatarsals of the left foot by Dr. Mcneil on 08/15/2019. During the patient's hospital stay, Mr. Higginbotham was seen in consultation by Dr. Gordo Cortes of Infectious Diseases, and the patient has received IV antibiotics after PICC line placement. Negative pressure therapy was initiated subsequent to surgery, and the patient has been receiving dressing changes of the wound VAC here in the Wound Center. PHYSICAL EXAMINATION: VITAL SIGNS: Temperature 97.6, pulse 72, respirations 18, and blood pressure 148/83. Accu-Chek 247. EXTREMITIES: The wound of the left lateral foot measures approximately 7.0 x 2.5 cm. Granulation tissue is present within the wound margins. Necrotic and nonviable tissue present within the wound margins was debrided with an excisional full-thickness debridement with the use of a curette. No purulent drainage is associated with the wound. No erythema of the skin surrounding the wound is present. No maceration of the skin of the periwound is noted. ASSESSMENT AND PLAN: 1. Left foot wound as described above. Negative pressure therapy will be continued with dressing changes of the wound VAC in the wound center. The patient also states that he has a followup appointment with Dr. Mcneil. The patient states he will keep all appointments for wound VAC dressing changes as well as his followup appointment with Podiatry. 2. Diabetes mellitus. The patient's Accu-Chek in clinic today is 247. The patient has been reminded that for optimal wound healing, his blood glucoses should remain below 150. 3. Hypertension. 4. Migraine headaches. Job ID: [id number]
[2019-09-24] MEDS ORDERED: Sodium Chloride 0.9% 15 ML NEB ONE (17:00)
== END 2019-09-24 09:52 | disposition home or self-care (01) ==
LOC: WCC 09:51
PROVIDERS: ATTEND Family Medicine
DX: S91.302D Unspecified open wound, left foot, subsequent encounter (principal); I10 Essential (primary) hypertension; E11.9 Type 2 diabetes mellitus without complications; G43.909 Migraine, unspecified, not intractable, without status migrainosus
CPT/HCPCS: 36416; A4218

== ENCOUNTER 2021-06-08 17:04 | Inpatient (IN) | payer SELFPAY ==
[2021-06-08 19:55] LABS: #Eosinphils 0.4 thou/uL (0.0-0.7); #Lymphocytes 4.2 thou/uL (1.20-3.40); %Basophils 0.3 % (0.0-1.0); %Eosinophils 2.5 % (0.0-10.0); %Lymphocytes 25.1 % (21.0-51.0); %Neutrophils 66.1 % (42.0-75.0); Hemoglobin 13.5 g/dL (14.0-18.0); Mean Corpuscular Hemoglobin 28.1 pg (27.0-31.0); Mean Corpuscular Volume 85.4 fL (78.0-98.0); Mean Platelet Volume 6.9 fL (7.4-10.4); Platelet Count 323 thou/uL (130-400); Red Blood Cell (RBC) Count 4.79 mill/uL (4.70-6.10); White Blood Cell (WBC) Count 16.6 thou/uL (4.8-10.8)
[2021-06-08 20:18] LABS: ALT (SGPT) 22 U/L (8-55); AST (SGOT) 18 U/L (5-34); Albumin 3.3 g/dL (3.5-5.0); Alkaline Phosphatase 86 U/L (40-110); BUN (Urea Nitrogen) 22 mg/dL (8.9-20.6); Bilirubin, Total 0.2 mg/dL (0.2-1.2); Calc. Creatinine Clearance 0 mL/min (70-130); Carbon Dioxide 22 mmol/L (22-29); Chloride 102 mmol/L (98-107); Globulin 5.7 g/dL (2.4-3.5); Glucose 167 mg/dL (70-105); Potassium 4.4 mmol/L (3.5-5.1); Sodium 137 mmol/L (136-145)
[2021-06-08 21:31] LABS: Anion Gap 17 mmol/L (10-20)
[2021-06-08] MEDS ORDERED: Vancomycin 1 GM/200 ML BAG ONE (22:14)
[2021-06-08] MEDS ORDERED: Cefepime 2 GM VIAL ONE (22:14)
[2021-06-08] MEDS ORDERED: Ondansetron PF 4 MG/2 ML Vial IVP PRN (23:45)
[2021-06-08] MEDS ORDERED: Sodium Chloride 0.9% 1,000 ML IV SCH (23:45)
[2021-06-08] MEDS ORDERED: Acetaminophen 325 MG TAB PO PRN (23:45)
[2021-06-08] MEDS ORDERED: Ondansetron ODT 4 MG TAB SL PRN (23:45)
[2021-06-09 00:11] VITALS: BMI 45.3
[2021-06-09] MEDS ORDERED: Dextrose 5% in Water 1,000 ML IV PRN (02:00)
[2021-06-09] MEDS ORDERED: Dextrose 50% Abboject 50 ML SYRINGE SLOW IVP PRN (02:00)
[2021-06-09] MEDS ORDERED: Sodium Chloride 0.9% 500 ML IV SCH (03:15)
[2021-06-09] MEDS: Sodium Chloride 0.9% 1,000 ML IV SCH (03:52)
[2021-06-09] MEDS: VANCOMYCIN 1.75 GM/350 ML BAG 1.75 GM in Premix Bag 1 BAG IVPB SCH ×2 (04:26→22:12)
[2021-06-09 04:58] LABS: #Eosinphils 0.4 thou/uL (0.0-0.7); #Lymphocytes 3.8 thou/uL (1.20-3.40); #Monocytes 0.8 thou/uL (0.11-0.59); #Neutrophils 6.3 thou/uL (1.40-6.50); %Basophils 0.3 % (0.0-1.0); %Eosinophils 3.6 % (0.0-10.0); %Lymphocytes 33.8 % (21.0-51.0); %Monocytes 6.8 % (0.0-10.0); %Neutrophils 55.6 % (42.0-75.0); Hemoglobin 11.6 g/dL (14.0-18.0); Mean Corpuscular HGB CONC 32.2 g/dL (32.0-36.0); Mean Corpuscular Hemoglobin 27.5 pg (27.0-31.0); Mean Corpuscular Volume 85.5 fL (78.0-98.0); Mean Platelet Volume 6.7 fL (7.4-10.4); Platelet Count 263 thou/uL (130-400); RBC Distribution Width 12.8 % (11.5-14.5); Red Blood Cell (RBC) Count 4.21 mill/uL (4.70-6.10); White Blood Cell (WBC) Count 11.4 thou/uL (4.8-10.8)
[2021-06-09] MEDS: HumaLOG 300 UNITS/3 ML VIAL SC PRN ×2 (05:08→22:13)
[2021-06-09 05:12] LABS: Anion Gap 11 mmol/L (10-20); BUN (Urea Nitrogen) 21 mg/dL (8.9-20.6); Calc. Creatinine Clearance 156 mL/min (70-130); Calcium 8.6 mg/dL (7.8-10.44); Carbon Dioxide 25 mmol/L (22-29); Chloride 103 mmol/L (98-107); Glucose 202 mg/dL (70-105); Potassium 3.9 mmol/L (3.5-5.1); Sodium 135 mmol/L (136-145)
[2021-06-09] MEDS: metroNIDAZOLE 500 MG in Premix Bag 1 BAG IVPB SCH (06:43)
[2021-06-09 07:33] LABS: Bacteria/HPF None Seen HPF (None Seen); Bilirubin Negative (Negative); Blood, Urine Trace (Negative); Clarity Clear (Clear); Glucose, Urine (Dipstick) 70 mg/dL (Negative); Ketone, Urine Negative (Negative); Leukocyte Negative Leu/uL (Negative); Nitrite Negative (Negative); Protein, Urine (Dipstick) 300 mg/dL (Neg-Trace); RBC/HPF 0-3 HPF (0-3); Specific Gravity, Urine 1.017 (1.002-1.036); Squamous Epithelial 0-3 HPF (0-3); Urobilinogen Normal mg/dL (Less than 2); WBC/HPF 0-3 HPF (0-3)
[2021-06-09 08:34] LABS: Creatinine, Urine 108.1 mg/dL (63-166)
[2021-06-09] MEDS ORDERED: VANCOMYCIN 1.25 GM/250 ML BAG 1.25 GM in Premix Bag 1 BAG IVPB SCH (09:00)
[2021-06-09] MEDS: Cefepime 2 GM in Sodium Chloride 0.9% 100 ML IVPB SCH (10:50)
[2021-06-09] MEDS: Enoxaparin Sodium 40 MG/0.4 ML SYRINGE SC SCH (10:51)
[2021-06-09 15:23] LABS: SARS-CoV-2 NAA Rapid Test Not Detected (NotDetected)
[2021-06-09] MEDS ORDERED: Fentanyl 100 MCG/2 ML VIAL ONE ×3 (15:54→19:12)
[2021-06-09] MEDS ORDERED: Midazolam HCl 2 mg/2 ml Vial ONE (15:54)
[2021-06-09] MEDS ORDERED: metroNIDAZOLE 500 MG/100 ML BAG ONE (16:16)
[2021-06-09] MEDS ORDERED: ePHEDrine 50 MG/ML VIAL ONE (16:53)
[2021-06-09] MEDS ORDERED: Lidocaine 1% PF 5 ML VIAL ONE (16:53)
[2021-06-09] MEDS ORDERED: diphenhydrAMINE 50 MG/ML VIAL ONE (16:53)
[2021-06-09] MEDS ORDERED: Succinylcholine 200 MG/10 ml SYRINGE FS ONE (16:53)
[2021-06-09] MEDS ORDERED: Ondansetron PF 4 MG/2 ML Vial ONE (16:53)
[2021-06-09] MEDS ORDERED: PROPOFOL 200 MG/20 ML VIAL ONE (16:53)
[2021-06-09] MEDS ORDERED: PHENYLEPHRINE-NS 100 MCG/ML 10 ML SYRINGE ONE (16:53)
[2021-06-09 16:57] LABS: SARS-CoV-2 PCR by NAA Not Detected (NotDetected)
[2021-06-09] MEDS ORDERED: Sodium Chloride 0.9% 1,000 ML IV SCH (18:45)
[2021-06-09] MEDS ORDERED: Promethazine HCl 25 MG/ML VIAL IM PRN ×2 (18:48→18:58)
[2021-06-09] MEDS ORDERED: HYDROmorphone 2 MG/ML VIAL SLOW IVP PRN (18:48)
[2021-06-09] MEDS ORDERED: Promethazine HCl 25 MG/ML VIAL IVPB PRN (18:48)
[2021-06-09] MEDS ORDERED: Meperidine HCl/PF 25 MG/ML VIAL SLOW IVP PRN (18:48)
[2021-06-09] MEDS ORDERED: diphenhydrAMINE 50 MG/ML VIAL IM PRN (18:58)
[2021-06-09] MEDS ORDERED: Ondansetron PF 4 MG/2 ML Vial IVP PRN (18:58)
[2021-06-09] MEDS ORDERED: diphenhydrAMINE 50 MG/ML VIAL IVP PRN (18:58)
[2021-06-09] MEDS ORDERED: diphenhydrAMINE 25 MG CAP PO PRN (18:58)
[2021-06-09] MEDS ORDERED: Naloxone HCl 0.4 mg/ml Vial IV PRN (18:58)
[2021-06-09] MEDS ORDERED: Zolpidem Tartrate 5 MG TAB PO PRN (18:58)
[2021-06-09] MEDS ORDERED: Communication Order-Pharmacy FS SCH (19:00)
[2021-06-09] MEDS: Gabapentin 300 MG CAP PO SCH ×2 (22:09)
[2021-06-10] MEDS: Cefepime 2 GM in Sodium Chloride 0.9% 100 ML IVPB SCH (01:01)
[2021-06-10] MEDS: Sodium Chloride 0.9% 1,000 ML IV SCH ×3 (01:49→20:16)
[2021-06-10] MEDS: metroNIDAZOLE 500 MG in Premix Bag 1 BAG IVPB SCH (01:49)
[2021-06-10] MEDS ORDERED: Sodium Chloride 0.9% 500 ML IV SCH (05:00)
[2021-06-10] MEDS: HumaLOG 300 UNITS/3 ML VIAL SC PRN ×4 (05:11→20:22)
[2021-06-10 05:35] LABS: #Eosinphils 0.1 thou/uL (0.0-0.7); #Lymphocytes 2.8 thou/uL (1.20-3.40); #Monocytes 1.2 thou/uL (0.11-0.59); #Neutrophils 15.2 thou/uL (1.40-6.50); %Basophils 0.2 % (0.0-1.0); %Eosinophils 0.6 % (0.0-10.0); %Lymphocytes 14.4 % (21.0-51.0); %Monocytes 6.4 % (0.0-10.0); %Neutrophils 78.5 % (42.0-75.0); Hemoglobin 9.8 g/dL (14.0-18.0); Mean Corpuscular HGB CONC 32.7 g/dL (32.0-36.0); Mean Corpuscular Hemoglobin 28.3 pg (27.0-31.0); Mean Corpuscular Volume 86.5 fL (78.0-98.0); Platelet Count 366 thou/uL (130-400); RBC Distribution Width 12.7 % (11.5-14.5); Red Blood Cell (RBC) Count 3.46 mill/uL (4.70-6.10); White Blood Cell (WBC) Count 19.3 thou/uL (4.8-10.8)
[2021-06-10 05:41] LABS: Hemoglobin A1c 7.8 % (4.0-6.0)
[2021-06-10 06:04] LABS: Anion Gap 9 mmol/L (10-20); BUN (Urea Nitrogen) 24 mg/dL (8.9-20.6); Calc. Creatinine Clearance 159 mL/min (70-130); Calcium 8.3 mg/dL (7.8-10.44); Carbon Dioxide 25 mmol/L (22-29); Chloride 106 mmol/L (98-107); Glucose 205 mg/dL (70-105); Potassium 4.8 mmol/L (3.5-5.1); Sodium 135 mmol/L (136-145)
[2021-06-10] MEDS ORDERED: VANCOMYCIN 1.75 GM/350 ML BAG 1.75 GM in Premix Bag 1 BAG IVPB SCH (08:00)
[2021-06-10] MEDS: traMADol HCl 50 MG TAB PO PRN (08:20)
[2021-06-10] MEDS: Pioglitazone HCl 45 MG TAB PO SCH (08:21)
[2021-06-10] MEDS: Acetaminophen 500 MG TAB PO PRN (08:21)
[2021-06-10] MEDS: Aspirin 81 mg Enteric Coated Tablet PO SCH (08:21)
[2021-06-10] MEDS: Gabapentin 300 MG CAP PO SCH ×3 (08:22→20:17)
[2021-06-10] MEDS: Enoxaparin Sodium 40 MG/0.4 ML SYRINGE SC SCH (08:30)
[2021-06-10] MEDS: Senokot S 8.6-50 MG TAB PO SCH ×2 (09:00→20:18)
[2021-06-10] MEDS: Acetaminophen/Codeine 30-300mg Tablet PO PRN ×3 (11:14→20:20)
[2021-06-11] MEDS: Sodium Chloride 0.9% 1,000 ML IV SCH ×2 (05:01→19:20)
[2021-06-11] MEDS: HumaLOG 300 UNITS/3 ML VIAL SC PRN ×2 (05:19→13:34)
[2021-06-11 06:35] LABS: Hemoglobin 7.4 g/dL (14.0-18.0); Mean Corpuscular HGB CONC 32.6 g/dL (32.0-36.0); Mean Corpuscular Hemoglobin 28.4 pg (27.0-31.0); Mean Corpuscular Volume 86.9 fL (78.0-98.0); Mean Platelet Volume 6.8 fL (7.4-10.4); Platelet Count 292 thou/uL (130-400); RBC Distribution Width 12.7 % (11.5-14.5); Red Blood Cell (RBC) Count 2.59 mill/uL (4.70-6.10); White Blood Cell (WBC) Count 13.2 thou/uL (4.8-10.8)
[2021-06-11 07:06] LABS: Albumin 2.6 g/dL (3.5-5.0); Anion Gap 9 mmol/L (10-20); BUN (Urea Nitrogen) 20 mg/dL (8.9-20.6); BUN/Creatinine Ratio 16.39; Calc. Creatinine Clearance 203 mL/min (70-130); Carbon Dioxide 24 mmol/L (22-29); Chloride 105 mmol/L (98-107); Glucose 185 mg/dL (70-105); Phosphorus 3.3 mg/dL (2.3-4.7); Sodium 133 mmol/L (136-145)
[2021-06-11 08:10] LABS: Iron 27 ug/dL (65-175); Iron Binding Capacity, Total 181 mcg/dL (261-462)
[2021-06-11] MEDS: Aspirin 81 mg Enteric Coated Tablet PO SCH (09:01)
[2021-06-11] MEDS: Pioglitazone HCl 45 MG TAB PO SCH (09:01)
[2021-06-11] MEDS: Senokot S 8.6-50 MG TAB PO SCH ×2 (09:02→20:45)
[2021-06-11] MEDS: Gabapentin 300 MG CAP PO SCH ×3 (09:02→20:45)
[2021-06-11] MEDS: Enoxaparin Sodium 40 MG/0.4 ML SYRINGE SC SCH (09:04)
[2021-06-11] MEDS ORDERED: Iron, Sodium Ferric Gluconate 250 MG in Sodium Chloride 0.9% 250 ML 250 ML IVPB SCH (12:15)
[2021-06-12] MEDS: Acetaminophen 500 MG TAB PO PRN (00:52)
[2021-06-12] MEDS: Sodium Chloride 0.9% 1,000 ML IV SCH (04:32)
[2021-06-12 05:51] LABS: Albumin 2.6 g/dL (3.5-5.0); Anion Gap 7 mmol/L (10-20); BUN (Urea Nitrogen) 14 mg/dL (8.9-20.6); BUN/Creatinine Ratio 15.56; Calc. Creatinine Clearance 276 mL/min (70-130); Calcium 7.9 mg/dL (7.8-10.44); Carbon Dioxide 26 mmol/L (22-29); Chloride 106 mmol/L (98-107); Glucose 168 mg/dL (70-105); Phosphorus 2.4 mg/dL (2.3-4.7); Potassium 4.5 mmol/L (3.5-5.1); Sodium 134 mmol/L (136-145)
[2021-06-12] MEDS: HumaLOG 300 UNITS/3 ML VIAL SC PRN (06:15)
[2021-06-12] MEDS: Gabapentin 300 MG CAP PO SCH ×3 (07:46→20:14)
[2021-06-12] MEDS: Pioglitazone HCl 45 MG TAB PO SCH (07:47)
[2021-06-12] MEDS: Senokot S 8.6-50 MG TAB PO SCH ×2 (07:47→20:15)
[2021-06-12] MEDS: Aspirin 81 mg Enteric Coated Tablet PO SCH (07:48)
[2021-06-12] MEDS: Enoxaparin Sodium 40 MG/0.4 ML SYRINGE SC SCH (07:48)
[2021-06-12] MEDS: Iron, Sodium Ferric Gluconate 250 MG in Sodium Chloride 0.9% 250 ML 250 ML IVPB SCH (08:42)
[2021-06-12] MEDS: fentaNYL Citrate/PF 2,000 MCG in Sodium Chloride 0.9% 60 ML IV PRN (11:54)
[2021-06-12] MEDS: Triple Antibiotic Oint 1 GM Packet TOP SCH (17:20)
[2021-06-13] MEDS: Sodium Chloride 0.9% 1,000 ML IV SCH (04:42)
[2021-06-13 05:53] LABS: #Basophils 0.1 thou/uL (0.0-0.2); #Eosinphils 0.4 thou/uL (0.0-0.7); #Monocytes 0.9 thou/uL (0.11-0.59); #Neutrophils 7.5 thou/uL (1.40-6.50); %Basophils 0.5 % (0.0-1.0); %Eosinophils 3.3 % (0.0-10.0); %Lymphocytes 31.1 % (21.0-51.0); %Monocytes 7.3 % (0.0-10.0); %Neutrophils 57.8 % (42.0-75.0); Hemoglobin 7.2 g/dL (14.0-18.0); Mean Corpuscular HGB CONC 32.8 g/dL (32.0-36.0); Mean Corpuscular Hemoglobin 28.5 pg (27.0-31.0); Mean Corpuscular Volume 86.9 fL (78.0-98.0); Mean Platelet Volume 6.3 fL (7.4-10.4); Platelet Count 342 thou/uL (130-400); RBC Distribution Width 13.1 % (11.5-14.5); Red Blood Cell (RBC) Count 2.52 mill/uL (4.70-6.10); White Blood Cell (WBC) Count 12.9 thou/uL (4.8-10.8)
[2021-06-13 06:23] LABS: Albumin 2.6 g/dL (3.5-5.0); Anion Gap 7 mmol/L (10-20); BUN (Urea Nitrogen) 8 mg/dL (8.9-20.6); BUN/Creatinine Ratio 9.76; Calc. Creatinine Clearance 302 mL/min (70-130); Calcium 8.2 mg/dL (7.8-10.44); Carbon Dioxide 30 mmol/L (22-29); Chloride 104 mmol/L (98-107); Glucose 151 mg/dL (70-105); Phosphorus 1.7 mg/dL (2.3-4.7); Sodium 137 mmol/L (136-145)
[2021-06-13] MEDS ORDERED: POTASSIUM PHOSPHATE IVPB SCH (07:30)
[2021-06-13] MEDS ORDERED: SODIUM CHLORIDE 0.9% IVPB SCH (07:30)
[2021-06-13] MEDS ORDERED: Lisinopril 10 MG TAB PO SCH (09:00)
[2021-06-13] MEDS ORDERED: Potassium Phosphate 30 MMOL in Sodium Chloride 0.9% 500 ML IVPB SCH (09:15)
[2021-06-13 09:42] LABS: Magnesium 1.9 mg/dL (1.6-2.6)
[2021-06-13] MEDS: Aspirin 81 mg Enteric Coated Tablet PO SCH (10:17)
[2021-06-13] MEDS: Senokot S 8.6-50 MG TAB PO SCH ×2 (10:18→20:10)
[2021-06-13] MEDS: Enoxaparin Sodium 40 MG/0.4 ML SYRINGE SC SCH (10:18)
[2021-06-13] MEDS: Pioglitazone HCl 45 MG TAB PO SCH (10:18)
[2021-06-13] MEDS: Gabapentin 300 MG CAP PO SCH ×3 (10:18→20:09)
[2021-06-13] MEDS: Iron, Sodium Ferric Gluconate 250 MG in Sodium Chloride 0.9% 250 ML 250 ML IVPB SCH (13:30)
[2021-06-13] MEDS: Triple Antibiotic Oint 1 GM Packet TOP SCH (15:26)
[2021-06-13] MEDS: fentaNYL Citrate/PF 2,000 MCG in Sodium Chloride 0.9% 60 ML IV PRN (15:26)
[2021-06-14] MEDS ORDERED: Lisinopril 10 MG TAB PO SCH (07:33)
[2021-06-14 09:10] LABS: #Basophils 0.1 thou/uL (0.0-0.2); #Eosinphils 0.5 thou/uL (0.0-0.7); #Lymphocytes 3.5 thou/uL (1.20-3.40); #Monocytes 0.8 thou/uL (0.11-0.59); #Neutrophils 6.2 thou/uL (1.40-6.50); %Basophils 0.7 % (0.0-1.0); %Eosinophils 4.8 % (0.0-10.0); %Lymphocytes 31.3 % (21.0-51.0); %Monocytes 7.4 % (0.0-10.0); %Neutrophils 55.8 % (42.0-75.0); Hemoglobin 7.9 g/dL (14.0-18.0); Mean Corpuscular HGB CONC 32.9 g/dL (32.0-36.0); Mean Corpuscular Hemoglobin 28.8 pg (27.0-31.0); Mean Corpuscular Volume 87.6 fL (78.0-98.0); Mean Platelet Volume 6.2 fL (7.4-10.4); Platelet Count 389 thou/uL (130-400); Red Blood Cell (RBC) Count 2.76 mill/uL (4.70-6.10); White Blood Cell (WBC) Count 11.2 thou/uL (4.8-10.8)
[2021-06-14] MEDS: Gabapentin 300 MG CAP PO SCH ×3 (09:27→21:34)
[2021-06-14] MEDS: Pioglitazone HCl 45 MG TAB PO SCH (09:27)
[2021-06-14] MEDS: Aspirin 81 mg Enteric Coated Tablet PO SCH (09:27)
[2021-06-14] MEDS: Lisinopril 20 MG TAB PO SCH (09:28)
[2021-06-14] MEDS: Enoxaparin Sodium 40 MG/0.4 ML SYRINGE SC SCH (09:28)
[2021-06-14] MEDS: Senokot S 8.6-50 MG TAB PO SCH ×2 (09:29→21:36)
[2021-06-14] MEDS ORDERED: Acetaminophen/Codeine 30-300mg Tablet PO PRN (09:33)
[2021-06-14] MEDS ORDERED: Fentanyl 100 MCG/2 ML VIAL SLOW IVP PRN (09:34)
[2021-06-14 09:58] LABS: MDiff Complete? YES; Platelet Morphology Comment Appears Adequate; Polychromasia MODERATE = 3-4 cells (100X) (0-2/hpf)
[2021-06-14 10:47] LABS: Albumin 2.6 g/dL (3.5-5.0); Anion Gap 10 mmol/L (10-20); BUN (Urea Nitrogen) 9 mg/dL (8.9-20.6); BUN/Creatinine Ratio 11.54; Calc. Creatinine Clearance 318 mL/min (70-130); Calcium 8.6 mg/dL (7.8-10.44); Carbon Dioxide 30 mmol/L (22-29); Chloride 104 mmol/L (98-107); Glucose 158 mg/dL (70-105); Phosphorus 3.1 mg/dL (2.3-4.7); Potassium 4.2 mmol/L (3.5-5.1); Sodium 140 mmol/L (136-145)
[2021-06-14] MEDS: Acetaminophen/Codeine 30-300mg Tablet PO PRN ×3 (11:09→21:36)
[2021-06-14] MEDS: Triple Antibiotic Oint 1 GM Packet TOP SCH (15:20)
[2021-06-15] MEDS: HumaLOG 300 UNITS/3 ML VIAL SC PRN ×2 (05:00→12:47)
[2021-06-15 06:29] LABS: Albumin 2.6 g/dL (3.5-5.0); Anion Gap 9 mmol/L (10-20); BUN (Urea Nitrogen) 14 mg/dL (8.9-20.6); BUN/Creatinine Ratio 15.05; Calc. Creatinine Clearance 267 mL/min (70-130); Calcium 8.9 mg/dL (7.8-10.44); Carbon Dioxide 32 mmol/L (22-29); Chloride 102 mmol/L (98-107); Glucose 178 mg/dL (70-105); Phosphorus 3.6 mg/dL (2.3-4.7); Potassium 4.1 mmol/L (3.5-5.1); Sodium 139 mmol/L (136-145)
[2021-06-15] MEDS: Senokot S 8.6-50 MG TAB PO SCH (09:35)
[2021-06-15] MEDS: Gabapentin 300 MG CAP PO SCH ×3 (09:35→21:13)
[2021-06-15] MEDS: Pioglitazone HCl 45 MG TAB PO SCH (09:35)
[2021-06-15] MEDS: Enoxaparin Sodium 40 MG/0.4 ML SYRINGE SC SCH (09:36)
[2021-06-15] MEDS: Aspirin 81 mg Enteric Coated Tablet PO SCH (09:36)
[2021-06-15] MEDS: Lisinopril 20 MG TAB PO SCH (09:36)
[2021-06-15] MEDS: Acetaminophen/Codeine 30-300mg Tablet PO PRN ×2 (09:38→14:04)
[2021-06-15] MEDS: Triple Antibiotic Oint 1 GM Packet TOP SCH (11:30)
[2021-06-16] MEDS: Senokot S 8.6-50 MG TAB PO SCH ×3 (01:05→20:17)
[2021-06-16] MEDS: Acetaminophen/Codeine 30-300mg Tablet PO PRN ×3 (02:35→15:44)
[2021-06-16 07:37] LABS: Albumin 2.8 g/dL (3.5-5.0); Anion Gap 9 mmol/L (10-20); BUN (Urea Nitrogen) 14 mg/dL (8.9-20.6); BUN/Creatinine Ratio 15.56; Calc. Creatinine Clearance 273 mL/min (70-130); Calcium 8.9 mg/dL (7.8-10.44); Carbon Dioxide 33 mmol/L (22-29); Chloride 101 mmol/L (98-107); Glucose 140 mg/dL (70-105); Phosphorus 3.6 mg/dL (2.3-4.7); Potassium 3.9 mmol/L (3.5-5.1); Sodium 139 mmol/L (136-145)
[2021-06-16] MEDS: Pioglitazone HCl 45 MG TAB PO SCH (08:59)
[2021-06-16] MEDS: Gabapentin 300 MG CAP PO SCH ×3 (09:00→20:15)
[2021-06-16] MEDS: Aspirin 81 mg Enteric Coated Tablet PO SCH (09:00)
[2021-06-16] MEDS: Lisinopril 20 MG TAB PO SCH (09:00)
[2021-06-16] MEDS: Enoxaparin Sodium 40 MG/0.4 ML SYRINGE SC SCH (09:01)
[2021-06-16] MEDS: traMADol HCl 50 MG TAB PO PRN (10:40)
[2021-06-16] MEDS: HumaLOG 300 UNITS/3 ML VIAL SC PRN ×2 (11:33→17:18)
[2021-06-16] MEDS: Triple Antibiotic Oint 1 GM Packet TOP SCH (15:00)
[2021-06-17] MEDS: Senokot S 8.6-50 MG TAB PO SCH ×2 (08:41→09:37)
[2021-06-17] MEDS: Aspirin 81 mg Enteric Coated Tablet PO SCH (08:42)
[2021-06-17] MEDS: Pioglitazone HCl 45 MG TAB PO SCH (08:42)
[2021-06-17] MEDS: Enoxaparin Sodium 40 MG/0.4 ML SYRINGE SC SCH (08:42)
[2021-06-17] MEDS: Gabapentin 300 MG CAP PO SCH (08:42)
[2021-06-17] MEDS: Lisinopril 20 MG TAB PO SCH (09:39)
[2021-06-17] MEDS: traMADol HCl 50 MG TAB PO PRN (09:41)
[2021-06-17 11:45] VITALS: BP 125/76; TEMP 98
[2021-06-17] MEDS: Triple Antibiotic Oint 1 GM Packet TOP SCH (12:27)
[2021-06-17 13:12] LABS: SARS-CoV-2 PCR by NAA Not Detected (NotDetected)
== END 2021-06-17 14:00 | disposition swing bed (61) | DRG 240 ==
LOC: ERS 17:04 → SURG B 22:42
PROVIDERS: ADMIT Student in an Organized Health Care Education/Training Program; ATTEND Internal Medicine
PROC: 0Y6J0Z1 Detachment at Left Lower Leg, High, Open Approach (ICD-10-PCS; principal; 2021-06-09)
DX: E11.52 Type 2 diabetes mellitus with diabetic peripheral angiopathy with gangrene (principal); Z68.42 Body mass index [BMI] 45.0-49.9, adult; I96 Gangrene, not elsewhere classified; N17.9 Acute kidney failure, unspecified; M86.9 Osteomyelitis, unspecified; E87.1 Hypo-osmolality and hyponatremia; D62 Acute posthemorrhagic anemia; L03.116 Cellulitis of left lower limb; L02.612 Cutaneous abscess of left foot; I48.20 Chronic atrial fibrillation, unspecified; E11.621 Type 2 diabetes mellitus with foot ulcer; L97.529 Non-pressure chronic ulcer of other part of left foot with unspecified severity; E11.42 Type 2 diabetes mellitus with diabetic polyneuropathy; E11.69 Type 2 diabetes mellitus with other specified complication; E66.01 Morbid (severe) obesity due to excess calories; E11.22 Type 2 diabetes mellitus with diabetic chronic kidney disease; D50.9 Iron deficiency anemia, unspecified; E86.9 Volume depletion, unspecified; I12.9 Hypertensive chronic kidney disease with stage 1 through stage 4 chronic kidney disease, or unspecified chronic kidney disease; N18.9 Chronic kidney disease, unspecified; Z20.822 Contact with and (suspected) exposure to COVID-19; E83.39 Other disorders of phosphorus metabolism; Z88.8 Allergy status to other drugs, medicaments and biological substances; Z79.82 Long term (current) use of aspirin; Z89.512 Acquired absence of left leg below knee; Z89.511 Acquired absence of right leg below knee; Z89.422 Acquired absence of other left toe(s); Z79.4 Long term (current) use of insulin
CPT/HCPCS: 0240U; 36415; 36416; 80048; 80053; 80069; 81001; 82040; 82570; 82728; 83036; 83540; 83550; 83735; 84156; 84300; 84540; 85025; 85027; 85652; 86140; 87040; 88307; 96365; 96367; J0692; J1200; J1650; J1815; J2250; J2405; J2704; J2916; J3010; J3370; J3490; J7030; J7050; U0003; U0005

== ENCOUNTER 2022-07-13 17:51 | Emergency (ER) | payer SELFPAY ==
[2022-07-13] MEDS ORDERED: Boostrix 0.5 ML (Tdap) VIAL (>/=7 yrs of age) ONE (18:15)
== END 2022-07-13 21:28 | disposition home or self-care (01) ==
LOC: ERS 17:51
DX: T21.22XA Burn of second degree of abdominal wall, initial encounter (principal); T24.212A Burn of second degree of left thigh, initial encounter; T31.0 Burns involving less than 10% of body surface; R26.2 Difficulty in walking, not elsewhere classified; I48.91 Unspecified atrial fibrillation; I10 Essential (primary) hypertension; E11.9 Type 2 diabetes mellitus without complications; X11.8XXA Contact with other hot tap-water, initial encounter
CPT/HCPCS: 90471; 90715

== ENCOUNTER 2023-08-31 13:02 | Inpatient (IN) | payer MEDICARE, SELFPAY ==
[~2023-08-31 13:02] MED LIST changes: +Iopamidol-370 76% 500 ML MDV (1 ML CHARGE) ONE; -Sodium Chloride 0.9% 15 ML NEB ONE
[2023-08-31] MEDS ORDERED: Morphine 4 MG/ML VIAL ONE (13:32)
[2023-08-31 14:01] LABS: #Basophils 0.1 thou/uL (0.0-0.2); #Eosinphils 0.2 thou/uL (0.0-0.7); #Monocytes 1.4 thou/uL (0.11-0.59); #Neutrophils 11.8 thou/uL (1.40-6.50); %Basophils 0.6 % (0.0-1.0); %Eosinophils 1.3 % (0.0-10.0); %Lymphocytes 15.6 % (21.0-51.0); %Monocytes 8.8 % (0.0-10.0); %Neutrophils 73.1 % (42.0-75.0); Hematocrit 50.7 % (42.0-52.0); Hemoglobin 15.6 g/dL (14.0-18.0); Mean Corpuscular HGB CONC 30.8 g/dL (32.0-36.0); Mean Corpuscular Hemoglobin 28.6 pg (27.0-31.0); Mean Corpuscular Volume 92.9 fl (78.0-98.0); Mean Platelet Volume 9.8 fL (7.4-10.4); Platelet Count 208 10x3/uL (130-400); RBC Distribution Width 13.8 % (11.5-14.5); Red Blood Cell (RBC) Count 5.46 mill/uL (4.70-6.10); White Blood Cell (WBC) Count 16.1 10x3/uL (4.8-10.8)
[2023-08-31 14:28] LABS: Troponin I Less than 0.010 ng/mL (< 0.028)
[2023-08-31 14:30] LABS: ALT (SGPT) 53 U/L (8-55); AST (SGOT) 26 U/L (5-34); Albumin 4.1 g/dL (3.5-5.0); Alkaline Phosphatase 73 U/L (40-110); Anion Gap 15 mmol/L (10-20); BUN (Urea Nitrogen) 20 mg/dL (8.9-20.6); Bilirubin, Total 0.8 mg/dL (0.2-1.2); Calc. Creatinine Clearance 0 mL/min (70-130); Carbon Dioxide 24 mmol/L (22-29); Chloride 103 mmol/L (98-107); Estimated GFR 70; Globulin 3.2 g/dL (2.4-3.5); Glucose 225 mg/dL (70-105); Lipase 18 U/L (8-78); Potassium 5.5 mmol/L (3.5-5.1); Protein, Total 7.3 g/dL (6.0-8.3); Sodium 136 mmol/L (136-145)
[2023-08-31] MEDS ORDERED: Glucagon 1 MG/ML KIT IM PRN (16:07)
[2023-08-31] MEDS ORDERED: Dextrose 50% Abboject 50 ML SYRINGE SLOW IVP PRN (16:07)
[2023-08-31] MEDS ORDERED: Dextrose 5% in Water 1,000 ML IV PRN (16:07)
[2023-08-31] MEDS ORDERED: Sodium Chloride 0.9% 100 ML ONE (16:23)
[2023-08-31] MEDS ORDERED: Cefepime 2 GM VIAL ONE (16:23)
[2023-08-31] MEDS ORDERED: Vancomycin (BATCH) 2 GM in Premix 1 BAG IVPB SCH (16:45)
[2023-08-31] MEDS ORDERED: Vancomycin (BATCH) 2 GM/500 ML BAG ONE (16:54)
[2023-08-31 17:09] LABS: Magnesium 1.5 mg/dL (1.6-2.6)
[2023-08-31] MEDS ORDERED: FLU VACC QS2023-24(6MOS UP)/PF 60 MCG/0.5 ML SYRINGE IM ONE (17:45)
[2023-08-31 17:53] LABS: Hemoglobin A1c 6.8 % (4.0-6.0)
[2023-08-31] MEDS: Sodium Chloride 0.9% 1,000 ML IV SCH (18:02)
[2023-08-31] MEDS ORDERED: Magnesium 2 GM/50 ML(in water) 2 GM in Premix 1 BAG IVPB SCH (18:15)
[2023-08-31 20:52] LABS: Troponin I Less than 0.010 ng/mL (< 0.028)
[2023-08-31 22:34] LABS: Troponin I Less than 0.010 ng/mL (< 0.028)
[2023-08-31] MEDS ORDERED: Ketorolac Tromethamine 30 MG/ML VIAL IVP PRN (22:38)
[2023-08-31] MEDS: Atorvastatin Calcium 20 MG TAB PO SCH (22:59)
[2023-09-01 05:30] LABS: Cardiac Risk 2.4 (Less than 4.5)
[2023-09-01] MEDS: HumaLOG 300 UNITS/3 ML VIAL SC PRN ×2 (06:32→16:48)
[2023-09-01] MEDS ORDERED: Aspirin Chewable 81 MG TAB PO SCH (09:00)
[2023-09-01] MEDS: Sodium Chloride 0.9% 1,000 ML IV SCH ×3 (09:54→22:17)
[2023-09-01] MEDS ORDERED: Ondansetron PF 4 MG/2 ML Vial IVP PRN (11:10)
[2023-09-01 12:44] LABS: Anion Gap 15 mmol/L (10-20); BUN (Urea Nitrogen) 35 mg/dL (8.9-20.6); Calc. Creatinine Clearance 87 mL/min (70-130); Calcium 8.7 mg/dL (7.8-10.44); Carbon Dioxide 23 mmol/L (22-29); Chloride 101 mmol/L (98-107); Estimated GFR 26; Glucose 259 mg/dL (70-105); Potassium 6.8 mmol/L (3.5-5.1); Sodium 132 mmol/L (136-145)
[2023-09-01] MEDS ORDERED: Dextrose 50% Abboject 50 ML SYRINGE SLOW IVP SCH (13:15)
[2023-09-01] MEDS ORDERED: Insulin Regular 300 UNITS/3 ML VIAL IVP SCH (13:15)
[2023-09-01] MEDS ORDERED: Calcium Chloride 1 GM/10 ML Abboject SYRINGE IVP SCH (13:15)
[2023-09-01] MEDS: Acetaminophen 325 MG TAB PO PRN ×2 (13:22→22:19)
[2023-09-01] MEDS ORDERED: LOKELMA 10 GM PACKET PO SCH (13:45)
[2023-09-01 15:10] LABS: Anion Gap 15 mmol/L (10-20); BUN (Urea Nitrogen) 36 mg/dL (8.9-20.6); Calc. Creatinine Clearance 91 mL/min (70-130); Carbon Dioxide 22 mmol/L (22-29); Chloride 103 mmol/L (98-107); Estimated GFR 28; Glucose 268 mg/dL (70-105); Potassium 5.7 mmol/L (3.5-5.1); Sodium 134 mmol/L (136-145)
[2023-09-01 15:49] LABS: Bacteria/HPF Rare-Few HPF (None Seen); Bilirubin Negative (Negative); Blood, Urine Negative (Negative); CAUTI Indications for Culture Urological Procedure; Clarity Clear (Clear); Glucose, Urine (Dipstick) 70 mg/dL (Negative); Ketone, Urine Trace mg/dL (Negative); Leukocyte 25 Leu/uL (Negative); Nitrite Negative (Negative); Protein, Urine (Dipstick) 200 mg/dL (Neg-Trace); Specific Gravity, Urine 1.047 (1.002-1.036); Squamous Epithelial 0-3 HPF (0-3); Urobilinogen Normal mg/dL (Less than 2); pH, Urine 5.5 (5.0-9.0)
[2023-09-01 15:50] LABS: Urine Culture Reflex Yes Yes
[2023-09-01 16:18] LABS: Creatinine, Urine 245.39 mg/dL (63-166)
[2023-09-01] MEDS: Gabapentin 300 MG CAP PO SCH ×2 (16:47→22:15)
[2023-09-01] MEDS: Amitriptyline HCl 25 MG TAB PO SCH ×3 (16:47→22:16)
[2023-09-01 19:53] LABS: Anion Gap 14 mmol/L (10-20); BUN (Urea Nitrogen) 38 mg/dL (8.9-20.6); Calc. Creatinine Clearance 95 mL/min (70-130); Calcium 8.7 mg/dL (7.8-10.44); Carbon Dioxide 21 mmol/L (22-29); Chloride 105 mmol/L (98-107); Estimated GFR 29; Glucose 189 mg/dL (70-105); Sodium 134 mmol/L (136-145)
[2023-09-01] MEDS: tiZANidine HCl 4 MG TAB PO SCH (22:15)
[2023-09-01] MEDS: Atorvastatin Calcium 20 MG TAB PO SCH (22:16)
[2023-09-02 05:10] LABS: #Basophils 0.1 thou/uL (0.0-0.2); %Basophils 0.3 % (0.0-1.0); %Eosinophils 0.2 % (0.0-10.0); %Lymphocytes 12.6 % (21.0-51.0); %Monocytes 11.2 % (0.0-10.0); %Neutrophils 74.5 % (42.0-75.0); Mean Corpuscular Hemoglobin 28.6 pg (27.0-31.0); Mean Corpuscular Volume 92.3 fl (78.0-98.0); Platelet Count 200 10x3/uL (130-400); RBC Distribution Width 14.6 % (11.5-14.5); Red Blood Cell (RBC) Count 4.55 mill/uL (4.70-6.10); White Blood Cell (WBC) Count 17.5 10x3/uL (4.8-10.8)
[2023-09-02 05:34] LABS: Anion Gap 14 mmol/L (10-20); BUN (Urea Nitrogen) 47 mg/dL (8.9-20.6); Calc. Creatinine Clearance 90 mL/min (70-130); Calcium 8.5 mg/dL (7.8-10.44); Carbon Dioxide 23 mmol/L (22-29); Chloride 104 mmol/L (98-107); Estimated GFR 27; Glucose 189 mg/dL (70-105); Magnesium 2.1 mg/dL (1.6-2.6); Sodium 134 mmol/L (136-145)
[2023-09-02 05:38] LABS: Critical Call Chemistry NUR.DMM@0537; Potassium 6.6 mmol/L (3.5-5.1)
[2023-09-02] MEDS ORDERED: Dextrose 50% Abboject 50 ML SYRINGE SLOW IVP PRN (05:53)
[2023-09-02] MEDS ORDERED: Insulin Regular 300 UNITS/3 ML VIAL IVP SCH (06:00)
[2023-09-02] MEDS ORDERED: Calcium Gluc 4.6 MEQ/10 ML (100 MG/ML) SLOW IVP SCH (06:00)
[2023-09-02] MEDS: Sodium Chloride 0.9% 1,000 ML IV SCH ×3 (06:28→21:27)
[2023-09-02] MEDS ORDERED: dilTIAZem CD 240 MG CAP PO SCH (09:00)
[2023-09-02] MEDS ORDERED: Lisinopril 20 MG TAB PO SCH (09:00)
[2023-09-02] MEDS: Amitriptyline HCl 25 MG TAB PO SCH ×3 (09:44→21:30)
[2023-09-02] MEDS: tiZANidine HCl 4 MG TAB PO SCH ×2 (09:50→21:30)
[2023-09-02] MEDS: Gabapentin 300 MG CAP PO SCH ×3 (09:50→21:30)
[2023-09-02] MEDS: dilTIAZem CD 240 MG CAP PO SCH (09:50)
[2023-09-02] MEDS: HumaLOG 300 UNITS/3 ML VIAL SC PRN (11:47)
[2023-09-02 12:53] LABS: Anion Gap 17 mmol/L (10-20); BUN (Urea Nitrogen) 48 mg/dL (8.9-20.6); Calc. Creatinine Clearance 84 mL/min (70-130); Calcium 8.6 mg/dL (7.8-10.44); Carbon Dioxide 18 mmol/L (22-29); Chloride 106 mmol/L (98-107); Estimated GFR 25; Glucose 257 mg/dL (70-105); Sodium 135 mmol/L (136-145)
[2023-09-02 20:28] LABS: Anion Gap 15 mmol/L (10-20); BUN (Urea Nitrogen) 53 mg/dL (8.9-20.6); Calc. Creatinine Clearance 85 mL/min (70-130); Calcium 8.8 mg/dL (7.8-10.44); Carbon Dioxide 22 mmol/L (22-29); Chloride 107 mmol/L (98-107); Estimated GFR 25; Glucose 221 mg/dL (70-105); Sodium 139 mmol/L (136-145)
[2023-09-02] MEDS: Atorvastatin Calcium 20 MG TAB PO SCH (21:30)
[2023-09-03] MEDS: Sodium Chloride 0.9% 1,000 ML IV SCH ×2 (04:30→16:48)
[2023-09-03 05:00] LABS: #Basophils 0.1 thou/uL (0.0-0.2); #Eosinphils 0.1 thou/uL (0.0-0.7); #Monocytes 1.4 thou/uL (0.11-0.59); %Basophils 0.5 % (0.0-1.0); %Eosinophils 1.1 % (0.0-10.0); %Lymphocytes 16.8 % (21.0-51.0); %Monocytes 10.5 % (0.0-10.0); %Neutrophils 69.6 % (42.0-75.0); Hematocrit 41.4 % (42.0-52.0); Hemoglobin 12.7 g/dL (14.0-18.0); Mean Corpuscular HGB CONC 30.7 g/dL (32.0-36.0); Mean Corpuscular Hemoglobin 28.5 pg (27.0-31.0); Platelet Count 202 10x3/uL (130-400); RBC Distribution Width 14.6 % (11.5-14.5); Red Blood Cell (RBC) Count 4.45 mill/uL (4.70-6.10); White Blood Cell (WBC) Count 12.9 10x3/uL (4.8-10.8)
[2023-09-03 05:31] LABS: Anion Gap 14 mmol/L (10-20); BUN (Urea Nitrogen) 49 mg/dL (8.9-20.6); Calc. Creatinine Clearance 103 mL/min (70-130); Calcium 8.3 mg/dL (7.8-10.44); Carbon Dioxide 22 mmol/L (22-29); Chloride 107 mmol/L (98-107); Estimated GFR 32; Glucose 215 mg/dL (70-105); Magnesium 2.2 mg/dL (1.6-2.6); Potassium 5.6 mmol/L (3.5-5.1); Sodium 137 mmol/L (136-145)
[2023-09-03] MEDS: HumaLOG 300 UNITS/3 ML VIAL SC PRN ×2 (06:24→16:32)
[2023-09-03] MEDS: Gabapentin 300 MG CAP PO SCH ×3 (09:43→20:38)
[2023-09-03] MEDS: dilTIAZem CD 240 MG CAP PO SCH (09:43)
[2023-09-03] MEDS: tiZANidine HCl 4 MG TAB PO SCH ×2 (09:44→20:39)
[2023-09-03] MEDS: Amitriptyline HCl 25 MG TAB PO SCH ×3 (10:02→20:39)
[2023-09-03] MEDS: Sodium Bicarbonate 50 MEQ in Sodium Chloride 0.45% 1,000 ML IV SCH ×2 (11:29→20:44)
[2023-09-03] MEDS ORDERED: LOKELMA 10 GM PACKET PO SCH (12:15)
[2023-09-03] MEDS: Acetaminophen 325 MG TAB PO PRN (16:31)
[2023-09-03] MEDS: Atorvastatin Calcium 20 MG TAB PO SCH (20:38)
[2023-09-04 04:47] LABS: #Basophils 0.1 thou/uL (0.0-0.2); #Eosinphils 0.1 thou/uL (0.0-0.7); #Monocytes 0.9 thou/uL (0.11-0.59); #Neutrophils 7.4 thou/uL (1.40-6.50); %Basophils 0.5 % (0.0-1.0); %Eosinophils 0.8 % (0.0-10.0); %Lymphocytes 13.3 % (21.0-51.0); %Monocytes 8.8 % (0.0-10.0); %Neutrophils 75.1 % (42.0-75.0); Hematocrit 39.5 % (42.0-52.0); Hemoglobin 12.1 g/dL (14.0-18.0); Mean Corpuscular HGB CONC 30.6 g/dL (32.0-36.0); Mean Corpuscular Hemoglobin 28.5 pg (27.0-31.0); Mean Corpuscular Volume 93.2 fl (78.0-98.0); Mean Platelet Volume 9.9 fL (7.4-10.4); Platelet Count 202 10x3/uL (130-400); RBC Distribution Width 14.5 % (11.5-14.5); Red Blood Cell (RBC) Count 4.24 mill/uL (4.70-6.10); White Blood Cell (WBC) Count 9.9 10x3/uL (4.8-10.8)
[2023-09-04 05:16] LABS: Albumin 3.5 g/dL (3.5-5.0); Anion Gap 12 mmol/L (10-20); BUN (Urea Nitrogen) 42 mg/dL (8.9-20.6); BUN/Creatinine Ratio 26.42; Calc. Creatinine Clearance 164 mL/min (70-130); Calcium 8.3 mg/dL (7.8-10.44); Carbon Dioxide 25 mmol/L (22-29); Chloride 107 mmol/L (98-107); Estimated GFR 56; Glucose 245 mg/dL (70-105); Magnesium 2.2 mg/dL (1.6-2.6); Phosphorus 2.5 mg/dL (2.3-4.7); Potassium 4.8 mmol/L (3.5-5.1); Sodium 139 mmol/L (136-145); Uric Acid 11.9 mg/dL (3.5-7.2)
[2023-09-04] MEDS: hydrALAZINE 25 MG TAB PO SCH ×3 (05:51→21:46)
[2023-09-04] MEDS: Sodium Bicarbonate 50 MEQ in Sodium Chloride 0.45% 1,000 ML IV SCH ×3 (05:51→21:47)
[2023-09-04] MEDS: Isosorbide Dinitrate 20 MG TAB PO SCH ×3 (05:52→21:46)
[2023-09-04] MEDS: HumaLOG 300 UNITS/3 ML VIAL SC PRN ×3 (06:35→18:16)
[2023-09-04] MEDS: Acetaminophen 325 MG TAB PO PRN (09:36)
[2023-09-04] MEDS: Gabapentin 300 MG CAP PO SCH ×3 (09:38→21:45)
[2023-09-04] MEDS: dilTIAZem CD 240 MG CAP PO SCH (09:38)
[2023-09-04] MEDS: tiZANidine HCl 4 MG TAB PO SCH ×2 (09:38→21:46)
[2023-09-04] MEDS: Amitriptyline HCl 25 MG TAB PO SCH ×3 (09:40→21:45)
[2023-09-04] MEDS: Heparin 5,000 UNITS/ML VIAL SC SCH ×2 (16:06→21:45)
[2023-09-04] MEDS ORDERED: Insulin Glargine 30 UNITS/0.3 ML VIAL SC SCH (21:00)
[2023-09-04] MEDS: Atorvastatin Calcium 20 MG TAB PO SCH (21:46)
[2023-09-05] MEDS: Sodium Bicarbonate 50 MEQ in Sodium Chloride 0.45% 1,000 ML IV SCH (02:40)
[2023-09-05 04:46] LABS: #Basophils 0.1 thou/uL (0.0-0.2); #Eosinphils 0.1 thou/uL (0.0-0.7); #Monocytes 0.8 thou/uL (0.11-0.59); #Neutrophils 6.3 thou/uL (1.40-6.50); %Basophils 0.6 % (0.0-1.0); %Eosinophils 1.1 % (0.0-10.0); %Lymphocytes 22.2 % (21.0-51.0); %Monocytes 8.4 % (0.0-10.0); %Neutrophils 66.5 % (42.0-75.0); Hematocrit 38.1 % (42.0-52.0); Hemoglobin 11.7 g/dL (14.0-18.0); Mean Corpuscular HGB CONC 30.7 g/dL (32.0-36.0); Mean Corpuscular Hemoglobin 28.3 pg (27.0-31.0); Mean Corpuscular Volume 92.3 fl (78.0-98.0); Mean Platelet Volume 9.7 fL (7.4-10.4); Platelet Count 206 10x3/uL (130-400); RBC Distribution Width 14.1 % (11.5-14.5); Red Blood Cell (RBC) Count 4.13 mill/uL (4.70-6.10); White Blood Cell (WBC) Count 9.5 10x3/uL (4.8-10.8)
[2023-09-05 05:08] LABS: Albumin 3.2 g/dL (3.5-5.0); Anion Gap 13 mmol/L (10-20); BUN (Urea Nitrogen) 34 mg/dL (8.9-20.6); BUN/Creatinine Ratio 27.42; Calc. Creatinine Clearance 210 mL/min (70-130); Calcium 8.6 mg/dL (7.8-10.44); Carbon Dioxide 28 mmol/L (22-29); Chloride 105 mmol/L (98-107); Estimated GFR 75; Glucose 181 mg/dL (70-105); Magnesium 2.3 mg/dL (1.6-2.6); Potassium 4.6 mmol/L (3.5-5.1); Sodium 141 mmol/L (136-145)
[2023-09-05] MEDS: Isosorbide Dinitrate 20 MG TAB PO SCH ×3 (05:56→21:03)
[2023-09-05] MEDS: hydrALAZINE 25 MG TAB PO SCH ×3 (05:56→21:03)
[2023-09-05] MEDS: Heparin 5,000 UNITS/ML VIAL SC SCH ×3 (09:00→21:02)
[2023-09-05] MEDS: Gabapentin 300 MG CAP PO SCH ×3 (09:00→21:04)
[2023-09-05] MEDS: dilTIAZem CD 240 MG CAP PO SCH (09:00)
[2023-09-05] MEDS: tiZANidine HCl 4 MG TAB PO SCH ×2 (09:00→21:03)
[2023-09-05] MEDS: Amitriptyline HCl 25 MG TAB PO SCH ×2 (09:01→15:26)
[2023-09-05] MEDS: PHOS-NAK 1 PKT PACK PO SCH ×2 (15:25→18:14)
[2023-09-05 16:12] LABS: Actual Bicarbonate (HCO3a) 26.7 mEq/L (22-28); Base Excess (BEa) 1.5 mEq/L (-2.0 to +3.0); CO2 Tension 44.6 mmHg (35.0-45.0); Calcium, Ionized (arterial) 1.15 mmol/L (1.12-1.30); Carboxyhemoglobin (COHb) 1.5 gm% (0.0-3.0); Hematocrit-ABG 37 % (42.0-52.0); Hemoglobin (Hb) 12.6 g/dL (14.0-18.0); O2 Tension (PaO2), arterial 64.5 mmHg (80.0-100.0); Potassium - ABG Lab 4.71 mmol/L (3.70-5.30); pH, Arterial 7.395 (7.35-7.45)
[2023-09-05 16:14] LABS: Puncture Site LRA
[2023-09-05] MEDS ORDERED: Insulin Glargine 30 UNITS/0.3 ML VIAL SC SCH (21:00)
[2023-09-05] MEDS: Atorvastatin Calcium 20 MG TAB PO SCH (21:03)
[2023-09-06] MEDS: Amitriptyline HCl 25 MG TAB PO SCH ×4 (01:01→20:59)
[2023-09-06] MEDS: HumaLOG 300 UNITS/3 ML VIAL SC PRN ×2 (05:54→21:08)
[2023-09-06] MEDS: Isosorbide Dinitrate 20 MG TAB PO SCH ×3 (05:54→21:05)
[2023-09-06] MEDS: hydrALAZINE 25 MG TAB PO SCH ×3 (05:54→21:05)
[2023-09-06 08:03] LABS: #Basophils 0.1 thou/uL (0.0-0.2); #Eosinphils 0.2 thou/uL (0.0-0.7); #Monocytes 0.9 thou/uL (0.11-0.59); #Neutrophils 5.4 thou/uL (1.40-6.50); %Basophils 0.6 % (0.0-1.0); %Eosinophils 2.5 % (0.0-10.0); %Lymphocytes 27.6 % (21.0-51.0); %Monocytes 9.5 % (0.0-10.0); Hematocrit 37.6 % (42.0-52.0); Hemoglobin 11.8 g/dL (14.0-18.0); Mean Corpuscular HGB CONC 31.4 g/dL (32.0-36.0); Mean Corpuscular Hemoglobin 28.3 pg (27.0-31.0); Mean Corpuscular Volume 90.2 fl (78.0-98.0); Mean Platelet Volume 9.6 fL (7.4-10.4); Platelet Count 212 10x3/uL (130-400); RBC Distribution Width 13.7 % (11.5-14.5); Red Blood Cell (RBC) Count 4.17 mill/uL (4.70-6.10); White Blood Cell (WBC) Count 9.4 10x3/uL (4.8-10.8)
[2023-09-06] MEDS ORDERED: Metoprolol Tartrate 5 MG/5 ML VIAL IVP PRN (08:17)
[2023-09-06 08:30] LABS: Albumin 3.1 g/dL (3.5-5.0); Anion Gap 11 mmol/L (10-20); BUN (Urea Nitrogen) 30 mg/dL (8.9-20.6); BUN/Creatinine Ratio 24.59; Calc. Creatinine Clearance 214 mL/min (70-130); Calcium 8.4 mg/dL (7.8-10.44); Carbon Dioxide 27 mmol/L (22-29); Chloride 104 mmol/L (98-107); Estimated GFR 77; Glucose 188 mg/dL (70-105); Magnesium 2.4 mg/dL (1.6-2.6); Phosphorus 2.2 mg/dL (2.3-4.7); Potassium 4.2 mmol/L (3.5-5.1); Sodium 138 mmol/L (136-145)
[2023-09-06] MEDS: Gabapentin 300 MG CAP PO SCH ×3 (08:46→21:04)
[2023-09-06] MEDS: dilTIAZem CD 240 MG CAP PO SCH (08:46)
[2023-09-06] MEDS: tiZANidine HCl 4 MG TAB PO SCH ×2 (08:47→21:04)
[2023-09-06] MEDS: Heparin 5,000 UNITS/ML VIAL SC SCH ×3 (08:47→21:08)
[2023-09-06] MEDS: PHOS-NAK 1 PKT PACK PO SCH ×2 (13:04→16:01)
[2023-09-06] MEDS ORDERED: Insulin Glargine 30 UNITS/0.3 ML VIAL SC SCH (21:00)
[2023-09-06] MEDS ORDERED: Metoprolol Tartrate 25 MG TAB PO SCH (21:00)
[2023-09-06] MEDS: Atorvastatin Calcium 20 MG TAB PO SCH (21:04)
[2023-09-07] MEDS: GUAIFENESIN SF SOLN 200 MG/10 ML UDCUP PO PRN ×2 (00:17→09:29)
[2023-09-07 04:26] LABS: #Basophils 0.1 thou/uL (0.0-0.2); #Eosinphils 0.2 thou/uL (0.0-0.7); #Monocytes 1.1 thou/uL (0.11-0.59); %Basophils 0.8 % (0.0-1.0); %Eosinophils 1.6 % (0.0-10.0); Hematocrit 40.4 % (42.0-52.0); Hemoglobin 12.6 g/dL (14.0-18.0); Mean Corpuscular HGB CONC 31.2 g/dL (32.0-36.0); Mean Corpuscular Hemoglobin 28.1 pg (27.0-31.0); Mean Platelet Volume 9.8 fL (7.4-10.4); Platelet Count 242 10x3/uL (130-400); RBC Distribution Width 13.8 % (11.5-14.5); Red Blood Cell (RBC) Count 4.49 mill/uL (4.70-6.10); White Blood Cell (WBC) Count 11.3 10x3/uL (4.8-10.8)
[2023-09-07 04:54] LABS: Anion Gap 11 mmol/L (10-20); BUN (Urea Nitrogen) 27 mg/dL (8.9-20.6); Calc. Creatinine Clearance 214 mL/min (70-130); Calcium 8.8 mg/dL (7.8-10.44); Carbon Dioxide 29 mmol/L (22-29); Chloride 102 mmol/L (98-107); Estimated GFR 73; Glucose 228 mg/dL (70-105); Magnesium 2.6 mg/dL (1.6-2.6); Potassium 4.7 mmol/L (3.5-5.1); Sodium 137 mmol/L (136-145)
[2023-09-07] MEDS: Isosorbide Dinitrate 20 MG TAB PO SCH ×3 (05:52→20:58)
[2023-09-07] MEDS: hydrALAZINE 25 MG TAB PO SCH ×3 (05:52→20:58)
[2023-09-07] MEDS: HumaLOG 300 UNITS/3 ML VIAL SC PRN (06:33)
[2023-09-07] MEDS ORDERED: Empagliflozin 10 MG TAB PO SCH ×2 (09:00→09:15)
[2023-09-07] MEDS: Heparin 5,000 UNITS/ML VIAL SC SCH ×3 (09:27→20:59)
[2023-09-07] MEDS: Gabapentin 300 MG CAP PO SCH ×3 (09:29→20:58)
[2023-09-07] MEDS: dilTIAZem CD 240 MG CAP PO SCH (09:29)
[2023-09-07] MEDS: Acetaminophen 325 MG TAB PO PRN (09:30)
[2023-09-07] MEDS: tiZANidine HCl 4 MG TAB PO SCH ×2 (09:30→20:57)
[2023-09-07] MEDS: Amitriptyline HCl 25 MG TAB PO SCH ×3 (09:30→21:00)
[2023-09-07] MEDS: Insulin Glargine 30 UNITS/0.3 ML VIAL SC SCH (21:00)
[2023-09-07] MEDS: Atorvastatin Calcium 20 MG TAB PO SCH (21:00)
[2023-09-08] MEDS: Acetaminophen 325 MG TAB PO PRN ×2 (01:24→09:02)
[2023-09-08 04:57] LABS: #Basophils 0.1 thou/uL (0.0-0.2); #Eosinphils 0.1 thou/uL (0.0-0.7); #Monocytes 0.7 thou/uL (0.11-0.59); #Neutrophils 6.3 thou/uL (1.40-6.50); %Basophils 0.6 % (0.0-1.0); %Eosinophils 1.5 % (0.0-10.0); %Lymphocytes 21.7 % (21.0-51.0); %Monocytes 7.4 % (0.0-10.0); %Neutrophils 66.3 % (42.0-75.0); Hematocrit 39.9 % (42.0-52.0); Hemoglobin 12.6 g/dL (14.0-18.0); Mean Corpuscular HGB CONC 31.6 g/dL (32.0-36.0); Mean Corpuscular Hemoglobin 28.6 pg (27.0-31.0); Mean Corpuscular Volume 90.7 fl (78.0-98.0); Mean Platelet Volume 9.6 fL (7.4-10.4); Platelet Count 211 10x3/uL (130-400); RBC Distribution Width 13.8 % (11.5-14.5); White Blood Cell (WBC) Count 9.5 10x3/uL (4.8-10.8)
[2023-09-08] MEDS: hydrALAZINE 25 MG TAB PO SCH ×3 (05:17→21:24)
[2023-09-08] MEDS: Isosorbide Dinitrate 20 MG TAB PO SCH ×3 (05:17→21:24)
[2023-09-08 05:51] LABS: Anion Gap 15 mmol/L (10-20); BUN (Urea Nitrogen) 28 mg/dL (8.9-20.6); Calc. Creatinine Clearance 207 mL/min (70-130); Calcium 8.8 mg/dL (7.8-10.44); Carbon Dioxide 24 mmol/L (22-29); Chloride 102 mmol/L (98-107); Estimated GFR 70; Glucose 199 mg/dL (70-105); Magnesium 2.4 mg/dL (1.6-2.6); Potassium 4.4 mmol/L (3.5-5.1); Sodium 137 mmol/L (136-145)
[2023-09-08] MEDS: tiZANidine HCl 4 MG TAB PO SCH ×2 (09:02→21:26)
[2023-09-08] MEDS: dilTIAZem CD 300 MG CAP PO SCH (09:02)
[2023-09-08] MEDS: Gabapentin 300 MG CAP PO SCH ×3 (09:02→21:24)
[2023-09-08] MEDS: Heparin 5,000 UNITS/ML VIAL SC SCH ×3 (09:02→21:25)
[2023-09-08] MEDS: GUAIFENESIN SF SOLN 200 MG/10 ML UDCUP PO PRN (09:02)
[2023-09-08] MEDS: Empagliflozin 10 MG TAB PO SCH (09:03)
[2023-09-08] MEDS: Amitriptyline HCl 25 MG TAB PO SCH ×3 (09:03→21:33)
[2023-09-08] MEDS: Guaifenesin DM 100-10/5 ML UDCUP PO PRN ×2 (12:25→21:28)
[2023-09-08] MEDS: HumaLOG 300 UNITS/3 ML VIAL SC PRN ×3 (14:10→21:25)
[2023-09-08] MEDS: Insulin Glargine 30 UNITS/0.3 ML VIAL SC SCH (21:25)
[2023-09-08] MEDS: Atorvastatin Calcium 20 MG TAB PO SCH (21:25)
[2023-09-09] MEDS: Isosorbide Dinitrate 20 MG TAB PO SCH ×3 (05:14→20:24)
[2023-09-09] MEDS: hydrALAZINE 25 MG TAB PO SCH ×3 (05:14→20:22)
[2023-09-09 05:26] LABS: #Basophils 0.1 thou/uL (0.0-0.2); #Eosinphils 0.1 thou/uL (0.0-0.7); #Monocytes 1.1 thou/uL (0.11-0.59); #Neutrophils 9.4 thou/uL (1.40-6.50); %Basophils 0.5 % (0.0-1.0); %Eosinophils 0.9 % (0.0-10.0); %Lymphocytes 13.2 % (21.0-51.0); %Monocytes 8.3 % (0.0-10.0); %Neutrophils 72.4 % (42.0-75.0); Hematocrit 39.8 % (42.0-52.0); Hemoglobin 12.3 g/dL (14.0-18.0); Mean Corpuscular HGB CONC 30.9 g/dL (32.0-36.0); Mean Corpuscular Hemoglobin 28.1 pg (27.0-31.0); Mean Corpuscular Volume 90.9 fl (78.0-98.0); Mean Platelet Volume 9.7 fL (7.4-10.4); Platelet Count 218 10x3/uL (130-400); RBC Distribution Width 13.8 % (11.5-14.5); Red Blood Cell (RBC) Count 4.38 mill/uL (4.70-6.10)
[2023-09-09 05:56] LABS: Anion Gap 15 mmol/L (10-20); BUN (Urea Nitrogen) 25 mg/dL (8.9-20.6); Calc. Creatinine Clearance 201 mL/min (70-130); Calcium 9.1 mg/dL (7.8-10.44); Carbon Dioxide 27 mmol/L (22-29); Chloride 100 mmol/L (98-107); Estimated GFR 67; Glucose 173 mg/dL (70-105); Potassium 4.6 mmol/L (3.5-5.1); Sodium 137 mmol/L (136-145)
[2023-09-09] MEDS: Guaifenesin DM 100-10/5 ML UDCUP PO PRN ×2 (08:31→20:23)
[2023-09-09] MEDS: Gabapentin 300 MG CAP PO SCH ×4 (08:33→20:22)
[2023-09-09] MEDS: dilTIAZem CD 300 MG CAP PO SCH (08:34)
[2023-09-09] MEDS: Empagliflozin 10 MG TAB PO SCH (08:34)
[2023-09-09] MEDS: Heparin 5,000 UNITS/ML VIAL SC SCH ×3 (08:34→20:17)
[2023-09-09] MEDS: tiZANidine HCl 4 MG TAB PO SCH ×2 (08:35→20:18)
[2023-09-09] MEDS: Amitriptyline HCl 25 MG TAB PO SCH ×3 (08:35→20:16)
[2023-09-09] MEDS: HumaLOG 300 UNITS/3 ML VIAL SC PRN ×2 (11:28→17:11)
[2023-09-09] MEDS ORDERED: Albumin 25% 25 GM/100 ML BOT IVPB SCH (12:00)
[2023-09-09] MEDS ORDERED: Metoprolol Tartrate 25 MG TAB PO SCH (12:15)
[2023-09-09] MEDS: Atorvastatin Calcium 20 MG TAB PO SCH (20:16)
[2023-09-09] MEDS: Metoprolol Tartrate 25 MG TAB PO SCH (20:18)
[2023-09-09] MEDS: Insulin Glargine 30 UNITS/0.3 ML VIAL SC SCH (20:45)
[2023-09-10 04:55] LABS: #Basophils 0.1 thou/uL (0.0-0.2); #Eosinphils 0.1 thou/uL (0.0-0.7); #Monocytes 1.4 thou/uL (0.11-0.59); #Neutrophils 11.6 thou/uL (1.40-6.50); %Basophils 0.3 % (0.0-1.0); %Eosinophils 0.5 % (0.0-10.0); %Lymphocytes 15.1 % (21.0-51.0); %Monocytes 8.6 % (0.0-10.0); %Neutrophils 71.1 % (42.0-75.0); Hematocrit 38.8 % (42.0-52.0); Hemoglobin 11.9 g/dL (14.0-18.0); Mean Corpuscular HGB CONC 30.7 g/dL (32.0-36.0); Mean Corpuscular Volume 91.3 fl (78.0-98.0); Mean Platelet Volume 9.8 fL (7.4-10.4); Platelet Count 213 10x3/uL (130-400); RBC Distribution Width 14.2 % (11.5-14.5); Red Blood Cell (RBC) Count 4.25 mill/uL (4.70-6.10); White Blood Cell (WBC) Count 16.3 10x3/uL (4.8-10.8)
[2023-09-10 05:20] LABS: Anion Gap 16 mmol/L (10-20); BUN (Urea Nitrogen) 31 mg/dL (8.9-20.6); Calc. Creatinine Clearance 175 mL/min (70-130); Carbon Dioxide 26 mmol/L (22-29); Chloride 100 mmol/L (98-107); Potassium 5.3 mmol/L (3.5-5.1); Sodium 137 mmol/L (136-145)
[2023-09-10 05:21] LABS: Calcium 9.1 mg/dL (7.8-10.44); Estimated GFR 57; Glucose 160 mg/dL (70-105)
[2023-09-10] MEDS: hydrALAZINE 25 MG TAB PO SCH ×3 (05:26→21:56)
[2023-09-10] MEDS: Isosorbide Dinitrate 20 MG TAB PO SCH ×3 (05:26→21:57)
[2023-09-10] MEDS: Guaifenesin DM 100-10/5 ML UDCUP PO PRN ×2 (05:36→22:00)
[2023-09-10] MEDS: Metoprolol Tartrate 25 MG TAB PO SCH ×2 (09:41→21:56)
[2023-09-10] MEDS: tiZANidine HCl 4 MG TAB PO SCH ×2 (09:42→21:57)
[2023-09-10] MEDS: Amitriptyline HCl 25 MG TAB PO SCH ×3 (09:42→21:56)
[2023-09-10] MEDS: dilTIAZem CD 300 MG CAP PO SCH (09:43)
[2023-09-10] MEDS: Heparin 5,000 UNITS/ML VIAL SC SCH ×3 (09:43→21:57)
[2023-09-10] MEDS ORDERED: LOKELMA 10 GM PACKET PO SCH (10:30)
[2023-09-10] MEDS: Gabapentin 300 MG CAP PO SCH ×2 (14:51→21:56)
[2023-09-10] MEDS: Insulin Glargine 30 UNITS/0.3 ML VIAL SC SCH (21:57)
[2023-09-10] MEDS: Atorvastatin Calcium 20 MG TAB PO SCH (21:57)
[2023-09-11 04:39] LABS: Anion Gap 15 mmol/L (10-20); BUN (Urea Nitrogen) 32 mg/dL (8.9-20.6); Calc. Creatinine Clearance 190 mL/min (70-130); Calcium 8.8 mg/dL (7.8-10.44); Carbon Dioxide 26 mmol/L (22-29); Chloride 98 mmol/L (98-107); Estimated GFR 63; Glucose 197 mg/dL (70-105); Potassium 4.5 mmol/L (3.5-5.1); Sodium 134 mmol/L (136-145)
[2023-09-11] MEDS: Isosorbide Dinitrate 20 MG TAB PO SCH ×3 (05:55→21:38)
[2023-09-11] MEDS: hydrALAZINE 25 MG TAB PO SCH ×3 (05:55→21:38)
[2023-09-11] MEDS: HumaLOG 300 UNITS/3 ML VIAL SC PRN ×3 (05:55→17:35)
[2023-09-11] MEDS: Guaifenesin DM 100-10/5 ML UDCUP PO PRN ×2 (06:01→21:39)
[2023-09-11] MEDS: tiZANidine HCl 4 MG TAB PO SCH ×2 (09:58→21:38)
[2023-09-11] MEDS: dilTIAZem CD 300 MG CAP PO SCH (09:58)
[2023-09-11] MEDS: Amitriptyline HCl 25 MG TAB PO SCH ×3 (09:58→21:50)
[2023-09-11] MEDS: Metoprolol Tartrate 25 MG TAB PO SCH ×2 (09:58→21:38)
[2023-09-11] MEDS: Heparin 5,000 UNITS/ML VIAL SC SCH ×3 (09:59→21:39)
[2023-09-11] MEDS: Gabapentin 300 MG CAP PO SCH ×3 (09:59→21:38)
[2023-09-11] MEDS ORDERED: Furosemide 40 MG/4 ML VIAL SLOW IVP SCH (17:15)
[2023-09-11] MEDS: Insulin Glargine 30 UNITS/0.3 ML VIAL SC SCH (21:38)
[2023-09-11] MEDS: Atorvastatin Calcium 20 MG TAB PO SCH (21:38)
[2023-09-11] MEDS: Acetaminophen 325 MG TAB PO PRN (21:39)
[2023-09-12 05:10] LABS: Anion Gap 16 mmol/L (10-20); BUN (Urea Nitrogen) 33 mg/dL (8.9-20.6); Calc. Creatinine Clearance 175 mL/min (70-130); Calcium 9.2 mg/dL (7.8-10.44); Carbon Dioxide 28 mmol/L (22-29); Chloride 97 mmol/L (98-107); Estimated GFR 57; Glucose 203 mg/dL (70-105); Potassium 4.6 mmol/L (3.5-5.1); Sodium 136 mmol/L (136-145)
[2023-09-12] MEDS: Isosorbide Dinitrate 20 MG TAB PO SCH ×3 (06:12→21:23)
[2023-09-12] MEDS: hydrALAZINE 25 MG TAB PO SCH ×3 (06:12→21:23)
[2023-09-12] MEDS: HumaLOG 300 UNITS/3 ML VIAL SC PRN ×3 (06:13→16:58)
[2023-09-12] MEDS: Heparin 5,000 UNITS/ML VIAL SC SCH ×3 (09:47→21:28)
[2023-09-12] MEDS: dilTIAZem CD 300 MG CAP PO SCH (09:47)
[2023-09-12] MEDS: Gabapentin 300 MG CAP PO SCH ×3 (09:48→21:24)
[2023-09-12] MEDS: tiZANidine HCl 4 MG TAB PO SCH ×2 (09:48→21:23)
[2023-09-12] MEDS: Metoprolol Tartrate 25 MG TAB PO SCH ×2 (09:48→21:23)
[2023-09-12] MEDS: Amitriptyline HCl 25 MG TAB PO SCH ×3 (09:48→21:22)
[2023-09-12] MEDS: Acetaminophen 325 MG TAB PO PRN (11:48)
[2023-09-12] MEDS: Dronedarone HCl 400 MG TAB PO SCH (16:57)
[2023-09-12 17:30] LABS: Bilirubin Negative (Negative); Blood, Urine Negative (Negative); Clarity Clear (Clear); Glucose, Urine (Dipstick) 300 mg/dL (Negative); Ketone, Urine Negative (Negative); Leukocyte Negative Leu/uL (Negative); Nitrite Negative (Negative); Protein, Urine (Dipstick) 50 mg/dL (Neg-Trace); RBC/HPF 0-3 HPF (0-3); Specific Gravity, Urine 1.004 (1.002-1.036); Squamous Epithelial None Seen HPF (0-3); Urobilinogen Normal mg/dL (Less than 2); WBC/HPF 0-3 HPF (0-3)
[2023-09-12 17:31] LABS: Bacteria/HPF None Seen HPF (None Seen)
[2023-09-12 17:37] LABS: Creatinine, Urine 60.4 mg/dL (63-166)
[2023-09-12] MEDS: Atorvastatin Calcium 20 MG TAB PO SCH (21:23)
[2023-09-12] MEDS: Insulin Glargine 30 UNITS/0.3 ML VIAL SC SCH (21:28)
[2023-09-12] MEDS: Guaifenesin DM 100-10/5 ML UDCUP PO PRN (21:30)
[2023-09-13] MEDS: hydrALAZINE 25 MG TAB PO SCH ×3 (05:51→22:55)
[2023-09-13] MEDS: Isosorbide Dinitrate 20 MG TAB PO SCH ×3 (05:51→22:53)
[2023-09-13] MEDS: HumaLOG 300 UNITS/3 ML VIAL SC PRN ×3 (05:51→17:41)
[2023-09-13 06:16] LABS: Anion Gap 16 mmol/L (10-20); BUN (Urea Nitrogen) 44 mg/dL (8.9-20.6); Calc. Creatinine Clearance 152 mL/min (70-130); Calcium 8.6 mg/dL (7.8-10.44); Carbon Dioxide 25 mmol/L (22-29); Chloride 96 mmol/L (98-107); Estimated GFR 48; Glucose 300 mg/dL (70-105); Potassium 4.6 mmol/L (3.5-5.1); Sodium 132 mmol/L (136-145)
[2023-09-13] MEDS: Insulin Glargine 30 UNITS/0.3 ML VIAL SC SCH ×2 (09:02→22:54)
[2023-09-13] MEDS: Dronedarone HCl 400 MG TAB PO SCH ×2 (09:03→16:42)
[2023-09-13] MEDS: dilTIAZem CD 180 MG CAP PO SCH (09:04)
[2023-09-13] MEDS: Amitriptyline HCl 25 MG TAB PO SCH ×3 (09:04→22:53)
[2023-09-13] MEDS: Metoprolol Tartrate 25 MG TAB PO SCH ×2 (09:05→22:53)
[2023-09-13] MEDS: tiZANidine HCl 4 MG TAB PO SCH ×2 (09:05→22:52)
[2023-09-13] MEDS: Gabapentin 300 MG CAP PO SCH ×3 (09:05→22:52)
[2023-09-13] MEDS: Heparin 5,000 UNITS/ML VIAL SC SCH ×3 (09:08→22:56)
[2023-09-13 09:27] LABS: Albumin 3.2 g/dL (3.5-5.0); CK (CPK) 209 U/L (30-200)
[2023-09-13] MEDS: Guaifenesin DM 100-10/5 ML UDCUP PO PRN (15:36)
[2023-09-13] MEDS: Atorvastatin Calcium 20 MG TAB PO SCH (22:54)
[2023-09-14 05:16] LABS: Anion Gap 13 mmol/L (10-20); BUN (Urea Nitrogen) 44 mg/dL (8.9-20.6); Calc. Creatinine Clearance 179 mL/min (70-130); Calcium 8.8 mg/dL (7.8-10.44); Carbon Dioxide 29 mmol/L (22-29); Chloride 97 mmol/L (98-107); Estimated GFR 59; Glucose 192 mg/dL (70-105); Potassium 4.5 mmol/L (3.5-5.1); Sodium 134 mmol/L (136-145)
[2023-09-14] MEDS: hydrALAZINE 25 MG TAB PO SCH ×3 (05:39→23:23)
[2023-09-14] MEDS: Isosorbide Dinitrate 20 MG TAB PO SCH ×3 (05:39→23:23)
[2023-09-14] MEDS: HumaLOG 300 UNITS/3 ML VIAL SC PRN ×3 (06:35→17:59)
[2023-09-14] MEDS: Dronedarone HCl 400 MG TAB PO SCH ×2 (10:05→16:16)
[2023-09-14] MEDS: Heparin 5,000 UNITS/ML VIAL SC SCH ×2 (10:06→14:06)
[2023-09-14] MEDS: Insulin Glargine 30 UNITS/0.3 ML VIAL SC SCH ×2 (10:06→21:46)
[2023-09-14] MEDS: tiZANidine HCl 4 MG TAB PO SCH ×2 (10:06→21:45)
[2023-09-14] MEDS: Gabapentin 300 MG CAP PO SCH ×3 (10:06→21:45)
[2023-09-14] MEDS: dilTIAZem CD 180 MG CAP PO SCH (10:06)
[2023-09-14] MEDS: Amitriptyline HCl 25 MG TAB PO SCH ×3 (10:07→21:47)
[2023-09-14] MEDS: Metoprolol Tartrate 25 MG TAB PO SCH ×2 (10:07→21:45)
[2023-09-14] MEDS: Atorvastatin Calcium 20 MG TAB PO SCH (21:46)
[2023-09-15 05:30] LABS: Anion Gap 11 mmol/L (10-20); BUN (Urea Nitrogen) 47 mg/dL (8.9-20.6); Calc. Creatinine Clearance 170 mL/min (70-130); Calcium 8.7 mg/dL (7.8-10.44); Carbon Dioxide 30 mmol/L (22-29); Chloride 99 mmol/L (98-107); Estimated GFR 55; Glucose 206 mg/dL (70-105); Potassium 4.8 mmol/L (3.5-5.1); Sodium 135 mmol/L (136-145)
[2023-09-15] MEDS: Isosorbide Dinitrate 20 MG TAB PO SCH ×3 (07:04→22:59)
[2023-09-15] MEDS: hydrALAZINE 25 MG TAB PO SCH ×3 (07:04→22:58)
[2023-09-15] MEDS ORDERED: EPINEPHrine 1 MG/ML VIAL ONE (07:39)
[2023-09-15] MEDS ORDERED: Bupivacaine PF 0.5% 30 ML VIAL ONE (07:39)
[2023-09-15] MEDS ORDERED: Vasopressin 20 UNITS/ML VIAL ONE (07:46)
[2023-09-15] MEDS ORDERED: EPINEPHrine 1 MG/10 ML Abboject SYRINGE ONE (07:46)
[2023-09-15] MEDS ORDERED: ePHEDrine Sulfate 50 MG/10 ML VIAL ONE (07:47)
[2023-09-15] MEDS ORDERED: PHENYLEPHRINE-NS 100 MCG/ML 10 ML SYRINGE ONE (07:47)
[2023-09-15] MEDS ORDERED: Ketamine In 0.9 % NaCl 50 MG/5 ML SYRINGE ONE ×2 (07:49→08:09)
[2023-09-15] MEDS ORDERED: fentaNYL PF 100 MCG/2 ML SYRINGE ONE (07:49)
[2023-09-15] MEDS ORDERED: Succinylcholine 200 MG/10 ml SYRINGE FS ONE (07:49)
[2023-09-15] MEDS ORDERED: Sodium Chloride 0.9% 100 ML ONE (07:57)
[2023-09-15] MEDS ORDERED: CEFAZOLIN 2 GM VIAL ONE (07:57)
[2023-09-15] MEDS ORDERED: Rocuronium Bromide 10 MG/ML (10ML VIAL) ONE ×2 (07:59→08:01)
[2023-09-15] MEDS ORDERED: Ondansetron PF 4 MG/2 ML Vial ONE ×2 (08:01→08:30)
[2023-09-15] MEDS ORDERED: Lidocaine 1% PF 5 ML VIAL ONE (08:01)
[2023-09-15] MEDS ORDERED: Metoclopramide HCl 10 MG/2 ML VIAL ONE ×2 (08:01→08:30)
[2023-09-15] MEDS ORDERED: CEFAZOLIN 1 GM VIAL ONE (08:22)
[2023-09-15] MEDS ORDERED: SUGAMMADEX SODIUM 200 MG/2 ML VIAL ONE ×2 (08:35→09:00)
[2023-09-15] MEDS ORDERED: traMADol HCl 50 MG TAB PO PRN (09:38)
[2023-09-15] MEDS ORDERED: fentaNYL 50 mcg/mL 1 mL Vial ONE ×2 (09:41→09:53)
[2023-09-15 09:56] LABS: Fluid, Amylase Less than 5 U/L (Not Available); Fluid, Protein 5.8 g/dL (Not Available)
[2023-09-15 10:45] LABS: WBC/Nucleated-Auto (BF) 1192 /cu.mm
[2023-09-15 10:58] LABS: BF Color Red; Body Fluid Source Pericardial Fluid; Clarity Cloudy/Turbid (Clear); Tube # EDTA
[2023-09-15 11:01] LABS: BF Segmented Neutrophils 40 %; Cell Count Non Hematic 36 %; Lymphocytes 24 %
[2023-09-15] MEDS: dilTIAZem CD 180 MG CAP PO SCH (12:14)
[2023-09-15] MEDS: Dronedarone HCl 400 MG TAB PO SCH ×2 (12:14→16:32)
[2023-09-15] MEDS: Gabapentin 300 MG CAP PO SCH ×3 (12:14→21:36)
[2023-09-15] MEDS: tiZANidine HCl 4 MG TAB PO SCH ×2 (12:15→21:35)
[2023-09-15] MEDS: Metoprolol Tartrate 25 MG TAB PO SCH ×2 (12:15→21:35)
[2023-09-15] MEDS: Insulin Glargine 30 UNITS/0.3 ML VIAL SC SCH ×2 (12:16→21:36)
[2023-09-15] MEDS ORDERED: Digoxin 0.5 MG/2 ML AMP SLOW IVP SCH (13:45)
[2023-09-15] MEDS: HumaLOG 300 UNITS/3 ML VIAL SC PRN (17:51)
[2023-09-15] MEDS: Amitriptyline HCl 25 MG TAB PO SCH (21:35)
[2023-09-15] MEDS: Atorvastatin Calcium 20 MG TAB PO SCH (21:35)
[2023-09-16] MEDS ORDERED: EPINEPHrine 1 MG/10 ML Abboject SYRINGE ONE (03:45)
[2023-09-16] MEDS ORDERED: Ventilator Sedation Protocol 1 EACH FS ONE (03:54)
[2023-09-16] MEDS ORDERED: Fentanyl BOLUS 250 ML IVPB PRN (04:00)
[2023-09-16] MEDS ORDERED: Propofol BOLUS 1,000 MG/100 ML VIAL IV PRN (04:00)
[2023-09-16] MEDS ORDERED: Morphine 2 MG/ML VIAL SLOW IVP PRN (04:00)
[2023-09-16] MEDS ORDERED: DISCONTINUE PREVIOUS NARCOTIC PAIN MEDICATIONS AND BENZODIAZEPINES FS SCH (04:00)
[2023-09-16 04:05] LABS: Actual Bicarbonate (HCO3a) 32.1 mEq/L (22-28); Calcium, Ionized (arterial) 1.19 mmol/L (1.12-1.30); Carboxyhemoglobin (COHb) 1.4 gm% (0.0-3.0); Hematocrit-ABG 37 % (42.0-52.0); Hemoglobin (Hb) 12.6 g/dL (14.0-18.0)
[2023-09-16 04:08] LABS: Hematocrit 39.8 % (42.0-52.0); Hemoglobin 11.7 g/dL (14.0-18.0); Manual Diff?? YES; Mean Corpuscular HGB CONC 29.4 g/dL (32.0-36.0); Mean Corpuscular Hemoglobin 28.3 pg (27.0-31.0); Mean Corpuscular Volume 96.1 fl (78.0-98.0); Mean Platelet Volume 9.4 fL (7.4-10.4); Platelet Count 432 10x3/uL (130-400); RBC Distribution Width 14.4 % (11.5-14.5); Red Blood Cell (RBC) Count 4.14 mill/uL (4.70-6.10); White Blood Cell (WBC) Count 21.1 10x3/uL (4.8-10.8)
[2023-09-16 04:15] LABS: Delete Auto Diff?? YES
[2023-09-16] MEDS ORDERED: Insulin Regular 300 UNITS/3 ML VIAL IVP SCH (04:15)
[2023-09-16] MEDS ORDERED: Ipratropium/Albuterol 3 ML NEB NEB PRN (04:27)
[2023-09-16 04:40] LABS: Troponin I 0.149 ng/mL (< 0.028)
[2023-09-16] MEDS: Fentanyl CADD 100 ML IV SCH (04:50)
[2023-09-16 04:51] LABS: Anisocytosis SLIGHT = 6-15 cells HPF (0-5); Band 1 % (5-11); CellaVision Operator ID LAB.CLH1; Hypochromia SLIGHT = 6-15 cells HPF (0-5); Lymphocytes 10 % (21-51); Metamyelocyte 4 % (0-0); Monocytes 4 % (0-10); Neutrophil 80 % (42-75); Platelet Adequacy Comment Platelets Increased; Polychromasia MODERATE = 3-4 cells HPF (0-2); Reactive Lymphocytes 1 % (0-10); Total Cell Count 100
[2023-09-16] MEDS: Propofol 1,000 MG/100 ML VIAL IV PRN ×7 (04:51→23:54)
[2023-09-16 05:07] LABS: ALT (SGPT) 26 U/L (8-55); AST (SGOT) 24 U/L (5-34); Albumin 3.3 g/dL (3.5-5.0); Alkaline Phosphatase 99 U/L (40-110); Anion Gap 15 mmol/L (10-20); BUN (Urea Nitrogen) 47 mg/dL (8.9-20.6); Bilirubin, Total 0.5 mg/dL (0.2-1.2); Calc. Creatinine Clearance 107 mL/min (70-130); Calcium 8.6 mg/dL (7.8-10.44); Carbon Dioxide 26 mmol/L (22-29); Chloride 97 mmol/L (98-107); Estimated GFR 32; Globulin 4.9 g/dL (2.4-3.5); Glucose 413 mg/dL (70-105); Magnesium 2.6 mg/dL (1.6-2.6); Potassium 5.2 mmol/L (3.5-5.1); Protein, Total 8.2 g/dL (6.0-8.3); Sodium 133 mmol/L (136-145)
[2023-09-16] MEDS ORDERED: Lactated Ringer's 500 ML IV SCH (05:15)
[2023-09-16] MEDS ORDERED: Sodium Chloride 0.9% 500 ML IV SCH (05:15)
[2023-09-16] MEDS ORDERED: NOREPINEPHRINE 8 MG/250 ML-D5W 250 ML IVPB SCH (05:15)
[2023-09-16] MEDS ORDERED: Electrolyte Replacement Protocol 1 EACH FS ONE (05:22)
[2023-09-16 05:26] LABS: Actual Bicarbonate (HCO3a) 26.3 mEq/L (22-28); Base Excess (BEa) -0.6 mEq/L (-2.0 to +3.0); CO2 Tension 53.6 mmHg (35.0-45.0); Calcium, Ionized (arterial) 1.11 mmol/L (1.12-1.30); Carboxyhemoglobin (COHb) 1.3 gm% (0.0-3.0); Hematocrit-ABG 32 % (42.0-52.0); Hemoglobin (Hb) 10.9 g/dL (14.0-18.0); O2 Tension (PaO2), arterial 81.2 mmHg (80.0-100.0); pH, Arterial 7.308 (7.35-7.45)
[2023-09-16 05:27] LABS: Potassium - ABG Lab 6.17 mmol/L (3.70-5.30); Puncture Site RRA
[2023-09-16] MEDS: hydrALAZINE 25 MG TAB PO SCH ×3 (05:49→21:07)
[2023-09-16] MEDS: Isosorbide Dinitrate 20 MG TAB PO SCH ×3 (05:50→21:07)
[2023-09-16 05:54] LABS: Lactic Acid 1.4 mmol/L (0.5-2.2)
[2023-09-16] MEDS: HumaLOG 300 UNITS/3 ML VIAL SC PRN ×2 (06:41→08:35)
[2023-09-16] MEDS: dilTIAZem CD 180 MG CAP PO SCH (08:34)
[2023-09-16] MEDS: Insulin Glargine 30 UNITS/0.3 ML VIAL SC SCH ×2 (08:34→20:09)
[2023-09-16] MEDS: Pantoprazole 40 MG VIAL IVP SCH (08:34)
[2023-09-16] MEDS: Metoprolol Tartrate 25 MG TAB PO SCH ×2 (08:34→20:09)
[2023-09-16] MEDS: Dronedarone HCl 400 MG TAB PO SCH ×2 (08:34→17:28)
[2023-09-16] MEDS: Gabapentin 300 MG CAP PO SCH ×3 (08:34→20:08)
[2023-09-16] MEDS ORDERED: LOKELMA 10 GM PACKET PER TUBE SCH (09:30)
[2023-09-16] MEDS: Amitriptyline HCl 25 MG TAB PO SCH (20:07)
[2023-09-16] MEDS: Atorvastatin Calcium 20 MG TAB PO SCH (20:07)
[2023-09-17] MEDS: Propofol 1,000 MG/100 ML VIAL IV PRN ×9 (01:33→23:53)
[2023-09-17 03:59] LABS: #Basophils 0.1 thou/uL (0.0-0.2); #Eosinphils 0.1 thou/uL (0.0-0.7); #Monocytes 0.8 thou/uL (0.11-0.59); #Neutrophils 6.9 thou/uL (1.40-6.50); %Basophils 0.6 % (0.0-1.0); %Eosinophils 1.3 % (0.0-10.0); %Lymphocytes 25.7 % (21.0-51.0); %Monocytes 7.6 % (0.0-10.0); %Neutrophils 63.1 % (42.0-75.0); Hematocrit 32.1 % (42.0-52.0); Hemoglobin 10.1 g/dL (14.0-18.0); Mean Corpuscular HGB CONC 31.5 g/dL (32.0-36.0); Mean Corpuscular Hemoglobin 28.1 pg (27.0-31.0); Mean Platelet Volume 9.5 fL (7.4-10.4); Red Blood Cell (RBC) Count 3.59 mill/uL (4.70-6.10); White Blood Cell (WBC) Count 10.9 10x3/uL (4.8-10.8)
[2023-09-17 04:09] LABS: Mean Corpuscular Volume 89.4 fl (78.0-98.0); Platelet Count 248 10x3/uL (130-400)
[2023-09-17 04:23] LABS: ALT (SGPT) 13 U/L (8-55); AST (SGOT) 17 U/L (5-34); Albumin 2.6 g/dL (3.5-5.0); Alkaline Phosphatase 66 U/L (40-110); Anion Gap 12 mmol/L (10-20); BUN (Urea Nitrogen) 53 mg/dL (8.9-20.6); Bilirubin, Total 0.4 mg/dL (0.2-1.2); Calc. Creatinine Clearance 123 mL/min (70-130); Calcium 8.1 mg/dL (7.8-10.44); Carbon Dioxide 25 mmol/L (22-29); Chloride 101 mmol/L (98-107); Estimated GFR 37; Globulin 3.8 g/dL (2.4-3.5); Glucose 102 mg/dL (70-105); Potassium 4.8 mmol/L (3.5-5.1); Protein, Total 6.4 g/dL (6.0-8.3); Sodium 133 mmol/L (136-145)
[2023-09-17] MEDS: hydrALAZINE 25 MG TAB PO SCH ×3 (05:07→21:28)
[2023-09-17] MEDS: Isosorbide Dinitrate 20 MG TAB PO SCH ×3 (05:07→21:28)
[2023-09-17 07:26] LABS: Actual Bicarbonate (HCO3a) 25.4 mEq/L (22-28); Base Excess (BEa) 2.3 mEq/L (-2.0 to +3.0); CO2 Tension 34.4 mmHg (35.0-45.0); Carboxyhemoglobin (COHb) 0.5 gm% (0.0-3.0); Hematocrit-ABG 39 % (42.0-52.0); Hemoglobin (Hb) 13.2 g/dL (14.0-18.0); Potassium - ABG Lab 4.87 mmol/L (3.70-5.30); pH, Arterial 7.486 (7.35-7.45)
[2023-09-17 07:27] LABS: O2 Tension (PaO2), arterial 55.3 mmHg (80.0-100.0); Puncture Site RRA
[2023-09-17] MEDS: Pantoprazole 40 MG VIAL IVP SCH (09:52)
[2023-09-17] MEDS: dilTIAZem CD 180 MG CAP PO SCH (09:53)
[2023-09-17] MEDS: Dronedarone HCl 400 MG TAB PO SCH ×2 (09:53→17:45)
[2023-09-17] MEDS: Furosemide 40 MG/4 ML VIAL SLOW IVP SCH (09:53)
[2023-09-17] MEDS: Insulin Glargine 30 UNITS/0.3 ML VIAL SC SCH ×2 (09:53→21:32)
[2023-09-17] MEDS: Gabapentin 300 MG CAP PO SCH ×3 (09:53→21:26)
[2023-09-17] MEDS: Metoprolol Tartrate 25 MG TAB PO SCH ×2 (09:53→21:27)
[2023-09-17 09:57] VITALS: BMI 57.2
[2023-09-17] MEDS: Fentanyl CADD 100 ML IV SCH (12:50)
[2023-09-17] MEDS: Heparin 5,000 UNITS/ML VIAL SC SCH ×2 (15:13→21:25)
[2023-09-17] MEDS: Amitriptyline HCl 25 MG TAB PO SCH (21:25)
[2023-09-17] MEDS: Atorvastatin Calcium 20 MG TAB PO SCH (21:25)
[2023-09-18] MEDS: Propofol 1,000 MG/100 ML VIAL IV PRN ×9 (04:08→23:02)
[2023-09-18 05:11] LABS: #Basophils 0.1 thou/uL (0.0-0.2); #Eosinphils 0.2 thou/uL (0.0-0.7); #Monocytes 0.7 thou/uL (0.11-0.59); #Neutrophils 5.3 thou/uL (1.40-6.50); %Basophils 0.7 % (0.0-1.0); %Eosinophils 1.9 % (0.0-10.0); %Lymphocytes 26.2 % (21.0-51.0); %Monocytes 7.8 % (0.0-10.0); %Neutrophils 61.1 % (42.0-75.0); Hemoglobin 9.9 g/dL (14.0-18.0); Mean Corpuscular HGB CONC 30.9 g/dL (32.0-36.0); Mean Corpuscular Hemoglobin 27.7 pg (27.0-31.0); Mean Corpuscular Volume 89.6 fl (78.0-98.0); Mean Platelet Volume 9.7 fL (7.4-10.4); Platelet Count 243 10x3/uL (130-400); RBC Distribution Width 14.1 % (11.5-14.5); Red Blood Cell (RBC) Count 3.57 mill/uL (4.70-6.10); White Blood Cell (WBC) Count 8.6 10x3/uL (4.8-10.8)
[2023-09-18 05:39] LABS: ALT (SGPT) 11 U/L (8-55); AST (SGOT) 15 U/L (5-34); Albumin 2.6 g/dL (3.5-5.0); Alkaline Phosphatase 62 U/L (40-110); Anion Gap 12 mmol/L (10-20); BUN (Urea Nitrogen) 46 mg/dL (8.9-20.6); Bilirubin, Total 0.5 mg/dL (0.2-1.2); Calc. Creatinine Clearance 156 mL/min (70-130); Calcium 8.2 mg/dL (7.8-10.44); Carbon Dioxide 27 mmol/L (22-29); Chloride 103 mmol/L (98-107); Estimated GFR 50; Globulin 3.8 g/dL (2.4-3.5); Glucose 115 mg/dL (70-105); Potassium 4.3 mmol/L (3.5-5.1); Protein, Total 6.4 g/dL (6.0-8.3); Sodium 138 mmol/L (136-145)
[2023-09-18] MEDS: hydrALAZINE 25 MG TAB PO SCH ×3 (06:29→22:05)
[2023-09-18] MEDS: Isosorbide Dinitrate 20 MG TAB PO SCH ×3 (06:29→21:33)
[2023-09-18 06:40] LABS: Base Excess (BEa) 2.2 mEq/L (-2.0 to +3.0); CO2 Tension 48.4 mmHg (35.0-45.0); Calcium, Ionized (arterial) 1.11 mmol/L (1.12-1.30); Carboxyhemoglobin (COHb) 0.7 gm% (0.0-3.0); Hematocrit-ABG 36 % (42.0-52.0); Hemoglobin (Hb) 12.1 g/dL (14.0-18.0); O2 Tension (PaO2), arterial 68.9 mmHg (80.0-100.0); Potassium - ABG Lab 4.73 mmol/L (3.70-5.30)
[2023-09-18 06:42] LABS: Puncture Site RRA
[2023-09-18] MEDS: Fentanyl CADD 100 ML IV SCH (07:49)
[2023-09-18] MEDS ORDERED: Albumin 25% 25 GM/100 ML BOT IVPB SCH (08:15)
[2023-09-18] MEDS: Heparin 5,000 UNITS/ML VIAL SC SCH ×3 (10:07→21:07)
[2023-09-18] MEDS: Gabapentin 300 MG CAP PO SCH ×3 (10:07→21:08)
[2023-09-18] MEDS: Metoprolol Tartrate 25 MG TAB PO SCH ×2 (10:07→21:06)
[2023-09-18] MEDS: dilTIAZem CD 180 MG CAP PO SCH (10:07)
[2023-09-18] MEDS: Insulin Glargine 30 UNITS/0.3 ML VIAL SC SCH ×2 (10:08→21:37)
[2023-09-18] MEDS: Pantoprazole 40 MG VIAL IVP SCH (10:08)
[2023-09-18] MEDS: Furosemide 40 MG/4 ML VIAL SLOW IVP SCH (10:08)
[2023-09-18] MEDS: Dronedarone HCl 400 MG TAB PO SCH ×2 (10:10→16:07)
[2023-09-18] MEDS: Albumin 25% 25 GM/100 ML BOT IVPB SCH ×2 (13:29→17:58)
[2023-09-18 15:13] LABS: pH, Arterial 6.978 (7.35-7.45)
[2023-09-18 15:14] LABS: CO2 Tension 139.9 mmHg (35.0-45.0); O2 Tension (PaO2), arterial 55.1 mmHg (80.0-100.0)
[2023-09-18 15:15] LABS: Potassium - ABG Lab 6.18 mmol/L (3.70-5.30)
[2023-09-18] MEDS: Atorvastatin Calcium 20 MG TAB PO SCH (21:07)
[2023-09-18] MEDS: Amitriptyline HCl 25 MG TAB PO SCH (21:09)
[2023-09-19] MEDS: Fentanyl CADD 100 ML IV SCH ×2 (01:07→21:43)
[2023-09-19] MEDS: Propofol 1,000 MG/100 ML VIAL IV PRN ×9 (03:22→22:26)
[2023-09-19] MEDS: HumaLOG 300 UNITS/3 ML VIAL SC PRN ×3 (04:12→22:30)
[2023-09-19 04:28] LABS: #Basophils 0.1 thou/uL (0.0-0.2); #Eosinphils 0.2 thou/uL (0.0-0.7); #Monocytes 0.8 thou/uL (0.11-0.59); #Neutrophils 6.3 thou/uL (1.40-6.50); %Basophils 0.6 % (0.0-1.0); %Eosinophils 1.8 % (0.0-10.0); %Lymphocytes 22.6 % (21.0-51.0); %Monocytes 8.4 % (0.0-10.0); %Neutrophils 64.6 % (42.0-75.0); Hemoglobin 9.5 g/dL (14.0-18.0); Mean Corpuscular HGB CONC 30.6 g/dL (32.0-36.0); Mean Corpuscular Hemoglobin 27.5 pg (27.0-31.0); Mean Corpuscular Volume 89.9 fl (78.0-98.0); Mean Platelet Volume 9.8 fL (7.4-10.4); Platelet Count 221 10x3/uL (130-400); RBC Distribution Width 14.3 % (11.5-14.5); Red Blood Cell (RBC) Count 3.45 mill/uL (4.70-6.10); White Blood Cell (WBC) Count 9.7 10x3/uL (4.8-10.8)
[2023-09-19 04:54] LABS: Albumin 3.1 g/dL (3.5-5.0); Anion Gap 14 mmol/L (10-20); BUN (Urea Nitrogen) 45 mg/dL (8.9-20.6); BUN/Creatinine Ratio 24.73; Calc. Creatinine Clearance 150 mL/min (70-130); Calcium 8.3 mg/dL (7.8-10.44); Carbon Dioxide 27 mmol/L (22-29); Chloride 103 mmol/L (98-107); Estimated GFR 48; Glucose 189 mg/dL (70-105); Iron 14 ug/dL (65-175); Iron Binding Capacity, Total 165 mcg/dL (261-462); Phosphorus 4.7 mg/dL (2.3-4.7); Potassium 4.2 mmol/L (3.5-5.1); Sodium 140 mmol/L (136-145)
[2023-09-19] MEDS: Isosorbide Dinitrate 20 MG TAB PO SCH ×3 (05:32→22:26)
[2023-09-19] MEDS: hydrALAZINE 25 MG TAB PO SCH ×3 (05:32→22:26)
[2023-09-19 07:31] LABS: Actual Bicarbonate (HCO3a) 29.2 mEq/L (22-28); Base Excess (BEa) 6.1 mEq/L (-2.0 to +3.0); CO2 Tension 36.7 mmHg (35.0-45.0); Calcium, Ionized (arterial) 1.08 mmol/L (1.12-1.30); Carboxyhemoglobin (COHb) 0.3 gm% (0.0-3.0); Hematocrit-ABG 30 % (42.0-52.0); Hemoglobin (Hb) 10.2 g/dL (14.0-18.0); Potassium - ABG Lab 4.25 mmol/L (3.70-5.30); pH, Arterial 7.519 (7.35-7.45)
[2023-09-19 07:33] LABS: O2 Tension (PaO2), arterial 52.1 mmHg (80.0-100.0)
[2023-09-19 07:34] LABS: Puncture Site RRA
[2023-09-19] MEDS: Dronedarone HCl 400 MG TAB PO SCH ×2 (07:38→18:05)
[2023-09-19] MEDS: Furosemide 40 MG/4 ML VIAL SLOW IVP SCH ×2 (10:00→20:43)
[2023-09-19] MEDS: Insulin Glargine 30 UNITS/0.3 ML VIAL SC SCH ×2 (10:00→20:40)
[2023-09-19] MEDS: Gabapentin 300 MG CAP PO SCH ×3 (10:01→20:43)
[2023-09-19] MEDS: dilTIAZem CD 180 MG CAP PO SCH (10:01)
[2023-09-19] MEDS: Senokot S 8.6-50 MG TAB PO SCH ×2 (10:02→20:47)
[2023-09-19] MEDS: Metolazone 2.5 MG TAB PER TUBE SCH (10:02)
[2023-09-19] MEDS: Metoprolol Tartrate 25 MG TAB PO SCH ×2 (10:02→21:05)
[2023-09-19] MEDS: Heparin 5,000 UNITS/ML VIAL SC SCH ×3 (10:02→20:45)
[2023-09-19] MEDS: Polyethylene Glycol 3350 17 GM Packet PO SCH (10:03)
[2023-09-19] MEDS: Pantoprazole 40 MG VIAL IVP SCH (10:03)
[2023-09-19] MEDS: Metoclopramide HCl 10 MG/2 ML VIAL IVP SCH ×3 (10:07→20:44)
[2023-09-19] MEDS: Iron, Sodium Ferric Gluconate 250 MG in Sodium Chloride 0.9% 250 ML 250 ML IVPB SCH (11:31)
[2023-09-19] MEDS: Amitriptyline HCl 25 MG TAB PO SCH (20:47)
[2023-09-19] MEDS: Atorvastatin Calcium 20 MG TAB PO SCH (20:47)
[2023-09-20] MEDS: Propofol 1,000 MG/100 ML VIAL IV PRN ×10 (00:56→23:53)
[2023-09-20] MEDS: Metoclopramide HCl 10 MG/2 ML VIAL IVP SCH ×4 (03:51→21:07)
[2023-09-20] MEDS: HumaLOG 300 UNITS/3 ML VIAL SC PRN (04:41)
[2023-09-20 05:09] LABS: #Basophils 0.1 thou/uL (0.0-0.2); #Eosinphils 0.3 thou/uL (0.0-0.7); #Monocytes 0.9 thou/uL (0.11-0.59); #Neutrophils 7.5 thou/uL (1.40-6.50); %Basophils 0.6 % (0.0-1.0); %Eosinophils 2.4 % (0.0-10.0); %Lymphocytes 15.8 % (21.0-51.0); %Monocytes 8.7 % (0.0-10.0); %Neutrophils 70.3 % (42.0-75.0); Hemoglobin 9.7 g/dL (14.0-18.0); Mean Corpuscular HGB CONC 30.3 g/dL (32.0-36.0); Mean Corpuscular Hemoglobin 27.8 pg (27.0-31.0); Mean Corpuscular Volume 91.7 fl (78.0-98.0); Mean Platelet Volume 9.9 fL (7.4-10.4); Platelet Count 224 10x3/uL (130-400); RBC Distribution Width 14.4 % (11.5-14.5); Red Blood Cell (RBC) Count 3.49 mill/uL (4.70-6.10); White Blood Cell (WBC) Count 10.6 10x3/uL (4.8-10.8)
[2023-09-20 05:32] LABS: Anion Gap 14 mmol/L (10-20); BUN (Urea Nitrogen) 38 mg/dL (8.9-20.6); Calc. Creatinine Clearance 153 mL/min (70-130); Calcium 8.4 mg/dL (7.8-10.44); Carbon Dioxide 30 mmol/L (22-29); Chloride 102 mmol/L (98-107); Estimated GFR 49; Glucose 154 mg/dL (70-105); Potassium 4.1 mmol/L (3.5-5.1); Sodium 142 mmol/L (136-145)
[2023-09-20] MEDS: Isosorbide Dinitrate 20 MG TAB PO SCH (06:17)
[2023-09-20] MEDS: hydrALAZINE 25 MG TAB PO SCH (06:17)
[2023-09-20 07:24] LABS: Actual Bicarbonate (HCO3a) 31.4 mEq/L (22-28); Base Excess (BEa) 5.9 mEq/L (-2.0 to +3.0); CO2 Tension 49.8 mmHg (35.0-45.0); Calcium, Ionized (arterial) 1.09 mmol/L (1.12-1.30); Carboxyhemoglobin (COHb) 0.9 gm% (0.0-3.0); Hematocrit-ABG 31 % (42.0-52.0); Hemoglobin (Hb) 10.7 g/dL (14.0-18.0); Potassium - ABG Lab 4.09 mmol/L (3.70-5.30); pH, Arterial 7.417 (7.35-7.45)
[2023-09-20 07:26] LABS: O2 Tension (PaO2), arterial 58.4 mmHg (80.0-100.0); Puncture Site RRA
[2023-09-20] MEDS: Metoprolol Tartrate 25 MG TAB PO SCH ×2 (08:05→21:12)
[2023-09-20] MEDS: Senokot S 8.6-50 MG TAB PO SCH ×2 (08:05→21:09)
[2023-09-20] MEDS: dilTIAZem CD 180 MG CAP PO SCH (08:05)
[2023-09-20] MEDS: Pantoprazole 40 MG VIAL IVP SCH (08:06)
[2023-09-20] MEDS: Gabapentin 300 MG CAP PO SCH ×3 (08:07→21:07)
[2023-09-20] MEDS: Insulin Glargine 30 UNITS/0.3 ML VIAL SC SCH ×2 (08:07→21:10)
[2023-09-20] MEDS: Dronedarone HCl 400 MG TAB PO SCH ×2 (08:08→17:49)
[2023-09-20] MEDS: Metolazone 2.5 MG TAB PER TUBE SCH ×2 (08:08→10:01)
[2023-09-20] MEDS: Furosemide 40 MG/4 ML VIAL SLOW IVP SCH ×3 (08:12→21:07)
[2023-09-20] MEDS: Polyethylene Glycol 3350 17 GM Packet PO SCH (08:12)
[2023-09-20] MEDS: Heparin 5,000 UNITS/ML VIAL SC SCH ×3 (08:13→21:11)
[2023-09-20] MEDS ORDERED: Furosemide 40 MG/4 ML VIAL SLOW IVP SCH (08:45)
[2023-09-20] MEDS: Spironolactone 25 MG TAB PO SCH (10:01)
[2023-09-20] MEDS: Iron, Sodium Ferric Gluconate 250 MG in Sodium Chloride 0.9% 250 ML 250 ML IVPB SCH (11:43)
[2023-09-20] MEDS: Fentanyl CADD 100 ML IV SCH (18:11)
[2023-09-20] MEDS: Amitriptyline HCl 25 MG TAB PO SCH (21:09)
[2023-09-20] MEDS: Atorvastatin Calcium 20 MG TAB PO SCH (21:09)
[2023-09-21] MEDS: Propofol 1,000 MG/100 ML VIAL IV PRN ×6 (01:52→21:29)
[2023-09-21] MEDS: Metoclopramide HCl 10 MG/2 ML VIAL IVP SCH ×4 (01:54→20:27)
[2023-09-21 04:01] LABS: #Eosinphils 0.3 thou/uL (0.0-0.7); #Monocytes 0.8 thou/uL (0.11-0.59); #Neutrophils 5.6 thou/uL (1.40-6.50); %Basophils 0.4 % (0.0-1.0); %Lymphocytes 25.5 % (21.0-51.0); %Monocytes 8.4 % (0.0-10.0); %Neutrophils 60.5 % (42.0-75.0); Hematocrit 31.5 % (42.0-52.0); Hemoglobin 9.7 g/dL (14.0-18.0); Mean Corpuscular HGB CONC 30.8 g/dL (32.0-36.0); Mean Corpuscular Hemoglobin 27.7 pg (27.0-31.0); Mean Platelet Volume 9.9 fL (7.4-10.4); Platelet Count 216 10x3/uL (130-400); RBC Distribution Width 14.3 % (11.5-14.5); White Blood Cell (WBC) Count 9.2 10x3/uL (4.8-10.8)
[2023-09-21 04:22] LABS: Albumin 2.7 g/dL (3.5-5.0); Phosphorus 3.9 mg/dL (2.3-4.7)
[2023-09-21 04:23] LABS: Anion Gap 15 mmol/L (10-20); BUN (Urea Nitrogen) 37 mg/dL (8.9-20.6); Calc. Creatinine Clearance 148 mL/min (70-130); Calcium 8.5 mg/dL (7.8-10.44); Carbon Dioxide 32 mmol/L (22-29); Chloride 99 mmol/L (98-107); Estimated GFR 47; Glucose 118 mg/dL (70-105); Potassium 3.8 mmol/L (3.5-5.1); Sodium 142 mmol/L (136-145)
[2023-09-21] MEDS: Furosemide 40 MG/4 ML VIAL SLOW IVP SCH ×3 (06:08→20:25)
[2023-09-21 07:39] LABS: Actual Bicarbonate (HCO3a) 34.8 mEq/L (22-28); Base Excess (BEa) 10.7 mEq/L (-2.0 to +3.0); CO2 Tension 43.6 mmHg (35.0-45.0); Calcium, Ionized (arterial) 1.09 mmol/L (1.12-1.30); Carboxyhemoglobin (COHb) 1.4 gm% (0.0-3.0); Hematocrit-ABG 40 % (42.0-52.0); Hemoglobin (Hb) 13.6 g/dL (14.0-18.0); Potassium - ABG Lab 3.75 mmol/L (3.70-5.30)
[2023-09-21 07:40] LABS: O2 Tension (PaO2), arterial 52.3 mmHg (80.0-100.0); Puncture Site RRA
[2023-09-21] MEDS: Acetaminophen 325 MG TAB PO PRN ×2 (07:41→21:30)
[2023-09-21] MEDS: Insulin Glargine 30 UNITS/0.3 ML VIAL SC SCH ×2 (07:42→20:27)
[2023-09-21] MEDS: Polyethylene Glycol 3350 17 GM Packet PO SCH (07:43)
[2023-09-21] MEDS: Senokot S 8.6-50 MG TAB PO SCH ×2 (07:43→20:26)
[2023-09-21] MEDS: Dronedarone HCl 400 MG TAB PO SCH ×2 (07:43→18:06)
[2023-09-21] MEDS: Gabapentin 300 MG CAP PO SCH ×3 (07:44→20:26)
[2023-09-21] MEDS: Metolazone 2.5 MG TAB PER TUBE SCH (07:44)
[2023-09-21] MEDS: Spironolactone 25 MG TAB PO SCH (07:44)
[2023-09-21] MEDS: dilTIAZem CD 180 MG CAP PO SCH (07:45)
[2023-09-21] MEDS: Metoprolol Tartrate 25 MG TAB PO SCH ×2 (08:05→20:26)
[2023-09-21] MEDS: Heparin 5,000 UNITS/ML VIAL SC SCH ×3 (08:05→20:25)
[2023-09-21] MEDS: Spironolactone 100 MG TAB PO SCH (09:53)
[2023-09-21] MEDS: AcetaZOLAMIDE 250 MG TAB PO SCH ×2 (09:54→20:26)
[2023-09-21] MEDS: Iron, Sodium Ferric Gluconate 250 MG in Sodium Chloride 0.9% 250 ML 250 ML IVPB SCH (10:21)
[2023-09-21] MEDS: Lansoprazole 15 MG/5 ML (BATCHED)UDCUP PER TUBE SCH (11:32)
[2023-09-21] MEDS: Amitriptyline HCl 25 MG TAB PO SCH (20:25)
[2023-09-21] MEDS: Atorvastatin Calcium 20 MG TAB PO SCH (20:27)
[2023-09-21] MEDS: Fentanyl CADD 100 ML IV SCH (23:08)
[2023-09-22] MEDS: Propofol 1,000 MG/100 ML VIAL IV PRN ×3 (00:44→08:36)
[2023-09-22] MEDS: Metoclopramide HCl 10 MG/2 ML VIAL IVP SCH ×4 (02:14→21:54)
[2023-09-22 04:38] LABS: #Basophils 0.1 thou/uL (0.0-0.2); #Eosinphils 0.3 thou/uL (0.0-0.7); #Monocytes 0.9 thou/uL (0.11-0.59); #Neutrophils 6.3 thou/uL (1.40-6.50); %Basophils 0.6 % (0.0-1.0); %Lymphocytes 23.1 % (21.0-51.0); %Monocytes 8.6 % (0.0-10.0); %Neutrophils 62.8 % (42.0-75.0); Hematocrit 36.3 % (42.0-52.0); Hemoglobin 11.2 g/dL (14.0-18.0); Mean Corpuscular HGB CONC 30.9 g/dL (32.0-36.0); Mean Corpuscular Hemoglobin 27.7 pg (27.0-31.0); Mean Corpuscular Volume 89.6 fl (78.0-98.0); Mean Platelet Volume 9.9 fL (7.4-10.4); Platelet Count 234 10x3/uL (130-400); RBC Distribution Width 14.5 % (11.5-14.5); Red Blood Cell (RBC) Count 4.05 mill/uL (4.70-6.10)
[2023-09-22 05:06] LABS: Anion Gap 17 mmol/L (10-20); BUN (Urea Nitrogen) 37 mg/dL (8.9-20.6); Calc. Creatinine Clearance 135 mL/min (70-130); Calcium 8.9 mg/dL (7.8-10.44); Carbon Dioxide 32 mmol/L (22-29); Chloride 96 mmol/L (98-107); Estimated GFR 42; Glucose 146 mg/dL (70-105); Potassium 3.5 mmol/L (3.5-5.1); Sodium 141 mmol/L (136-145)
[2023-09-22] MEDS: Furosemide 40 MG/4 ML VIAL SLOW IVP SCH ×3 (05:44→21:55)
[2023-09-22 08:07] LABS: Actual Bicarbonate (HCO3a) 33.3 mEq/L (22-28); Base Excess (BEa) 9.3 mEq/L (-2.0 to +3.0); CO2 Tension 42.7 mmHg (35.0-45.0); Calcium, Ionized (arterial) 1.11 mmol/L (1.12-1.30); Carboxyhemoglobin (COHb) 0.8 gm% (0.0-3.0); Hematocrit-ABG 37 % (42.0-52.0); Hemoglobin (Hb) 12.5 g/dL (14.0-18.0); O2 Tension (PaO2), arterial 63.4 mmHg (80.0-100.0)
[2023-09-22 08:09] LABS: Puncture Site RRA
[2023-09-22] MEDS: Dronedarone HCl 400 MG TAB PO SCH ×2 (08:34→17:24)
[2023-09-22] MEDS: Gabapentin 300 MG CAP PO SCH ×3 (08:35→22:03)
[2023-09-22] MEDS: Spironolactone 100 MG TAB PO SCH (08:35)
[2023-09-22] MEDS: dilTIAZem CD 180 MG CAP PO SCH (08:35)
[2023-09-22] MEDS: Insulin Glargine 30 UNITS/0.3 ML VIAL SC SCH ×2 (08:36→21:53)
[2023-09-22] MEDS: Metoprolol Tartrate 25 MG TAB PO SCH ×2 (08:36→22:03)
[2023-09-22] MEDS: Polyethylene Glycol 3350 17 GM Packet PO SCH (08:37)
[2023-09-22] MEDS: Senokot S 8.6-50 MG TAB PO SCH ×2 (08:37→22:02)
[2023-09-22] MEDS: Lansoprazole 15 MG/5 ML (BATCHED)UDCUP PER TUBE SCH (08:42)
[2023-09-22] MEDS: Metolazone 2.5 MG TAB PER TUBE SCH (08:43)
[2023-09-22] MEDS: Heparin 5,000 UNITS/ML VIAL SC SCH ×3 (08:43→21:49)
[2023-09-22] MEDS ORDERED: Vancomycin 1 GM in Premix 1 BAG IVPB SCH (12:00)
[2023-09-22] MEDS: Acetaminophen 325 MG TAB PO PRN (12:33)
[2023-09-22] MEDS: Dexmedetomidine 400 MCG, Admixture Fee 1 EACH in Sodium Chloride 0.9% 96 ML IVPB SCH ×5 (12:33→23:35)
[2023-09-22] MEDS: Iron, Sodium Ferric Gluconate 250 MG in Sodium Chloride 0.9% 250 ML 250 ML IVPB SCH (12:35)
[2023-09-22] MEDS: HumaLOG 300 UNITS/3 ML VIAL SC PRN ×3 (12:39→21:51)
[2023-09-22] MEDS ORDERED: Vancomycin 2.5 GM in Sodium Chloride 0.9% 500 ML IVPB SCH (13:15)
[2023-09-22] MEDS: Cefepime 2 GM in Sodium Chloride 0.9% 100 ML IVPB SCH (21:56)
[2023-09-22] MEDS: Atorvastatin Calcium 20 MG TAB PO SCH (22:02)
[2023-09-22] MEDS: Amitriptyline HCl 25 MG TAB PO SCH (22:02)
[2023-09-23] MEDS: Acetaminophen 325 MG TAB PO PRN (00:19)
[2023-09-23] MEDS: Fentanyl CADD 100 ML IV SCH (00:34)
[2023-09-23] MEDS: Dexmedetomidine 400 MCG, Admixture Fee 1 EACH in Sodium Chloride 0.9% 96 ML IVPB SCH (01:51)
[2023-09-23] MEDS: HumaLOG 300 UNITS/3 ML VIAL SC PRN (03:37)
[2023-09-23] MEDS: Metoclopramide HCl 10 MG/2 ML VIAL IVP SCH ×3 (03:38→14:40)
[2023-09-23 03:51] LABS: #Eosinphils 0.2 thou/uL (0.0-0.7); #Monocytes 0.9 thou/uL (0.11-0.59); #Neutrophils 7.1 thou/uL (1.40-6.50); %Basophils 0.3 % (0.0-1.0); %Eosinophils 1.6 % (0.0-10.0); %Lymphocytes 20.6 % (21.0-51.0); %Monocytes 8.5 % (0.0-10.0); %Neutrophils 67.4 % (42.0-75.0); Hemoglobin 10.9 g/dL (14.0-18.0); Mean Corpuscular HGB CONC 30.3 g/dL (32.0-36.0); Mean Corpuscular Hemoglobin 27.3 pg (27.0-31.0); Mean Platelet Volume 9.8 fL (7.4-10.4); Platelet Count 217 10x3/uL (130-400); RBC Distribution Width 14.1 % (11.5-14.5); White Blood Cell (WBC) Count 10.6 10x3/uL (4.8-10.8)
[2023-09-23 04:14] LABS: Anion Gap 16 mmol/L (10-20); BUN (Urea Nitrogen) 39 mg/dL (8.9-20.6); Calc. Creatinine Clearance 125 mL/min (70-130); Calcium 8.9 mg/dL (7.8-10.44); Carbon Dioxide 32 mmol/L (22-29); Chloride 96 mmol/L (98-107); Estimated GFR 38; Glucose 245 mg/dL (70-105); Potassium 3.5 mmol/L (3.5-5.1); Sodium 140 mmol/L (136-145)
[2023-09-23] MEDS: Dexmedetomidine 1,000 MCG, Admixture Fee 1 EACH in Sodium Chloride 0.9% 250 ML 240 ML IVPB SCH ×2 (05:09→13:44)
[2023-09-23] MEDS: Furosemide 40 MG/4 ML VIAL SLOW IVP SCH (06:00)
[2023-09-23 07:15] LABS: Actual Bicarbonate (HCO3a) 30.8 mEq/L (22-28); Base Excess (BEa) 6.4 mEq/L (-2.0 to +3.0); CO2 Tension 42.7 mmHg (35.0-45.0); Calcium, Ionized (arterial) 1.13 mmol/L (1.12-1.30); Carboxyhemoglobin (COHb) 1.9 gm% (0.0-3.0); Hematocrit-ABG 51 % (42.0-52.0); Hemoglobin (Hb) 17.2 g/dL (14.0-18.0); Potassium - ABG Lab 3.58 mmol/L (3.70-5.30); pH, Arterial 7.476 (7.35-7.45)
[2023-09-23 07:20] LABS: Puncture Site RRA
[2023-09-23] MEDS: Insulin Glargine 30 UNITS/0.3 ML VIAL SC SCH (08:04)
[2023-09-23] MEDS: Cefepime 2 GM in Sodium Chloride 0.9% 100 ML IVPB SCH (08:07)
[2023-09-23] MEDS: Heparin 5,000 UNITS/ML VIAL SC SCH ×2 (08:09→14:39)
[2023-09-23] MEDS: Metoprolol Tartrate 25 MG TAB PO SCH (08:10)
[2023-09-23] MEDS: Dronedarone HCl 400 MG TAB PO SCH ×2 (08:10→14:39)
[2023-09-23] MEDS: Gabapentin 300 MG CAP PO SCH ×2 (08:10→14:39)
[2023-09-23] MEDS: Metolazone 2.5 MG TAB PER TUBE SCH (08:10)
[2023-09-23] MEDS: dilTIAZem CD 180 MG CAP PO SCH (08:10)
[2023-09-23] MEDS: Spironolactone 100 MG TAB PO SCH (08:10)
[2023-09-23] MEDS: Senokot S 8.6-50 MG TAB PO SCH (08:19)
[2023-09-23] MEDS: Polyethylene Glycol 3350 17 GM Packet PO SCH (08:20)
[2023-09-23] MEDS: Lansoprazole 15 MG/5 ML (BATCHED)UDCUP PER TUBE SCH (10:48)
[2023-09-23 12:19] VITALS: TEMP 99
[2023-09-23] MEDS ORDERED: Furosemide 40 MG/4 ML VIAL SLOW IVP SCH (14:00)
[2023-09-23] MEDS ORDERED: Vancomycin (BATCH) 2 GM in Premix 1 BAG IVPB SCH (14:00)
[2023-09-23] MEDS: Lorazepam 2 MG/ML VIAL SLOW IVP PRN ×2 (14:20→15:37)
[2023-09-23 14:36] VITALS: BP 137/79
== END 2023-09-23 15:33 | disposition hospice, inpatient (51) | DRG 270 ==
LOC: ERS 13:02 → ERHOLD 15:19 → 2NO 19:45 → OBSVTOIN 09-01 13:31 → CCU 09-16 04:15
PROVIDERS: ADMIT Internal Medicine; ATTEND Family Medicine
PROC: 4A133R1 Monitoring of Arterial Saturation, Peripheral, Percutaneous Approach (ICD-10-PCS; 2023-09-05)
PROC: 5A09357 Assistance with Respiratory Ventilation, Less than 24 Consecutive Hours, Continuous Positive Airway Pressure (ICD-10-PCS; 2023-09-09)
PROC: 30233J1 Transfusion of Nonautologous Serum Albumin into Peripheral Vein, Percutaneous Approach (ICD-10-PCS; 2023-09-09)
PROC: 0W9D4ZZ Drainage of Pericardial Cavity, Percutaneous Endoscopic Approach (ICD-10-PCS; principal; 2023-09-14)
PROC: 3E033XZ Introduction of Vasopressor into Peripheral Vein, Percutaneous Approach (ICD-10-PCS; 2023-09-15)
PROC: 0BH17EZ Insertion of Endotracheal Airway into Trachea, Via Natural or Artificial Opening (ICD-10-PCS; 2023-09-16)
PROC: 5A1955Z Respiratory Ventilation, Greater than 96 Consecutive Hours (ICD-10-PCS; 2023-09-16)
PROC: 05H633Z Insertion of Infusion Device into Left Subclavian Vein, Percutaneous Approach (ICD-10-PCS; 2023-09-22)
DX: I31.39 Other pericardial effusion (noninflammatory) (principal); I46.9 Cardiac arrest, cause unspecified; J96.01 Acute respiratory failure with hypoxia; N17.0 Acute kidney failure with tubular necrosis; J96.02 Acute respiratory failure with hypercapnia; J18.9 Pneumonia, unspecified organism; E87.20 Acidosis, unspecified; Z68.43 Body mass index [BMI] 50.0-59.9, adult; E87.1 Hypo-osmolality and hyponatremia; I48.0 Paroxysmal atrial fibrillation; I31.9 Disease of pericardium, unspecified; Z66 Do not resuscitate; Z51.5 Encounter for palliative care; E66.01 Morbid (severe) obesity due to excess calories; E11.22 Type 2 diabetes mellitus with diabetic chronic kidney disease; E11.40 Type 2 diabetes mellitus with diabetic neuropathy, unspecified; E87.5 Hyperkalemia; E11.51 Type 2 diabetes mellitus with diabetic peripheral angiopathy without gangrene; I11.0 Hypertensive heart disease with heart failure; N18.1 Chronic kidney disease, stage 1; Z79.899 Other long term (current) drug therapy; Z88.8 Allergy status to other drugs, medicaments and biological substances; Z79.4 Long term (current) use of insulin; Z79.82 Long term (current) use of aspirin; Z79.84 Long term (current) use of oral hypoglycemic drugs; Z89.512 Acquired absence of left leg below knee; Z89.511 Acquired absence of right leg below knee; Z98.890 Other specified postprocedural states
CPT/HCPCS: 36415; 36416; 36600; 71045; 71275; 76770; 80048; 80053; 80061; 80069; 81001; 82040; 82150; 82570; 82728; 82805; 83036; 83540; 83550; 83605; 83690; 83735; 83880; 83935; 84100; 84145; 84156; 84157; 84300; 84443; 84484; 84540; 84550; 84560; 85025; 85060; 85379; 87040; 87070; 87077; 87086; 87205; 88305; 89051; 89190; 93005; 93010; 93306; 94002; 94003; 94640; 94660; 94760; 96361; 96372; 96374; 96375; 96376; C9113; G0378; J0171; J0612; J0690; J0692; J1644; J1650; J1815; J1885; J1940; J2060; J2270; J2272; J2405; J2704; J2765; J2916; J3010; J3370; J3475; J3490; J7030; J7050; J7611; J7999; P9047; Q9967; S0020

== ENCOUNTER 2023-09-23 15:45 | Inpatient (IN) | payer MEDICARE, OTHER ==
[2023-09-23] MEDS ORDERED: Scopolamine 1 mg/72 hour Patch TOP SCH (16:00)
[2023-09-23 16:01] VITALS: TEMP 99
[2023-09-23] MEDS ORDERED: Glycopyrrolate 0.4 MG/ 2 ML VIAL SLOW IVP PRN (16:17)
[2023-09-23] MEDS ORDERED: Ondansetron PF 4 MG/2 ML Vial IVP PRN (16:18)
[2023-09-23] MEDS ORDERED: Lorazepam 2 MG/ML VIAL SLOW IVP PRN (16:18)
[2023-09-23] MEDS: Morphine 2 MG/ML VIAL SLOW IVP PRN ×2 (16:20→16:35)
[2023-09-23] MEDS ORDERED: Dexmedetomidine 400 MCG, Admixture Fee 1 EACH in Sodium Chloride 0.9% 96 ML IVPB SCH (16:45)
[2023-09-23] MEDS ORDERED: Morphine 4 MG/ML VIAL SLOW IVP SCH ×2 (16:45→17:00)
[2023-09-23] MEDS ORDERED: Lorazepam 2 MG/ML VIAL SLOW IVP SCH ×2 (16:45→17:00)
== END 2023-09-23 17:03 | disposition expired | DRG 951 ==
LOC: CCU 15:45
PROVIDERS: ADMIT Family Medicine; ATTEND Family Medicine
DX: Z51.5 Encounter for palliative care (principal); J96.01 Acute respiratory failure with hypoxia; J96.02 Acute respiratory failure with hypercapnia; I31.39 Other pericardial effusion (noninflammatory); I31.9 Disease of pericardium, unspecified; N17.9 Acute kidney failure, unspecified; I48.0 Paroxysmal atrial fibrillation; E11.9 Type 2 diabetes mellitus without complications; I46.9 Cardiac arrest, cause unspecified
CPT/HCPCS: J2060; J2270; J2272; J3490